=== PATIENT | female | born 1970 | race Caucasian/White ===

== ENCOUNTER 2019-12-01 09:00 | Emergency (ER) | payer OTHER, SELFPAY ==
--- NOTE | ~2019-12-01 | XR_ITS ---
EXAMINATION: XR hip BI 2V w AP pelvis DATE: 12/01/2019 10:32 INDICATION: Bilateral hip pain. TECHNIQUE: An anteroposterior view of the pelvis and 2 views of each hip were obtained. COMPARISON: CT abdomen and pelvis 05/08/2017 FINDINGS: There is lumbar levocurvature and severe spondylosis. No fracture. The hip joint spaces are normal. There is a benign bone island in left ischium. There are surgical clips in the pelvis. IMPRESSION: 1. Normal hips. 2. Severe lumbar spondylosis. Reviewed, dictated and finalized at location A.
--- NOTE | ~2019-12-01 | CT_ITS ---
EXAMINATION: CT lumbar spine wo con DATE: 12/01/2019 10:24 INDICATION: Low back injury. TECHNIQUE: Computed tomography (CT) of the lumbar spine was performed without intravenous contrast. A utomated exposure control and iterative reconstruction technique were employed. The dose-length produ ct was 1241.73 mGy-cm. COMPARISON: CT abdomen and pelvis 05/08/2017 FINDINGS: There is a 1 mm stone in right kidney. There is 6 degrees levocurvature of lumbar spine. Ve rtebral body heights are normal. There is mildly decreased disc height at L2-L3, severely decreased d isc height at L4-L5, and moderately decreased disc height at L5-S1. The following disc levels are spe cifically discussed: L1-L2: The disc does not extend beyond the endplate margin. There is mild bilateral facet joint osteo arthritis. There is no neural foraminal stenosis. There is no central canal stenosis. L2-L3: The disc is bulging. There is mild bilateral facet joint osteoarthritis. There is mild bilater al neural foraminal stenosis. There is mild central canal stenosis. L3-L4: The disc is bulging. There is moderate right and mild left facet joint osteoarthritis. There i s mild bilateral neural foraminal stenosis. There is mild central canal stenosis. L4-L5: The disc is bulging. There is severe bilateral facet joint osteoarthritis. There is mild right and moderate left neural foraminal stenosis. There is mild central canal stenosis. L5-S1: The disc is bulging. There is severe bilateral facet joint osteoarthritis. There is mild bilat eral neural foraminal stenosis. There is mild central canal stenosis. IMPRESSION: 1. Severe lumbar spondylosis. Reviewed, dictated and finalized at location A.
[2019-12-01 09:04] VITALS: BP 149/79; PULSE 83; RESP 18; TEMP 36.8; O2SAT 100
--- NOTE | 2019-12-01 09:14 | ED.GENADULT ---
HPI - General Adult General Chief complaint: Unspecified Stated complaint: flare up Time Seen by Provider: 12/01/19 09:14 Source: patient Mode of arrival: ambulatory Limitations: no limitations History of Present Illness HPI narrative: Patient is a 49-year-old female with a history of mixed connective tissue disease who presents for evaluation of flareup. Patient reports her hips feel as if they are burning, she states she is having a flareup. She denies any fever, chills, nausea or vomiting. She denies any rash, redness over the joint spaces. Patient is currently on Plaquenil for maintenance of her connective tissue disease, she denies any current steroids, but states she typically takes these when she is beginning to have a flareup. She denies any recent falls or injuries. No dysuria or hematuria. She follows with Dr. HOWARD at [facility] rheumatology. Related Data Home Medications Medication Instructions Recorded Confirmed albuterol sulfate 90 mcg/actuation 2 inhalation INHALATION Q6H PRN 11/14/19 breath activated powder inhaler amlodipine 5 mg tablet 5 mg PO DAILY 11/14/19 bupropion HCl 150 mg 24 hr tablet, 150 mg PO QAM 11/14/19 extended release cholecalciferol (vitamin D3) 125 125 mcg PO DAILY 11/14/19 mcg (5,000 unit) capsule clobetasol 0.05 % topical cream 1 applic TOPICAL DAILY 11/14/19 erenumab-aooe 70 mg/mL 70 mg SUB-Q MONTHLY 11/14/19 subcutaneous auto-injector eszopiclone 3 mg tablet 3 mg PO ONCE 11/14/19 gabapentin 600 mg tablet 600 mg PO TID 11/14/19 hydrochlorothiazide 25 mg tablet 25 mg PO DAILY 11/14/19 hydroxychloroquine 200 mg tablet 200 mg PO DAILY 11/14/19 labetalol 100 mg tablet 100 mg PO Q12H 11/14/19 lisdexamfetamine 50 mg capsule 50 mg PO DAILY 11/14/19 lisinopril 40 mg tablet 40 mg PO DAILY 11/14/19 magnesium 30 mg tablet 30 mg PO DAILY 11/14/19 montelukast 10 mg tablet 10 mg PO DAILY 11/14/19 ondansetron HCl 4 mg tablet 4 mg PO Q8H 11/14/19 potassium chloride 10 mEq 10 meq PO DAILY 03/24/20 capsule,extended release promethazine 25 mg tablet 25 mg PO Q6H PRN 11/14/19 sumatriptan succinate 100 mg tablet 100 mg PO ONCE 11/14/19 venlafaxine 75 mg tablet 75 mg PO DAILY 11/14/19 Allergies Allergy/AdvReac Type Severity Reaction Status Date / Time prochlorperazine Allergy Mild loopy Verified 11/21/19 12:21 adhesive Allergy Hives Verified 11/21/19 12:21 metoclopramide [From Reglan] Allergy Other Verified 11/21/19 12:21 Review of Systems Review of Systems: Narrative: CONSTITUTIONAL: Denies fever, chills, or sweats. ENT: Denies rhinorrhea, congestion, sore throat, or otalgia. CARDIOVASCULAR: Denies chest pain, palpitations, or edema. RESPIRATORY: Denies cough or dyspnea. GASTROINTESTINAL: Denies abdominal pain, nausea, vomiting, or diarrhea. GENITOURINARY: Denies dysuria or hematuria. SKIN: Denies rash or itching. MUSCULOSKELETAL: Reports back pain, reports bilateral hip pain, denies myalgias NEUROLOGIC: Denies headache, numbness, or weakness. [facility] Past Medical History Medical History Asthma High blood pressure History of MRSA infection Mild depression Mixed connective tissue disease Surgical History Surgical History H/O: hysterectomy History of arthroplasty of right knee History of tonsillectomy Hx of nasal septoplasty Social History Social History Smoking status: Never smoker Second hand tobacco smoke exposure: No Alcohol intake: never Gender identity (if verbalized by the patient): Female Exam Narrative: Exam Narrative: GENERAL: Awake, alert, conversant HEAD: Normocephalic, atraumatic. EYES: PERRLA and EOMI. ENT: Nares clear, no rhinorrhea or epistaxis. Mucous membranes moist. NECK: Supple. CHEST: No respiratory distress, breathing even and non labored HEART: Regular ra
[2019-12-01 09:41] LABS: Basophils Absolute Auto 0.1 K/mm3 (0.0-0.1); Basophils Percent Auto 0.6 % (0.2-1.2); Eosinophils Percent Auto 0.2 % (0-4.4); Hematocrit 39.7 % (37.0-47.0); Hemoglobin 12.8 g/dL (12.0-15.0); Immature Granulocyte Absolute 0.05 K/mm3 (0.00-0.031); Immature Granulocyte Percent A 0.4 % (0-0.5); Lymphocytes Absolute Auto 1.57 K/mm3 (0.9-3.2); Lymphocytes Percent Auto 12.1 % (18.3-44.2); Mean Corpuscular HGB Conc 32.2 g/dl (32-36); Mean Corpuscular Hemoglobin 28.3 pg (26-34); Mean Corpuscular Volume 87.6 fl (80-100); Mean Platelet Volume 9.8 fl (7.4-10.4); Monocytes Absolute Auto 0.6 K/mm3 (0.1-0.6); Monocytes Percent Auto 4.5 % (2.6-8.5); Neutrophils Absolute Auto 10.7 K/mm3 (1.3-6.7); Neutrophils Percent Auto 82.2 % (45.5-73.1); Platelet Count Result 316 k/mm3 (150-375); Red Blood Count 4.53 M/mm3 (4.2-5.4); Red Cell Distribution Width 13.3 % (11.5-14.5)
[2019-12-01 09:57] LABS: Blood Urea Nitrogen 20 mg/dL (7-17); CRP < 0.5 mg/dL (<1.0); Calcium 9.3 mg/dL (8.4-10.2); Carbon Dioxide 26 mmol/L (22-30); Chloride 103 mmol/L (98-107); Estimated CRCL calculation 98 ml/min; Estimated Glomerular Filt Rate > 60; Glucose 97 mg/dL (65-105); Potassium 3.6 mmol/L (3.4-5.0); Sodium 139 mmol/L (137-145)
[2019-12-01 10:07] LABS: Erythrocyte Sedimentation Rate 14 mm/hr (0-20)
[2019-12-01 10:57] VITALS: BP 137/92; PULSE 98; RESP 20; TEMP 36.7; O2SAT 100
== END 2019-12-01 11:28 | disposition home or self-care (01) ==
PROVIDERS: Emergency Provider Emergency Medicine
DX: M35.1 Other overlap syndromes (principal); M25.552 Pain in left hip; M25.551 Pain in right hip; M54.5 Low back pain; J45.909 Unspecified asthma, uncomplicated; Z86.14 Personal history of Methicillin resistant Staphylococcus aureus infection; F32.9 Major depressive disorder, single episode, unspecified; I10 Essential (primary) hypertension; M47.816 Spondylosis without myelopathy or radiculopathy, lumbar region
CPT/HCPCS: 36415; 72131; 73521; 80048; 85025; 85652; 86140; 96374; 99284; J1100

== ENCOUNTER 2020-02-26 14:11 | Outpatient (CLI) | payer OTHER, SELFPAY ==
[2020-02-26 15:22] LABS: Basophils Absolute Auto 0.1 K/mm3 (0.0-0.1); Basophils Percent Auto 1.4 % (0.2-1.2); Eosinophils Absolute Auto 0.2 K/mm3 (0-0.3); Eosinophils Percent Auto 2.2 % (0-4.4); Hematocrit 40.8 % (37.0-47.0); Hemoglobin 13.4 g/dL (12.0-15.0); Immature Granulocyte Absolute 0.02 K/mm3 (0.00-0.031); Immature Granulocyte Percent A 0.2 % (0-0.5); Lymphocytes Percent Auto 21.7 % (18.3-44.2); Mean Corpuscular HGB Conc 32.8 g/dl (32-36); Mean Corpuscular Hemoglobin 29.1 pg (26-34); Mean Corpuscular Volume 88.5 fl (80-100); Monocytes Absolute Auto 0.6 K/mm3 (0.1-0.6); Monocytes Percent Auto 6.2 % (2.6-8.5); Neutrophils Absolute Auto 6.9 K/mm3 (1.3-6.7); Neutrophils Percent Auto 68.3 % (45.5-73.1); Platelet Count Result 374 k/mm3 (150-375); Red Blood Count 4.61 M/mm3 (4.2-5.4); Red Cell Distribution Width 13.2 % (11.5-14.5); White Blood Count 10.1 K/mm3 (4.5-10.0)
[2020-02-26 15:32] LABS: Hemoglobin A1C 5.3 % (<5.7)
[2020-02-26 15:34] LABS: Blood Urea Nitrogen 20 mg/dL (7-17); Calcium 9.7 mg/dL (8.4-10.2); Carbon Dioxide 27 mmol/L (22-30); Chloride 100 mmol/L (98-107); Estimated Glomerular Filt Rate > 60; Glucose 86 mg/dL (65-105); Potassium 3.8 mmol/L (3.4-5.0); Sodium 138 mmol/L (137-145)
[2020-02-26 15:37] LABS: Urine Cotinine NEGATIVE
== END 2020-02-26 14:12 | disposition home or self-care (01) ==
LOC: ANHSURGERY 14:13
PROVIDERS: Anesthesiology; PCP Internal Medicine; Visit Provider Orthopaedic Surgery
DX: M17.11 Unilateral primary osteoarthritis, right knee (principal); I10 Essential (primary) hypertension
CPT/HCPCS: 36415; 80048; 80307; 82040; 83036; 85025; 86850; 86900; 86901

== ENCOUNTER 2020-03-04 00:46 | Outpatient (CLI) | payer OTHER, SELFPAY ==
[2020-03-04 18:41] LABS: SARS-CoV-2 RNA PCR Negative
== END 2020-03-04 00:47 | disposition home or self-care (01) ==
LOC: ANHCOVIDDT 00:47
PROVIDERS: Visit Provider Orthopaedic Surgery
DX: M17.11 Unilateral primary osteoarthritis, right knee (principal)
CPT/HCPCS: 87635; C9803; U0003

== ENCOUNTER 2020-03-07 15:35 | Observation (INO) | payer OTHER, SELFPAY ==
[2020-02-26 15:02] VITALS: BMI 36.3
[2020-02-26 15:14] VITALS: BP 129/71; PULSE 75; RESP 18; TEMP 36.8; O2SAT 100
--- NOTE | 2020-02-29 10:10 | PM.IMHP ---
H&P: HPI History of Present Illness Chief complaint: OA Right Knee Narrative: Joyce Tompkins is a 49 year old female Who presents with a chronic history of right knee pain. She has pain with ambulation she has started pain wrist pain and night pain. Cannot stand or walk for long periods is aching and pain that limits her daily activities. Pain is worse with activities somewhat relieved by rest. It has been going on for many years and worsening with time. X-rays do show advanced primary osteoarthritis in the right knee joint. At this point patient has failed conservative measures including cortisone therapy and anti-inflammatories and has discussed further treatment options in detail with Dr. Landrum she would now like to proceed with a right total knee arthroplasty. Review of Systems Review of Systems: All systems reviewed & are unremarkable except as noted in HPI and below PMFSH Past Medical History Medical History Asthma High blood pressure History of MRSA infection Mild depression Mixed connective tissue disease Surgical History Surgical History H/O: hysterectomy History of arthroplasty of right knee History of tonsillectomy Hx of nasal septoplasty Social History Social History Smoking status: Never smoker Second hand tobacco smoke exposure: No Additional smoking assessment comments: DENIES ANY FORM OF TOBACCO USE Alcohol intake: never Substance use: never Gender identity (if verbalized by the patient): Female Spiritual care concerns: No Meds Home Medications and Allergies Home Medications Medication Instructions Recorded Confirmed Type albuterol sulfate 90 mcg/actuation 2 inhalation INHALATION Q6H PRN 11/14/19 02/26/20 History breath activated powder inhaler amlodipine 5 mg tablet 5 mg PO DAILY 11/14/19 02/26/20 History bupropion HCl 150 mg 24 hr tablet, 150 mg PO BID 11/14/19 02/26/20 History extended release cholecalciferol (vitamin D3) 125 50,000 mcg PO WEEKLY 11/14/19 02/26/20 History mcg (5,000 unit) capsule clobetasol 0.05 % topical cream 1 applic TOPICAL DAILY PRN 11/14/19 02/26/20 History erenumab-aooe 70 mg/mL 70 mg SUB-Q MONTHLY 11/14/19 02/26/20 History subcutaneous auto-injector eszopiclone 3 mg tablet 3 mg PO HS 11/14/19 02/26/20 History gabapentin 600 mg tablet 600 mg PO TID 11/14/19 02/26/20 History hydrochlorothiazide 25 mg tablet 25 mg PO DAILY 11/14/19 02/26/20 History hydroxychloroquine 200 mg tablet 200 mg PO BID 11/14/19 02/26/20 History labetalol 100 mg tablet 100 mg PO Q12H 11/14/19 02/26/20 History lisdexamfetamine 50 mg capsule 50 mg PO PRN PRN 11/14/19 02/26/20 History lisinopril 40 mg tablet 40 mg PO DAILY 11/14/19 02/26/20 History magnesium 30 mg tablet 250 mg PO DAILY 11/14/19 02/26/20 History montelukast 10 mg tablet 10 mg PO DAILY 11/14/19 02/26/20 History ondansetron HCl 4 mg tablet 4 mg PO PRN PRN 11/14/19 02/26/20 History potassium chloride 10 mEq 10 meq PO DAILY 11/14/19 02/26/20 History capsule,extended release promethazine 25 mg tablet 25 mg PO Q6H PRN 11/14/19 02/26/20 History sumatriptan succinate 100 mg tablet 100 mg PO PRN PRN 11/14/19 02/26/20 History venlafaxine 75 mg tablet 75 mg PO DAILY 11/14/19 02/26/20 History alprazolam 0.5 mg PO PRN PRN 02/26/20 02/26/20 History hydrocodone-acetaminophen [[place]] 1 tablet PO Q8H PRN 02/26/20 02/26/20 History levothyroxine 25 mcg PO DAILY 02/26/20 02/26/20 History Allergies Allergy/AdvReac Type Severity Reaction Status Date / Time prochlorperazine Allergy Mild loopy Verified 02/26/20 15:44 adhesive Allergy Hives/ITCHI Verified 02/26/20 14:21 NG metoclopramide [From Reglan] Allergy LOOPY Verified 02/26/20 14:21 Exam Narrative: Exam Narrative: patient is a well-developed well-nourished female no acute distress she is alert and
[2020-03-06] VITALS (15 sets, daily range): BP systolic 97–119; BP diastolic 54–76; PULSE 55–79; RESP 10–24; TEMP 35.7–36.8; O2SAT 93–99
--- NOTE | 2020-03-06 05:55 | ECG_ITS ---
Measurements Intervals [place] Rate: 65 P: 27 AL: 155 QRS: -3 QRSD: 110 T: 5 QT: 435 QTc: 454 Interpretive Statements SINUS RHYTHM INCOMPLETE RIGHT BUNDLE BRANCH BLOCK VOLTAGE CRITERIA FOR LVH BORDERLINE T WAVE ABNORMALITY- INFERIOR LEADS BASELINE ARTIFACT- I, II, V1 BORDERLINE ECG Electronically Signed On 03-06-2020 8:09:37 CDT by Jonathon Barnhart D.O.
[2020-03-06] MEDS: LACTATED RINGERS 1,000 ML 30 ML IV CONT ×2 (06:40→09:09)
[2020-03-06] MEDS: KETOROLAC 15 MG/ML VIAL (*BKC) IV PUSH (06:55)
[2020-03-06] MEDS: ACETAMINOPHEN 500 MG TABLET 1000 MG PO (06:55)
[2020-03-06] MEDS: TRANEXAMIC ACID 1,000MG/ISO100 1,000 MG/100 ML BAG 200 MG IVPB (06:59)
--- NOTE | 2020-03-06 07:11 | WPDANESEPPF ---
Anes - Initial Pre Proc Eval Procedure: Operation Date: 03/06/20 07:30 Proposed Procedures p Right Total Knee Arthroplasty - Bakari Landrum MD Date/Time: 03/06/20 07:11 Surgeon: Bakari Landrum MD Pre Op Diagnosis: OA Right Knee Patient Data Age: 49 Gender: F Height: 5 ft 6 in Weight: 103.2 kg Last Vital Signs Temp 36.7 C 03/06/20 07:01 Pulse 66 03/06/20 07:01 Resp 18 02/26/20 15:14 BP 97/59 L 03/06/20 07:01 Pulse Ox 98 03/06/20 07:01 Allergies Allergy/AdvReac Type Severity Reaction Status Date / Time prochlorperazine Allergy Mild loopy Verified 02/26/20 15:44 adhesive Allergy Hives/ITCHI Verified 02/26/20 14:21 NG metoclopramide [From Reglan] Allergy LOOPY Verified 02/26/20 14:21 Home Medications Medication Instructions Recorded Confirmed Type albuterol sulfate 90 mcg/actuation 2 inhalation INHALATION Q6H PRN 11/14/19 03/06/20 History breath activated powder inhaler amlodipine 5 mg tablet 5 mg PO DAILY 11/14/19 03/06/20 History bupropion HCl 150 mg 24 hr tablet, 150 mg PO BID 11/14/19 03/06/20 History extended release cholecalciferol (vitamin D3) 125 50,000 mcg PO WEEKLY 11/14/19 03/06/20 History mcg (5,000 unit) capsule clobetasol 0.05 % topical cream 1 applic TOPICAL DAILY PRN 11/14/19 03/06/20 History erenumab-aooe 70 mg/mL 70 mg SUB-Q MONTHLY 11/14/19 03/06/20 History subcutaneous auto-injector eszopiclone 3 mg tablet 3 mg PO HS 11/14/19 03/06/20 History gabapentin 600 mg tablet 600 mg PO TID 11/14/19 03/06/20 History hydrochlorothiazide 25 mg tablet 25 mg PO DAILY 11/14/19 03/06/20 History hydroxychloroquine 200 mg tablet 200 mg PO BID 11/14/19 03/06/20 History labetalol 100 mg tablet 100 mg PO Q12H 11/14/19 03/06/20 History lisdexamfetamine 50 mg capsule 50 mg PO PRN PRN 11/14/19 02/26/20 History lisinopril 40 mg tablet 40 mg PO DAILY 11/14/19 03/06/20 History magnesium 30 mg tablet 250 mg PO DAILY 11/14/19 03/06/20 History montelukast 10 mg tablet 10 mg PO DAILY 11/14/19 03/06/20 History ondansetron HCl 4 mg tablet 4 mg PO PRN PRN 11/14/19 03/06/20 History potassium chloride 10 mEq 10 meq PO DAILY 11/14/19 03/06/20 History capsule,extended release promethazine 25 mg tablet 25 mg PO Q6H PRN 11/14/19 02/26/20 History sumatriptan succinate 100 mg tablet 100 mg PO PRN PRN 11/14/19 03/06/20 History venlafaxine 75 mg tablet 75 mg PO DAILY 11/14/19 03/06/20 History alprazolam 0.5 mg PO PRN PRN 02/26/20 03/06/20 History hydrocodone-acetaminophen [[place]] 1 tablet PO Q8H PRN 02/26/20 03/06/20 History levothyroxine 25 mcg PO DAILY 02/26/20 03/06/20 History baclofen 10 mg PO TID 03/06/20 03/06/20 History diphenoxylate-atropine [Lomotil] 1 tablet PO TID PRN 03/06/20 03/06/20 History Patient hx anesthesia problems: none Family hx anesthesia problems: none PMFSH Past Medical History Medical History Asthma High blood pressure History of MRSA infection Mild depression Mixed connective tissue disease Surgical History Surgical History H/O: hysterectomy History of arthroplasty of right knee History of tonsillectomy Hx of nasal septoplasty Social History Social History Smoking status: Never smoker Second hand tobacco smoke exposure: No Additional smoking assessment comments: DENIES ANY FORM OF TOBACCO USE Alcohol intake: never Substance use: never Living arrangements: other Gender identity (if verbalized by the patient): Female Spiritual care concerns: No Anes - Eval Final PreProcedure Day of Procedure 03/06/20 07:11 Patient weight: obese Heart: regular rate and rhythm Lungs: clear to auscultation Airway: Mallampati scale class II Neurological: alert and oriented Last oral intake: >/= 8 hours ASA classification: III Emergent: no Anesthetic plan: proceed Anesthesia type an
--- NOTE | 2020-03-06 07:14 | WPDHPUPDATE1 ---
History and Physical Update Update Date/Time: 03/06/20 07:14 History and Physical has been reviewed, including an updated exam of the patient. There are NO changes in the patient's condition. Risks, benefits, and alternatives have been discussed and questions answered. Patient agrees to proceed with procedure.
--- NOTE | 2020-03-06 07:19 | WPDANESPNB ---
Anes - Peripheral Nerve Block Date/Time: 03/06/20 07:19 I have discussed with the patient/family/POA the placement of a peripheral nerve block for post-operative pain management, including associated risks, benefits, complications, and side effects. Alternative methods of post-operative analgesia were detailed. Questions were solicited and answers provided to the satisfaction of the patient/family/POA. Time-Out: A pre-procedural Time-Out was completed immediately before starting the procedure and confirmed: Patient Identification, Site, Procedure, Patient Position and the Availability of Requisite Equipment. Clinical Indications: Acute post-operative pain management requested by the operative surgeon. Nerve Block Insertion Note Anes-nerve block: femoral right Needle: 22 gauge, stimulating, insulated echogenic needle. Needle length: 50 mm Technique: nerve stimulation lost at (mA) (0.35) Injectate: bupivacaine 0.5% with epi 5 mcg/ml (30) and dexamethasone (mg) (8) Observations: tolerated well Complications: none Procedure start time:: 709 Procedure end time:: 716
[2020-03-06] MEDS: ceFAZolin 2 GM/D5W 50 ML 2 GM/50 ML BAG IVPB (07:26)
[2020-03-06] MEDS: GENTAMICIN BONE CEMENT REFOBACIN 1 EACH TOPICAL (07:43)
--- NOTE | 2020-03-06 08:37 | P.OP_ITS ---
Procedure Note - Detailed Date of procedure: 03/06/20 Pre-op diagnosis: OA Right Knee Post-op diagnosis: same Procedure performed: [Right] total knee arthroplasty Description of procedure: The patient was brought to the operating room. General anesthetic was administered. Placed on the operating table and sterilely prepped and draped in usual manner. A longitudinal incision was made. Tourniquet inflated to 300 mmHg for a total of [time] minutes. Dissection carried down to the fascia. Medial parapatellar incision was made and the patella subluxated laterally. Patella cut from [23] to [15] mm and sized for a [37] mm button. The tibia cut perpendicular to the long axis and femur cut in 5 degrees of valgus, a [65] femur trialed. [67] tibia was felt to fit the best. The soft tissue balanced, hemostasis obtained. All [address], [67] tibia, [65] femur, [37] mm patella, and [10] mm poly. Motion was 0-125 degrees with good stablility and flexion and extension. The wound was closed with #2 vicryl, 2-0 Vicryl and shreya. Anesthesia: GETA Surgeon: Bakari Landrum MD Costume Design Teacher: Joseph Fontaine Estimated blood loss (mL): 200 Drains: No Packing: No Pathology: none sent Complications: No immediate complications Condition: stable Disposition: PACU Findings: arthritis
--- NOTE | 2020-03-06 08:38 | SUR.OPER ---
EBL: 100ML
--- NOTE | 2020-03-06 09:36 | SUR.PHASEI ---
0935 radiology at bedside for ap/lat of lt knee
--- NOTE | 2020-03-06 10:03 | SUR.PHASEI ---
1002 sbar faxed floor notified
[2020-03-06] MEDS: oxyCODONE/ACETAMINOPHEN 5-325 MG TABLET 1 TABLET PO ×3 (10:56→23:50)
--- NOTE | 2020-03-06 11:02 | ADMGEN ---
This patient, Joyce Tompkins, was admitted to 2 Medical Room 241-01. Patient/family oriented to hospital policies and general routines including ID bracelet, bed and alarms, visiting hours, pain management, procedures, bathroom and other care routines, personal items, smoking policy, room service/diet, and visiting hours. Valuables list has been completed. Information on how to activate the Rapid Response Team has been discussed. Patient/Family are encouraged to report perceived risks to care and to ask questions if they do not understand what they are told or what they should do.
[2020-03-06] MEDS: SODIUM CHLORIDE 0.9% IV 1,000 ML 125 ML IV CONT ×2 (11:15→20:02)
[2020-03-06] MEDS: MORPHINE SULFATE 4 MG/ML INJ IV PUSH ×5 (11:17→23:10)
[2020-03-06] MEDS: hydroCHLOROthiazide 25 MG TABLET PO (12:07)
[2020-03-06] MEDS: lisinopriL 20 MG TABLET 40 MG PO (12:07)
[2020-03-06] MEDS: GABAPENTIN 300 MG CAPSULE 600 MG PO ×2 (13:31→21:53)
[2020-03-06] MEDS: BACLOFEN 10 MG TABLET PO ×2 (13:31→21:52)
[2020-03-06] MEDS: ALPRAZolam 0.5 MG TABLET PO ×2 (13:34→20:09)
[2020-03-06] MEDS: PROMETHAZINE HCL 25 MG TABLET PO ×2 (13:35→23:16)
--- NOTE | 2020-03-06 13:52 | PCPTNOTE ---
Attempted PT evaluation. Pt refusing therapy at this time secondary to pain. Spoke with pts nurse, Aldo, who states she has paged Dr. Landrum and will call me with an update when she hears back.
[2020-03-06] MEDS: CYCLOBENZAPRINE HCL 10 MG TABLET PO ×2 (14:08→21:51)
[2020-03-06] MEDS: CELECOXIB 200 MG CAPSULE 400 MG PO (16:01)
[2020-03-06] MEDS: RIVAROXABAN 10 MG TABLET PO (16:01)
[2020-03-06] MEDS: HYDROXYCHLOROQUINE SULFATE 200 MG TABLET PO (16:01)
[2020-03-06] MEDS: DOCUSATE SODIUM 100 MG CAPSULE PO (20:04)
[2020-03-06] MEDS: LABETALOL HCL 100 MG TABLET PO (20:04)
[2020-03-06] MEDS: traMADol HCL 50 MG TABLET PO (21:52)
[2020-03-07] VITALS (9 sets, daily range): BP systolic 108–134; BP diastolic 52–73; PULSE 72–100; RESP 16–22; TEMP 36.1–36.6; O2SAT 96–100
--- NOTE | ~2020-03-07 | XR_ITS ---
EXAMINATION: XR knee RT 2V DATE: 03/06/2020 09:43 CDT INDICATION: Right total knee arthroplasty TECHNIQUE: 2 views right knee FINDINGS: There is a right total knee arthroplasty in expected position. Subcutaneous gas with fluid and air in the joint and overlying skin shreya are consistent with recent surgery. No evidence of p eriprosthetic fracture. IMPRESSION: 1. Recent right total knee arthroplasty. Reviewed, dictated and finalized at location B.
--- NOTE | ~2020-03-07 | US_ITS ---
EXAMINATION:US venous doppler LE RT INDICATION:Right leg pain after knee replacement. Evaluate for DVT. TECHNIQUE: Multiple grayscale, color flow and Doppler images of the right lower extremity deep venous systems were obtained and reviewed. COMPARISON:04/22/2015 FINDINGS: The common femoral, superficial femoral and popliteal veins demonstrate normal respiratory variation, augmentation and compressibility. Color flow is also seen within the posterior tibial, pe roneal, greater saphenous and profunda veins. IMPRESSION: 1: No lower extremity deep venous thrombosis. Reviewed, dictated and finalized at location B.
[2020-03-07] MEDS: SODIUM CHLORIDE 0.9% IV 1,000 ML 125 ML IV CONT (02:47)
[2020-03-07] MEDS: MORPHINE SULFATE 4 MG/ML INJ IV PUSH ×3 (02:48→09:02)
[2020-03-07] MEDS: oxyCODONE/ACETAMINOPHEN 5-325 MG TABLET 1 TABLET PO ×3 (03:36→18:55)
[2020-03-07] MEDS: PROMETHAZINE HCL 25 MG TABLET PO ×3 (03:43→21:58)
[2020-03-07] MEDS: CYCLOBENZAPRINE HCL 10 MG TABLET PO ×3 (05:11→21:54)
[2020-03-07] MEDS: LEVOTHYROXINE SODIUM 25 MCG TABLET PO (05:11)
[2020-03-07] MEDS: GABAPENTIN 300 MG CAPSULE 600 MG PO ×3 (05:11→21:54)
[2020-03-07] MEDS: BACLOFEN 10 MG TABLET PO ×3 (05:12→21:54)
[2020-03-07] MEDS: ALPRAZolam 0.5 MG TABLET PO ×2 (05:20→18:55)
[2020-03-07 06:23] LABS: Basophils Percent Auto 0.3 % (0.2-1.2); Hematocrit 27.5 % (37.0-47.0); Hemoglobin 9.1 g/dL (12.0-15.0); Immature Granulocyte Absolute 0.05 K/mm3 (0.00-0.031); Immature Granulocyte Percent A 0.4 % (0-0.5); Lymphocytes Absolute Auto 1.21 K/mm3 (0.9-3.2); Lymphocytes Percent Auto 8.8 % (18.3-44.2); Mean Corpuscular HGB Conc 33.1 g/dl (32-36); Mean Corpuscular Hemoglobin 29.3 pg (26-34); Mean Corpuscular Volume 88.4 fl (80-100); Mean Platelet Volume 10.7 fl (7.4-10.4); Monocytes Absolute Auto 1.1 K/mm3 (0.1-0.6); Monocytes Percent Auto 8.2 % (2.6-8.5); Neutrophils Absolute Auto 11.4 K/mm3 (1.3-6.7); Neutrophils Percent Auto 82.3 % (45.5-73.1); Platelet Count Result 277 k/mm3 (150-375); Red Blood Count 3.11 M/mm3 (4.2-5.4); Red Cell Distribution Width 13.1 % (11.5-14.5); White Blood Count 13.8 K/mm3 (4.5-10.0)
[2020-03-07 06:37] LABS: Blood Urea Nitrogen 18 mg/dL (7-17); Calcium 8.7 mg/dL (8.4-10.2); Carbon Dioxide 26 mmol/L (22-30); Chloride 102 mmol/L (98-107); Estimated CRCL calculation 102 ml/min; Estimated Glomerular Filt Rate > 60; Glucose 170 mg/dL (65-105); Potassium 3.8 mmol/L (3.4-5.0); Sodium 135 mmol/L (137-145)
--- NOTE | 2020-03-07 06:40 | PC.NURSE ---
paged and recieved return call from dr pedersen re: patient's poor pain control and the inability to r/o positive yajaira's sign in setting of post operative tka. orders recieved for stat venous doppler study of rle. informed patient of new orders.
[2020-03-07] MEDS: DOCUSATE SODIUM 100 MG CAPSULE PO ×2 (09:02→21:54)
[2020-03-07] MEDS: CELECOXIB 200 MG CAPSULE 400 MG PO (09:07)
[2020-03-07] MEDS: HYDROXYCHLOROQUINE SULFATE 200 MG TABLET PO ×2 (09:09→16:51)
[2020-03-07] MEDS: lisinopriL 20 MG TABLET 40 MG PO (09:09)
[2020-03-07] MEDS: VENLAFAXINE HCL 75 MG TABLET PO (09:10)
[2020-03-07] MEDS: MONTELUKAST SODIUM 10 MG TABLET PO (09:11)
[2020-03-07] MEDS: POTASSIUM CHLORIDE 10 MEQ TABLET.ER PO (09:11)
[2020-03-07] MEDS: LABETALOL HCL 100 MG TABLET PO ×2 (09:12→21:56)
--- NOTE | 2020-03-07 09:30 | PCPTNOTE ---
Attempted to see Pt at 8:30 Pt was with OT. Attempted to see Pt again at 9:25 for therapy, Nursing requested therapy to return due to Pt's increased pain and restlessness. According to Nursing Pt is very upset and needs time for her pain pill to take effect and become calmer before getting up again with therapy. Will attempt again.
--- NOTE | 2020-03-07 10:10 | PM.IMCN ---
Assessment and Plan Assessment and plan (1) History of arthroplasty of right knee: Code(s): Z96.651 - Presence of right artificial knee joint Status: Acute Assessment and Plan: POD [address] Land[address]; Patient in pain this morning. Nurse contacting primary service for adjusting meds. Otherwise no complaints. NV intact. Right LE venous doppler negative for DVT Post op care, pain management, PT/OT, DVT ppx per primary service Monitor (2) Osteoarthritis: Code(s): M19.90 - Unspecified osteoarthritis, unspecified site Status: Acute Assessment and Plan: Please see above a/p (3) Hypertension: Code(s): I10 - Essential (primary) hypertension Status: Acute Assessment and Plan: BP reviewed and running a bit soft post operatively Will hold Amlodipine and HCTZ for now Continue labetalol and lisinopril Monitor closely Resume medications as appropriate (4) Hypothyroidism: Code(s): E03.9 - Hypothyroidism, unspecified Status: Acute Assessment and Plan: Recently diagnosed Will do TSH tomorrow Continue home levothyroxine (5) Insomnia: Code(s): G47.00 - Insomnia, unspecified Status: Acute Assessment and Plan: Cotinue home medications (6) Mixed connective tissue disease: Code(s): M35.1 - Other overlap syndromes Status: Acute Assessment and Plan: Nubia-Danlos/mixed connective tissue disease per patient; takes hydroxychloroquine and [place] at home for pain Continue hydroxychloroquine (7) Asthma: Code(s): J45.909 - Unspecified asthma, uncomplicated Status: Acute Assessment and Plan: Lung exam benign; no acute issues PRN albuterol inhaler ordered Monitor Additional Plan Collaborating Physician for this Consult H&P is Dr. Juan Manuel SOMMER 03/07/20 at roughly 10:00 am Thank you for allowing the Hospitalist team to care for this patient during their stay. We will continue to follow with you. Please call with any questions HPI Data of Consult Consult date: 03/07/20 Requesting Physician: Bakari Landrum MD Primary Care Provider: EMILIO,GENESIS Evans M.D. Consult Narrative Reason for consult: Medical Management of comorbid conditions Narrative: Joyce Tompkins is a 49 year old female with history of Ehers-Danlos/mixed connective tissue disease, HTN, hypothyroidism, and OA who presented to the hospital on 03/06 for elective RTKA per Dr. Landrum - POD1; Hospitalist service has been consulted by primary service for medical management of comorbid conditions. Patient has had right OA for several years and his gone through multiple cortisone injections and anti-inflammatory medications. She states her pain was slowly worsening over the past several weeks to months with limited efficacy with above conservative treatments over time, prompting her to proceed with elective RTKA with Dr. Landrum. She states it was bone on bone . She notes pain was better with rest. She is in severe 10/10 pain today in her right knee and noting her thigh and calf are swollen; she is awaiting pain medication to be adjusted. She notes some nausea associated with her pain without vomiting. She is passing flatus okay. Tolerating PO okay. She otherwise has no other complaints for me at the moment. Denies f/c/s, headaches, dizziness, lightheadedness, cp/palpitations, sob/cough, v/d/c, abd pain, changes in BMs, dysuria, hematuria, cloudy urine, calf pain/swelling in left leg Review of Systems Review of Systems: All systems reviewed & are unremarkable except as noted in HPI and below PMFSH Past Medical History Medical History (Reviewed 03/07/20 @ 10:28 by Danilo Aguayo
--- NOTE | 2020-03-07 10:11 | WPDANESPN ---
Anes - Prog Note Post-Op Date/Time: 03/07/20 10:11 Cardiovascular status: normal Respiratory status: normal Airway patency: baseline Mental status: baseline Post-Op hydration status: normal Vital Signs: Last Vital Signs Temp 36.3 C L 03/07/20 04:00 Pulse 100 03/07/20 09:12 Resp 22 H 03/07/20 04:00 BP 109/63 03/07/20 04:00 Pulse Ox 96 03/07/20 09:18 I/O: Intake & Output 03/06/20 03/07/20 03/07/20 23:59 07:59 15:59 Intake Total 1350 1600 Output Total 350 Balance 1350 1250 Laboratory Tests 03/07/20 05:29 03/07/20 05:29 03/07/20 03/07/20 05:29 05:29 WBC 13.8 H RBC 3.11 L Hgb 9.1 L D Hct 27.5 L MCV 88.4 MCH 29.3 MCHC 33.1 RDW 13.1 Plt Count 277 MPV 10.7 H Immature Gran % (Auto) 0.4 Neut % (Auto) 82.3 H Lymph % (Auto) 8.8 L [place] % (Auto) 8.2 Eos % (Auto) 0.0 Baso % (Auto) 0.3 Lymph # (Auto) 1.21 [place] # (Auto) 1.1 H Eos # (Auto) 0.0 Baso # (Auto) 0.0 Abs Immat Gran (auto) 0.05 H Absolute Neuts (auto) 11.4 H Absolute Nucleated RBC 0.0 Nucleated RBC % 0.0 Sodium 135 L Potassium 3.8 Chloride 102 Carbon Dioxide 26 BUN 18 H Creatinine 0.70 Estim Creat Clear Calc 102 Estimated GFR > 60 Glucose 170 H Calcium 8.7 Post-procedural complaints: none Patient Feedback: Patient satisfied with anesthetic care.
--- NOTE | 2020-03-07 11:30 | PC.NURSE ---
called anesthesiologist to inquire about possible second block, states they do not assist with pain management post op.
--- NOTE | 2020-03-07 13:18 | PCPTNOTE ---
Pt required increased encouragement and reassurance to work with therapy. Pt stated to have 9/10 pain upon therapist entering room however did not exhibit normal pain behaviors. Pt was reassured by therapist and encouraged to work with therapy. Pt was able to come to sitting EOB with SBA, only requiring verbal cues from therapist. Pt demonstrated improved strength and stability with sit to stand transfer and CGA for safety from therapist. Upon ambulation Pt was verbally consolable and able to refocus in order to ambulate 45' with wheeled walker and CGA from therapist for safety. Overall, Pt's functional ability is improving however continues to verbalize increased pain.
--- NOTE | 2020-03-07 14:29 | PM.PNORT ---
Progress Note: A&P Additional Plan Patient is postop day 1 status post right total knee arthroplasty. Pain control issues of slow down a bit will keep her overnight to work on this and also give her 1 more day with therapy so she can be independent with ambulation. Patient voiced understanding as above plan we will have her go home tomorrow as long as everything looks good. We will re-evaluate postop day 2 for potential discharge. Time Spent With Patient Time with patient: less than 15 minutes Subjective Subjective Date/Time Seen: 03/07/20 14:29 Patient is doing well postop day 1 although she is having significant problems with controlling her pain. She did tolerate physical therapy better than expected, she has been switch from morphine to Dilaudid and this seems to be controlling her pain better. She has been advised that she is not going home on this and she will have to rely on oral pain medication such as hydrocodone or Percocet and she agrees with the plan. She does not feel as though she is able to go home quite yet due to her pain. She has been on chronic narcotic pain medication for years so she is aware it is going to be hard to control her pain. She states otherwise she has no significant complaints is eating well without any constitutional symptoms. Review of Systems Review of Systems: All systems reviewed & are unremarkable except as noted in HPI and below Exam Narrative: Exam Narrative: Vital signs stable afebrile neurovascular is patient is intact wound is clean and dry had a little drainage overnight but this afternoon has maintained a dry dressing. Calves are benign. Neurovascularly she is intact able do a straight leg raise easily. Objective Data Vital Signs Vital Signs: Vital Signs - 24 hr 03/06/20 16:59 03/06/20 20:00 03/06/20 23:59 Temperature 36.8 C 36.4 C L 36.4 C L Pulse Rate 67 74 72 Respiratory Rate 19 20 20 Blood Pressure 115/63 109/54 L 102/55 L Pulse Oximetry 98 97 98 03/07/20 00:59 03/07/20 04:00 03/07/20 09:12 Temperature 36.1 C L 36.3 C L Pulse Rate 72 73 100 Respiratory Rate 20 22 H Blood Pressure 108/52 L 109/63 Pulse Oximetry 98 99 03/07/20 09:18 03/07/20 10:00 Temperature 36.1 C L Pulse Rate 80 Respiratory Rate 18 Blood Pressure 109/73 Pulse Oximetry 96 100 Intake/Output Intake/Output: Intake & Output 03/04/20 03/05/20 03/06/20 03/07/20 23:59 23:59 23:59 23:59 Intake Total 2350 2840 Output Total 350 Balance 2350 2490 Meds/Results Medications: Active Medications Generic Name Dose Route Start Last Admin Trade Name Freq PRN Reason Stop Dose Admin Albuterol 2 puff 03/07/20 10:39 Proventil Hfa INHALATION QIDRT PRN Shortness Of Breath Alprazolam 0.5 mg 03/06/20 07:14 03/07/20 05:20 Xanax PO 0.5 mg PRN PRN Administration Anxiety Amlodipine Besylate 5 mg 03/06/20 09:00 03/06/20 11:22 Norvasc PO Not Given DAILY INNA Baclofen 10 mg 03/06/20 14:00 03/07/20 13:33 Lioresal Po PO 10 mg Q8HR INNA Administration Bupropion HCl 150 mg 03/06/20 21:00 03/07/20 09:08 Wellbutrin-Sr (12 Hr) PO 150 mg Q12HR INNA Administration Celecoxib 400 mg 03/06/20 14:00 03/07/20 09:07 Celebrex PO 400 mg DAILY@0800 INNA Administration Clobetasol Propionate 1 applic 03/06/20 07:14 Temovate 0.05% Cream TOPICAL DAILY PRN Itching Cyclobenzaprine HCl 10 mg 03/06/20 14:00 03/07/20 13:33 Flexeril PO 10 mg Q8HR INNA Administration Diphenoxylate HCl/Atropine 1 tablet 03/06/20 07:14 Lomotil Tab 2.5 Mg PO TID PRN Abdominal Discomfort Docusate Sodium 100 mg 03/06/20 21:00 03/07/20 09:02 Colace Capsule PO 100 mg Q12HR INNA Administration Gabapentin 600 mg 03/06/20 14:00 03/07/20 13:33 Neurontin PO 600 mg Q8HR INNA Administration Hydrochlorothiazide 25 mg 03/06/20 09:00 03/06/20 12:07 Hydrochlorothiazide PO 25 mg DAILY [facility]
[2020-03-07] MEDS: RIVAROXABAN 10 MG TABLET PO (16:50)
[2020-03-08 00:54] VITALS: BP 106/41; PULSE 80; RESP 20; TEMP 36.2; O2SAT 98
[2020-03-08] MEDS: oxyCODONE/ACETAMINOPHEN 5-325 MG TABLET 1 TABLET PO ×3 (00:58→13:54)
[2020-03-08 05:43] LABS: Hematocrit 27.9 % (37.0-47.0); Hemoglobin 8.7 g/dL (12.0-15.0); Mean Corpuscular HGB Conc 31.2 g/dl (32-36); Mean Corpuscular Hemoglobin 28.3 pg (26-34); Mean Corpuscular Volume 90.9 fl (80-100); Mean Platelet Volume 10.8 fl (7.4-10.4); Platelet Count Result 226 k/mm3 (150-375); Red Blood Count 3.07 M/mm3 (4.2-5.4); Red Cell Distribution Width 13.6 % (11.5-14.5); White Blood Count 6.8 K/mm3 (4.5-10.0)
[2020-03-08 06:00] VITALS: BP 108/77; PULSE 84; RESP 20; TEMP 36.7; O2SAT 99
[2020-03-08] MEDS: LEVOTHYROXINE SODIUM 25 MCG TABLET PO (06:29)
[2020-03-08] MEDS: BACLOFEN 10 MG TABLET PO ×2 (06:29→13:55)
[2020-03-08] MEDS: CYCLOBENZAPRINE HCL 10 MG TABLET PO ×2 (06:29→13:56)
[2020-03-08] MEDS: GABAPENTIN 300 MG CAPSULE 600 MG PO ×2 (06:29→13:55)
[2020-03-08] MEDS: PROMETHAZINE HCL 25 MG TABLET PO (06:37)
--- NOTE | 2020-03-08 06:50 | PM.PNORT ---
Progress Note: A&P Additional Plan Patient is doing well postop day 2, pain is better controlled. She will try to get up in physical therapy today and if she does okay she will be discharged to home. The patient voiced understanding agrees above plan. Will see her back in 2 weeks for follow-up orders have been written for discharge and she understands the postop protocol for total knee. She will call the office immediately for any problems difficulties or questions. Time Spent With Patient Time with patient: less than 15 minutes Subjective Subjective Date/Time Seen: 03/08/20 06:50 Patient is now postop day 2 doing better with pain control states she has no other significant complaints today. She will try to get up in physical therapy and if she can ambulate and do well we will get her discharged to home. She states that her plan and she voices understanding agrees with the plan. She is eating and slept well last night. Review of Systems Review of Systems: All systems reviewed & are unremarkable except as noted in HPI and below Exam Narrative: Exam Narrative: Vital signs stable afebrile neurovascular the patient is intact wound is clean and dry calves are benign she has no constitutional symptoms states she otherwise feels well today. Objective Data Vital Signs Vital Signs: Vital Signs - 24 hr 03/07/20 09:12 03/07/20 09:18 03/07/20 10:00 Temperature 36.1 C L Pulse Rate 100 80 Respiratory Rate 18 Blood Pressure 109/73 Pulse Oximetry 96 100 03/07/20 14:00 03/07/20 18:00 03/07/20 21:56 Temperature 36.6 C 36.5 C Pulse Rate 79 85 84 Respiratory Rate 16 16 Blood Pressure 111/59 L 117/57 L Pulse Oximetry 98 98 03/07/20 22:00 03/08/20 00:54 Temperature 36.4 C 36.2 C L Pulse Rate 84 80 Respiratory Rate 20 20 Blood Pressure 134/65 106/41 L Pulse Oximetry 98 98 Intake/Output Intake/Output: Intake & Output 03/05/20 03/06/20 03/07/20 03/08/20 23:59 23:59 23:59 23:59 Intake Total 2350 4160 Output Total 750 Balance 2350 3410 Meds/Results Medications: Active Medications Generic Name Dose Route Start Last Admin Trade Name Freq PRN Reason Stop Dose Admin Albuterol 2 puff 03/07/20 10:39 Proventil Hfa INHALATION QIDRT PRN Shortness Of Breath Alprazolam 0.5 mg 03/06/20 07:14 03/07/20 18:55 Xanax PO 0.5 mg PRN PRN Administration Anxiety Amlodipine Besylate 5 mg 03/06/20 09:00 03/06/20 11:22 Norvasc PO Not Given DAILY INNA Baclofen 10 mg 03/06/20 14:00 03/08/20 06:29 Lioresal Po PO 10 mg Q8HR INNA Administration Bupropion HCl 150 mg 03/06/20 21:00 03/07/20 21:54 Wellbutrin-Sr (12 Hr) PO 150 mg Q12HR INNA Administration Calcium Carbonate 200 mg 03/07/20 21:41 Tums PO Q6H PRN Indigestion Celecoxib 400 mg 03/06/20 14:00 03/07/20 09:07 Celebrex PO 400 mg DAILY@0800 [facility] Administration Clobetasol Propionate 1 applic 03/06/20 07:14 Temovate 0.05% Cream TOPICAL DAILY PRN Itching Cyclobenzaprine HCl 10 mg 03/06/20 14:00 03/08/20 06:29 Flexeril PO 10 mg Q8HR [facility] Administration Diphenoxylate HCl/Atropine 1 tablet 03/06/20 07:14 Lomotil Tab 2.5 Mg PO TID PRN Abdominal Discomfort Docusate Sodium 100 mg 03/06/20 21:00 03/07/20 21:54 Colace Capsule PO 100 mg Q12HR INNA Administration Gabapentin 600 mg 03/06/20 14:00 03/08/20 06:29 Neurontin PO 600 mg Q8HR INNA Administration Hydrochlorothiazide 25 mg 03/06/20 09:00 03/06/20 12:07 Hydrochlorothiazide PO 25 mg DAILY INNA Administration Hydromorphone HCl 1 mg 03/07/20 11:18 03/07/20 21:45 Dilaudid Inj IV PUSH 1 mg Q3H PRN Administration Pain Rated 7-10 Hydroxychloroquine Sulfate 200 mg 03/06/20 17:00 03/07/20 16:51 Plaquenil Tab PO 200 mg BIDWM INNA Administration Labetalol HCl 100 mg 03/06/20 21:00 03/07/20 21:56 Trandate PO 100 mg Q12H
--- NOTE | 2020-03-08 06:52 | PM.DS ---
DS: Admitting Diagnosis Admitting Diagnosis Admitting Diagnosis: Unilateral primary osteoarthritis, right knee Discharge diagnosis same, advanced primary osteoarthritis right knee joint. DS: Summary Time Spent with Patient Time attestation: Total time spent providing and/or coordinating discharge services: Exam Narrative: Exam Narrative: Vital signs stable HEENT exam within normal limits heart regular rate and rhythm musculoskeletal abdomen benign bowel sounds positive for quads and extremity shows the patient's right knee wound to be clean and dry calves are benign she has [id number] swelling around the knee on the operative side normal postoperative appearance. She is able to do straight leg raise. Tolerating ambulation better postop day 2. Skin is intact neurovascularly she is intact. DS: Data Data Completed and Pending Labs on day of discharge: Labs from last 24 hours 03/08/20 03/08/20 03/07/20 05:02 05:01 05:29 WBC 6.8 RBC 3.07 L Hgb 8.7 L Hct 27.9 L MCV 90.9 MCH 28.3 MCHC 31.2 L RDW 13.6 Plt Count 226 MPV 10.8 H Immature Gran % (Auto) Neut % (Auto) Lymph % (Auto) [place] % (Auto) Eos % (Auto) Baso % (Auto) Lymph # (Auto) [place] # (Auto) Eos # (Auto) Baso # (Auto) Abs Immat Gran (auto) Absolute Neuts (auto) Absolute Nucleated RBC Nucleated RBC % Sodium 135 L Potassium 3.8 Chloride 102 Carbon Dioxide 26 BUN 18 H Creatinine 0.70 Estim Creat Clear Calc 102 Estimated GFR > 60 Glucose 170 H Calcium 8.7 TSH (Reflex) 1.160 03/07/20 05:29 WBC 13.8 H RBC 3.11 L Hgb 9.1 L D Hct 27.5 L MCV 88.4 MCH 29.3 MCHC 33.1 RDW 13.1 Plt Count 277 MPV 10.7 H Immature Gran % (Auto) 0.4 Neut % (Auto) 82.3 H Lymph % (Auto) 8.8 L [place] % (Auto) 8.2 Eos % (Auto) 0.0 Baso % (Auto) 0.3 Lymph # (Auto) 1.21 [place] # (Auto) 1.1 H Eos # (Auto) 0.0 Baso # (Auto) 0.0 Abs Immat Gran (auto) 0.05 H Absolute Neuts (auto) 11.4 H Absolute Nucleated RBC 0.0 Nucleated RBC % 0.0 Sodium Potassium Chloride Carbon Dioxide BUN Creatinine Estim Creat Clear Calc Estimated GFR Glucose Calcium TSH (Reflex) Discharge Plan Discharge Consulting providers: Danilo Camarena Discharging Clinician: Joseph Fontaine Patient Disposition: Home, Self-Care Activity: no shower, as tolerated and other - see discharge instructions Diet: as tolerated Discharge Instructions: Patient is discharged home on general diet activity as tolerated weightbearing as tolerated right lower extremity with a walker. Physical therapy as pre scheduled at our office beginning early next week per total knee protocol. When Xarelto course is complete patient will proceed with aspirin 325 mg b.i.d. x1 month for DVT prophylaxis. The patient is also discharged with Percocet 5/325 mg 1 tablet every 3 hours p.r.n. severe pain. Patient will change dressing daily watch for evidence of drainage or erythema and call the office immediately for any problems difficulties or questions. Patient is a follow-up at 2 weeks postop for staple removal and wound recheck. Patient will call the office at [phone] for any problems difficulties or questions. Patient Instructions: Rivaroxaban (By mouth) Stand Alone Forms: Avoid NSAIDs, General Discharge Instructions Follow-up/Referrals: Bakari Landrum MD [Physician] - Discharge Medications: New cyclobenzaprine 10 mg Tablet 10 mg PO Q8HR Qty: 40 RF: 0 oxycodone-acetaminophen 5-325 mg Tablet 1 tablet PO Q4H PRN (Reason: Pain Rated 4-6) Qty: 50 RF: 0 Xarelto 10 mg Tablet 10 mg PO DAILY@17 Qty: 12 RF: 0 Continued albuterol sulfate 90 mcg/actuation aerosol powdr breath activated 2 inhalation INHALATION Q6H PRN (Reason: Shortness Of Breath) RF: 0 amlodipine 5 mg tablet 5 mg PO DAILY RF: 0 bupropion HCl 150 mg tablet extended releas
[2020-03-08] MEDS: ALPRAZolam 0.5 MG TABLET PO (07:39)
[2020-03-08] MEDS: POTASSIUM CHLORIDE 10 MEQ TABLET.ER PO (07:40)
[2020-03-08] MEDS: CELECOXIB 200 MG CAPSULE 400 MG PO (07:40)
[2020-03-08] MEDS: VENLAFAXINE HCL 75 MG TABLET PO (07:40)
[2020-03-08] MEDS: HYDROXYCHLOROQUINE SULFATE 200 MG TABLET PO (07:40)
[2020-03-08 07:41] VITALS: PULSE 90
[2020-03-08] MEDS: lisinopriL 20 MG TABLET 40 MG PO (07:41)
[2020-03-08] MEDS: LABETALOL HCL 100 MG TABLET PO (07:41)
[2020-03-08] MEDS: DOCUSATE SODIUM 100 MG CAPSULE PO (07:42)
[2020-03-08] MEDS: MONTELUKAST SODIUM 10 MG TABLET PO (07:42)
--- NOTE | 2020-03-08 08:23 | PCPTNOTE ---
Attempted to therapy Pt at 8:15am. Pt was sleeping when entering room. Upon being awoken Pt was very drowsy and requested therapy to come back later. Will attempt therapy again.
--- NOTE | 2020-03-08 10:08 | PCPTNOTE ---
Attempted to see at 9:15 am and again at 10:10 am. Pt continues to be very drowsy and unable to stay awake. Upon waking Pt is confused and unable to keep her eyes open. Upon raising the head of the bed Pt will stir a little however will fall right back to sleep. Attempted to hand Pt her glasses, Pt would not reach for them nor did she look for them. Pt is unsafe to come to edge of bed or attempt therapy due to increased drowsiness and inability to stay awake and coherent. Will attempt therapy again when Pt is more coherent and aroused.
[2020-03-08 10:23] VITALS: BP 130/71; PULSE 91; RESP 16; TEMP 36.7; O2SAT 97
--- NOTE | 2020-03-08 13:39 | PM.IMPN ---
Progress Note: A&P Assessment and Plan (1) History of arthroplasty of right knee: Code(s): Z96.651 - Presence of right artificial knee joint Status: Acute Assessment and Plan: POD [address] Landrum; Patient improved today. To be discharged home today. NV intact. Right LE venous doppler negative for DVT Post op care, pain management, PT/OT, DVT ppx per primary service Likely discharge today (2) Osteoarthritis: Code(s): M19.90 - Unspecified osteoarthritis, unspecified site Status: Acute Assessment and Plan: Please see above a/p (3) Hypertension: Code(s): I10 - Essential (primary) hypertension Status: Acute Assessment and Plan: BP reviewed and running a bit soft post operatively, some improvement this morning Will hold Amlodipine and HCTZ for 2-3 days; she was instructed to resume in 2-3 days or if BP improves Continue labetalol and lisinopril (4) Hypothyroidism: Code(s): E03.9 - Hypothyroidism, unspecified Status: Acute Assessment and Plan: Recently diagnosed; TSH WNL Continue home levothyroxine (5) Insomnia: Code(s): G47.00 - Insomnia, unspecified Status: Acute Assessment and Plan: Cotinue home medications (6) Mixed connective tissue disease: Code(s): M35.1 - Other overlap syndromes Status: Acute Assessment and Plan: Nubia-Danlos/mixed connective tissue disease per patient; takes hydroxychloroquine and Bryan at home for pain Continue hydroxychloroquine (7) Asthma: Code(s): J45.909 - Unspecified asthma, uncomplicated Status: Acute Assessment and Plan: Lung exam benign; no acute issues PRN albuterol inhaler ordered Additional Plan Thank you for allowing the Hospitalist team to care for this patient during their stay. We will continue to follow with you. Please call with any questions Subjective Date/time seen: 03/08/20 13:39 This is a Hospitalist Consult Progress Note Interval history: Patient is a 49 yo F with history of Ehers-Danlos/mixed connective tissue disease, HTN, hypothyroidism, and OA who is here for elective Right total knee arthroplasty; POD [address] Landrum; Hospitalist service has been consulted for medical management. Patient is doing well today. Pain is still present, but much more controlled. No other complaints at this time. She is about to be discharged back home today; she is comfortable with d/c. Denies f/c/s, headaches, dizziness, lightheadedness, changes in v/h, cp/palpitations, sob/cough, n/v/d/c, abd pain, changes in BMs, dysuria, hematuria, cloudy urine, left calf pain/swelling. Review of Systems Review of Systems: All systems reviewed & are unremarkable except as noted in HPI and below Exam Narrative: Exam Narrative: Patient is lying in semi-reid's position at time of visit; family in room visiting Const: General: cooperative, comfortable, no acute distress, well developed and alert Orientation/consciousness: patient oriented x3 HENMT: Head: normocephalic and atraumatic General nose exam: Normal nares present Face and sinus: face symmetric Mouth: Yes moist mucous membranes Eyes: General: appearance normal, both eyes and all related structures EOM: EOMs intact bilaterally Neck: Neck: trachea midline and supple Resp: Effort & Inspection: normal respiratory effort Auscultation: clear to auscultation bilaterally Cardio: Rate: regular rate Rhythm: regular rhythm Heart sounds: no murmurs GI: Inspection: non-distended and obesity GI Palp: No abdominal tenderness and Yes Soft to palpation Auscultation: normal bowel sounds Skin: General skin exam: normal color and no rashes or lesi
== END 2020-03-08 15:50 | disposition home or self-care (01) ==
LOC: ANHSURGERY 15:48 → ANH2MED 15:48
PROVIDERS: Physician Assistant; Admitting Provider Orthopaedic Surgery; PCP Internal Medicine; Visit Provider Orthopaedic Surgery
PROC: (CPT 27447; principal; 2020-03-06 07:30)
DX: M17.11 Unilateral primary osteoarthritis, right knee (principal); G89.18 Other acute postprocedural pain; I10 Essential (primary) hypertension; E03.9 Hypothyroidism, unspecified; G47.00 Insomnia, unspecified; Q79.60 Ehlers-Danlos syndrome, unspecified; Q79.69 Other Ehlers-Danlos syndromes; J45.909 Unspecified asthma, uncomplicated; F32.9 Major depressive disorder, single episode, unspecified; E66.9 Obesity, unspecified; Z68.36 Body mass index [BMI] 36.0-36.9, adult
CPT/HCPCS: 27447; 64447; 36415; 73560; 80048; 84443; 85025; 85027; 93005; 93971; 97110; 97116; 97161; 97165; 97530; 97535; A9270; C1713; C1776; G0378; J0171; J0690; J1100; J1170; J1885; J2250; J2270; J2405; J2704; J2795; J3010; J3370; J7030; J7120

== ENCOUNTER 2020-03-11 19:41 | Emergency (ER) | payer OTHER, SELFPAY ==
[2020-03-11 19:43] VITALS: BP 134/87; PULSE 105; RESP 18; TEMP 37.1; O2SAT 97
--- NOTE | 2020-03-11 21:13 | ED.RECABL ---
HPI - Recheck/Abnormal Lab/Rx General Chief Complaint: Recheck/Abnormal Lab/Rx Stated Complaint: post op infection Time Seen by Provider: 03/11/20 21:03 History of Present Illness HPI narrative: Patient presents to the ED with her courtney for increased pain and swelling in her right knee. She had a right knee replacement 5 days ago. She has been able to walk on it. She said the swelling is increased and she has trouble now bending the knee. She feels like the pain medicine is no longer working. She complains that the thigh is much more swollen. She has no fever chills or sweats. She has no nausea or vomiting.. She is very worried that it is infected. She tried to call the orthopedics office today and could not get through. She also could not get a return call from the exchange. Dr. Landrum did her surgery. MD complaint: wound re-check Initial visit (ago): day(s) Symptoms since prior visit: worsening pain and worsening swelling Related Data Home Medications Medication Instructions Recorded Confirmed albuterol sulfate 90 mcg/actuation 2 inhalation INHALATION Q6H PRN 11/14/19 03/06/20 breath activated powder inhaler amlodipine 5 mg tablet 5 mg PO DAILY 11/14/19 03/06/20 bupropion HCl 150 mg 24 hr tablet, 150 mg PO BID 11/14/19 03/06/20 extended release cholecalciferol (vitamin D3) 125 50,000 mcg PO WEEKLY 11/14/19 03/06/20 mcg (5,000 unit) capsule clobetasol 0.05 % topical cream 1 applic TOPICAL DAILY PRN 11/14/19 03/06/20 erenumab-aooe 70 mg/mL 70 mg SUB-Q MONTHLY 11/14/19 03/06/20 subcutaneous auto-injector eszopiclone 3 mg tablet 3 mg PO HS 11/14/19 03/06/20 gabapentin 600 mg tablet 600 mg PO TID 11/14/19 03/06/20 hydrochlorothiazide 25 mg tablet 25 mg PO DAILY 11/14/19 03/06/20 hydroxychloroquine 200 mg tablet 200 mg PO BID 11/14/19 03/06/20 labetalol 100 mg tablet 100 mg PO Q12H 11/14/19 03/06/20 lisdexamfetamine 50 mg capsule 50 mg PO PRN PRN 11/14/19 02/26/20 lisinopril 40 mg tablet 40 mg PO DAILY 11/14/19 03/06/20 magnesium 30 mg tablet 250 mg PO DAILY 11/14/19 03/06/20 montelukast 10 mg tablet 10 mg PO DAILY 11/14/19 03/06/20 ondansetron HCl 4 mg tablet 4 mg PO PRN PRN 11/14/19 03/06/20 potassium chloride 10 mEq 10 meq PO DAILY 11/14/19 03/06/20 capsule,extended release promethazine 25 mg tablet 25 mg PO Q6H PRN 11/14/19 02/26/20 sumatriptan succinate 100 mg tablet 100 mg PO PRN PRN 11/14/19 03/06/20 venlafaxine 75 mg tablet 75 mg PO DAILY 11/14/19 03/06/20 alprazolam 0.5 mg PO PRN PRN 02/26/20 03/06/20 levothyroxine 25 mcg PO DAILY 02/26/20 03/06/20 baclofen 10 mg PO TID 03/06/20 03/06/20 diphenoxylate-atropine [Lomotil] 1 tablet PO TID PRN 03/06/20 03/06/20 Allergies Allergy/AdvReac Type Severity Reaction Status Date / Time prochlorperazine Allergy Mild loopy Verified 03/11/20 20:42 adhesive Allergy Hives/ITCHI Verified 03/11/20 20:42 NG metoclopramide [From Reglan] Allergy LOOPY Verified 03/11/20 20:42 Review of Systems Review of Systems: Narrative: CONSTITUTIONAL: Denies fever, chills, or sweats. EYES: Denies visual changes, redness, or discharge. ENT: Denies rhinorrhea, congestion, sore throat, or otalgia. CARDIOVASCULAR: Denies chest pain, palpitations, or edema. RESPIRATORY: Denies cough or dyspnea. GASTROINTESTINAL: Denies abdominal pain, nausea, vomiting, or diarrhea. GENITOURINARY: Denies dysuria or hematuria. SKIN: Denies rash or itching. MUSCULOSKELETAL: Right leg is more swollen more tender more pain. NEUROLOGIC: Denies headache, numbness, or weakness. PSYCHIATRIC: Denies anxiety or depression. [facility] Past Medical History Medical History (Updated 03/11/20 @ 22:38 by Malou Nguyễn MD) Asthma Nubia-Danlos disease History of MRSA infection Hypertension Hypothyroidism Insomnia Mild depression Mixed connective tissue disease Morbid obesity Osteoarthritis Surgical History Surgical History H/O: hysterectomy History of
[2020-03-11 21:49] LABS: Basophils Absolute Auto 0.1 K/mm3 (0.0-0.1); Basophils Percent Auto 1.9 % (0.2-1.2); Eosinophils Absolute Auto 0.5 K/mm3 (0-0.3); Eosinophils Percent Auto 7.7 % (0-4.4); Hematocrit 25.6 % (37.0-47.0); Hemoglobin 8.4 g/dL (12.0-15.0); Immature Granulocyte Absolute 0.02 K/mm3 (0.00-0.031); Immature Granulocyte Percent A 0.3 % (0-0.5); Lymphocytes Absolute Auto 1.39 K/mm3 (0.9-3.2); Lymphocytes Percent Auto 21.5 % (18.3-44.2); Mean Corpuscular HGB Conc 32.8 g/dl (32-36); Mean Corpuscular Volume 88.3 fl (80-100); Monocytes Absolute Auto 0.5 K/mm3 (0.1-0.6); Monocytes Percent Auto 7.7 % (2.6-8.5); Neutrophils Percent Auto 60.9 % (45.5-73.1); Platelet Count Result 278 k/mm3 (150-375); Red Cell Distribution Width 13.2 % (11.5-14.5); White Blood Count 6.5 K/mm3 (4.5-10.0)
[2020-03-11 22:03] LABS: Alanine Aminotransferase 45 U/L (4-35); Albumin Level 3.7 g/dL (3.5-5.1); Alkaline Phosphatase 123 U/L (38-126); Aspartate Amino Transferase 47 U/L (14-36); Bilirubin,Total 0.5 mg/dL (0.2-1.3); Blood Urea Nitrogen 14 mg/dL (7-17); Calcium 8.9 mg/dL (8.4-10.2); Carbon Dioxide 31 mmol/L (22-30); Chloride 96 mmol/L (98-107); Estimated CRCL calculation 100 ml/min; Estimated Glomerular Filt Rate > 60; Glucose 123 mg/dL (65-105); Potassium 4.1 mmol/L (3.4-5.0); Sodium 135 mmol/L (137-145)
[2020-03-11] MEDS: CYCLOBENZAPRINE HCL 10 MG TABLET (22:31)
[2020-03-11 23:07] VITALS: BP 133/88; PULSE 77; RESP 20; TEMP 36.6; O2SAT 99
== END 2020-03-11 23:08 | disposition home or self-care (01) ==
PROVIDERS: Emergency Medicine Emergency Medical Services; Emergency Provider Emergency Medicine
DX: G89.18 Other acute postprocedural pain (principal); M25.561 Pain in right knee; M25.461 Effusion, right knee; Z96.651 Presence of right artificial knee joint; J45.909 Unspecified asthma, uncomplicated; Q79.60 Ehlers-Danlos syndrome, unspecified; Z86.14 Personal history of Methicillin resistant Staphylococcus aureus infection; E03.9 Hypothyroidism, unspecified; F32.9 Major depressive disorder, single episode, unspecified; M19.90 Unspecified osteoarthritis, unspecified site; M35.1 Other overlap syndromes; E66.01 Morbid (severe) obesity due to excess calories; Z68.35 Body mass index [BMI] 35.0-35.9, adult
CPT/HCPCS: 36415; 80053; 85025; 86140; 96372; 99283; A9270; J1170

== ENCOUNTER 2020-03-18 12:37 | Emergency (ER) | payer OTHER, SELFPAY ==
--- NOTE | ~2020-03-18 | XR_ITS ---
EXAMINATION: XR knee RT 2V INDICATION: Right knee pain TECHNIQUE: Two views of the right knee are obtained. COMPARISON: 03/06/2020 FINDINGS: A large knee joint effusion is present. There are changes of right total knee arthroplasty. Skin shreya are seen anteriorly. No fracture is identified. IMPRESSION: 1. Large knee joint effusion. Reviewed, dictated and finalized at location B.
[2020-03-18 12:49] VITALS: BP 134/111; PULSE 126; RESP 18; TEMP 37.3; O2SAT 98
--- NOTE | 2020-03-18 12:56 | ED.LOWEXIN ---
HPI - Extremity Injury (Lower) General Chief Complaint: Extremity Injury, Lower Stated Complaint: post op complications Time Seen by Provider: 03/18/20 12:49 History of Present Illness HPI Narrative: Patient presents with her significant other, for extreme right knee pain. She had knee replacement a week ago with Dr. Landrum here at [facility]. She was seen 4 days ago for increasing pain. Today she was sitting on the toilet an hour ago, and moved her right leg to the side and felt a pop. It hurts so acutely and so extreme, that she defecated. Here in triage she is writhing and screaming in the wheelchair. She said she has been taking her [facility] and it is not helping. I reminded her that I took care of her 4 days ago, and she does not recall having been here 4 days ago. MD complaint: knee injury Onset (ago): hour(s) Injury: Right: knee Type of Injury: eversion Place: home Severity: severe Relieving factors: nothing Exacerbating factors: weight bearing, movement and palpation Context: other (Sitting on toilet) Associated symptoms: snap/pop sensation Other symptoms: none Related Data Home Medications Medication Instructions Recorded Confirmed albuterol sulfate 90 mcg/actuation 2 inhalation INHALATION Q6H PRN 11/14/19 03/06/20 breath activated powder inhaler amlodipine 5 mg tablet 5 mg PO DAILY 11/14/19 03/06/20 bupropion HCl 150 mg 24 hr tablet, 150 mg PO BID 11/14/19 03/06/20 extended release cholecalciferol (vitamin D3) 125 50,000 mcg PO WEEKLY 11/14/19 03/06/20 mcg (5,000 unit) capsule clobetasol 0.05 % topical cream 1 applic TOPICAL DAILY PRN 11/14/19 03/06/20 erenumab-aooe 70 mg/mL 70 mg SUB-Q MONTHLY 11/14/19 03/06/20 subcutaneous auto-injector eszopiclone 3 mg tablet 3 mg PO HS 11/14/19 03/06/20 gabapentin 600 mg tablet 600 mg PO TID 11/14/19 03/06/20 hydrochlorothiazide 25 mg tablet 25 mg PO DAILY 11/14/19 03/06/20 hydroxychloroquine 200 mg tablet 200 mg PO BID 11/14/19 03/06/20 labetalol 100 mg tablet 100 mg PO Q12H 11/14/19 03/06/20 lisdexamfetamine 50 mg capsule 50 mg PO PRN PRN 11/14/19 02/26/20 lisinopril 40 mg tablet 40 mg PO DAILY 11/14/19 03/06/20 magnesium 30 mg tablet 250 mg PO DAILY 11/14/19 03/06/20 montelukast 10 mg tablet 10 mg PO DAILY 11/14/19 03/06/20 ondansetron HCl 4 mg tablet 4 mg PO PRN PRN 11/14/19 03/06/20 potassium chloride 10 mEq 10 meq PO DAILY 11/14/19 03/06/20 capsule,extended release promethazine 25 mg tablet 25 mg PO Q6H PRN 11/14/19 02/26/20 sumatriptan succinate 100 mg tablet 100 mg PO PRN PRN 11/14/19 03/06/20 venlafaxine 75 mg tablet 75 mg PO DAILY 11/14/19 03/06/20 alprazolam 0.5 mg PO PRN PRN 02/26/20 03/06/20 levothyroxine 25 mcg PO DAILY 02/26/20 03/06/20 baclofen 10 mg PO TID 03/06/20 03/06/20 diphenoxylate-atropine [Lomotil] 1 tablet PO TID PRN 03/06/20 03/06/20 Allergies Allergy/AdvReac Type Severity Reaction Status Date / Time prochlorperazine Allergy Mild loopy Verified 03/18/20 12:58 adhesive Allergy Hives/ITCHI Verified 03/18/20 12:58 NG metoclopramide [From Reglan] Allergy LOOPY Verified 03/18/20 12:58 Review of Systems Review of Systems: Narrative: CONSTITUTIONAL: Denies fever, chills, or sweats. ENT: Denies rhinorrhea, congestion, sore throat, or otalgia. CARDIOVASCULAR: Denies chest pain, palpitations, or edema. RESPIRATORY: Denies cough or dyspnea. GASTROINTESTINAL: Denies abdominal pain, nausea, vomiting, or diarrhea. GENITOURINARY: Denies dysuria or hematuria.SKIN: Denies rash or itching. MUSCULOSKELETAL: Denies back pain, but she has joint pain, and myalgia. NEUROLOGIC: Denies headache, but says that she has numbness in her right foot All systems reviewed & are unremarkable except as noted in HPI and below PMFSH Past Medical History Medical History Asthma Nubia-Danlos disease History of MRSA infection Hypertension Hypothyroidism Insomnia Mild depression Mixed connective tissue dis
[2020-03-18 12:59] VITALS: BP 134/111; PULSE 113; RESP 22; O2SAT 98
[2020-03-18] MEDS: MORPHINE SULFATE 4 MG/ML INJ IV PUSH ×2 (13:02→13:51)
[2020-03-18 13:53] VITALS: BP 151/120; PULSE 108; RESP 18; O2SAT 97
[2020-03-18] MEDS: ONDANSETRON INJ 4 MG/2 ML VIAL IV PUSH (14:10)
[2020-03-18 14:19] VITALS: BP 134/74; PULSE 95; RESP 18; O2SAT 97
[2020-03-18 14:59] VITALS: BP 139/86; PULSE 95; RESP 18; O2SAT 96
== END 2020-03-18 15:00 | disposition home or self-care (01) ==
PROVIDERS: Emergency Provider Emergency Medicine
DX: T84.84XA Pain due to internal orthopedic prosthetic devices, implants and grafts, initial encounter (principal); J45.909 Unspecified asthma, uncomplicated; Q79.60 Ehlers-Danlos syndrome, unspecified; I10 Essential (primary) hypertension; E03.9 Hypothyroidism, unspecified; E66.01 Morbid (severe) obesity due to excess calories; Z68.37 Body mass index [BMI] 37.0-37.9, adult; M19.90 Unspecified osteoarthritis, unspecified site; Z86.14 Personal history of Methicillin resistant Staphylococcus aureus infection; M35.1 Other overlap syndromes; Z96.651 Presence of right artificial knee joint
CPT/HCPCS: 73560; 96374; 96375; 96376; 99284; J2270; J2405

== ENCOUNTER → 2022-06-23 12:31 | Outpatient (CLI) | payer OTHER, SELFPAY ==
--- NOTE | ~2022-06-23 | XR_ITS ---
XR lumbar spine min 4V DATE: 06/23/2022 13:13 INDICATION: Severe low back pain TECHNIQUE: AP, lateral, bilateral oblique views, coned lateral lumbosacral view COMPARISON: 12/01/2019 CT lumbar spine 02/26/2014 lumbar spine FINDINGS: There is osteopenia. There is levoscoliosis. Mild degenerative disease at L1-2. Moderate degenerative disease at L2-3, L3-4, L4-5 and L5-S1. No spondylolysis or spondylolisthesis is noted. The lumbar pedicles appear intact. The sacroiliac ehsan nts appear normal. IMPRESSION: Osteopenia Mild levoscoliosis Multilevel mild to moderate degenerative disc disease Reviewed, dictated and finalized at location A.
--- NOTE | ~2022-06-23 | XR_ITS ---
EXAMINATION: XR sacroiliac joints min 3V DATE: 06/23/2022 13:13 INDICATION: Severe low back pain. TECHNIQUE: 3 views of the sacroiliac joints were obtained. COMPARISON: Pelvis and hip radiographs 12/01/2019 FINDINGS: There is lumbar levocurvature and moderate spondylosis. No fracture. There is mild osteoart hritis of the sacroiliac joints. Surgical clips overlie the pelvis. IMPRESSION: 1. Mild osteoarthritis of the sacroiliac joints. Reviewed, dictated and finalized at location A.
== END ==
PROVIDERS: PCP Internal Medicine; Visit Provider Chiropractor
DX: M53.3 Sacrococcygeal disorders, not elsewhere classified (principal); M85.88 Other specified disorders of bone density and structure, other site; M51.36 Other intervertebral disc degeneration, lumbar region
CPT/HCPCS: 72110; 72202

== ENCOUNTER 2022-08-26 18:54 | Emergency (ER) | payer OTHER, SELFPAY ==
--- NOTE | ~2022-08-26 | CT_ITS ---
EXAMINATION: CTA chest PE protocol DATE: 08/26/2022 20:28 INDICATION: chest pain, positive d dimer TECHNIQUE: Computed tomography angiography (CTA) of the chest was performed with 100 mL Omnipaque-350 intravenous contrast timed to evaluate the pulmonary arteries. Coronal maximum intensity projection 3D-reconstructions were created by the technologist. The dose-length product (DLP) was 310.76 mGy-cm. Automated exposure control and iterative reconstruction technique were employed. COMPARISON: 08/26/2022. FINDINGS: Lung parenchyma and airways: Mild dependent atelectasis.. Pleura: Unremarkable. Thoracic inlet, axillae and chest wall: Unremarkable. Thoracic aorta: Normal. Mediastinum: Normal. Heart and pericardium: Normal. Coronary artery calcifications: . Upper abdomen: No significant finding. Bones: No acute osseous finding. Pulmonary arteries: Study quality: Adequate. No pulmonary emboli detected. IMPRESSION: No CT evidence of acute pulmonary embolus. No acute intrathoracic process detected. Reviewed, dictated and finalized at location K. IN HANDLER IMPRESSION: No CT evidence of acute pulmonary embolus. No acute intrathoracic process detec olvin.
--- NOTE | ~2022-08-26 | XR_ITS ---
EXAMINATION: XR chest 1V portable Exam Date/Time: 08/26/2022 19:00 MEDICAL RECORDS AUDITOR HISTORY: CHEST PAIN, SOB Comparison: 12/19/2017. RESULT: Lines, tubes, and devices: None. Lungs and pleura: Clear. Cardiomediastinal silhouette: Stable. Other: No acute osseous or upper abdominal finding. IMPRESSION: No acute cardiopulmonary process. Reviewed, dictated and finalized at location K. CAL RECORDS AUDITOR
[2022-08-26 18:52] VITALS: BP 133/90; PULSE 82; RESP 17; TEMP 36.3; O2SAT 98
--- NOTE | 2022-08-26 18:58 | ECG_ITS ---
Measurements Intervals [place] Rate: 88 P: 64 CA: 163 QRS: 30 QRSD: 89 T: 29 QT: 374 QTc: 454 Interpretive Statements SINUS RHYTHM INCOMPLETE RIGHT BUNDLE BRANCH BLOCK BASELINE ARTIFACT- I, III, AVL, AVF BORDERLINE ECG COMPARED TO ECG 03/06/2020 07:06:58 NO SIGNIFICANT CHANGES Electronically Signed On 08-26-2022 20:44:19 [employer] by Jonathon Barnhart D.O.
--- NOTE | 2022-08-26 19:01 | ED.GENADULT ---
HPI - General Adult General Chief complaint: Chest Pain Stated complaint: chest pain History of Present Illness HPI narrative: 52-year-old female presenting to the emergency department for evaluation of cute onset of substernal chest pain. Patient states she was having an argument with her daughter just prior to arrival when she had onset of symptoms. Patient denies any radiation of the pain. Patient describes it as a muscle tightness in the epigastrium. Patient reports that she does have history of hypertension high cholesterol. Patient had a stress test in 2016. Patient denies any prior history of CT. Patient reports she has had to be intubated for her previous asthma. Patient states she is not a smoker. Patient was treated with aspirin and nitro by EMS with no change in her symptoms. Related Data Home Medications Medication Instructions Recorded Confirmed albuterol sulfate 90 mcg/actuation inhalation 08/26/22 aerosol inhaler alprazolam 0.5 mg tablet mg 08/26/22 amlodipine 5 mg tablet mg 08/26/22 baclofen 10 mg tablet mg 08/26/22 bupropion HCl 300 mg 24 hr tablet, mg PO 08/26/22 extended release erenumab-aooe 140 mg/mL mg subcut 08/26/22 subcutaneous auto-injector (Aimovig Autoinjector) ergocalciferol (vitamin D2) 1,250 08/26/22 mcg (50,000 unit) capsule eszopiclone 3 mg tablet mg 08/26/22 gabapentin 600 mg tablet mg 08/26/22 hydrochlorothiazide 25 mg tablet mg 08/26/22 hydrocodone 5 mg-acetaminophen 325 tablet 08/26/22 mg tablet hydroxychloroquine 200 mg tablet mg PO 08/26/22 levothyroxine 25 mcg tablet mcg 08/26/22 lisdexamfetamine 50 mg capsule mg 08/26/22 (Vyvanse) lisinopril 40 mg tablet mg 08/26/22 montelukast 10 mg tablet mg 08/26/22 ondansetron HCl 4 mg tablet mg 08/26/22 potassium chloride 10 mEq meq PO 08/26/22 tablet,extended release promethazine 25 mg tablet mg 08/26/22 sumatriptan succinate 100 mg tablet mg PO 08/26/22 venlafaxine 75 mg capsule,extended mg PO 08/26/22 release 24 hr Allergies Allergy/AdvReac Type Severity Reaction Status Date / Time prochlorperazine Allergy Mild loopy Verified 08/26/22 19:04 adhesive Allergy Hives/ITCHI Verified 08/26/22 19:04 NG metoclopramide [From Reglan] Allergy LOOPY Verified 08/26/22 19:04 Review of Systems Review of Systems: CONSTITUTIONAL: Denies fever, chills, or sweats. EYES: Denies visual changes, redness, or discharge. ENT: Denies rhinorrhea, congestion, sore throat, or otalgia. CARDIOVASCULAR: See HPI RESPIRATORY: Denies cough or dyspnea. GASTROINTESTINAL: See HPI GENITOURINARY: Denies dysuria or hematuria. SKIN: Denies rash or itching. MUSCULOSKELETAL: Denies back pain, joint pain, or myalgia. NEUROLOGIC: Denies headache, numbness, or weakness. [facility] Past Medical History Medical History (Updated 08/26/22 @ 23:12 by Patrick Singh MD) Asthma Nubia-Danlos disease History of MRSA infection Hypertension Hypothyroidism Insomnia Mild depression Mixed connective tissue disease Morbid obesity Osteoarthritis Surgical History Surgical History H/O: hysterectomy History of arthroplasty of right knee History of tonsillectomy Hx of nasal septoplasty Social History Social History Social History: Patient lives at home with her fiance and 18 yo son. 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 She wishes to be listed as a Full Code. She does not want to designate anyone as a surrogate MDM at this moment. Her PCP is Dr. Avendaño Smoking status: Never smoker Second hand tobacco smoke exposure: No Additional smoking assessment comments: DENIES ANY FORM OF TOBACCO USE Alcohol intake: never Substance use: never Gender identity (if verbalized by the patient): Female Sexual Orientation (if Verbalized by the Patient): Straight or Heterosexual Spiritual care concerns: No
[2022-08-26] MEDS: MORPHINE SULFATE (*CRX) 4 MG/ML INJ IV PUSH (19:16)
[2022-08-26] MEDS: PANTOPRAZOLE SODIUM IV 40 MG VIAL IV PUSH (19:17)
[2022-08-26 19:22] LABS: Basophils Absolute Auto 0.1 K/mm3 (0.0-0.1); Basophils Percent Auto 0.8 % (0.2-1.2); Hematocrit 36.3 % (37.0-47.0); Hemoglobin 11.9 g/dL (12.0-15.0); Immature Granulocyte Absolute 0.02 K/mm3 (0.00-0.031); Immature Granulocyte Percent A 0.3 % (0-0.5); Lymphocytes Absolute Auto 1.09 K/mm3 (0.9-3.2); Lymphocytes Percent Auto 17.6 % (18.3-44.2); Mean Corpuscular HGB Conc 32.8 g/dl (32-36); Mean Corpuscular Hemoglobin 29.1 pg (26-34); Mean Corpuscular Volume 88.8 fl (80-100); Mean Platelet Volume 9.9 fl (7.4-10.4); Monocytes Absolute Auto 0.2 K/mm3 (0.1-0.6); Monocytes Percent Auto 2.9 % (2.6-8.5); Neutrophils Absolute Auto 4.9 K/mm3 (1.3-6.7); Neutrophils Percent Auto 78.4 % (45.5-73.1); Platelet Count Result 295 k/mm3 (150-375); Red Blood Count 4.09 M/mm3 (4.2-5.4); Red Cell Distribution Width 14.1 % (11.5-14.5); White Blood Count 6.2 K/mm3 (4.5-10.0)
[2022-08-26 19:34] LABS: Alanine Aminotransferase 28 U/L (6-35); Albumin Level 4.6 g/dL (3.5-5.1); Alkaline Phosphatase 68 U/L (38-126); Anion Gap 7 mmol/L (8-16); Aspartate Amino Transferase 36 U/L (14-36); Bilirubin,Total 0.2 mg/dL (0.2-1.3); Blood Urea Nitrogen 24 mg/dL (7-17); Calcium 8.9 mg/dL (8.4-10.2); Carbon Dioxide 28 mmol/L (22-30); Chloride 101 mmol/L (98-107); Estimated CRCL calculation 105 ml/min; Estimated Glomerular Filt Rate > 60; Glucose 130 mg/dL (65-110); Lipase 38 U/L (23-300); Sodium 136 mmol/L (137-145)
[2022-08-26 19:42] LABS: D Dimer 0.83 ug/mL (<0.48)
[2022-08-26 19:45] LABS: Troponin I < 0.012 ng/mL (0.000-0.034)
[2022-08-26 23:17] LABS: Troponin I < 0.012 ng/mL (0.000-0.034)
== END 2022-08-26 22:30 | disposition home or self-care (01) ==
PROVIDERS: Emergency Provider Emergency Medicine; PCP Internal Medicine
DX: R07.2 Precordial pain (principal); K22.4 Dyskinesia of esophagus; I10 Essential (primary) hypertension; J45.909 Unspecified asthma, uncomplicated; E78.00 Pure hypercholesterolemia, unspecified; E03.9 Hypothyroidism, unspecified; Q79.60 Ehlers-Danlos syndrome, unspecified; M35.1 Other overlap syndromes; M19.90 Unspecified osteoarthritis, unspecified site; F32.A Depression, unspecified; E66.01 Morbid (severe) obesity due to excess calories; Z68.31 Body mass index [BMI] 31.0-31.9, adult; Z86.14 Personal history of Methicillin resistant Staphylococcus aureus infection; Z90.710 Acquired absence of both cervix and uterus; Z96.651 Presence of right artificial knee joint; I45.10 Unspecified right bundle-branch block
CPT/HCPCS: 36415; 71045; 71275; 80053; 83690; 84484; 85025; 85380; 93005; 96374; 96375; 99284; C9113; J2270; Q9967

== ENCOUNTER 2024-12-13 05:45 | Emergency (ER) | payer MEDICARE, MEDICAID, SELFPAY ==
[2024-12-13] VITALS (9 sets, daily range): BP systolic 106–134; BP diastolic 65–89; PULSE 78–96; RESP 12–20; TEMP 37.2; O2SAT 84–99
--- NOTE | ~2024-12-13 | XR_ITS ---
[id number] 12/13/2024 07:01 Indication: Recent knee surgery. Increasing pain. Procedure: 2 views right knee Comparison: No prior studies for comparison. Findings: There is a right knee arthroplasty. Prosthesis appears well seated. There is an intramedull albert meghan in the distal aspect of the femur. There is an orthopedic pin transfixing the proximal tibia longitudinally. No acute fracture or traumatic malalignment. There is superior subluxation of the pat cherie, possibly chronic. No joint effusion. Impression: 1: No acute fracture. Reviewed, dictated and finalized at location A. Impression: 1: No acute fracture.
[2024-12-13] MEDS: ONDANSETRON INJ 4 MG/2 ML VIAL IV PUSH ×3 (06:33→07:58)
[2024-12-13] MEDS: MORPHINE SULFATE (*CRX) 4 MG/ML INJ IV PUSH (06:33)
[2024-12-13 06:36] LABS: Basophils Absolute Auto 0.2 K/mm3 (0.0-0.1); Basophils Percent Auto 2.7 % (0.2-1.2); Eosinophils Absolute Auto 0.2 K/mm3 (0-0.3); Hematocrit 26.8 % (37.0-47.0); Hemoglobin 8.2 g/dL (12.0-15.0); Immature Granulocyte Absolute 0.01 K/mm3 (0.00-0.031); Immature Granulocyte Percent A 0.2 % (0-0.5); Lymphocytes Absolute Auto 1.55 K/mm3 (0.9-3.2); Lymphocytes Percent Auto 24.3 % (18.3-44.2); Mean Corpuscular HGB Conc 30.6 g/dl (32-36); Mean Corpuscular Hemoglobin 24.7 pg (26-34); Mean Corpuscular Volume 80.7 fl (80-100); Mean Platelet Volume 10.2 fl (7.4-10.4); Monocytes Absolute Auto 0.8 K/mm3 (0.1-0.6); Monocytes Percent Auto 12.9 % (2.6-8.5); Neutrophils Absolute Auto 3.6 K/mm3 (1.3-6.7); Neutrophils Percent Auto 56.9 % (45.5-73.1); Platelet Count Result 337 k/mm3 (150-375); Red Blood Count 3.32 M/mm3 (4.2-5.4); Red Cell Distribution Width 13.9 % (11.5-14.5); White Blood Count 6.4 K/mm3 (4.5-10.0)
[2024-12-13 06:45] LABS: Alanine Aminotransferase 28 U/L (6-35); Albumin Level 4.5 g/dL (3.5-5.1); Alkaline Phosphatase 122 U/L (38-126); Anion Gap 12 mmol/L (4-12); Aspartate Amino Transferase 45 U/L (14-36); Bilirubin,Total 0.6 mg/dL (0.2-1.3); Blood Urea Nitrogen 42 mg/dL (7-17); Calcium 9.4 mg/dL (8.4-10.2); Carbon Dioxide 22 mmol/L (22-30); Chloride 102 mmol/L (98-107); Estimated CRCL calculation 39 ml/min; Estimated Glomerular Filt Rate 33; Glucose 64 mg/dL (65-110); Potassium 4.4 mmol/L (3.4-5.0); Sodium 136 mmol/L (137-145)
--- NOTE | 2024-12-13 06:46 | ED.GENADULT ---
HPI - General Adult General Chief complaint: Extremity Problem,Nontraumatic <Mert Wakefield MD - Last Filed: 12/13/24 06:48> Stated complaint: R KNEE PAIN <Mert Wakefield MD - Last Filed: 12/13/24 06:48> Time Seen by Provider: 12/13/24 06:05 <Mert Wakefield MD - Last Filed: 12/13/24 06:48> History of Present Illness HPI narrative: patient is a 54-year-old female who presents emergency department with chief complaint of right knee pain patient reports that she had knee replacement on her right knee that was subsequently complicated with becoming infected the patient has had removal of the hardware and has antibiotic spacers currently in place the patient is followed at [facility] and reports that she has an appointment tomorrow with her orthopedic surgeon and reports that she has an appointment for surgery in the upcoming days the patient does report that she had a temperature of 90? eye home reports that she has had where her leg has been shaking more and reports that her knee immobilizer has been sliding down. The patient reports no drainage <Mert Wakefield MD - Last Filed: 12/13/24 06:48> Related Data Home medications: Home Medications ?Medication ?Instructions ?Recorded ?Confirmed ?Last Taken ?Type albuterol sulfate 90 mcg/actuation inhalation 08/26/22 Unknown History aerosol inhaler alprazolam 0.5 mg tablet mg 08/26/22 Unknown History amlodipine 5 mg tablet mg 08/26/22 Unknown History baclofen 10 mg tablet mg 08/26/22 Unknown History bupropion HCl 300 mg 24 hr tablet, mg PO 08/26/22 Unknown History extended release erenumab-aooe 140 mg/mL mg subcut 08/26/22 Unknown History subcutaneous auto-injector (Aimovig Autoinjector) ergocalciferol (vitamin D2) 1,250 08/26/22 Unknown History mcg (50,000 unit) capsule eszopiclone 3 mg tablet mg 08/26/22 Unknown History gabapentin 600 mg tablet mg 08/26/22 Unknown History hydrochlorothiazide 25 mg tablet mg 08/26/22 Unknown History hydrocodone 5 mg-acetaminophen 325 tablet 08/26/22 Unknown History mg tablet hydroxychloroquine 200 mg tablet mg PO 08/26/22 Unknown History levothyroxine 25 mcg tablet mcg 08/26/22 Unknown History lisdexamfetamine 50 mg capsule mg 08/26/22 Unknown History (Chandrakant) lisinopril 40 mg tablet mg 08/26/22 Unknown History montelukast 10 mg tablet mg 08/26/22 Unknown History ondansetron HCl 4 mg tablet mg 08/26/22 Unknown History potassium chloride 10 mEq meq PO 08/26/22 Unknown History tablet,extended release promethazine 25 mg tablet mg 08/26/22 Unknown History sumatriptan succinate 100 mg tablet mg PO 08/26/22 Unknown History venlafaxine 75 mg capsule,extended mg PO 08/26/22 Unknown History release 24 hr <Mert Wakefield MD - Last Filed: 12/13/24 06:48> Allergies/adverse reactions: Allergies Allergy/AdvReac Type Severity Reaction Status Date / Time prochlorperazine Allergy Mild loopy Verified 12/13/24 07:38 adhesive Allergy Hives/ITCHI Verified 12/13/24 07:38 NG metoclopramide (From Reglan) Allergy LOOPY Verified 12/13/24 07:38 <Mert Wakefield MD - Last Filed: 12/13/24 06:48> Review of Systems Review of Systems: A 10 system review of systems was completed on the patient and is negative except for what is stated in the HPI. Nursing and ancillary documentation was reviewed. <Mert Wakefield MD - Last Filed: 12/13/24 06:48> [facility] Past Medical History Medical History: Medical History (Updated 12/13/24 @ 08:34 by Zena Harman MD) Morbid obesity Insomnia Osteoarthritis Hypothyroidism Hypertension Nubia-Danlos disease Mixed connective tissue disease History of MRSA infection Mild depression Asthma <Mert Wakefield MD - Last Filed: 12/13/24 06:48> Surgical History Surgical History: Surgical History History of arthroplasty of right knee Hx of nasal septoplasty History of tonsillectomy H/O: hysterectomy <Mert Wakefield MD - Last Filed: 12/13/24 06:48> Social History Social History: Social History Social History: Patient lives at home with her fiance and 18 yo son. 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 She wishes to be listed as a Full Code. She does not want to designate anyone as a surrogate MDM at this moment. Her PCP is Dr. Avendaño Smoking status: Never smoker Second hand tobacco smoke exposure: No Additional smoking assessment comments: DENIES ANY FORM OF TOBACCO USE Alcohol intake: never Substance use: never Living arrangements: other Gender identity (if verbalized by the patient): Female Sexual Orientation (if Verbalized by the Patient): Straight or Heterosexual Spiritual care concerns: No <Mert Wakefield MD - Last Filed: 12/13/24 06:48> Exam Narrative: GENERAL: Well-appearing, well-nourished, and in no acute distress. HEAD: Normocephalic, atraumatic. EYES: PERRLA and EOMI. ENT: Nares clear, no rhinorrhea or epistaxis. Mucous membranes moist. NECK: Supple. CHEST: Clear to auscultation. No respiratory distress. HEART: Regular rate and rhythm. No murmur heard. Normal peripheral pulses. ABDOMEN: Soft, nontender, nondistended, normal active bowel sounds. EXTREMITIES: Normal range of motion Limited on the right lower extremity there is a knee immobilizer is in place. Knee immobilizer was undone and there is an Heath wrap that was Moved to visualize the lower extremity. There is a dressing that is intact on saturated with blood there is no erythema surrounding the area there is no purulence drainage. No edema. SKIN: Warm, dry, no rash. NEURO: No focal deficits. Alert and oriented x3. PSYCH: Normal mood and affect. <Mert Wakefield MD - Last Filed: 12/13/24 06:48> Course Consultations Consultation #1: DR PEACOCK, ORTHOPEDIC AT [facility] RECOMMENDS TO GIVE PATIENT TORADOL IV AND TO CALL HIM BACK IN 45 MINUTES. <Zena Harman MD - Last Filed: 12/13/24 13:03> Date: 12/13/24 <Zena Harman MD - Last Filed: 12/13/24 13:03> Vital Signs Vital signs: Vital Signs Temperature 37.2 C 12/13/24 05:36 Pulse Rate 80 12/13/24 05:36 Respiratory Rate 14 12/13/24 05:36 Blood Pressure 134/89 12/13/24 05:36 Pulse Oximetry 99 12/13/24 05:36 Oxygen Delivery Room Air 12/13/24 05:36 Temperature 37.2 C 12/13/24 05:36 Pulse Rate 78 12/13/24 12:11 Respiratory Rate 18 12/13/24 12:11 Blood Pressure 122/77 12/13/24 12:11 Pulse Oximetry 97 12/13/24 12:11 Oxygen Delivery Room Air 12/13/24 05:36 <Mert Wakefield MD - Last Filed: 12/13/24 06:48> Vital Signs Temperature 37.2 C 12/13/24 05:36 Pulse Rate 80 12/13/24 05:36 Respiratory Rate 14 12/13/24 05:36 Blood Pressure 134/89 12/13/24 05:36 Pulse Oximetry 99 12/13/24 05:36 Oxygen Delivery Room Air 12/13/24 05:36 Temperature 37.2 C 12/13/24 05:36 Pulse Rate 78 12/13/24 12:11 Respiratory Rate 18 12/13/24 12:11 Blood Pressure 122/77 12/13/24 12:11 Pulse Oximetry 97 12/13/24 12:11 Oxygen Delivery Room Air 12/13/24 05:36 <Zena Harman MD - Last Filed: 12/13/24 13:03> Medical Decision Making MDM Narrative Medical decision making narrative: PATIENT CAME WITH RIGHT KNEE PAIN, STATUS POST HARDWARE REMOVAL OF THE RIGHT KNEE, PATIENT IS SCHEDULED FOR SURGERY IN 4 DAYS. PATIENT RECEIVED MORPHINE 4 MG, DILAUDID 0.5 MG X2, TORADOL 30 MG WITHOUT SIGNIFICANT IMPROVEMENT. PATIENT REQUESTING A PAIN PUMP PLACEMENT IN THE ED. PATIENT WAS TOLD THAT MY PLAN TO TRANSFER HER TO PER ORTHOPEDIC AT [facility] SHE DECLINED AND REQUESTED ANOTHER PAIN SHOT AND TO GO HOME. <Zena Harman MD - Last Filed: 12/13/24 13:03> Vital Signs Vital Signs: Vital Signs Temperature 37.2 C 12/13/24 05:36 Pulse Rate 80 12/13/24 05:36 Respiratory Rate 14 12/13/24 05:36 Blood Pressure 134/89 12/13/24 05:36 Pulse Oximetry 99 12/13/24 05:36 Oxygen Delivery Room Air 12/13/24 05:36 Temperature 37.2 C 12/13/24 05:36 Pulse Rate 78 12/13/24 12:11 Respiratory Rate 18 12/13/24 12:11 Blood Pressure 122/77 12/13/24 12:11 Pulse Oximetry 97 12/13/24 12:11 Oxygen Delivery Room Air 12/13/24 05:36 <Mert Wakefield MD - Last Filed: 12/13/24 06:48> Vital Signs Temperature 37.2 C 12/13/24 05:36 Pulse Rate 80 12/13/24 05:36 Respiratory Rate 14 12/13/24 05:36 Blood Pressure 134/89 12/13/24 05:36 Pulse Oximetry 99 12/13/24 05:36 Oxygen Delivery Room Air 12/13/24 05:36 Temperature 37.2 C 12/13/24 05:36 Pulse Rate 78 12/13/24 12:11 Respiratory Rate 18 12/13/24 12:11 Blood Pressure 122/77 12/13/24 12:11 Pulse Oximetry 97 12/13/24 12:11 Oxygen Delivery Room Air 12/13/24 05:36 <Zena Harman MD - Last Filed: 12/13/24 13:03> Lab Data Result diagrams: 12/13/24 06:29 12/13/24 06:29 <Mert Wakefield MD - Last Filed: 12/13/24 06:48> Labs: Lab Results 12/13/24 Range/Units 06:29 WBC 6.4 (4.5-10.0) K/mm3 RBC 3.32 L (4.2-5.4) M/mm3 Hgb 8.2 L D (12.0-15.0) g/dL Hct 26.8 L (37.0-47.0) % MCV 80.7 (80-100) fl MCH 24.7 L (26-34) pg MCHC 30.6 L (32-36) g/dl RDW 13.9 (11.5-14.5) % Plt Count 337 (150-375) k/mm3 MPV 10.2 (7.4-10.4) fl Immature Gran % (Auto) 0.2 (0-0.5) % Neut % (Auto) 56.9 (45.5-73.1) % Lymph % (Auto) 24.3 (18.3-44.2) % [place] % (Auto) 12.9 H (2.6-8.5) % Eos % (Auto) 3.0 (0-4.4) % Baso % (Auto) 2.7 H (0.2-1.2) % Lymph # (Auto) 1.55 (0.9-3.2) K/mm3 [place] # (Auto) 0.8 H (0.1-0.6) K/mm3 Eos # (Auto) 0.2 (0-0.3) K/mm3 Baso # (Auto) 0.2 H (0.0-0.1) K/mm3 Abs Immat Gran (auto) 0.01 (0.00-0.031) K/mm3 Absolute Neuts (auto) 3.6 (1.3-6.7) K/mm3 Absolute Nucleated RBC 0.000 (0.0-0.012) K/mm3 Nucleated RBC % 0.0 (0.0-0.2) % Sodium 136 L (137-145) mmol/L Potassium 4.4 (3.4-5.0) mmol/L Chloride 102 (98-107) mmol/L Carbon Dioxide 22 (22-30) mmol/L Anion Gap 12 (4-12) mmol/L BUN 42 H D (7-17) mg/dL Creatinine 1.64 H (0.7-1.0) mg/dL Estim Creat Clear Calc 39 ml/min Estimated GFR 33 L (59 - ) Glucose 64 L (65-110) mg/dL Lactic Acid < 0.5 L (0.7-2.0) mmol/L Calcium 9.4 (8.4-10.2) mg/dL Total Bilirubin 0.6 (0.2-1.3) mg/dL AST 45 H (14-36) U/L ALT 28 (6-35) U/L Alkaline Phosphatase 122 (38-126) U/L Total Protein 8.0 (6.3-8.2) g/dL Albumin 4.5 (3.5-5.1) g/dL <Mert Wakefield MD - Last Filed: 12/13/24 06:48> Lab Results 12/13/24 Range/Units 06:29 WBC 6.4 (4.5-10.0) K/mm3 RBC 3.32 L (4.2-5.4) M/mm3 Hgb 8.2 L D (12.0-15.0) g/dL Hct 26.8 L (37.0-47.0) % MCV 80.7 (80-100) fl MCH 24.7 L (26-34) pg MCHC 30.6 L (32-36) g/dl RDW 13.9 (11.5-14.5) % Plt Count 337 (150-375) k/mm3 MPV 10.2 (7.4-10.4) fl Immature Gran % (Auto) 0.2 (0-0.5) % Neut % (Auto) 56.9 (45.5-73.1) % Lymph % (Auto) 24.3 (18.3-44.2) % [place] % (Auto) 12.9 H (2.6-8.5) % Eos % (Auto) 3.0 (0-4.4) % Baso % (Auto) 2.7 H (0.2-1.2) % Lymph # (Auto) 1.55 (0.9-3.2) K/mm3 [place] # (Auto) 0.8 H (0.1-0.6) K/mm3 Eos # (Auto) 0.2 (0-0.3) K/mm3 Baso # (Auto) 0.2 H (0.0-0.1) K/mm3 Abs Immat Gran (auto) 0.01 (0.00-0.031) K/mm3 Absolute Neuts (auto) 3.6 (1.3-6.7) K/mm3 Absolute Nucleated RBC 0.000 (0.0-0.012) K/mm3 Nucleated RBC % 0.0 (0.0-0.2) % Sodium 136 L (137-145) mmol/L Potassium 4.4 (3.4-5.0) mmol/L Chloride 102 (98-107) mmol/L Carbon Dioxide 22 (22-30) mmol/L Anion Gap 12 (4-12) mmol/L BUN 42 H D (7-17) mg/dL Creatinine 1.64 H (0.7-1.0) mg/dL Estim Creat Clear Calc 39 ml/min Estimated GFR 33 L (59 - ) Glucose 64 L (65-110) mg/dL Lactic Acid < 0.5 L (0.7-2.0) mmol/L Calcium 9.4 (8.4-10.2) mg/dL Total Bilirubin 0.6 (0.2-1.3) mg/dL AST 45 H (14-36) U/L ALT 28 (6-35) U/L Alkaline Phosphatase 122 (38-126) U/L Total Protein 8.0 (6.3-8.2) g/dL Albumin 4.5 (3.5-5.1) g/dL <Zena Harman MD - Last Filed: 12/13/24 13:03> Imaging Data Radiologist's impression: Impressions Knee X-Ray 12/13/24 07:06 Impression: 1: No acute fracture. <Zena Harman MD - Last Filed: 12/13/24 13:03> Critical Care Time Critical Care Time Critical Care Time: Yes <Zena Harman MD - Last Filed: 12/13/24 13:03> Total Critical Care Time: 35 <Zena Harman MD - Last Filed: 12/13/24 13:03> Discharge Plan Discharge Clinical Impression: BRI (acute kidney injury), Intractable pain <Mert Wakefield MD - Last Filed: 12/13/24 06:48> Patient Disposition: Home <Mert Wakefield MD - Last Filed: 12/13/24 06:48> Condition: Guarded Prognosis <Mert Wakefield MD - Last Filed: 12/13/24 06:48> Instructions: Knee Pain (ED) <Mert Wakefield MD - Last Filed: 12/13/24 06:48> Additional Instructions: RETURN IF SYMPTOMS ARE WORSENING , CALL YOUR ORTHOPEDIC SOON FOR EARLY APPOINTMENT, TAKE TYLENOL NEEDED FOR ACHES AND PAIN, CONTINUE HOME MEDICATIONS. <Mert Wakefield MD - Last Filed: 12/13/24 06:48> Patient Language: Slovenian <Mert Wakefield MD - Last Filed: 12/13/24 06:48> Prescriptions: No Action venlafaxine 75 mg capsule,extended release 24hr PO gabapentin 600 mg tablet sumatriptan succinate 100 mg tablet PO hydrocodone-acetaminophen 5-325 mg tablet ondansetron HCl 4 mg tablet potassium chloride 10 mEq tablet extended release PO amlodipine 5 mg tablet levothyroxine 25 mcg tablet alprazolam 0.5 mg tablet baclofen 10 mg tablet promethazine 25 mg tablet montelukast 10 mg tablet hydrochlorothiazide 25 mg tablet ergocalciferol (vitamin D2) 1,250 mcg (50,000 unit) capsule hydroxychloroquine 200 mg tablet PO albuterol sulfate 90 mcg/actuation HFA aerosol inhaler INHALATION lisinopril 40 mg tablet bupropion HCl 300 mg tablet extended release 24 hr PO eszopiclone 3 mg tablet Vyvanse 50 mg capsule Aimovig Autoinjector 140 mg/mL auto-injector SUBCUT Xarelto 10 mg Tablet 10 mg PO DAILY@17 Qty: 12 0RF <Mert Wakefield MD - Last Filed: 12/13/24 06:48> Follow-up/Referrals: Patagonia,Christina Evans MD [Non-Staff] - <Mert Wakefield MD - Last Filed: 12/13/24 06:48>
[2024-12-13 07:12] LABS: Lactic Acid Reflex < 0.5 mmol/L (0.7-2.0)
[2024-12-13] MEDS: HYDROmorphone HCL INJ (*CRX) 2 MG/ML VIAL 0.5 MG IV PUSH ×3 (07:58→13:09)
[2024-12-13] MEDS: SODIUM CHLORIDE 0.9% IV 1,000 ML 999 ML IV CONT (08:42)
--- OUTSIDE RECORDS SUMMARY | 2024-12-13 09:23 | XMS_ITS | Patient Health Record ---
Author Organization [facility] Address [address] [place] [address] Care Team Providers Care Parker Name Role Phone Caitie Avendaño Primary Care Provider Jamie Ospina Unavailable [phone] Otilio Campbell MD Unavailable [phone] Allergies Allergen (clinical drug ingredient) Drug/Non Drug Allergy documented on EMR Reaction Allergy Type Onset Date Status neomycin Neomycin Sulfate Unknown Drug Allergy Active metoclopramide Reglan Unknown Drug Allergy Ac tive Compazine Unknown Drug Allergy Active Adhesive Unknown Allergy Active Reason For Referral No Information Medications Medication SIG (Take, Route, Frequency, Duration) Notes Start Date End Date Status Eszopiclone 3 MG (Schedule IV Drug) O ral for 30 Active Montelukast Sodium 10 MG Oral for 90 Active Aspirin 81 MG 1 tablet Orally Once a day Active Gabapentin 600 MG Oral for 90 Active HYDROcodone-Acetaminophen 5-325 MG 1 tablet as needed Orally every 6 hrs Active Magnesium 250 MG 1 tablet with a meal Orally Once a day Active Hydroxychloroquine Sulfate 200 MG Oral for 90 Active amLODIPine Besylate 5 MG Oral for 90 Active Aimovig 70 MG/ML Subcutaneous for 90 Active buPROPion HCl ER (XL) 300 MG Oral for 90 Active Labetalol HCl 100 MG Oral for 90 Active Vitamin D (Ergocalciferol) 1.25 MG (67273 UT) Oral for 28 Active Venlafaxine HCl ER 75 MG Oral for 90 Active Vyvanse 50 MG (Schedule II Drug) O ral for 30 Active Potassium Chloride ER 10 MEQ Oral for 90 Active Ondansetron HCl 4 MG Oral for 7 Active Albuterol Sulfate HFA 108 (9 0 Base) MCG/ACT Inhalation for 75 Active Lisinopril 40 MG Oral for 90 A ctive Cephalexin 500 MG 1 capsule Orally chelsea ry 12 hrs for 10 days 03/02/2024 Active SUMAtriptan Succinate 100 MG Oral for 60 Active Social History OPIOID Risk Tool (2018 Edition) Question Answer Notes Family Hx Alcohol? No Family Hx Illegal Drugs? No Family Hx Rx Drugs? No Personal Hx Alcohol? No Personal Hx Illegal Drugs? No Personal Hx Rx Drugs? No Age between 16-45 years? No History of Preadolescent Sexual Abuse? No ADD, OCD, Bipolar, Schizophrenia? No Depression? Yes TOTAL SCORE 1 Risk Level for Opioid Use low Problems Problem Type SNOMED Code ICD Code Onset Dates Problem Status W/U Status Risk Notes Problem Localized, primary osteoarthritis of the shoulder region (084549195) Primary osteoarthritis, right shoulder (M19.011) Active confirmed Problem Solitary sacroiliitis (155137641) Sacroiliitis, not elsewhere classified (M46.1) Active confirmed Problem Lumbosacral spondylosis without myelopathy (53388753) Other spondylosis with radiculopathy, lumbar region (M47.26) Active confirmed Problem Lumbosacral spondylosis without myelopathy (disorder) (17916069) Spondylosis without myelopathy or radiculopathy, lumbosacral region (M47.817) Active confirmed Problem Displacement of lumbar intervertebral disc without myelopathy (84999347) Other intervertebral disc displacement, lumbar region (M51.26) Active confirmed Problem Lumbar radiculopathy (450491021) Radiculopathy, lumbar region (M54.16) Active confirmed Problem Lumbosacral radiculopathy (5841466) Radiculopathy, lumbosacral region (M54.17) Active confirmed Problem Nubia-Danlos syndrome (disorder) (661521221) Nubia-Danlos syndrome, 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) Active confirmed Vital Signs Heart Rate 76 /min 03/07/2024 Temperature 97.5 degrees Fahrenheit 03/07/2024 Oximetry 98 03/07/2024 Blood pressure diastolic 81 mm Hg 03/07/2024 Height 66 in 08/18/2024 Blood pressure systolic 128 mm Hg 03/07/2024 Weight 196 lbs 03/07/2024 BMI 31.63 03/07/2024 Procedures Procedure Date Ordered Date Performed Result Body Sit e Spinal Cord Stimulator Trial 01/07/2024 N/A *ASC SIJ BILATERAL INJ, DIAGNOSTIC 34408 03/07/2024 N/A Lumbar transforaminal epidural 07/14/2024 N/A Encounters Encounter Location Date Provider Diagnosis -[facility] [address] [place] [address] 01/07/2024 Jamie Reyes Radiculopathy, lumbosacral region M54.17 -[facility] [address] [place] [address] 03/03/2024 Jamie Boecaitlin Radiculopathy, lumbosacral region M54.17 -[facility]/ [facility] [address] [place] [address] 03/07/2024 Jamie Reyes Radiculopathy, lumbosacral region M54.17 and Sacroiliitis, not elsewhere classified M46.1 -[facility] [address] [place] [address] 04/14/2024 Jamie Reyes Sacroiliitis, not elsewhere classified M46.1 and Primary osteoarthritis, right shoulder M19.011 -[facility] [address] [place] [address] 08/18/2024 Jamie Reyes Radiculopathy, lumbosacral region M54.17 -[facility]/ [facility] [address] [place] [address] 12/17/2023 Jamie Reyes Pain in right hand M79.641 -48[facility] [address] [place] [address] 12/31/2023 Jamie Reyes -48[facility] [address] [place] [address] 01/07/2024 Jamie Reyes -[facility] [address] [place] [address] 07/11/2024 Jamie Reyes -103 [facility] [address] [place] [address] 07/23/2024 Jamie Reyes Assessments Encounter Date Diagnosis (ICD Code) Assessment Notes Treatment Notes Treatment Clinical Notes Section Notes 12/17/2023 Pain in right hand (ICD-10 - M79.641) 01/07/2024 Radiculopathy, lumbosacral region (ICD-10 - M54.17) The patient continues to have chronic pain in the lumbar spine with radicular pain down the legs. She has failed conservative therapy including physical therapy, medication management and injection therapy. I will schedule the patient for a spinal cord stimulator trial. There are normal findings on her thoracic MRI or laboratory work that would contradict the trial. We discussed the trial in detail today. She has also discussed this with the [employer] representative. The patient will be scheduled pending insurance authorization. 03/03/2024 Radiculopathy, lumbosacral region (ICD-10 - M54.17) I will proceed today with a spinal cord stimulator trial. We have obtained authorization for this and all complications including those of bleeding, infection, neurologic injury, dural puncture, epidural hematoma, epidural abscess, spinal cord injury and the possibility of limited improvement were discussed with the patient. The patient has undergone lab work and all was within normal limits. They have undergone psychological evaluation and is a candidate for spinal cord stimulation and has the cognitive ability to understand directions and follow them. A prescription for antibiotics has been sent to the their pharmacy to be picked up today and taken throughout the trial period. Patient understands and would like to proceed with the procedure. 03/07/2024 Sacroiliitis, not elsewhere classified (ICD-10 - M46.1) 03/07/2024 Radiculopathy, lumbosacral region (ICD-10 - M54.17) I removed the spinal cord stimulator leads today. The patient did not note enough relief to proceed with a spinal cord stimulator lead and generate implant. We discussed repeating the bilateral sacroiliac joint injections. She has noted relief with this with the treatment back in July. She has symptoms consistent with sacroiliitis, at this time. She will be scheduled pending insurance authorization. I discussed the risks including bleeding, infection and neurologic injury. 04/14/2024 Sacroiliitis, not elsewhere classified (ICD-10 - M46.1) Patient returns today to receive bilateral sacroiliac joint injections under fluoroscopic guidance. We have obtained authorization for this and all complications such as bleeding, infection, limited improvement, leg numbness, and neurologic injury were discussed with the patient. Patient understands and would like to proceed with the procedure. 08/18/2024 Radiculopathy, lumbosacral region (ICD-10 - M54.17) I will proceed today with bilateral L5 transforaminal epidural steroid injection under fluoroscopic guidance. We have obtained authorization for this and all complications such as bleeding, infection, nerve damage, and spinal cord injury were discussed with the patient. Patient understands and would like to proceed with the procedure. 04/14/2024 Primary osteoarthritis, right shoulder (ICD-10 - M19.011) 01/07/2024 Other 03/07/2024 Other Plan Of Treatment Pending Test Test Name Order Date Sed Rate 10/26/2023 X ray : Hand, right 12/17/2023 CRP 10/26/2023 CBC with Differential 10/26/2023 PT AND PTT 10/26/2023 MRI : Thoracic Spine w/o Contrast 2023 MRSA Nasal Swab 10/26/2023 INJ Lumbar Transforaminal JOSE 10/27/2023 *ASC SIJ BILATERAL INJ, DIAGNOSTIC 47037 03/07/2024 Lumbar transforaminal epidural 4 Spinal Cord Stimulator Trial 01/07/2024 Insurance Providers Payer Name Payer Address Payer Phone Subscriber Number Group Number Insured Name Patient Relationship to Insured Coverage Start Date Coverage End Date [facility] [employer] [address] [address] [place] [address] [phone] [id number] Joyce Meeks Self - patient is the insured 4 Medical (General) History Medical History History ICD Code High blood pressure Thyroid disease Skin Cancer Fibromyalgia Osteoarthritis Temporomandibular Joint Disfunction Headache Nerve Damage Migraine headache Urinary incontinence Bladder Infections Congestive Heart Failure Anemia Kidney stones Kidney Infections Stroke Irritable bowel syndrome Gastroesophageal reflux disease asthma Pneumonia Mononucleosis Depression Panic attacks Surgical History Surgery Date(Month/Year) Hysterectomy ulnar nerve anterior transpostion 2021 septoplasty right knee 5x tonsillectomy Hospitalization History Reason Date(Month/Year) see above
--- OUTSIDE RECORDS SUMMARY | 2024-12-13 09:23 | XMS_ITS ---
Author Organization [facility] Address [address] [place], [place] [address] Care Team Providers Care Creative Resource Manager Name Role Phone ARTHUR MANOHAR Unavailable [phone] Christina Avendaño Unavailable Unavailable REASON FOR VISIT thinks toes infected Encounters Encounter Location Date Provider Diagnosis [facility] [address] [place], [place] [address] 05/22/2024 MANOHAR SMART Plan Of Treatment No Information Progress Notes * MARGAUX IDRISOB: [birth year] (54 yo F)Acc No.[id number]:05/22/2024 Patient: JOEY DINH Provider: Gilson Smart DPM :1970 A ge:54 Y S ex:Female Date:05/22/2024 Address:[address] [place], [place] [id number] Subjective: * Chief Complaints: * 1 . Thinks toes infected. * Medical History: Objective: * Vitals: Assessment: Plan: * Treatment: * Billing Information: * Visit Code: * Procedure Codes: * Electronic signature of MANOHAR SMART DPM on 12/13/2024 at 09:23 AM CDT Sign off status: Pending * Provider: Gilson Smart DPM Date: 0 05/22/2024 Generated for Masoudi debbie/Kristy/eTransmitting on: 0 12/13/2024 09:23 AM CDT
--- OUTSIDE RECORDS SUMMARY | 2024-12-13 09:24 | XMS_ITS | Encounter Summary ---
Author Organization [facility] Address [address] [place] [address] Care Team Providers Care Territory Sales Manager Medical Name Role Phone Christina Avendaño MD Primary Care Provider [phone] Encounter Details Date Type Department Care Team (Late Contact Info) Description 08/31/2021 Digital Self COVID-1 9 Monitoring [place] ABSTRACTION Provider, Abstract NO ADDRESS ON FILE Social History Tobacco Use Types Packs/Day Years Used Date Smoking Tobacco: Never Smokeless Tobacco: Never Alcohol Use Standard Drinks/Week Comments No 0 (1 standard drink = 0.6 oz pur e alcohol) Comments No Sex and Gender Information Value Date Recorded Sex Assigned at Not on file Legal Sex Female 4:13 AM FLAT FINISHER Gender Identity Not on file Sexual Orientation Not on file COVID-19 Exposure Response Date Recorded In the last month, have you been in contact with someone who was confirmed or suspected to have Coronavirus / COVID-19? Unable to assess 09/02/2021 12:36 PM FLAT FINISHER documented as of this encounter Plan of Treatment Upcoming Encounters Date Type Department Care Team ([facility] Contact Info) Description 12/27/2024 9:30 AM CDT Office [facility] Internal Medicine Medical [place] A [facility] [address] [facility] [address] Christina Avendaño MD [address] [facility] [address] [place] [address] 08/13/2025 1:00 PM FLAT FINISHER Appointment [facility] [address] [place] [address] Ewa Nicholson, HOSE WRAPPER [address] [facility] [address] [place] [address] 08/13/2025 1:45 PM FLAT FINISHER Office Visit [facility] Breast Surgery [place] [address] [place] [address] Ewa Nicholson, HOSE WRAPPER [address] [facility] [address] [place] [address] documented as of this encounter Visit Diagnoses Not on filedocumented in this encounter Additional Health Concerns Infection Onset Date Last Indicated Resolved Time COVID-19 08/25/2021 08/25/2021 09/14/2021 1:18 AM FLAT FINISHER documented as of this encounter Care Teams Territory Sales Manager Medical Relationship Specialty Start Date End Date Christina Avendaño MD [address] [facility] [address] [place] [address] PCP - General Internal Medicine 06/24/18 documented as of this encounter
--- OUTSIDE RECORDS SUMMARY | 2024-12-13 09:24 | XMS_ITS | Patient Health Record ---
Author Organization [facility] Address [address] [address] Care Team Providers Care Debt Collection Specialist Name Role Phone Giorgio Crawford Unavailable [phone] ALLERGIES Allergen (clinical drug ingredient) Drug/Non Drug Allergy documented on EMR Reaction Allergy Type Onset Date Status neomycin neomycin (uncoded) Unknown Allergy A ctive Compazine Unknown Drug Allergy Active REASON FOR REFERRAL No Information MEDICATIONS Medication SIG (Take, Route, Frequency, Duration) Notes Start Date End Date Status Wellbutrin SR 150 MG 1 tablet in the morning Orally Once a day for 30 day(s) 03/31/2019 Active Zofran 4 MG 1 tablet Orally Once a day for 30 day(s) 03/31/2019 Active Plaquenil 200 MG 1 tablet Orally Twic e a day 03/31/2019 Active Gabapentin 600 MG 1 tablet Orally Once a day for 30 day(s) 03/31/2019 Active amLODIPine Besylate 5 MG 1 tablet Orally Once a day for 30 Active Labetalol HCl 100 MG 1 tablet Orally Twi a day Active Venlafaxine HCl ER 75 MG 1 capsule with food Orally Once a day for 90 Active Eszopiclone 3 MG 1 tablet immediately before bedtime Orally Once a day for 30 Active Lisinopril 40 MG 1 tablet Orally Once a day for 30 day(s) 03/31/2019 Active Lidoderm 5 % apply patch to painf ul area low back (may be cut)- 12 hours on and 12 hours off Externally Once a day for 30 days 11/30/2019 Active Hydroxychloroquine Sulfate 2 00 MG as directed Orally for 90 Active Vyvanse 50 MG 1 capsule in the morning Orally Once a day for 30 Active Imitrex 100 MG 1 tablet as needed Orally Twice a day 03/31/2019 Active SOCIAL HISTORY Tobacco Use: Social History Observation Description Date Details (start date - stop date) Never Smoker NA - NA Sex Assigned At : Social History Observation Description Sex Assigned At Unknown Tobacco Use/Smoking Question Answer Notes Are you a nonsmoker Alcohol Screen (Audit-C) Question Answer Notes Did you have a drink containing alcohol in the p ast year? 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) Active confirmed 480312013 PLAN OF TREATMENT No Information MEDICATIONS ADMINISTERED Medication Instructions Date of Administration Dosage Notes Bilateral L4/5 and L5/S1 Fac et Joint Injections with Fluoroscopy 02/20/2020 Bilateral L4/5 and L5/S1 Fac et Joint Injections with Fluoroscopy 05/17/2020 Bilateral Sacroiliac Joint Injection 06/16/2018 Bilateral Sacroiliac Joint Injection 07/27/2019 Bilateral Sacroiliac Joint Injection 11/30/2019 Bilateral Sacroiliac Joint Injection 06/18/2020 RIGHT L5/S1 SESI 07/01/2018 RIGHT L5/S1 SESI 03/31/2019 RIGHT L5/S1 SESI 11/17/2019 MEDICAL (GENERAL) HISTORY Medical History History ICD Code hypertension Skin cancer kidney stones kidney infections anxiety depression TMJ Surgical History Surgery Date(Month/Year) knee surgery
--- OUTSIDE RECORDS SUMMARY | 2024-12-13 09:24 | XMS_ITS | Encounter Summary ---
Author Organization [facility] Address [address] [place] [address] Care Team Providers Care Molder Trimmer Name Role Phone Christina Avendaño MD Primary Care Provider [phone] Encounter Details Date Type Department Care Team (Late Contact Info) Description 08/29/2021 Digital Self COVID-1 9 Monitoring STL ABSTRACTION [...] on file Legal Sex Female 4:13 AM DRY CLEANING COUNTER CLERK Gender Identity Not on file Sexual Orientation Not on file COVID-19 Exposure Response Date Recorded In the last month, have you been in contact with someone who was confirmed or suspected to have Coronavirus / COVID-19? Yes 09/01/2021 3:18 PM DRY CLEANING COUNTER CLERK documented as of this encounter Plan of Treatment Upcoming Encounters Date Type Department Care Team ([facility] Contact Info) Description 12/27/2024 9:30 AM CDT Office Visit [facility] Internal Medicine Medical [place] A [facility] [address] [facility] [address] [address] Christina Avendaño MD [address] [facility] [address] [place] [address] 08/13/2025 1:00 PM DRY CLEANING COUNTER CLERK Appointment [facility] Steven [address] [place] [address] Ewa Nicholson, CLINICAL SYSTEMS ANALYST [address] [facility] [address] [place] [address] 08/13/2025 1:45 PM DRY CLEANING COUNTER CLERK Office Visit [facility] Breast Surgery Steven [place] [address] [facility] [address] [place] [address] Ewa Nicholson, CLINICAL SYSTEMS ANALYST [address] [facility] [address] [place] [address] documented as of this encounter Visit Diagnoses Not on filedocumented in this encounter Additional Health Concerns Infection Onset Date Last Indicated Resolved Time COVID-19 08/25/2021 08/25/2021 09/14/2021 1:18 AM DRY CLEANING COUNTER CLERK documented as of this encounter Care Teams Molder Trimmer Relationship Specialty Start Date End Date Christina Avendaño MD [address] [address] PCP - General Internal Medicine 06/24/18 documented as of this encounter
--- OUTSIDE RECORDS SUMMARY | 2024-12-13 09:24 | XMS_ITS | Encounter Summary ---
Author Organization [facility] Address [address] [place] [address] Care Team Providers Care Sand Caster Name Role Phone Christina Avendaño MD Primary Care Provider [phone] Encounter Details Date Type Department Care Team (Late Contact Info) Description 08/30/2021 Digital Self COVID-1 9 Monitoring STL ABSTRACTION [...] on file Legal Sex Female 4:13 AM ENTERPRISE INFRASTRUCTURE ARCHITECT Gender Identity Not on file Sexual Orientation Not on file COVID-19 Exposure Response Date Recorded In the last month, have you been in contact with someone who was confirmed or suspected to have Coronavirus / COVID-19? Unable to assess 09/02/2021 12:36 PM ENTERPRISE INFRASTRUCTURE ARCHITECT documented as of this encounter Plan of Treatment Upcoming Encounters Date Type Department Care Team ([facility] Contact Info) Description 12/27/2024 9:30 AM CDT Office Visit [facility] Internal Medicine Medical [place] A [facility] [address] [facility] [address] [address] Christina Avendaño MD [address] [facility] [address] [place] [address] 08/13/2025 1:00 PM ENTERPRISE INFRASTRUCTURE ARCHITECT Appointment [facility] [address] [place] [address] Ewa Nicholson, EQUIPMENT TESTER [address] [facility] [address] [place] [address] 08/13/2025 1:45 PM ENTERPRISE INFRASTRUCTURE ARCHITECT Office Visit [facility] Breast Surgery [place] [address] [place] [address] Ewa Nicholson, EQUIPMENT TESTER [address] [facility] [address] [place] [address] documented as of this encounter Visit Diagnoses Not on filedocumented in this encounter Additional Health Concerns Infection Onset Date Last Indicated Resolved Time COVID-19 08/25/2021 08/25/2021 09/14/2021 1:18 AM ENTERPRISE INFRASTRUCTURE ARCHITECT documented as of this encounter Care Teams Sand Caster Relationship Specialty Start Date End Date Christina Avendaño MD [address] [facility] [address] [place] [address] PCP - General Internal Medicine 06/24/18 documented as of this encounter
--- OUTSIDE RECORDS SUMMARY | 2024-12-13 09:24 | XMS_ITS | Encounter Summary ---
Author Organization [facility] Address [address] [place] [address] Care Team Providers Care Snap Attacher Name Role Phone Christina Avendaño MD Primary Care Provider [phone] Encounter Details Date Type Department Care Team (Late st Contact Info) Description 07/03/2002 Outpatient Historical [facility] TAXATION ACCOUNTANT - [facility] [address] [facility] [address] [place] [address] Humza Guzman MD [address] [place], [place] [id number] Social History Tobacco Use Types Packs/Day Years Used Date Smoking Tobacco: Never Assessed Comments Unknown Sex and Gender Information Value Date Recorded Sex Assigned at Not on file Legal Sex Female 4:13 AM SPRAY GUN STRIPER Gender Identity Not on file Sexual Orientation Not on file documented as of this encounter Plan of Treatment Upcoming Encounters Date Type Department Care Team (Late st Contact Info) Description 12/27/2024 9:30 AM CDT Office Visit [facility] Internal Medicine Medical [place] [address] [facility] [address] [address] Christina Avendaño MD [address] [facility] [address] [place] [address] 08/13/2025 1:00 PM SPRAY GUN STRIPER Appointment [facility] [address] [address] [place] [address] Ewa Nicholson, ENTERPRISE SOFTWARE ENGINEER [address] [facility] [address] [place] [address] 08/13/2025 1:45 PM SPRAY GUN STRIPER Office Visit [facility] Breast Surgery Steven [address] [address] [facility] [address] [place] [address] Ewa Nicholson, RAKEL [address] [facility] [address] [place] [address] documented as of this encounter Visit Diagnoses Not on filedocumented in this encounter Additional Health Concerns Infection Onset Date Last Indicated Resolved Time R/O COVID-19 12/08/2019 12/08/2019 12/10/2019 2:21 AM CDT COVID-19 06/05/2020 06/05/2020 06/15/2020 8:47 AM CDT R/O C. diff 06/15/2020 06/16/2020 06/16/2020 6:22 PM CDT R/O COVID-19 08/25/2021 08/25/2021 08/25/2021 9:50 AM SPRAY GUN STRIPER R/O Respiratory 08/25/2021 08/25/2021 08/25/2021 1 1:13 AM SPRAY GUN STRIPER COVID-19 08/25/2021 08/25/2021 09/14/2021 1:18 AM SPRAY GUN STRIPER documented as of this encounter Care Teams Snap Attacher Relationship Specialty Start Date End Date Christina Avendaño MD [address] [place] [phone] PCP - General Internal Medicine 06/24/18 documented as of this encounter
--- OUTSIDE RECORDS SUMMARY | 2024-12-13 09:24 | XMS_ITS | Encounter Summary ---
Author Organization [facility] Address [address] [place] [address] Care Team Providers Care Creative Guru Name Role Phone Christina Avendaño MD Primary Care Provider [phone] Encounter Details Date Type Department Care Team (Late st Contact Info) Description 07/18/2008 Outpatient Historical [facility], Authorized P NO ADDRESS ON FILE Mert Curiel MD NO ADDRESS ON FILE Social History Tobacco Use Types Packs/Day Years Used Date Smoking Tobacco: Never Assessed Comments Unknown Sex and Gender Information Value Date Recorded Sex Assigned at Not on file Legal Sex Female 4:13 AM DOCK OR PIER LABORER Gender Identity Not on file Sexual Orientation Not on file documented as of this encounter Plan of Treatment Upcoming Encounters Date Type Department Care Team (Late Contact Info) Description 12/27/2024 9:30 AM CDT Office Visit [facility] Internal Medicine Medical [place] A [facility] [address] [facility] [address] [address] Christina Avendaño MD [address] [facility] [address] [place] [address] 08/13/2025 1:00 PM DOCK OR PIER LABORER Appointment [facility] [address] [place] [address] Ewa Nicholson, ACCOUNTS RECEIVABLE ASSISTANT [address] [place] [address] 08/13/2025 1:45 PM DOCK OR PIER LABORER Office Visit [facility] Breast Surgery Steven [place] [address] [place] [address] Ewa Nicholson, ACCOUNTS RECEIVABLE ASSISTANT [address] [place] [address] documented as of this encounter Procedures Procedure Name Priority Date/Time Associated Diagnosis Comments XR SHOULDER 2+ VW RIGHT Routine 07/18/2008 8:40 PM DOCK OR PIER LABORER documented in this encounter Results * XR SHOULDER 2+ VW RIGHT (07/18/2008 8:40 PM DOCK OR PIER LABORER) Anatomical Region Laterality Modality Upper Extremity Other 07/18/2008 8:40 PM DOCK OR PIER LABORER Narrative 07/18/2008 9:19 PM DOCK OR PIER LABORER [address] [address] Admit Date: 07/18/2008 JOEY TOMPKINS Sex: F Admit Prov: JESUS ALBERTO CARLOS Telles Date: 1970 Primary Care Prov: CMRN: [id number] Room: [facility] SSN: [id number] IMAGING SERVICES Ordering Prov: N/A Accession Number: [id number] Interpretation Exam: Right shoulder 2 views. History: Right shoulder pain. 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 No fracture, dislocation, or acute bone abnormality the right shoulder is seen. Impression: AC joint DJD changes. No fracture or acute bone abnormality. . Dictated by: JAMIE CARTER 07/18/2008 21:16 Electronically signed by: JAMIE CARTER 07/18/2008 21:17 Procedure Note Jamie Carter - 07/18/2008 [place] [address] [place], [place] [address] Admit Date: 07/18/2008 JOEY TOMPKINS Sex: F Admit Prov: ER, AUTHORIZED P Date: 1970 Primary Care Prov: CMRN: [id number] Room: ER-A SSN: [id number] IMAGING SERVICES Ordering Prov: N/A Interpretation Exam: Right shoulder 2 views. History: Right shoulder pain. 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 No fracture, dislocation, or acutebone abnormality the right shoulder is seen. Impression: AC joint DJD changes. No fracture or acute bone abnormality. . Dictated by: JAMIE CARTER 07/18/2008 21:16 Electronically signed by: JAMIE CARTER 07/18/2008 21:17 us Authorized P Er DIAGNOSTIC IMAGING ORDERABLES Fi nal Result documented in this encounter Visit Diagnoses Not on filedocumented in this encounter Additional Health Concerns Infection Onset Date Last Indicated Resolved Time R/O COVID-19 12/08/2019 12/08/2019 12/10/2019 2:21 AM CDT COVID-19 06/05/2020 06/05/2020 06/15/2020 8:47 AM CDT R/O C. diff 06/15/2020 06/16/2020 06/16/2020 6:22 PM CDT R/O COVID-19 08/25/2021 08/25/2021 08/25/2021 9:50 AM DOCK OR PIER LABORER R/O Respiratory 08/25/2021 08/25/2021 08/25/2021 1 1:13 AM DOCK OR PIER LABORER COVID-19 08/25/2021 08/25/2021 09/14/2021 1:18 AM DOCK OR PIER LABORER documented as of this encounter Care Teams Creative Guru Relationship Specialty Start Date End Date Christina Avendaño MD [address] [place] [address] PCP - General Internal Medicine 06/24/18 documented as of this encounter
--- OUTSIDE RECORDS SUMMARY | 2024-12-13 09:24 | XMS_ITS | Encounter Summary ---
Author Organization [facility] Address [address] [place] [address] Care Team Providers Care Residential Support Worker Name Role Phone Christina Avendaño MD Primary Care Provider [phone] Encounter Details Date Type Department Care Team (Late st Contact Info) Description 09/20/2003 Outpatient Historical [facility] PROGRAM MANAGER TRANSPORTATION - [facility] [address] [facility] [address] [place] [address] Humza Guzman MD [address] [place], [place] [id number] Social History Tobacco Use Types Packs/Day Years Used Date Smoking Tobacco: Never Assessed Comments Unknown Sex and Gender Information Value Date Recorded Sex Assigned at Not on file Legal Sex Female 4:13 AM MERCHANDISE FLOW TEAM MEMBER Gender Identity Not on file Sexual Orientation Not on file documented as of this encounter Plan of Treatment Upcoming Encounters Date Type Department Care Team (Late st Contact Info) Description 12/27/2024 9:30 AM CDT Office Visit [facility] Internal Medicine Medical [place] [address] [facility] [address] [address] Christina Avendaño MD [address] [facility] [address] [place] [address] 08/13/2025 1:00 PM MERCHANDISE FLOW TEAM MEMBER Appointment [facility] [address] [address] [place] [address] Ewa Nicholson, DELIVERY TRUCK DRIVER [address] [facility] [address] [place] [address] 08/13/2025 1:45 PM MERCHANDISE FLOW TEAM MEMBER Office Visit [facility] Breast Surgery Steven [address] [address] [facility] [address] [place] [address] Ewa Nicholson, RAKEL [address] [facility] [address] [place] [address] documented as of this encounter Visit Diagnoses Not on filedocumented in this encounter Additional Health Concerns Infection Onset Date Last Indicated Resolved Time R/O COVID-19 12/08/2019 12/08/2019 12/10/2019 2:21 AM CDT COVID-19 06/05/2020 06/05/2020 06/15/2020 8:47 AM CDT R/O C. diff 06/15/2020 06/16/2020 06/16/2020 6:22 PM CDT R/O COVID-19 08/25/2021 08/25/2021 08/25/2021 9:50 AM MERCHANDISE FLOW TEAM MEMBER R/O Respiratory 08/25/2021 08/25/2021 08/25/2021 1 1:13 AM MERCHANDISE FLOW TEAM MEMBER COVID-19 08/25/2021 08/25/2021 09/14/2021 1:18 AM MERCHANDISE FLOW TEAM MEMBER documented as of this encounter Care Teams Residential Support Worker Relationship Specialty Start Date End Date Christina Avendaño MD [address] [place] [phone] PCP - General Internal Medicine 06/24/18 documented as of this encounter
--- OUTSIDE RECORDS SUMMARY | 2024-12-13 09:24 | XMS_ITS ---
Author Organization [facility] Address [address] [place] [address] Care Team Providers Care Spooler Operator Automatic Name Role Phone JarochoCaitie Primary Care Provider Jamie Ospina Unavailable [phone] Adrian NEW[place], Otilio Unavailable [phone] REASON FOR VISIT Fax Scheduling Form Encounters Encounter Location Date Provider Diagnosis -[facility] [address] [facility] [address] [place] [address] 07/23/2024 Jamie Reyes Plan Of Treatment No Information Progress Notes * Joyce TOMPKINS LDOB: (54 yo F)Acc No.[id number]:07/23/2024 Patient: Scott Joyce MORRISSEY :1970 A ge:54 Y S ex:Female Address:[address] [place] [phone] * true * Date: Generated for Printi ng/Faxing/eTransmitting on: 0 12/13/2024 09:24 AM CDT
--- OUTSIDE RECORDS SUMMARY | 2024-12-13 09:24 | XMS_ITS | Encounter Summary ---
Author Organization [facility] Address [address] [place] [address] Care Team Providers Care Supreme Court Judge Name Role Phone Christina Avendaño MD Primary Care Provider [phone] Encounter Details Date Type Department Care Team (Late st Contact Info) Description 09/10/2003 Outpatient Historical [facility] DISPATCHER SERVICE OR WORK - [facility] [address] [facility] [address] [place] [address] Humza Guzman MD [address] [place], [place] [id number] Social History Tobacco Use Types Packs/Day Years Used Date Smoking Tobacco: Never Assessed Comments Unknown Sex and Gender Information Value Date Recorded Sex Assigned at Not on file Legal Sex Female 4:13 AM METAL BED ASSEMBLER Gender Identity Not on file Sexual Orientation Not on file documented as of this encounter Plan of Treatment Upcoming Encounters Date Type Department Care Team (Late st Contact Info) Description 12/27/2024 9:30 AM CDT Office Visit [facility] Internal Medicine Medical [place] A [address] [facility] [address] [address] Christina Avendaño MD [address] [facility] [address] [place] [address] 08/13/2025 1:00 PM METAL BED ASSEMBLER Appointment [facility] Steven Simon [address] [place] [phone] Ewa Nicholson, REFINING MACHINE OPERATOR [address] [facility] [address] [place] [address] 08/13/2025 1:45 PM METAL BED ASSEMBLER Office Visit [facility] Breast Surgery Steven Simon [address] [facility] [address] [place] [address] Ewa Nicholson, RAKEL [address] [facility] [address] [place] [address] documented as of this encounter Visit Diagnoses Not on filedocumented in this encounter Additional Health Concerns Infection Onset Date Last Indicated Resolved Time R/O COVID-19 12/08/2019 12/08/2019 12/10/2019 2:21 AM CDT COVID-19 06/05/2020 06/05/2020 06/15/2020 8:47 AM CDT R/O C. diff 06/15/2020 06/16/2020 06/16/2020 6:22 PM CDT R/O COVID-19 08/25/2021 08/25/2021 08/25/2021 9:50 AM METAL BED ASSEMBLER R/O Respiratory 08/25/2021 08/25/2021 08/25/2021 1 1:13 AM METAL BED ASSEMBLER COVID-19 08/25/2021 08/25/2021 09/14/2021 1:18 AM METAL BED ASSEMBLER documented as of this encounter Care Teams Supreme Court Judge Relationship Specialty Start Date End Date Christina Avendaño MD [address] [place] [phone] PCP - General Internal Medicine 06/24/18 documented as of this encounter
--- OUTSIDE RECORDS SUMMARY | 2024-12-13 09:24 | XMS_ITS | Encounter Summary ---
Author Organization [facility] Address [address] [place] [address] Care Team Providers Care Director Of Blood Name Role Phone Christina Avendaño MD Primary Care Provider [phone] Encounter Details Date Type Department Care Team (Late Contact Info) Description 12/05/2003 Outpatient Historical [facility] PAPER FEEDER - [facility] [address] [facility] [address] [place] [address] Harpal Coppola MD [address] [facility] [address] [address] Social History Tobacco Use Types Packs/Day Years Used Date Smoking Tobacco: Never Assessed Comments Unknown Sex and Gender Information Value Date Recorded Sex Assigned at Not on file Legal Sex Female 4:13 AM SENIOR GAME DEVELOPER Gender Identity Not on file Sexual Orientation Not on file documented as of this encounter Plan of Treatment Upcoming Encounters Date Type Department Care Team (Late Contact Info) Description 12/27/2024 9:30 AM CDT Office Visit [facility] Internal Medicine Medical [place] A [facility] [address] [facility] [address] [address] Christina Avendaño MD [address] [facility] [address] [place] [address] 08/13/2025 1:00 PM SENIOR GAME DEVELOPER Appointment [facility] Steven [address] [place] [phone] Ewa Nicholson, BIBLE READER [address] [facility] [address] [place] [address] 08/13/2025 1:45 PM SENIOR GAME DEVELOPER Office Visit [facility] Breast Surgery Steven [place] [address] [place] [address] Ewa Nicholson, BIBLE READER [address] [place] [address] documented as of this encounter Visit Diagnoses Not on filedocumented in this encounter Additional Health Concerns Infection Onset Date Last Indicated Resolved Time R/O COVID-19 12/08/2019 12/08/2019 12/10/2019 2:21 AM CDT COVID-19 06/05/2020 06/05/2020 06/15/2020 8:47 AM CDT R/O C. diff 06/15/2020 06/16/2020 06/16/2020 6:22 PM CDT R/O COVID-19 08/25/2021 08/25/2021 08/25/2021 9:50 AM SENIOR GAME DEVELOPER R/O Respiratory 08/25/2021 08/25/2021 08/25/2021 1 1:13 AM SENIOR GAME DEVELOPER COVID-19 08/25/2021 08/25/2021 09/14/2021 1:18 AM SENIOR GAME DEVELOPER documented as of this encounter Care Teams Director Of Blood Relationship Specialty Start Date End Date Christina Avendaño MD [facility] [address] [place] [address] PCP - General Internal Medicine 06/24/18 documented as of this encounter
--- OUTSIDE RECORDS SUMMARY | 2024-12-13 09:24 | XMS_ITS | Encounter Summary ---
Author Organization [facility] Address [address] [place] [address] Care Team Providers Care Server Programmer Name Role Phone Christina Avendaño MD Primary Care Provider [phone] Encounter Details Date Type Department Care Team (Late Contact Info) Description 09/01/2021 Digital Self COVID-1 9 Monitoring [facility] ABSTRACTION [...] on file Legal Sex Female 4:13 AM INSPECTOR BULLET SLUGS Gender Identity Not on file Sexual Orientation Not on file COVID-19 Exposure Response Date Recorded In the last month, have you been in contact with someone who was confirmed or suspected to have Coronavirus / COVID-19? Unable to assess 09/02/2021 12:36 PM INSPECTOR BULLET SLUGS documented as of this encounter Plan of Treatment Upcoming Encounters Date Type Department Care Team ([facility] Contact Info) Description 12/27/2024 9:30 AM CDT Office Visit [facility] Internal Medicine Medical [place] A [facility] [address] [facility] [address] [address] Christina Avendaño MD [address] [facility] [address] [place] [address] 08/13/2025 1:00 PM INSPECTOR BULLET SLUGS Appointment [facility] Steven Simon [address] [place] [address] Ewa Nicholson, LITERACY SPECIALIST [address] [facility] [address] [place] [address] 08/13/2025 1:45 PM INSPECTOR BULLET SLUGS Office Visit [facility] Breast Surgery Steven Aurora [address] [place] [address] Ewa Nicholson, LITERACY SPECIALIST [address] [facility] [address] [place] [address] documented as of this encounter Visit Diagnoses Not on filedocumented in this encounter Additional Health Concerns Infection Onset Date Last Indicated Resolved Time COVID-19 08/25/2021 08/25/2021 09/14/2021 1:18 AM INSPECTOR BULLET SLUGS documented as of this encounter Care Teams Server Programmer Relationship Specialty Start Date End Date Christina Avendaño MD [address] [facility] [address] [place] [address] PCP - General Internal Medicine 06/24/18 documented as of this encounter
--- OUTSIDE RECORDS SUMMARY | 2024-12-13 09:24 | XMS_ITS | Encounter Summary ---
Author Organization [facility] Healthcare Address [address] [place] [address] Care Team Providers Care Road Tester Name Role Phone Christina Avendaño MD Primary Care Provider + Radha Curiel MD Unavailable Xander [place] MD Unavailable [phone] Encounter Details Date Type Department Care Team (Late st Contact Info) Description 09/19/2020 Telephone [facility] [address] [place] [address] Kathryn Hassan, RT Social History Tobacco Use Types Packs/Day Years Used Date Smoking Tobacco: Never Comments Unknown Sex and Gender Information Value Date Recorded Sex Assigned at Not on file Legal Sex Female 7:49 PM LEADERSHIP RECRUITER Gender Identity Not on file Sexual Orientation Not on file documented as of this encounter Plan of Treatment Not on file documented as of this encounter Visit Diagnoses Not on filedocumented in this encounter Additional Health Concerns Infection Onset Date Last Indicated Resolved Time MRSA Comment:03/26/2021 IP Review: No recent infection 07/07/2019 07/05/2019 03/26/2021 12:14 PM CDT COVID19 Comment:MAY 2020 10/19/2020 10/18/2020 03/26/2021 12:05 PM CDT COVID: Recovered Comment:Added based on recent COVID infection. COVID recovery time . 03/26/2021 03/26/2021 03/26/2021 12:13 PM CDT COVID: Suspected 04/18/2021 04/18/2021 04/18/2021 10:03 AM CDT COVID: Suspected 09/26/2024 09/26/2024 09/26/2024 7:54 PM LEADERSHIP RECRUITER COVID: Suspected 09/29/2024 09/29/2024 09/29/2024 4:15 PM LEADERSHIP RECRUITER documented as of this encounter Care Teams Road Tester Relationship Specialty Start Date End Date Christina Avendaño MD [address] [facility] [address] [place] [phone] PCP - General Internal Medicine 05/07/20 Radha Curiel MD [address] [facility] [address] [place] [address] 05/07/20 Xander [place] MD [address] [place] [address] Consulting Physician General Surgery 04/06/21 documented as of this encounter
--- OUTSIDE RECORDS SUMMARY | 2024-12-13 09:24 | XMS_ITS | Encounter Summary ---
Author Organization [facility] Address [address] [place] [address] Care Team Providers Care Sales Promotion Officer Name Role Phone Christina Avendaño MD Primary Care Provider [phone] Encounter Details Date Type Department Care Team [...] on file Legal Sex Female 4:13 AM DRILL SHARPENER OPERATOR Gender Identity Not on file Sexual Orientation Not on file COVID-19 Exposure Response Date Recorded In the last month, have you been in contact with someone who was confirmed or suspected to have Coronavirus / COVID-19? Unable to assess 09/02/2021 12:36 PM DRILL SHARPENER OPERATOR documented as of this encounter Plan of Treatment Upcoming Encounters Date Type Department Care Team ([facility] Contact Info) Description 12/27/2024 9:30 AM CDT [facility] Internal Medicine Medical [place] A [facility] [address] [facility] [address] [address] Christina Avendaño MD [address] [facility] [address] [place] [address] 08/13/2025 1:00 PM DRILL SHARPENER OPERATOR Appointment [facility] Steven Simon [address] [place] [address] Ewa Nicholson, TAXI DRIVER [address] [facility] [address] [place] [address] 08/13/2025 1:45 PM DRILL SHARPENER OPERATOR Office Visit [facility] Breast Surgery Steven Aurora [address] [place] [address] Ewa Nicholson, TAXI DRIVER [address] [facility] [address] [place] [address] documented as of this encounter Visit Diagnoses Not on filedocumented in this encounter Additional Health Concerns Infection Onset Date Last Indicated Resolved Time COVID-19 08/25/2021 08/25/2021 09/14/2021 1:18 AM DRILL SHARPENER OPERATOR documented as of this encounter Care Teams Sales Promotion Officer Relationship Specialty Start Date End Date Christina Avendaño MD [address] [facility] [address] [place] [address] PCP - General Internal Medicine 06/24/18 documented as of this encounter
--- OUTSIDE RECORDS SUMMARY | 2024-12-13 09:24 | XMS_ITS | Encounter Summary ---
Author Organization [facility] Address [address] [place] [address] Care Team Providers Care Service Promoter Salesperson Name Role Phone Christina Avendaño MD Primary Care Provider [phone] Encounter Details Date Type Department Care Team (Late Contact Info) Description 08/26/2021 Digital Self COVID-1 9 Monitoring STL ABSTRACTION [...] on file Legal Sex Female 4:13 AM GUEST ADVISOR Gender Identity Not on file Sexual Orientation Not on file COVID-19 Exposure Response Date Recorded In the last month, have you been in contact with someone who was confirmed or suspected to have Coronavirus / COVID-19? No / Unsure 08/13/2021 1:25 PM GUEST ADVISOR documented as of this encounter Plan of Treatment Upcoming Encounters Date Type Department Care Team ([facility] Contact Info) Description 12/27/2024 9:30 AM CDT Office Visit [facility] Internal Medicine Medical [place] A [facility] [address] [facility] [address] [address] Christina Avendaño MD [address] [facility] [address] [place] [address] 08/13/2025 1:00 PM GUEST ADVISOR Appointment [facility] Steven Simon [address] [place] [address] Ewa Nicholson, CHIEF OPERATOR HYDROFORMER [address] [facility] [address] [place] [address] 08/13/2025 1:45 PM GUEST ADVISOR Office Visit [facility] Breast Surgery Steven [place] [address] [place] [address] Ewa Nicholson, CHIEF OPERATOR HYDROFORMER [address] [facility] [address] [place] [address] documented as of this encounter Visit Diagnoses Not on filedocumented in this encounter Additional Health Concerns Infection Onset Date Last Indicated Resolved Time COVID-19 08/25/2021 08/25/2021 09/14/2021 1:18 AM GUEST ADVISOR documented as of this encounter Care Teams Service Promoter Salesperson Relationship Specialty Start Date End Date Christina Avendaño MD [address] [facility] [address] [place] [address] PCP - General Internal Medicine 06/24/18 documented as of this encounter
--- OUTSIDE RECORDS SUMMARY | 2024-12-13 09:24 | XMS_ITS | Encounter Summary ---
Author Organization [facility] Address [address] [place] [address] Care Team Providers Care Monitor Tech Name Role Phone Christina Avendaño MD Primary Care Provider [phone] Encounter Details Date Type Department Care Team (Late st Contact Info) Description 12/17/2003 Outpatient Historical [facility] ACOUSTIC ENGINEER - [facility] [address] [facility] [address] [place] [address] Humza Guzman MD [address] [place], [place] [id number] Social History Tobacco Use Types Packs/Day Years Used Date Smoking Tobacco: Never Assessed Comments Unknown Sex and Gender Information Value Date Recorded Sex Assigned at Not on file Legal Sex Female 4:13 AM MILLWRIGHT HELPER Gender Identity Not on file Sexual Orientation Not on file documented as of this encounter Plan of Treatment Upcoming Encounters Date Type Department Care Team (Late st Contact Info) Description 12/27/2024 9:30 AM CDT Office Visit [facility] Internal Medicine Medical [place] A [address] [facility] [address] [address] Christina Avendaño MD [address] [facility] [address] [place] [address] 08/13/2025 1:00 PM MILLWRIGHT HELPER Appointment [facility] Steven Simon [address] [place] [address] Ewa Nicholson, PETROLOGY TEACHER [address] [facility] [address] [place] [address] 08/13/2025 1:45 PM MILLWRIGHT HELPER Office Visit [facility] Breast Surgery Steven Simon [address] [facility] [address] [place] [address] Ewa Nicholson, RAKEL [address] [facility] [address] [place] [address] documented as of this encounter Visit Diagnoses Not on filedocumented in this encounter Additional Health Concerns Infection Onset Date Last Indicated Resolved Time R/O COVID-19 12/08/2019 12/08/2019 12/10/2019 2:21 AM CDT COVID-19 06/05/2020 06/05/2020 06/15/2020 8:47 AM CDT R/O C. diff 06/15/2020 06/16/2020 06/16/2020 6:22 PM CDT R/O COVID-19 08/25/2021 08/25/2021 08/25/2021 9:50 AM MILLWRIGHT HELPER R/O Respiratory 08/25/2021 08/25/2021 08/25/2021 1 1:13 AM MILLWRIGHT HELPER COVID-19 08/25/2021 08/25/2021 09/14/2021 1:18 AM MILLWRIGHT HELPER documented as of this encounter Care Teams Monitor Tech Relationship Specialty Start Date End Date Christina Avendaño MD [address] [place] [phone] PCP - General Internal Medicine 06/24/18 documented as of this encounter
--- OUTSIDE RECORDS SUMMARY | 2024-12-13 09:24 | XMS_ITS | Encounter Summary ---
Author Organization [facility] Address [address] [place] [address] Care Team Providers Care Roaster Supervisor Name Role Phone Christina Avendaño MD Primary Care Provider [phone] Encounter Details Date Type Department Care Team (Late st Contact Info) Description 08/06/2003 Outpatient Historical [facility] ENVIRONMENTAL MONITORING SPECIALIST - [facility] [address] [facility] [address] [place] [address] Humza Guzman MD [address] [place], [place] [id number] Social History Tobacco Use Types Packs/Day Years Used Date Smoking Tobacco: Never Assessed Comments Unknown Sex and Gender Information Value Date Recorded Sex Assigned at Not on file Legal Sex Female 4:13 AM RUBBER WASHER Gender Identity Not on file Sexual Orientation Not on file documented as of this encounter Plan of Treatment Upcoming Encounters Date Type Department Care Team (Late st Contact Info) Description 12/27/2024 9:30 AM CDT Office Visit [facility] Internal Medicine Medical [place] A [address] [facility] [address] [address] Christina Avendaño MD [address] [facility] [address] [place] [address] 08/13/2025 1:00 PM RUBBER WASHER Appointment [facility] Steven Simon [address] [place] [address] Ewa Nicholson, CONVENTION PLANNER [address] [facility] [address] [place] [address] 08/13/2025 1:45 PM RUBBER WASHER Office Visit [facility] Breast Surgery Steven Simon [address] [facility] [address] [place] [address] Ewa Nicholson, RAKEL [address] [facility] [address] [place] [address] documented as of this encounter Visit Diagnoses Not on filedocumented in this encounter Additional Health Concerns Infection Onset Date Last Indicated Resolved Time R/O COVID-19 12/08/2019 12/08/2019 12/10/2019 2:21 AM CDT COVID-19 06/05/2020 06/05/2020 06/15/2020 8:47 AM CDT R/O C. diff 06/15/2020 06/16/2020 06/16/2020 6:22 PM CDT R/O COVID-19 08/25/2021 08/25/2021 08/25/2021 9:50 AM RUBBER WASHER R/O Respiratory 08/25/2021 08/25/2021 08/25/2021 1 1:13 AM RUBBER WASHER COVID-19 08/25/2021 08/25/2021 09/14/2021 1:18 AM RUBBER WASHER documented as of this encounter Care Teams Roaster Supervisor Relationship Specialty Start Date End Date Christina Avendaño MD [address] [place] [phone] PCP - General Internal Medicine 06/24/18 documented as of this encounter
--- OUTSIDE RECORDS SUMMARY | 2024-12-13 09:24 | XMS_ITS | Encounter Summary ---
Author Organization [facility] Address [address] [place] [address] Care Team Providers Care Dressing Machine Operator Name Role Phone Christina Avendaño MD Primary Care Provider [phone] Encounter Details Date Type Department Care Team [...] on file Legal Sex Female 4:13 AM SUPERVISOR DITCHING Gender Identity Not on file Sexual Orientation Not on file COVID-19 Exposure Response Date Recorded In the last month, have you been in contact with someone who was confirmed or suspected to have Coronavirus / COVID-19? Yes 09/01/2021 3:18 PM SUPERVISOR DITCHING documented as of this encounter Plan of Treatment Upcoming Encounters Date Type Department Care Team ([facility] Contact Info) Description 12/27/2024 9:30 AM CDT Office Visit [facility] Internal Medicine Medical [place] A [facility] [address] [facility] [address] [address] Christina Avendaño MD [address] [facility] [address] [place] [address] 08/13/2025 1:00 PM SUPERVISOR DITCHING Appointment [facility] Steven Aurora [address] [place] [address] Ewa Nicholson, CAVING GUIDE [address] [facility] [address] [place] [address] 08/13/2025 1:45 PM SUPERVISOR DITCHING Office Visit [facility] Breast Surgery Steven Aurora [address] [facility] [address] [place] [address] Ewa Nicholson, CAVING GUIDE [address] [facility] [address] [place] [address] documented as of this encounter Visit Diagnoses Not on filedocumented in this encounter Additional Health Concerns Infection Onset Date Last Indicated Resolved Time COVID-19 08/25/2021 08/25/2021 09/14/2021 1:18 AM SUPERVISOR DITCHING documented as of this encounter Care Teams Dressing Machine Operator Relationship Specialty Start Date End Date Christina Avendaño MD [address] [address] PCP - General Internal Medicine 06/24/18 documented as of this encounter
--- OUTSIDE RECORDS SUMMARY | 2024-12-13 09:24 | XMS_ITS | Encounter Summary ---
Author Organization [facility] Address [address] [place] [address] Care Team Providers Care Supply Chain Business Analyst Name Role Phone Christina Avendaño MD Primary Care Provider [phone] Encounter Details Date Type Department Care Team (Late st Contact Info) Description 12/11/1998 Outpatient Historical [facility] ST[facility] Conversion, History Er, Authorized P NO ADDRESS ON FILE Surgical or other procedure not carried out because of patient's decision (Primary Dx) Social History Tobacco Use Types Packs/Day Years Used Date Smoking Tobacco: Never Assessed Comments Unknown Sex and Gender Information Value Date Recorded Sex Assigned at Not on file Legal Sex Female 4:13 AM KILN REMOVER Gender Identity Not on file Sexual Orientation Not on file documented as of this encounter Plan of Treatment Upcoming Encounters Date Type Department Care Team (Late st Contact Info) Description 12/27/2024 9:30 AM CDT Office Visit [facility] Internal Medicine Medical [place] A [facility] [address] [facility] [address] [address] Christina Avendaño MD [address] [facility] [address] [place] [address] 08/13/2025 1:00 PM KILN REMOVER Appointment [facility] Steven Simon [address] [place] [address] Ewa Nicholson, MULTIMEDIA AUTHORING SPECIALIST [address] [address] [place] [address] 08/13/2025 1:45 PM KILN REMOVER Office Visit [facility] Breast Surgery Steven Simon [address] [facility] [address] [place] [address] García Nicholsonradha Soriano, [facility] [address] [facility] [address] [place] [address] documented as of this encounter Visit Diagnoses Diagnosis Surgical or other procedure not carried out because of patient's decision- Primary documented in this encounter Additional Health Concerns Infection Onset Date Last Indicated Resolved Time R/O COVID-19 12/08/2019 12/08/2019 12/10/2019 2:21 AM CDT COVID-19 06/05/2020 06/05/2020 06/15/2020 8:47 AM CDT R/O C. diff 06/15/2020 06/16/2020 06/16/2020 6:22 PM CDT R/O COVID-19 08/25/2021 08/25/2021 08/25/2021 9:50 AM KILN REMOVER R/O Respiratory 08/25/2021 08/25/2021 08/25/2021 1 1:13 AM KILN REMOVER COVID-19 08/25/2021 08/25/2021 09/14/2021 1:18 AM KILN REMOVER documented as of this encounter Care Teams Supply Chain Business Analyst Relationship Specialty Start Date End Date Christina Avendaño MD [address] [place] [phone] PCP - General Internal Medicine 06/24/18 documented as of this encounter
--- OUTSIDE RECORDS SUMMARY | 2024-12-13 09:24 | XMS_ITS | Encounter Summary ---
Author Organization [facility] Address [address] [place] [address] Care Team Providers Care Tank Driver Name Role Phone Christina Avendaño MD Primary Care Provider [phone] Encounter Details Date Type Department Care Team [...] on file Legal Sex Female 4:13 AM DIRECTOR OF DESIGN Gender Identity Not on file Sexual Orientation Not on file COVID-19 Exposure Response Date Recorded In the last month, have you been in contact with someone who was confirmed or suspected to have Coronavirus / COVID-19? No / Unsure 08/13/2021 1:25 PM DIRECTOR OF DESIGN documented as of this encounter Plan of Treatment Upcoming Encounters Date Type Department Care Team ([facility] Contact Info) Description 12/27/2024 9:30 AM CDT Office Visit [facility] Internal Medicine Medical [place] [facility] [address] [facility] [address] [address] Christina Avendaño MD [address] [facility] [address] [place] [address] 08/13/2025 1:00 PM DIRECTOR OF DESIGN Appointment [facility] Steven Simon [address] [place] [address] Ewa Nicholson, HAT CUTTER [address] [facility] [address] [place] [address] 08/13/2025 1:45 PM DIRECTOR OF DESIGN Office Visit [facility] Breast Surgery [place] [address] [place] [address] Ewa Nicholson, HAT CUTTER [address] [facility] [address] [place] [address] documented as of this encounter Visit Diagnoses Not on filedocumented in this encounter Additional Health Concerns Infection Onset Date Last Indicated Resolved Time COVID-19 08/25/2021 08/25/2021 09/14/2021 1:18 AM DIRECTOR OF DESIGN documented as of this encounter Care Teams Tank Driver Relationship Specialty Start Date End Date Christina Avendaño MD [address] [facility] [address] [place] [address] PCP - General Internal Medicine 06/24/18 documented as of this encounter
--- OUTSIDE RECORDS SUMMARY | 2024-12-13 09:24 | XMS_ITS | Encounter Summary ---
Author Organization [facility] Address [address] [place] [address] Care Team Providers Care Otr Refrigerated Cdl Truck Driver Name Role Phone Christina Avendaño MD Primary Care Provider [phone] Encounter Details Date Type Department Care Team (Late Contact Info) Description 08/27/2021 Digital Self COVID-1 9 Monitoring STL ABSTRACTION [...] on file Legal Sex Female 4:13 AM INSTRUCTIONAL MATERIAL DIRECTOR Gender Identity Not on file Sexual Orientation Not on file COVID-19 Exposure Response Date Recorded In the last month, have you been in contact with someone who was confirmed or suspected to have Coronavirus / COVID-19? No / Unsure 08/13/2021 1:25 PM INSTRUCTIONAL MATERIAL DIRECTOR documented as of this encounter Plan of Treatment Upcoming Encounters Date Type Department Care Team ([facility] Contact Info) Description 12/27/2024 9:30 AM CDT Office Visit [facility] Internal Medicine Medical [place] [facility] [address] [facility] [address] [address] Christina Avendaño MD [address] [facility] [address] [place] [address] 08/13/2025 1:00 PM INSTRUCTIONAL MATERIAL DIRECTOR Appointment [facility] Steven Simon [address] [place] [address] Ewa Nicholson, CAM SPECIALIST [address] [facility] [address] [place] [address] 08/13/2025 1:45 PM INSTRUCTIONAL MATERIAL DIRECTOR Office Visit [facility] Breast Surgery Steven [place] [address] [place] [address] Ewa Nicholson, CAM SPECIALIST [address] [facility] [address] [place] [address] documented as of this encounter Visit Diagnoses Not on filedocumented in this encounter Additional Health Concerns Infection Onset Date Last Indicated Resolved Time COVID-19 08/25/2021 08/25/2021 09/14/2021 1:18 AM INSTRUCTIONAL MATERIAL DIRECTOR documented as of this encounter Care Teams Otr Refrigerated Cdl Truck Driver Relationship Specialty Start Date End Date Christina Avendaño MD [address] [facility] [address] [place] [address] PCP - General Internal Medicine 06/24/18 documented as of this encounter
--- OUTSIDE RECORDS SUMMARY | 2024-12-13 09:24 | XMS_ITS | Encounter Summary ---
Author Organization [facility] Address [address] [place] [address] Care Team Providers Care Performance Improvement Analyst Name Role Phone Christina Avendaño MD Primary Care Provider [phone] Encounter Details Date Type Department Care Team (Late st Contact Info) Description 06/11/2003 Outpatient Historical [facility] Sheldon TIN ROOFER - [facility] [address] [facility] [address] [place] [address] Humza Guzman MD [address] [place], [place] [id number] Social History Tobacco Use Types Packs/Day Years Used Date Smoking Tobacco: Never Assessed Comments Unknown Sex and Gender Information Value Date Recorded Sex Assigned at Not on file Legal Sex Female 4:13 AM SUBMARINE ELEMENT COORDINATOR Gender Identity Not on file Sexual Orientation Not on file documented as of this encounter Plan of Treatment Upcoming Encounters Date Type Department Care Team (Late Contact Info) Description 12/27/2024 9:30 AM CDT Office Visit [facility] Internal Medicine Medical [place] A [address] [facility] [address] [address] Christina Avendaño MD [address] [facility] [address] [place] [address] 08/13/2025 1:00 PM SUBMARINE ELEMENT COORDINATOR Appointment [facility] Steven Simon [address] [place] [phone] Ewa Nicholson, DEPOSITION OPERATOR [address] [facility] [address] [place] [address] 08/13/2025 1:45 PM SUBMARINE ELEMENT COORDINATOR Office Visit [facility] Breast Surgery Steven Simon [address] [facility] [address] [place] [address] Ewa Nicholson, RAKEL [address] [facility] [address] [place] [address] documented as of this encounter Visit Diagnoses Not on filedocumented in this encounter Additional Health Concerns Infection Onset Date Last Indicated Resolved Time R/O COVID-19 12/08/2019 12/08/2019 12/10/2019 2:21 AM CDT COVID-19 06/05/2020 06/05/2020 06/15/2020 8:47 AM CDT R/O C. diff 06/15/2020 06/16/2020 06/16/2020 6:22 PM CDT R/O COVID-19 08/25/2021 08/25/2021 08/25/2021 9:50 AM SUBMARINE ELEMENT COORDINATOR R/O Respiratory 08/25/2021 08/25/2021 08/25/2021 1 1:13 AM SUBMARINE ELEMENT COORDINATOR COVID-19 08/25/2021 08/25/2021 09/14/2021 1:18 AM SUBMARINE ELEMENT COORDINATOR documented as of this encounter Care Teams Performance Improvement Analyst Relationship Specialty Start Date End Date Christina Avendaño MD [address] [place] [phone] PCP - General Internal Medicine 06/24/18 documented as of this encounter
--- OUTSIDE RECORDS SUMMARY | 2024-12-13 09:24 | XMS_ITS ---
Author Organization [facility] Address [address] [place], [place] [id number] Care Team Providers Care Frozen Food Selector Name Role Phone MANOHAR SMART Unavailable [phone] Christina Avendaño Unavailable Unavailable REASON FOR VISIT injection Medications Medication SIG (Take, Route, Frequency, Duration) Notes Start Date End Date Status methylPREDNISolone 4 MG as directed Orally one pack 023 Active Medrol 4 MG as directed Orally 10/07/2023 Active Vital Signs Height 66.00 in 06/15/2024 Weight 212 lbs 06/15/2024 BMI 34.21 kg/m2 06/15/2024 Height-cm 167.64 cm 06/15/2024 Weight-kg 96.16 kg 06/15/2024 Encounters Encounter Location Date Provider Diagnosis [facility] [place] [address] [address] [place], [place] [id number] 06/15/2024 MANOHAR SMART Hallux rigidus of left foot M20.22 ; Plantar fasciitis M72.2 ; Primary osteoarthritis, left ankle and foot M19.072 and Left foot pain M79.672 Assessments Encounter Date Diagnosis (ICD Code) Assessment Notes Treatment Notes Treatment Clinical Notes Section Notes 06/15/2024 Hallux rigidus of left foot (ICD-10 - M20.22) Following skin prep, a total of 3 ccs of a 1-1-1 mix of 0.5% marcaine plain, Kenalog, and dexamethasone sodium phosphate was injected into the patients right first MPJ. 06/15/2024 Plantar fasciitis (ICD-10 - M72.2) 06/15/2024 Primary osteoarthritis , left ankle and foot (ICD-10 - M19.072) 06/15/2024 Left foot pain (ICD-10 - M79.672) 06/15/2024 Other Plan Of Treatment Treatment Notes Assessment Notes Hallux rigidus of left foot Following sk in prep, a total of 3 ccs of a 1-1-1 mix of 0.5% marcaine plain, Kenalog, and dexamethasone sodium phosphate was injected into the patients right first MPJ. Progress Notes * IDRIS DAMICOOB: 970 (54 yo F)Acc No.[id number]:06/15/2024 Patient: JOEY DINH Provider: Gilson Smart DPM :1970 A ge:54 Y S ex:Female Date:06/15/2024 Address:[address] [place] [address] Subjective: * Chief Complaints: * I njection * HPI: H PI: Follow Up Visit P atient presents for follow up visit for Pain in big toe. Pt states it huets but injecyion help. , MA: HG. * ROS: G eneral / Constitutional: Patient denies c hills, fever. E ndocrine: Patient denies e xcessive thirst, frequent urination. ? C ardiovascular: Patient denies s hortness of breath, chest pain. S kin: Patient denies m ole changes. * Medical History: * Surgical History: * Hospitalization/Major Diagno stic Procedure: * Medications: T akingmethylPREDNISolone 4 MG Tablet Therapy Pack as directed Orally , Notes to Pharmacist: one packMedrol 4 MG Tablet Therapy Pack as directed Orally Medication List reviewed and reconciled with the patientTaking methylPREDNISolone 4 MG Tablet Therapy Pack as directed Orally , Notes to Pharmacist: one packTaking Medrol 4 MG Tablet Therapy Pack as directed Orally Medication List reviewed and reconciled with the patient Objective: * Vitals: W t:212lbs, Wt-k.16 kg, Ht: 66.00 in, Ht-cm: 167.64 cm, BMI:34.21Index, Body Surface Area: 2.11. * Examination: P hysical Examination: Gen: T he patient is awake, alert, well developed, well groomed and well nourished. They are in no apparent distress. . Musc: F oot structure is normal. No abnormalities noted. Muscle strength is 5/5 to all joints bilaterally. Pain on palpation of left 1st metatarsal phalangeal joint. Limited range of motion noted at the first metatarsal phalangeal joint . Derm: S kin is warm and dry, with no rashes, good skin turgor and normal hair distribution. . Neuro: G rossly intact to light touch bilateral.. Vasc: D orsalis pedis and posterior tibial pulses 2+ bilaterally. No edema noted. Capillary fill time < 3 seconds to all digits. . Assessment: * Assessment: 1. H allux rigidus of left foot - M20.22 (Primary) 2 . P lantar fasciitis - M72.2 3 . P rimary osteoarthritis, left ankle and foot - M19.072 ?4. L eft foot pain - M79.672 Plan: * Treatment: * Procedure Codes: 2 0600 DRAIN/INJECT, JOINT/BURSA, Modifiers: LT * Billing Information: * Visit Code: 12352 Office Visit, Est Pt., Level 3. Modifiers: 25 * Procedure Codes: 16724 DRAIN/INJECT, JOINT/BURSA. Modifiers: LT * Sign off status: Completed true * Provider: Gilson Smart DPM Date: Generated for Annette lewis/Kristy/Immanuel on: 0 12/13/2024 09:23 AM CDT History and Physical Notes * HPI (History of Present Illness) Category Sub-Category Detail Notes Category Not es HPI Follow Up Visit Patient presents for follow up visit for Pain in big toe. Pt states it huets but injecyion help. , MA: HG Examination Category Sub-Category Detail Notes Category Not es Physical Examination Gen: The patient is awake, alert, well developed, well groomed and well nourished. They are in no apparent distress. Vasc: Dorsalis pedis and p osterior tibial pulses 2+ bilaterally. No edema noted. Capillary fill time < 3 seconds to all digits. Neuro: Grossly intact to li ght touch bilateral. Musc: Foot structure is no rmal. No abnormalities noted. Muscle strength is 5/5 to all joints bilaterally. Pain on palpation of left 1st metatarsal phalangeal joint. Limited range of motion noted at the first metatarsal phalangeal joint Derm: Skin is warm and dry , with no rashes, good skin turgor and normal hair distribution.
--- OUTSIDE RECORDS SUMMARY | 2024-12-13 09:24 | XMS_ITS | Encounter Summary ---
Author Organization [facility] Address [address] [place] [address] Care Team Providers Care News Internship Name Role Phone Christina Avendaño MD Primary Care Provider [phone] Encounter Details Date Type Department Care Team (Late st Contact Info) Description 01/07/2004 Outpatient Historical [facility] BRICKLAYER SEWER - [facility] [address] [facility] [address] [place] [address] Humza Guzman MD [address] [place], [place] [id number] Social History Tobacco Use Types Packs/Day Years Used Date Smoking Tobacco: Never Assessed Comments Unknown Sex and Gender Information Value Date Recorded Sex Assigned at Not on file Legal Sex Female 4:13 AM DIRECT CASTING OPERATOR Gender Identity Not on file Sexual Orientation Not on file documented as of this encounter Plan of Treatment Upcoming Encounters Date Type Department Care Team (Late Contact Info) Description 12/27/2024 9:30 AM CDT Office Visit [facility] Internal Medicine Medical [place] A [address] [facility] [address] [address] Christina Avendaño MD [address] [facility] [address] [place] [address] 08/13/2025 1:00 PM DIRECT CASTING OPERATOR Appointment [facility] Steven Simon [address] [place] [phone] Ewa Nicholson, DIAMOND WHEEL EDGER [address] [facility] [address] [place] [address] 08/13/2025 1:45 PM DIRECT CASTING OPERATOR Office Visit [facility] Breast Surgery Steven Simon [address] [facility] [address] [place] [address] Ewa Nicholson, RAKEL [address] [facility] [address] [place] [address] documented as of this encounter Visit Diagnoses Not on filedocumented in this encounter Additional Health Concerns Infection Onset Date Last Indicated Resolved Time R/O COVID-19 12/08/2019 12/08/2019 12/10/2019 2:21 AM CDT COVID-19 06/05/2020 06/05/2020 06/15/2020 8:47 AM CDT R/O C. diff 06/15/2020 06/16/2020 06/16/2020 6:22 PM CDT R/O COVID-19 08/25/2021 08/25/2021 08/25/2021 9:50 AM DIRECT CASTING OPERATOR R/O Respiratory 08/25/2021 08/25/2021 08/25/2021 1 1:13 AM DIRECT CASTING OPERATOR COVID-19 08/25/2021 08/25/2021 09/14/2021 1:18 AM DIRECT CASTING OPERATOR documented as of this encounter Care Teams News Internship Relationship Specialty Start Date End Date Christina Avendaño MD [address] [place] [phone] PCP - General Internal Medicine 06/24/18 documented as of this encounter
--- OUTSIDE RECORDS SUMMARY | 2024-12-13 09:24 | XMS_ITS | Encounter Summary ---
Author Organization [facility] Address [address] [place] [address] Care Team Providers Care Cross Tie Cutter Name Role Phone Christina Avendaño MD Primary Care Provider [phone] Encounter Details Date Type Department Care Team [...] on file Legal Sex Female 4:13 AM POND SCALER Gender Identity Not on file Sexual Orientation Not on file COVID-19 Exposure Response Date Recorded In the last month, have you been in contact with someone who was confirmed or suspected to have Coronavirus / COVID-19? No / Unsure 08/13/2021 1:25 PM POND SCALER documented as of this encounter Plan of Treatment Upcoming Encounters Date Type Department Care Team ([facility] Contact Info) Description 12/27/2024 9:30 AM CDT Office Visit [facility] Internal Medicine Medical [place] A [facility] [address] [facility] [address] [address] Christina Avendaño MD [address] [facility] [address] [place] [address] 08/13/2025 1:00 PM POND SCALER Appointment [facility] Steven Simon [address] [place] [address] Ewa Nicholson, LABORATORY ANIMAL CARE VETERINARIAN [address] [facility] [address] [place] [address] 08/13/2025 1:45 PM POND SCALER Office Visit [facility] Breast Surgery Steven [place] [address] [place] [address] Ewa Nicholson, LABORATORY ANIMAL CARE VETERINARIAN [address] [facility] [address] [place] [address] documented as of this encounter Visit Diagnoses Not on filedocumented in this encounter Additional Health Concerns Infection Onset Date Last Indicated Resolved Time COVID-19 08/25/2021 08/25/2021 09/14/2021 1:18 AM POND SCALER documented as of this encounter Care Teams Cross Tie Cutter Relationship Specialty Start Date End Date Christina Avendaño MD [address] [facility] [address] [place] [address] PCP - General Internal Medicine 06/24/18 documented as of this encounter
--- OUTSIDE RECORDS SUMMARY | 2024-12-13 09:24 | XMS_ITS | Encounter Summary ---
Author Organization [facility] Address [address] [place] [address] Care Team Providers Care Bilingual Office Assistant Name Role Phone Christina Avendaño MD Primary Care Provider [phone] Encounter Details Date Type Department Care Team (Late st Contact Info) Description 06/19/2002 Outpatient Historical [facility] DRYING MACHINE OPERATOR PACKAGE YARNS - [facility] [address] [facility] [address] [place] [address] Humza Guzman MD [address] [place], [place] [id number] Social History Tobacco Use Types Packs/Day Years Used Date Smoking Tobacco: Never Assessed Comments Unknown Sex and Gender Information Value Date Recorded Sex Assigned at Not on file Legal Sex Female 4:13 AM WINDOW TREATMENT INSTALLER Gender Identity Not on file Sexual Orientation Not on file documented as of this encounter Plan of Treatment Upcoming Encounters Date Type Department Care Team (Late Contact Info) Description 12/27/2024 9:30 AM CDT Office Visit [facility] Internal Medicine Medical [place] A [address] [facility] [address] [address] Christina Avendaño MD [address] [facility] [address] [place] [address] 08/13/2025 1:00 PM WINDOW TREATMENT INSTALLER Appointment [facility] Steven Simon [address] [place] [phone] Ewa Nicholson, ELECTRICAL CONTROLS TECHNICIAN [address] [facility] [address] [place] [address] 08/13/2025 1:45 PM WINDOW TREATMENT INSTALLER Office Visit [facility] Breast Surgery Steven Simon [address] [facility] [address] [place] [address] Ewa Nicholson, RAKEL [address] [facility] [address] [place] [address] documented as of this encounter Visit Diagnoses Not on filedocumented in this encounter Additional Health Concerns Infection Onset Date Last Indicated Resolved Time R/O COVID-19 12/08/2019 12/08/2019 12/10/2019 2:21 AM CDT COVID-19 06/05/2020 06/05/2020 06/15/2020 8:47 AM CDT R/O C. diff 06/15/2020 06/16/2020 06/16/2020 6:22 PM CDT R/O COVID-19 08/25/2021 08/25/2021 08/25/2021 9:50 AM WINDOW TREATMENT INSTALLER R/O Respiratory 08/25/2021 08/25/2021 08/25/2021 1 1:13 AM WINDOW TREATMENT INSTALLER COVID-19 08/25/2021 08/25/2021 09/14/2021 1:18 AM WINDOW TREATMENT INSTALLER documented as of this encounter Care Teams Bilingual Office Assistant Relationship Specialty Start Date End Date Christina Avendaño MD [address] [place] [phone] PCP - General Internal Medicine 06/24/18 documented as of this encounter
--- OUTSIDE RECORDS SUMMARY | 2024-12-13 09:24 | XMS_ITS | Encounter Summary ---
Author Organization [facility] Address [address] [place] [address] Care Team Providers Care Paper Finisher Name Role Phone Christina Avendaño MD Primary Care Provider [phone] Encounter Details Date Type Department Care Team (Late Contact Info) Description 09/02/2021 Digital Self COVID-1 9 Monitoring ST[facility] ABSTRACTION [...] on file Legal Sex Female 4:13 AM AERONAUTICAL ENGINEERING TEACHER Gender Identity Not on file Sexual Orientation Not on file COVID-19 Exposure Response Date Recorded In the last month, have you been in contact with someone who was confirmed or suspected to have Coronavirus / COVID-19? Unable to assess 09/02/2021 12:36 PM AERONAUTICAL ENGINEERING TEACHER documented as of this encounter Plan of Treatment Upcoming Encounters Date Type Department Care Team ([facility] Contact Info) Description 12/27/2024 9:30 AM CDT Office Visit [facility] Internal Medicine Medical [place] [facility] [address] [facility] [address] [address] Christina Avendaño MD [address] [facility] [address] [place] [address] 08/13/2025 1:00 PM AERONAUTICAL ENGINEERING TEACHER Appointment [facility] [address] [place] [address] Ewa Nicholson, ORACLE DISTRIBUTION CONSULTANT [address] [facility] [address] [place] [address] 08/13/2025 1:45 PM AERONAUTICAL ENGINEERING TEACHER Office Visit [facility] Breast Surgery [place] [address] [place] [address] Ewa Nicholson, ORACLE DISTRIBUTION CONSULTANT [address] [facility] [address] [place] [address] documented as of this encounter Visit Diagnoses Not on filedocumented in this encounter Additional Health Concerns Infection Onset Date Last Indicated Resolved Time COVID-19 08/25/2021 08/25/2021 09/14/2021 1:18 AM AERONAUTICAL ENGINEERING TEACHER documented as of this encounter Care Teams Paper Finisher Relationship Specialty Start Date End Date Christina Avendaño MD [address] [facility] [address] [place] [address] PCP - General Internal Medicine 06/24/18 documented as of this encounter
--- OUTSIDE RECORDS SUMMARY | 2024-12-13 09:24 | XMS_ITS | Clinical Summary ---
Author Organization [facility] Address [address] [facility] [place] [address] Care Team Providers Care Wrap Yarn Sorter Name Role Phone Cynthia Shea RN Unavailable Christina Avendaño MD Primary Care Provider Elsie Merchant CORRECTIONAL FACILITY PSYCHIATRIST-SERVICE CORRESPONDENT Unavailable Source Comments [facility],non-owned Affiliates and Associated Physician Practices is amultiple site organization consisting of ambulatory clinics and hospital sitesin [place], [place], [place] and [place]. This disclosure is being madepursuant to the Care Everywhere program and may not contain all information available regarding this patient. Last updated 18.[facility] Allergies Active Allergy Reactions Criticality Noted Date Comments Adhesive Sensitivity Other 05/31/2023 Codeine Rash Low 01/10/2011 Prochlorperazine 08/31/2015 crazy and depressed Neomycin Urticaria Medium 06/30/2018 Metoclopramide Psychiatric Medium 02/25/2021 Makes her feel loopy Medications * Be aware that medications may not be up to date on this document. Alwaysverify current medications with the patient. albuterol HFA (PROVENTIL;VE NTOLIN;PROAIR ) 108 (90 BASE) MCG/ACT inhaler Inhale 2 (two) puffs by mouth every 6 hours as needed Active lisinopril (PRINIVIL; ZESTRIL) 40 MG tablet Take 1 (one) tablet by mouth once daily Active montelukast (SINGULAIR) 10 MG tablet Take 1 (one) tablet by mouth once daily Active lisdexamfetam ine (VYVANSE) 50 MG capsule Take 1 (one) capsule by mouth every morning Active vitamin D, ergocalcifero l, (DRISDOL) 92784 UNITS capsule Take 1 (one) capsule by mouth every 7 days Active clobetasol (TEMOVATE) 0.05 % cream Apply to affected area 2 times daily To hands Active diphenhydrAMI NE (BENADRYL) 25 MG tablet Take 1 Tab by mouth every 8 hours as needed (Headache) 20 Tab 016 Active omeprazole (PRILOSEC) 40 MG capsule Take 1 (one) capsule by mouth 2 times daily, before breakfast and supper 3 017 Active hydroCHLOROth iazide (HYDRODIURIL) 25 MG tablet Take 1 (one) tablet by mouth once daily 017 Active hydroxychloro quine (PLAQUENIL) 200 MG tablet Take 1 (one) tablet by mouth 2 times daily 017 Active labetalol (NORMODYNE; TRANDATE) 100 MG tablet Take 1 (one) tablet by mouth 2 times daily 019 Active amLODIPine (NORVASC) 5 MG tablet Take 1 (one) tablet by mouth once daily Active ALPRAZolam (XANAX) 0.5 MG tablet Take 1 (one) tablet by mouth once daily as needed 020 Active magnesium 250 MG tablet Take 2 (two) tablets by mouth once daily 180 tablet 3 021 Active HYDROcodone-a cetaminophen (NORCO) 5-325 MG tablet Take 1 (one) tablet by mouth every 8 hours as needed for Pain 10 tablet 021 Active levothyroxine (SYNTHROID) 25 MCG tablet Take 1 (one) tablet by mouth daily before breakfast Active baclofen (Lioresal) 10 MG tablet Take 1 (one) tablet by mouth every 8 hours as needed 022 Active buPROPion XL 24hr (Wellbutrin-X L) 300 MG tablet TAKE ONE TABLET BY MOUTH DAILY AT 9AM (IN THE MORNING) Active atorvastatin (Lipitor) 10 MG tablet Take 4 (four) tablets by mouth once daily Active aspirin (Aspirin) 81 MG chew tablet Take 1 (one) tablet by mouth once daily Active mupirocin (Bactroban) 2 % ointment Apply 22 g to affected area as needed Active tretinoin (Retin-A) 0.025 % cream Active potassium chloride ER 10 MEQ tablet TAKE 1 TABLET BY MOUTH ONCE DAILY 90 tablet 3 023 Active dicyclomine (Bentyl) 20 MG tablet Take 1 (one) tablet by mouth once daily as needed Active olopatadine (Patanase) 0.6 % nasal solution [place] 1 (one) spray into each nostril once daily Active venlafaxine XR 24hr (Effexor XR) 75 MG capsule Take 1 (one) capsule by mouth daily with breakfast 90 capsule 3 023 Active Additional Information Patient taking differently: 150 mgOral DAILY WITH BREAKFAST, Reported on 07/10/2024 hyoscyamine SL (Levsin SL) 0.125 MG tablet Dissolve 1 (one) tablet under the tongue every 8 hours as needed Active Botox 200 units injection INJECT 155 UNITS INTRAMUSCULARLY INTO HEAD AND NECK EVERY 12 WEEKS (DISCARD UNUSED AFTER FIRST USE) 1 Each 3 024 Active erenumab-aooe (Aimovig) 140 MG/ML auto injector pen INJECT SUBCUTANEOUSLY 1 ML (THE CONTENTS OF 1 AUTOINJECTOR) EVERY 30 DAYS 3 mL 3 024 Active famotidine (Pepcid) 40 MG tablet Take 1 (one) tablet by mouth once daily Active oxyCODONE, immediate release, (Roxicodone) 5 MG tablet Take 1 (one) tablet by mouth every 4 hours as needed 025 Active zolpidem (Ambien) 10 MG tablet Take 1 (one) tablet by mouth once daily as needed Active ondansetron (Zofran) 4 MG tablet TAKE 1 TABLET BY MOUTH ONCE DAILY NEEDED FOR NAUSEA AND VOMITING 30 tablet 025 Active promethazine (Phenergan) 25 MG tablet TAKE 1 TABLET BY MOUTH EVERY 6 HOURS NEEDED FOR HEADACHE 20 tablet 025 Active gabapentin (Neurontin) 600 MG tablet TAKE 1 TABLET BY MOUTH 4 TIMES DAILY 360 tablet 3 025 Active SUMAtriptan (Imitrex) 100 MG tablet TAKE 1 TABLET BY MOUTH 1 TIME NEEDED FOR MIGRAINE, MAY REPEAT 1 TIME AFTER 2 HOURS. MAX 2 TABLETS BY MOUTH IN 24 HOURS 9 tablet 025 2024 Active gabapentin (Neurontin) 600 MG tablet TAKE 1 TABLET BY MOUTH 4 TIMES DAILY 360 tablet 3 024 2024 Discontinued SUMAtriptan (Imitrex) 100 MG tablet TAKE 1 TABLET BY MOUTH 1 TIME NEEDED FOR MIGRAINE, MAY REPEAT 1 TIME AFTER 2 HOURS. 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 Sciatica 05/02/2016 Depression 05/02/2016 Elevated CK 05/02/2016 Dorsalgia 02/13/2016 Resolved Problems Problem Noted Date Diagnosed Date Resolved Date Fasciculations of muscle 05/02/201606/2017 Encounters Date Type Department Care Team Description 11/25/2024 Refill [facility] [address] [place] [address] Otilio Campbell MD Refill Request 11/16/2024 Refill [facility] [address] [place] [address] Otilio Campbell MD Refill Request 10/29/2024 Refill [facility] [address] [place] [address] Otilio Campbell MD Refill Request 10/17/2024 9:45 AM CLINIC OFFICE COORDINATOR Procedure visit [facility] [address] [place] [address] Elsie Merchant, CORRECTIONAL FACILITY PSYCHIATRIST-SERVICE CORRESPONDENT Chronic migraine without aura without status migrainosus, not intractable ; Oromandibular dystonia from Last 3 Months Immunizations Immunization Administration Dates Next Due INFLUENZA VACCINE 05/20/2018, 7,06/23/2016,2015 INFLUENZA VACCINE, CELL CULT URE, TRIV. (FLUCELVAX TRIVALENT; 6MO+), 0.5 ML (CCIIV3) 06/16/2016 INFLUENZA VACCINE, QUADR. (F LUZONE; FLULAVAL; FLUARIX; AFLURIA QUADRIVALENT; 6MO+), 0.5 ML (IIV4) 05/03/2016 PNEUMOCOCCAL PPSV23 06/15/2018 TDAP (7yrs+) 03/23/2016 Family History Medical History Relation Name Comments Anxiety Disorder Brother Asthma Brother CAD (Coronary Artery Disease) Brother Depression Brother Eczema Brother Hypertension Brother Lung Disease Brother Anxiety Disorder Father CAD (Coronary Artery Disease) Father Cancer - Other Father Depression Father Eczema Father Cancer Maternal Grandfather Thyroid Disease Maternal Grandmother Anxiety Disorder Mother Arthritis - Osteo Mother Arthritis - Rheumatoid Mother Asthma Mother Cancer - Other Mother Depression Mother Eczema Mother Hearing Loss - Unspecified Mother Hyperlipidemia Mother Hypertension Mother Osteoporosis Mother Thyroid Disease Mother Arthritis - Osteo Other sister Asthma Other sister Depression Other sister Hypertension Other sister Cancer Paternal Uncle Anxiety Disorder Sister Arthritis - Rheumatoid Sister CAD (Coronary Artery Disease) Sister Cancer Sister Cancer - Other Sister Depression Sister Eczema Sister Relation Name Status Comments Brother Father Maternal Grandfather Maternal Grandmother Mother Alive Other sister Alive Paternal Uncle Sister Social History Tobacco Use Types Packs/Day Years Used Date Smoking Tobacco: Never Smokeless Tobacco: Never Tobacco Cessation:Counseling Given: No Alcohol Use Standard Drinks/Week Comments No 0 (1 standard drink = 0.6 oz pur e alcohol) Comments No Sex and Gender Information Value Date Recorded Sex Assigned at Not on file Legal Sex Female 6:27 AM CLINIC OFFICE COORDINATOR Gender Identity Not on file Sexual Orientation Not on file 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 Not on file Not on f ile Last Filed Vital Signs Vital Sign Reading Time Taken Comments Blood Pressure 110/74 10/06/2023 9:33 AM CLINIC OFFICE COORDINATOR Pulse 69 10/06/2023 9:33 AM CLINIC OFFICE COORDINATOR Temperature 36.7 C (98 F) 11/01/2020 8:35 PM CLINIC OFFICE COORDINATOR Respiratory Rate 20 11/01/2020 4:57 PM CLINIC OFFICE COORDINATOR Oxygen Saturation 97% 11/01/2020 8:00 PM CLINIC OFFICE COORDINATOR Inhaled Oxygen Concentration - - Weight 83.5 kg (184 lb) 07/10/2024 9:03 AM CLINIC OFFICE COORDINATOR Height 167.6 cm (5' 6 ) 07/10/2024 9:03 AM CLINIC OFFICE COORDINATOR Body Mass Index 29.7 07/10/2024 9:03 AM CLINIC OFFICE COORDINATOR Plan of Treatment Upcoming Encounters Date Type Department Care Team (Late st Contact Info) Description 04/26/2025 1:40 PM CDT Office Visit [facility] Neurosciences [address] [place] [address] Otilio Campbell MD [address] [place] [id number] Health Maintenance Due Date Last Done Comments COLOGUARD (AGES 45-75) - COLON CA SCREENING [address] COLONOGRAPHY - COLON CA SCREENING 1970 FIT - COLON CA SCREENING 1970 FLEX SIG - COLON CA SCREENING 1970 HIV SCREENING 1985 HEPATITIS B VACCINE (1 of 3 - 19+ 3-dose series) 1989 PNEUMOCOCCAL VACCINE 50+ (2 of 2 - PCV) 2020 06/15/2018 ZOSTER VACCINE (1 of 2) 2020 SCREENING FOR DIABETES 11/02/2023 , 05/15/2019, 07/17/2017, Additional history exists DEPRESSION SCREENING 08/23/2024 MEDICARE AWV CALENDAR YEAR 2024 COVID-19 VACCINE ( season) 2024 08/28/2024, 05/15/2021, 12/08/2020, Additional history exists DTAP/TDAP/TD VACCINES (2 - Td or Tdap) 03/23/2026 03/23/2016 MAMMOGRAM 08/10/2026 08/10/2024, 07/23, 08/07/2023, Additional history exists COLONOSCOPY - COLON CA SCREENING 12/31/2032 12/31/2022 Colorectal Cancer Screening 12/31/2032 HEPATITIS C SCREENING Completed 10/21/2023, 016 INFLUENZA VACCINE Completed 08/28/2024, , 07/06/2022, Additional history exists HIB VACCINE Aged Out No longer eligi ble based on patient's age to complete this topic HPV VACCINE Aged Out No longer eligi ble based on patient's age to complete this topic MENINGOCOCCAL (Group B) VACCINE SHARED DECISION-MAKING Aged Out No longer eligible based on patient's age to complete this topic MENINGOCOCCAL GROUPS A/C/Y/W VACCINE Aged Out No longer eligible based on patient's age to complete this topic Procedures Procedure Name Priority Date/Time Associated Diagnosis Comments BASIC METABOLIC PANEL (CALCIUM TOTAL) STAT 11/01/2020 6:12 PM CLINIC OFFICE COORDINATOR HEPATITIS C AB W/RFLX TO HCV RNA QN PCR Routine 02/13/2016 10:45 AM CDT from Last 3 Months or Most Recently Relevant to Health Maintenance Results * (ABNORMAL) BASIC METABOLIC PANEL (CALCIUM TOTAL) (11/01/2020 6:12 PM CLINIC OFFICE COORDINATOR) Glucose 106(H) 70 - 105 mg/dL 11/01/2020 6:33 PM CLINIC OFFICE COORDINATOR [facility] Sodium 138 136 - 145 mmol/L 11/01/2020 6:33 PM CLINIC OFFICE COORDINATOR [facility] Potassium 3.8 3.5 - 5.1 mmol/L 11/01/2020 6:33 PM CLINIC OFFICE COORDINATOR [facility] Chloride 102 98 - 107 mmol/L 11/01/2020 6:33 PM CLINIC OFFICE COORDINATOR [facility] CO2 27 23 - 31 mmol/L 11/01/2020 6:33 PM CLINIC OFFICE COORDINATOR [facility] Calcium 9.6 8.4 - 10.4 mg/dL 11/01/2020 6:33 PM CLINIC OFFICE COORDINATOR [facility] Anion Gap 9 8 - 18 mmol/L 11/01/2020 6:33 PM CLINIC OFFICE COORDINATOR [facility] Comment:Attention clinician: Reference Range change. BUN 13 9.8 - 20.1 mg/dL 11/01/2020 6:33 PM CLINIC OFFICE COORDINATOR [facility] Creatinine 0.85 0.57 - 1.11 mg/dL 11/01/2020 6:33 PM CLINIC OFFICE COORDINATOR [facility] eGFR by MDRD >60 >60 mL/min/1.7 3m2 11/01/2020 6:33 PM CLINIC OFFICE COORDINATOR [facility] eGFR by MDRD >60 >60 mL/min/1.7 3m2 11/01/2020 6:33 PM CLINIC OFFICE COORDINATOR [facility] Blood BLOOD SPECIMEN / Unknown Venipuncture / Unknown 11/01/2020 6:12 PM CLINIC OFFICE COORDINATOR 11/01/2020 6:18 PM CLINIC OFFICE COORDINATOR Jessica Orozco CORRECTIONAL FACILITY PSYCHIATRIST-SERVICE CORRESPONDENT LAB - CHEMISTRY ORDERABL ES Final Result [facility] [address] [place], [place] [id number] * HEPATITIS C AB W/RFLX TO HCV RNA QN PCR (02/13/2016 10:45 AM CDT) Hepatitis C Antibody NON-REACTI VE NON-REACT [facility]) Signal/Cutoff 0.03 <1.00 [facility] Comment: Test Performed at: [facility] [address] [place] [address] MANI BEDOYA DO,MPH 02/13/2016 10:4 5 AM CDT 02/13/2016 11:06 AM CDT Rashid Sterling MD LAB - CHEMISTRY ORDERABLES Edite d Result - Final [facility] [id number] from Last 3 Months or Most Recently Relevant to Health Maintenance Insurance [facility] MANAGED MEDICARE ADV [facility] Advance Directives * Full Code (Latest Code Status on File) Date Activated Date Inactivated Comments 05/02/2016 1:29 AM 05/05/2016 3:04 PM * Full Code Date Activated Date Inactivated Comments 05/02/2016 1:15 AM 05/02/2016 1:29 AM Care Teams Wrap Yarn Sorter Relationship Specialty Start Date End Date Christina Avendaño MD PCP - General Internal Medicine 06/07/19 Cynthia Shea RN Cafeteria Server 05/05/16 Elsie Merchant, CORRECTIONAL FACILITY PSYCHIATRIST-SERVICE CORRESPONDENT [facility] [facility] [address] [place] [address] Nurse Practitioner Nurse Practitioner 04/06/24
--- OUTSIDE RECORDS SUMMARY | 2024-12-13 09:24 | XMS_ITS | Encounter Summary ---
Author Organization [facility] Address [address] [place] [address] Care Team Providers Care Hepatology Physician Name Role Phone Christina Avendaño MD Primary Care Provider [phone] Encounter Details Date Type Department Care Team (Late Contact Info) Description 03/29/2007 Outpatient Historical [facility] Ricardo Shirley MD [address] [place] [address] Er, Authorized P NO ADDRESS ON FILE Pain in Joint, Shoulder Region (Primary Dx) Social History Tobacco Use Types Packs/Day Years Used Date Smoking Tobacco: Never Assessed Comments Unknown Sex and Gender Information Value Date Recorded Sex Assigned at Not on file Legal Sex Female 4:13 AM MINING HELPER Gender Identity Not on file Sexual Orientation Not on file documented as of this encounter Plan of Treatment Upcoming Encounters Date Type Department Care Team (Late Contact Info) Description 12/27/2024 9:30 AM CDT Office Visit [facility] Internal Medicine Medical [place] [address] [facility] [address] [address] Christina Avendaño MD [address] [facility] [address] [place] [address] 08/13/2025 1:00 PM MINING HELPER Appointment [facility] [address] [place] [address] Ewa Nicholson, HADOOP ADMIN [address] [facility] [address] [place] [address] 08/13/2025 1:45 PM MINING HELPER Office Visit [facility] Breast Surgery [place] [address] [place] [address] Ewa Nicholson, HADOOP ADMIN [address] [facility] [address] [place] [address] documented as of this encounter Visit Diagnoses Diagnosis Pain in joint, shoulder region- Primary documented in this encounter Additional Health Concerns Infection Onset Date Last Indicated Resolved Time R/O COVID-19 12/08/2019 12/08/2019 12/10/2019 2:21 AM CDT COVID-19 06/05/2020 06/05/2020 06/15/2020 8:47 AM CDT R/O C. diff 06/15/2020 06/16/2020 06/16/2020 6:22 PM CDT R/O COVID-19 08/25/2021 08/25/2021 08/25/2021 9:50 AM MINING HELPER R/O Respiratory 08/25/2021 08/25/2021 08/25/2021 1 1:13 AM MINING HELPER COVID-19 08/25/2021 08/25/2021 09/14/2021 1:18 AM MINING HELPER documented as of this encounter Care Teams Hepatology Physician Relationship Specialty Start Date End Date Christina Avendaño MD [address] [place] [address] [address] [place] [address] PCP - General Internal Medicine 06/24/18 documented as of this encounter
--- OUTSIDE RECORDS SUMMARY | 2024-12-13 09:24 | XMS_ITS | Encounter Summary ---
Author Organization [facility] Address [address] [place] [address] Care Team Providers Care Business Performance Advisor Name Role Phone Christina Avendaño MD Primary Care Provider [phone] Encounter Details Date Type Department Care Team (Late st Contact Info) Description 12/24/1999 Outpatient Historical [facility] Conversion, History Er, Authorized P NO ADDRESS ON FILE Urticaria, unspecified (Primary Dx) Social History Tobacco Use Types Packs/Day Years Used Date Smoking Tobacco: Never Assessed Comments Unknown Sex and Gender Information Value Date Recorded Sex Assigned at Not on file Legal Sex Female 4:13 AM CARBON BRUSHER ASSEMBLER Gender Identity Not on file Sexual Orientation Not on file documented as of this encounter Plan of Treatment Upcoming Encounters Date Type Department Care Team (Late Contact Info) Description 12/27/2024 9:30 AM CDT Office Visit [facility] Internal Medicine [place] [facility] [address] [facility] [address] [address] Christina Avendaño MD [address] [facility] [address] [place] [address] 08/13/2025 1:00 PM CARBON BRUSHER ASSEMBLER Appointment [facility] [address] [place] [address] Ewa Nicholson, COMMERCIAL LOAN ADMINISTRATOR [address] [place] [address] 08/13/2025 1:45 PM CARBON BRUSHER ASSEMBLER Office Visit [facility] Breast Surgery [place] [address] [facility] [place] [address] Ewa Nicholson, COMMERCIAL LOAN ADMINISTRATOR [address] [place] [address] documented as of this encounter Visit Diagnoses Diagnosis Urticaria, unspecified- Primary documented in this encounter Additional Health Concerns Infection Onset Date Last Indicated Resolved Time R/O COVID-19 12/08/2019 12/08/2019 12/10/2019 2:21 AM CDT COVID-19 06/05/2020 06/05/2020 06/15/2020 8:47 AM CDT R/O C. diff 06/15/2020 06/16/2020 06/16/2020 6:22 PM CDT R/O COVID-19 08/25/2021 08/25/2021 08/25/2021 9:50 AM CARBON BRUSHER ASSEMBLER R/O Respiratory 08/25/2021 08/25/2021 08/25/2021 1 1:13 AM CARBON BRUSHER ASSEMBLER COVID-19 08/25/2021 08/25/2021 09/14/2021 1:18 AM CARBON BRUSHER ASSEMBLER documented as of this encounter Care Teams Business Performance Advisor Relationship Specialty Start Date End Date Christina Avendaño MD [facility] [address] [place] [address] PCP - General Internal Medicine 06/24/18 documented as of this encounter
--- OUTSIDE RECORDS SUMMARY | 2024-12-13 09:24 | XMS_ITS | Encounter Summary ---
Author Organization [facility] Address [address] [place] [address] Care Team Providers Care Electrical Automation Engineer Name Role Phone Christina Avendaño MD Primary Care Provider [phone] Encounter Details Date Type Department Care Team (Late st Contact Info) Description 10/08/2003 Outpatient Historical [facility] AIR CONDITIONING UNIT ASSEMBLER - [facility] [address] [address] [place] [address] Humza Guzman MD [address] [place], [place] [id number] Social History Tobacco Use Types Packs/Day Years Used Date Smoking Tobacco: Never Assessed Comments Unknown Sex and Gender Information Value Date Recorded Sex Assigned at Not on file Legal Sex Female 4:13 AM AGENCY DEVELOPMENT MANAGER Gender Identity Not on file Sexual Orientation Not on file documented as of this encounter Plan of Treatment Upcoming Encounters Date Type Department Care Team (Late st Contact Info) Description 12/27/2024 9:30 AM CDT Office Visit [facility] Internal Medicine Medical Amoret A [address] [facility] [address] Christina Avendaño MD [address] [facility] [address] [place] [address] 08/13/2025 1:00 PM AGENCY DEVELOPMENT MANAGER Appointment [facility] [address] [address] [place] [phone] Ewa Nicholson, RN CHILD [address] [facility] [address] [place] [address] 08/13/2025 1:45 PM AGENCY DEVELOPMENT MANAGER Office Visit [facility] Breast Surgery [address] [address] [facility] [address] [place] [address] Ewa Nicholson, RAKEL [address] [facility] [address] [place] [address] documented as of this encounter Visit Diagnoses Not on filedocumented in this encounter Additional Health Concerns Infection Onset Date Last Indicated Resolved Time R/O COVID-19 12/08/2019 12/08/2019 12/10/2019 2:21 AM CDT COVID-19 06/05/2020 06/05/2020 06/15/2020 8:47 AM CDT R/O C. diff 06/15/2020 06/16/2020 06/16/2020 6:22 PM CDT R/O COVID-19 08/25/2021 08/25/2021 08/25/2021 9:50 AM AGENCY DEVELOPMENT MANAGER R/O Respiratory 08/25/2021 08/25/2021 08/25/2021 1 1:13 AM AGENCY DEVELOPMENT MANAGER COVID-19 08/25/2021 08/25/2021 09/14/2021 1:18 AM AGENCY DEVELOPMENT MANAGER documented as of this encounter Care Teams Electrical Automation Engineer Relationship Specialty Start Date End Date Christina Avendaño MD [address] [place] [phone] PCP - General Internal Medicine 06/24/18 documented as of this encounter
--- OUTSIDE RECORDS SUMMARY | 2024-12-13 09:24 | XMS_ITS | Encounter Summary ---
Author Organization [facility] Address [address] [place] [address] Care Team Providers Care Day Care Director Name Role Phone Christina Avendaño MD Primary Care Provider [phone] Encounter Details Date Type Department Care Team [...] on file Legal Sex Female 4:13 AM INSURANCE COMPLIANCE ANALYST Gender Identity Not on file Sexual Orientation Not on file COVID-19 Exposure Response Date Recorded In the last month, have you been in contact with someone who was confirmed or suspected to have Coronavirus / COVID-19? Unable to assess 09/02/2021 12:36 PM INSURANCE COMPLIANCE ANALYST documented as of this encounter Plan of Treatment Upcoming Encounters Date Type Department Care Team ([facility] Contact Info) Description 12/27/2024 9:30 AM CDT Office Visit [facility] Internal Medicine Medical Benson A [facility] [address] [facility] [address] [address] Christina Avendaño MD [address] [facility] [address] [place] [address] 08/13/2025 1:00 PM INSURANCE COMPLIANCE ANALYST Appointment [facility] [address] [address] [place] [address] Ewa Nicholson, MANUFACTURING TEAM MEMBER [address] [facility] [address] [place] [address] 08/13/2025 1:45 PM INSURANCE COMPLIANCE ANALYST Office Visit [facility] Breast Surgery [place] [address] [place] [address] Ewa Nicholson, MANUFACTURING TEAM MEMBER [address] [facility] [address] [place] [address] documented as of this encounter Visit Diagnoses Not on filedocumented in this encounter Additional Health Concerns Infection Onset Date Last Indicated Resolved Time COVID-19 08/25/2021 08/25/2021 09/14/2021 1:18 AM INSURANCE COMPLIANCE ANALYST documented as of this encounter Care Teams Day Care Director Relationship Specialty Start Date End Date Christina Avendaño MD [address] [facility] [address] [place] [address] PCP - General Internal Medicine 06/24/18 documented as of this encounter
--- OUTSIDE RECORDS SUMMARY | 2024-12-13 09:24 | XMS_ITS | Encounter Summary ---
Author Organization [facility] Address 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 [facility] [address] [place] [address] 08/13/2025 1:00 PM AUTO BODY REPAIR TEACHER Appointment [facility] [address] [address] [place] [address] Ewa Nicholson, ARCHITECT INTERNSHIP [address] [facility] [address] [place] [address] 08/13/2025 1:45 PM AUTO BODY REPAIR TEACHER Office Visit [facility] Breast Surgery [place] [address] [place] [address] Ewa Nicholson, ARCHITECT INTERNSHIP [address] [facility] [address] [place] [address] documented as of this encounter Visit Diagnoses Not on filedocumented in this encounter Additional Health Concerns Infection Onset Date Last Indicated Resolved Time COVID-19 08/25/2021 08/25/2021 09/14/2021 1:18 AM 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
--- OUTSIDE RECORDS SUMMARY | 2024-12-13 09:25 | XMS_ITS ---
Author Organization [facility] Address [address] [place] [address] Care Team Providers Care Upholstery Cleaner Name Role Phone Caitie Avendaño Primary Care Provider Jamie Ospina Unavailable [phone] Adrian NEWMAN, Otilio Unavailable [phone] REASON FOR VISIT Inj Encounters Encounter Location Date Provider Diagnosis -[facility]/ [facility] [address] [place] [address] [address] [place] [address] 07/11/2024 Jamie Reyes Plan Of Treatment No Information Progress Notes * Joyce TOMPKINS LDOB: (54 yo F)Acc No.[id number]:07/11/2024 Patient: cSott Joyce MORRISSEY :1970 A ge:54 Y S ex:Female Address:[address] [place] [address] * true * Date: Generated for Printi ng/Faxing/eTransmitting on: 0 12/13/2024 09:25 AM CDT
--- OUTSIDE RECORDS SUMMARY | 2024-12-13 09:25 | XMS_ITS ---
Author Organization [facility] Address [address] [place], [place] [id number] Care Team Providers Care Frame Wirer Name Role Phone MANOHAR SMART Unavailable [phone] Christina Avendaño Unavailable Unavailable Allergies Allergen (clinical drug ingredient) Drug/Non Drug Allergy documented on EMR Reaction Allergy Type Onset Date Status Adhesive Unknown Allergy Active REASON FOR VISIT toe nail follow up Medications Medication SIG (Take, Route, Frequency, Duration) Notes Start Date End Date Status Medrol 4 MG as directed Orally 10/07/2023 Active methylPREDNISolone 4 MG as directed Orally one pack 023 Active Encounters Encounter Location Date Provider Diagnosis [facility] [address] [place], [place] [id number] 04/27/2024 MANOHAR SMART Hallux rigidus of left foot M20.22 ; Plantar fasciitis M72.2 ; Ingrowing nail L60.0 ; Cellulitis of left toe L03.032 ; Hammertoe of left foot M20.42 ; Primary osteoarthritis, left ankle and foot M19.072 ; Left foot pain M79.672 and Encounter for other specified surgical aftercare Z48.89 Assessments Encounter Date Diagnosis (ICD Code) Assessment Notes Treatment Notes Treatment Clinical Notes Section Notes 04/27/2024 Hallux rigidus of left foot (ICD-10 - M20.22) Surgical correction was discussed. The patient opted not to proceed at this time. 04/27/2024 Plantar fasciitis (ICD-10 - M72.2) 04/27/2024 Ingrowing nail (ICD-10 - L60.0) I advised the patient that no further treatment is necessary at this time. If the condition should worsen they should call the office. 04/27/2024 Cellulitis of left toe (ICD-10 - L03.032) 04/27/2024 Hammertoe of left foot (ICD-10 - M20.42) 04/27/2024 Primary osteoarthritis, left ankle and foot (ICD-10 - M19.072) 04/27/2024 Left foot pain (ICD-10 - M79.672) 04/27/2024 Encounter for other specified surgical aftercare (ICD-10 - Z48.89) 04/27/2024 Other Plan Of Treatment Treatment Notes Assessment Notes Hallux rigidus of left foot Surgical cor rection was discussed. The patient opted not to proceed at this time. Ingrowing nail I advised the patien t that no further treatment is necessary at this time. If the condition should worsen they should call the office. Progress Notes * RODOLFOGEOVANIIDRIS GRANDAOB: [birth year] (54 yo F)Acc No.[id number]:04/27/2024 Patient: JOEY DINH Provider: Gilson Smart DPM :1970 A ge:53 Y S ex:Female Date:04/27/2024 Address:[address] [place], [place] [id number] Subjective: * Chief Complaints: * T oe nail follow up * HPI: H PI: Follow Up Visit P atient presents for follow-up visit for left great toe pain and nail surgery on her left great toenail. Patient states she got an injection last visit for the pain and hasn't had any pain since. She is not having any pain or problems. Patient states their problem is resolved. MA: sea. * ROS: G eneral / Constitutional: Patient denies c hills, fever. E ndocrine: Patient denies e xcessive thirst, frequent urination. ? C ardiovascular: Patient denies s hortness of breath, chest pain. S kin: Patient denies m ole changes. * Medical History: * Surgical History: * Hospitalization/Major Diagno stic Procedure: * Family History: F ather: PRN - Father: :: GERD,,known absent . M other: PRN - Mother: :: GERD,,known absent , :: Hypertension,,known absent , :: Arthritis,,known absent , :: Thyroid Dz,,known absent . B williser: SIB - Brother: . S ister: SIB - Sister: . * Social History: M igrated Social History: M igrated Social History: History of tobacco use : , Smoking Status : Never used tobacco. * Medications: T akingmethylPREDNISolone 4 MG Tablet [...] List reviewed and reconciled with the patient * Allergies: A dhesive Objective: * Vitals: * Examination: P hysical Examination: Gen: T he patient is awake, alert, well developed, well groomed and well nourished. They are in no apparent distress. . Musc: F oot structure is normal. No abnormalities noted. Muscle strength is 5/5 to all joints bilaterally. Pain on palpation of left 1st metatarsal phalangeal joint. Limited range of motion noted at the first metatarsal phalangeal joint Dorsally contracted digits noted: 2-5 left. Derm: S kin is warm and dry, with no rashes, good skin turgor and normal hair distribution. The site of the nail surgery is healing well. There are no signs of infection. . Neuro: G rossly intact to light touch bilateral.. Vasc: D orsalis pedis and posterior tibial pulses 2+ bilaterally. No edema noted. Capillary fill time < 3 seconds to all digits. . Assessment: * Assessment: 1. P lantar fasciitis - M72.2 (Primary) 2 . H allux rigidus of left foot - M20.22 3 . I ngrowing nail - L60.0 4 . C ellulitis of left toe - L03.032 5 . H ammertoe of left foot - M20.42 6 . P rimary osteoarthritis, left ankle and foot - M19.072 7 . L eft foot pain - M79.672? 8. E ncounter for other specified surgical aftercare - Z48.89 Plan: * Treatment: 2. I ngrowing nail Notes: I advised the patient that no further treatment is necessary at this time. If the condition should worsen they should call the office. * Procedure Codes: 9 9024 POSTOP FOLLOW-UP VISIT * Billing Information: * Visit Code: * Procedure Codes: 65233 POSTOP FOLLOW-UP VISIT. * Sign off status: Completed true * Provider: Gilson Smart DPM Date: 0 04/27/2024 Generated for Annette lewis/Kristy/Immanuel on: 0 12/13/2024 09:25 AM CDT History and Physical Notes * HPI (History of Present Illness) Category Sub-Category Detail Notes Category Not es HPI Follow Up Visit Patient presents for follow-up visit for left great toe pain and nail surgery on her left great toenail. Patient states she got an injection last visit for the pain and hasn't had any pain since. She is not having any pain or problems. Patient states their problem is resolved. MA: sea Examination Category Sub-Category Detail Notes Category Not [...] noted at the first metatarsal phalangeal joint Dorsally contracted digits noted: 2-5 left Derm: Skin is warm and dry , with no rashes, good skin turgor and normal hair distribution. The site of the nail surgery is healing well. There are no signs of infection.
--- OUTSIDE RECORDS SUMMARY | 2024-12-13 09:25 | XMS_ITS ---
Author Organization [facility] Address [address] [place] [address] [address] [place] [address] Care Team Providers Care Senior Data Warehouse Architect Name Role Phone Caitie Avendaño Primary Care Provider Jamie Ospina Unavailable [phone] Otilio Campbell MD Unavailable [phone] Allergies Allergen (clinical drug ingredient) Drug/Non Drug Allergy documented on EMR Reaction Allergy Type Onset Date Status neomycin Neomycin Sulfate Unknown Drug Allergy Active metoclopramide Reglan Unknown Drug Allergy Ac tive Compazine Unknown Drug Allergy Active Adhesive Unknown Allergy Active REASON FOR VISIT low backpain Medications Medication SIG (Take, Route, Frequency, Duration) Notes Start Date End Date Status Gabapentin 600 MG Oral for 90 Active Eszopiclone 3 MG (Schedule IV Drug) O ral for 30 Active Hydroxychloroquine Sulfate 200 MG Oral for 90 Active Aimovig 70 MG/ML Subcutaneous for 90 Active Labetalol HCl 100 MG Oral for 90 Active Montelukast Sodium 10 MG Oral for 90 Active Vyvanse 50 MG (Schedule II Drug) O ral for 30 Active Ondansetron HCl 4 MG Oral for 7 Active Lisinopril 40 MG Oral for 90 A ctive SUMAtriptan Succinate 100 MG Oral for 60 Active HYDROcodone-Acetaminophen 5-325 MG 1 tablet as needed Orally every 6 hrs Active Magnesium 250 MG 1 tablet with a meal Orally Once a day Active amLODIPine Besylate 5 MG Oral for 90 Active buPROPion HCl ER (XL) 300 MG Oral for 90 Active Vitamin D (Ergocalciferol) 1.25 MG (60434 UT) Oral for 28 Active Aspirin 81 MG 1 tablet Orally Once a day Active Venlafaxine HCl ER 75 MG Oral for 90 Active Potassium Chloride ER 10 MEQ Oral for 90 Active Albuterol Sulfate HFA 108 (9 0 Base) MCG/ACT Inhalation for 75 Active Cephalexin 500 MG 1 capsule Orally chelsea ry 12 hrs for 10 days 03/02/2024 Active Social History OPIOID Risk Tool (2018 [...] Problem Status W/U Status Risk Notes Problem Lumbosacral radiculopathy (1727322) Radiculopathy, lumbosacral region (M54.17) Active confirmed Vital Signs Height 66 in 08/18/2024 Encounters Encounter Location Date Provider Diagnosis -[address] [id number] 08/18/2024 Jamie Reyes Radiculopathy, lumbosacral region M54.17 Assessments Encounter Date Diagnosis (ICD Code) Assessment Notes Treatment Notes Treatment Clinical Notes Section Notes 08/18/2024 Radiculopathy, lumbosacral region (ICD-10 - M54.17) I will proceed today with bilateral L5 transforaminal epidural steroid injection under fluoroscopic guidance. We have obtained authorization for this and all complications such as bleeding, infection, nerve damage, and spinal cord injury were discussed with the patient. Patient understands and would like to proceed with the procedure. Plan Of Treatment Treatment Notes Assessment Notes Radiculopathy, lumbosacral region I will proceed today with bilateral L5 transforaminal epidural steroid injection under fluoroscopic guidance. We have obtained authorization for this and all complications such as bleeding, infection, nerve damage, and spinal cord injury were discussed with the patient. Patient understands and would like to proceed with the procedure. Next Appt Details Follow Up: 2 Weeks, Reason: Procedure Notes * Category Sub-Category Detail Notes Lumbar Transforaminal Epidur al Steroid Injection Bilateral L5 *Bilateral L5 transforaminal JOSE. The patient was identified in the holding area and the operative permit was explained and signed. I have discussed with the patient the risks, benefits, side effects and complications of a fluoroscopically guided transforaminal lumbar nerve root steroid injection. I have answered the patient's questions regarding the procedure and have given the patient the opportunity to refuse the procedure. I also have discussed alternative methods of treatment. The patient stated understanding of the procedure and wished to proceed with a fluoroscopically guided transforaminal lumbar nerve root steroid injection. The patient was taken to the fluoroscopic suite and placed on a C-arm table in the prone position with the appropriate monitors applied. A nurse was in attendance for the duration of the procedure to carefully monitor the patient. Please refer to the nursing record for vital sign documentation and for any doses of sedatives and medications. I was present and gave the order for any medications given to the patient. The procedure was performed on the Bilateral L5 nerve roots. The lumbosacral region of the back was prepped and draped in the usual sterile fashion. The fluoroscopic unit was manipulated in a caudad/cephalad position until the disc spaces of the joints were in clear focus. The unit was then positioned in the oblique view until the pedicle and articulating processes were clearly visible. The skin and subcutaneous tissues were anesthetized with 1 cc preservative free 1% Lidocaine. Using fluoroscopic guidance, a 22 gauge Quincke needle was placed on the six o'clock position of the pedicle. The needle was then slowly walked off the lamina into the nerve root foramen. A lateral fluoroscopic projection showed the needle tip entering the superior posterior aspect of the L5 intervertebral foramen. This procedure was repeated in an identical fashion on the contralateral side. Using AP fluoroscopic projection, 0.5 cc of Omnipaque (240 mg/cc) was injected through each needle and a neurogram was produced. There was clear dye spread through each nerve root sheath and into the epidural space. No vascular uptake was noted. There was no cerebrospinal fluid or blood aspirated from the needle. A preservative free solution of 5 mg of Dexamethasone and 1.5cc of 0.25% Bupivacaine were injected at each level approached. There were no signs or symptoms of intrathecal or intravascular injection. The needle was removed intact and hemostasis was appreciated. The patient tolerated the procedure well and there were no complications. The patient was taken to the recovery area. The patient remained in stable condition with no apparent complications. Postprocedure instructions were given to the patient and a follow up appointment was confirmed. The patient was also discharged with information on how to reach the clinic or nursing education consultant physician at anytime for questions or complaints. Progress Notes * Joyce TOMPKINS LDOB: (54 yo F)Acc No.[id number]:08/18/2024 Progress Note Patient: Joyce DINH Provider: Bo Reyes MD :1970 A ge:54 Y S ex:Female Date:08/18/2024 Address:[address] [place], [place] [id number] Pcp:Caitie Avendaño Subjective: * Chief Complaints: * L ow backpain * HPI: * *Pain: The patient returns with a history of low back pain. She reports radiation into the bilateral lower extremities. She staes her pain has been present for over 10 years. She describes her pain as moderate to severe and she has modified her daily activities due to the pain. Her pain is worsened with physical activity, walking and sitting. She has tried and failed conservative care in the past including activity modifications, nerve membrane stabalizers, anti-inflammatory medications, muscle relaxants, physical therapy, home exercise and rest. MRI of her lumbar spine demonstrated an annular fissure of the disc a t L5-S1. There is some mild canal stenosis. She underwent bilateral L5 transforaminal epidural steroid injections on 11/19/23 which resulted in 95% relief for 7 months. She states the pain has returned and is identical to what she experienced prior to her previous injection. She is requesting a repeat treatment. * ROS: C ancer: Breast N o. P rostate N o. S kin N o. O thers N o. A utoimmune: Fibromylagia N o. L upus N o. T MJ N o.?Osteoarthritis N o. R heumatoid arthritis N o. O thers N o. R enal: Kidney stones N o. K idney infections N o. O thers N o. G enitourinary: Prostrate problems N o. U rinary Incontinence N o.?Bladder infections N o. O thers N o. C entral nervous system: Stroke N o. H eadaches N o. M igraines N o.?Nerve Damage N o. O thers N o. S eizures N o. I nfectious disease: Hepatitis N o. M ononucleosis N o. O thers N o. P sychiatric: Depression N o. E CT Treatments N o. A nxiety?No. A lcoholism N o. P anic Attacks N o. D rug Addiction N o. O ther?No. C ardiology: High blood Pressure N o. H eart Attack N o. A ngina(Chest Pain) N o. C ongestive heart failure N o. O thers N o. ? E ndocrinology: Diabetes N o. T hyroid disease N o. O thers?No. G astroenterology: Peptic ulcer disease N o. I rritable bowel syndrome?No. G ERD N o. D iverticulosis N o. O thers N o. H ematology/Lymph: Anemia N o. S ickle Cell N o. O thers N o.? R espiratory: Asthma N o. C hronic Bronchitis N o. P neumonia?No. C OPD N o. O thers N o. * Medical History: * Surgical History: H ysterectomy ulnar nerve anterior transpostion 2septoplasty right knee 5x tonsillectomy * Hospitalization/Major Diagno stic Procedure: s ee above * Family History: F ather: unknown, family history unknown . M other: unknown, family history unknown . N on-Contributory. * Social History: M arried: no. O PIOID Risk Tool (2018 Edition) Family Hx Alcohol? N o Family Hx Illegal Drugs? N o Family Hx Rx Drugs? N o Personal Hx Alcohol? N o Personal Hx Illegal Drugs? N o Personal Hx Rx Drugs? N o Age between 16-45 years? N o History of Preadolescent Sexual Abuse? N o ADD, OCD, Bipolar, Schizophrenia? N o Depression? Y es TOTAL SCORE 1 Risk Level for Opioid Use l ow C hildren: yes, 3. E ducation: Bachelors. O ccupation: disabled. S moking: no . A lcohol: no. E xercise: yes. R ecreational drug use: no. * Medications: T akingAspirin 81 MG Tablet Chewable 1 tablet Orally Once a day HYDROcodone-Acetaminophen 5-325 MG Tablet 1 tablet as needed Orally every 6 hrs Magnesium 250 MG Tablet 1 tablet with a meal Orally Once a day amLODIPine Besylate 5 MG Tablet Oral buPROPion HCl ER (XL) 300 MG Tablet Extended Release 24 Hour Oral Vitamin D (Ergocalciferol) 1.25 MG (45685 UT) Capsule Oral Vyvanse 50 MG Capsule (Schedule II Drug) Oral Ondansetron HCl 4 MG Tablet Oral Lisinopril 40 MG Tablet Oral SUMAtriptan Succinate 100 MG Tablet Oral Montelukast Sodium 10 MG Tablet Oral Gabapentin 600 MG Tablet Oral Eszopiclone 3 MG Tablet (Schedule IV Drug) Oral Hydroxychloroquine Sulfate 200 MG Tablet Oral Aimovig 70 MG/ML Solution Auto- injector Subcutaneous Labetalol HCl 100 MG Tablet Oral Venlafaxine HCl ER 75 MG Capsule Extended Release 24 Hour Oral Potassium Chloride ER 10 MEQ Tablet Extended Release Oral Albuterol Sulfate HFA 108 (90 Base) MCG/ACT Aerosol Solution Inhalation Cephalexin 500 MG Capsule 1 capsule Orally every 12 hrs Medication List reviewed and reconciled with the patientTaking Aspirin 81 MG Tablet Chewable 1 tablet Orally Once a day Taking HYDROcodone-Acetaminophen 5-325 MG Tablet 1 tablet as needed Orally every 6 hrs Taking Magnesium 250 MG Tablet 1 tablet with a meal Orally Once a day Taking amLODIPine Besylate 5 MG Tablet Oral Taking buPROPion HCl ER (XL) 300 MG Tablet Extended Release 24 Hour Oral Taking Vitamin D (Ergocalciferol) 1.25 MG (67191 UT) Capsule Oral Taking Vyvanse 50 MG Capsule (Schedule II Drug) Oral Taking Ondansetron HCl 4 MG Tablet Oral Taking Lisinopril 40 MG Tablet Oral Taking SUMAtriptan Succinate 100 MG Tablet Oral Taking Montelukast Sodium 10 MG Tablet Oral Taking Gabapentin 600 MG Tablet Oral Taking Eszopiclone 3 MG Tablet (Schedule IV Drug) Oral Taking Hydroxychloroquine Sulfate 200 MG Tablet Oral Taking Aimovig 70 MG/ML Solution Auto-injector Subcutaneous Taking Labetalol HCl 100 MG Tablet Oral Taking Venlafaxine HCl ER 75 MG Capsule Extended Release 24 Hour Oral Taking Potassium Chloride ER 10 MEQ Tablet Extended Release Oral Taking Albuterol Sulfate HFA 108 (90 Base) MCG/ACT Aerosol Solution Inhalation Taking Cephalexin 500 MG Capsule 1 capsule Orally every 12 hrs Medication List reviewed and reconciled with the patient * Allergies: A dhesiveNeomycin SulfateCompazineReglanno[Allergies Verified] Objective: * Vitals: H t: 66. * Examination: G eneral examination: General appearance: a lert and oriented to person, place and time, in no acute distress. HEENT: Normocephalic/atraumatic . Heart: R egular rate. Lungs: non labored breathing. Back there is tenderness to palpation in the lumbar paraspinous muscles, increased pain with extension and flexion of the lumbar spine. ? Assessment: * Assessment: 1. R adiculopathy, lumbosacral region - M54.17 (Primary) Plan: * Treatment: * Procedures: L umbar Transforaminal Epidural Steroid Injection: Bilateral L5 * Bilateral L5 transforaminal JOSE. The patient was identified in the holding area and the operative permit was explained and signed. I have discussed with the patient the risks, benefits, side effects and complications of a fluoroscopically guided transforaminal lumbar nerve root steroid injection. I have answered the patient's questions regarding the procedure and have given the patient the opportunity to refuse the procedure. I also have discussed alternative methods of treatment. The patient stated understanding of the procedure and wished to proceed with a fluoroscopically guided transforaminal lumbar nerve root steroid injection. The patient was taken to the fluoroscopic suite and placed on a C-arm table in the prone position with the appropriate monitors applied. A nurse was in attendance for the duration of the procedure to carefully monitor the patient. Please refer to the nursing record for vital sign documentation and for any doses of sedatives and medications. I was present and gave the order for any medications given to the patient. The procedure was performed on the Bilateral L5 nerve roots. The lumbosacral region of the back was prepped and draped in the usual sterile fashion. The fluoroscopic unit was manipulated in a caudad/cephalad position until the disc spaces of the joints were in clear focus. The unit was then positioned in the oblique view until the pedicle and articulating processes were clearly visible. The skin and subcutaneous tissues were anesthetized with 1 cc preservative free 1% Lidocaine. Using fluoroscopic guidance, a 22 gauge Quincke needle was placed on the six o'clock position of the pedicle. The needle was then slowly walked off the lamina into the nerve root foramen. A lateral fluoroscopic projection showed the needle tip entering the superior posterior aspect of the L5 intervertebral foramen. This procedure was repeated in an identical fashion on the contralateral side. Using AP fluoroscopic projection, 0.5 cc of Omnipaque (240 mg/cc) was injected through each needle and a neurogram was produced. There was clear dye spread through each nerve root sheath and into the epidural space. No vascular uptake was noted. There was no cerebrospinal fluid or blood aspirated from the needle. A preservative free solution of 5 mg of Dexamethasone and 1.5cc of 0.25% Bupivacaine were injected at each level approached. There were no signs or symptoms of intrathecal or intravascular injection. The needle was removed intact and hemostasis was appreciated. The patient tolerated the procedure well and there were no complications. The patient was taken to the recovery area. The patient remained in stable condition with no apparent complications. Postprocedure instructions were given to the patient and a follow up appointment was confirmed. The patient was also discharged with information on how to reach the clinic or nursing education consultant physician at anytime for questions or complaints..? * Procedure Codes: 6 4483 INJ FORAMEN EPIDURAL L/S/BILATERAL, Modifiers: 50 * Follow Up: 2 Weeks * Images: Billing Information: * Visit Code: * Procedure Codes: 77117 INJ FORAMEN EPIDURAL L/S/BILATERAL. Modifiers: 50 * W CUTTER Sign off status: Completed true * Provider: Bo Reyes MD Date: 10/19/2023 Generated for Annette lewis/Kristy/eTransmitting on: 0 12/13/2024 09:24 AM CDT History and Physical Notes * Examination Category Sub-Category Detail Notes Category Not es General examination HEENT: Normocephalic/atrauma tic Heart: Regular rate Lungs: non labored breathin g General appearance: alert and oriented t o person, place and time, in no acute distress Back there is tenderness to palpation in the lumbar paraspinous muscles, increased pain with extension and flexion of the lumbar spine
--- OUTSIDE RECORDS SUMMARY | 2024-12-13 09:25 | XMS_ITS | Clinical Summary ---
Author Organization [facility] Address [address] [place] [address] Phone Care Team Providers Care Top Lift And Automatic Window Repairer Name Role Phone Delmar Liriano MD Primary Care Provider [phone] Mejia Liriano MD Unavailable Unavailable Allergies Active Allergy Reactions Criticality Noted Date Comments Prochlorperazine Maleate Other (see Comments) 0 11/11/2015 Feels loopy Medications polyethylene glycol (MIRALAX) Powder Mix the entire bottle with 64 oz of a clear liquid. Use as directed by the office for colonoscopy prep. 255 g 0 6 Active hydrochlorothia zide 25 MG Tablet Take 25 mg by mouth daily. Active lisinopril (PRINIVIL, ZESTRIL) 40 MG Tablet Take 40 mg by mouth daily. Active citalopram (CELEXA) 40 MG Tablet Take 40 mg by mouth daily. Active buPROPion SR (WELLBUTRIN SR) 150 MG TABLET SR 12 HR Take 150 mg by mouth 2 times daily. Active SUMAtriptan (IMITREX) 25 MG Tablet Take 25 mg by mouth once as needed for Migraine. Use as directed. May repeat dose in 2 hours if headache recurs. Active LORazepam (ATIVAN) 0.5 MG Tablet Take 0.5 mg by mouth every 6 hours as needed for Anxiety (one to two tabs). Active Zolpidem Tartrate (AMBIEN PO) Take 1 Tab by mouth nightly. Active Lisdexamfetamin e Dimesylate (VYVANSE PO) Take 30 mg by mouth daily. Active HYDROcodone-yanci taminophen (NORCO) 5-325 MG Tablet Take 1 Tab by mouth every 4 hours as needed for Pain. Active dicyclomine (BENTYL) 20 MG Tablet Take 0.5 Tabs by mouth every 6 hours as needed. 120 Tab 0 6 Active Family History Medical History Relation Name Comments Asthma Brother Other-comment Father pancreatitis Kidney Cancer Maternal Grandfather Hypertension Maternal Grandmother Rheumatoid Arthritis Maternal Grandmother Thyroid Disease Maternal Grandmother Grav es disease Colon Cancer Maternal Uncle x 2 Hypertension Mother Thyroid Disease Mother hypothyroidi sm Heart Attack Paternal Grandfather Melanoma Sister Relation Name Status Comments Brother Father Maternal Grandfather Maternal Grandmother Maternal Uncle Mother Alive Paternal Grandfather Sister Social History Tobacco Use Types Packs/Day Years Used Date Smoking Tobacco: Never Smokeless Tobacco: Never Alcohol Use Standard Drinks/Week Comments No 0 (1 standard drink = 0.6 oz pur e alcohol) Comments Unknown Sex and Gender Information Value Date Recorded Sex Assigned at Not on file 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[employer] Gender Identity Not on file Sexual Orientation Not on file Last Filed Vital Signs Vital Sign Reading Time Taken Comments Blood Pressure 99/64 11/15/2015 10:08 AM CDT Pulse - - Temperature 36 C (96.8 F) 11/15/2015 10:08 AM CDT Respiratory Rate 12 11/15/2015 10:08 AM CDT Oxygen Saturation 99% 11/15/2015 10:08 AM CDT Inhaled Oxygen Concentration - - Weight 89.4 kg (197 lb) 11/11/2015 12:14 PM CDT Height 167.6 cm (5' 6 ) 11/11/2015 12:14 PM CDT Body Mass Index 31.8 11/11/2015 12:14 PM CDT Plan of Treatment Health Maintenance Due Date Last Done Comments Hepatitis C Virus (HCV) Screening 1970 TdaP Immunization 1970 Hepatitis B Immunization (1 of 3 - 19+ 3-dose series) 1989 Cologuard 2020 Immunochemical Fecal Occult Blood 2020 Mammogram 2020 Pneumococcal Immunization (5 0+ years) (1 of 1 - PCV) 2020 Zoster Immunization (1 of 2) 2020 Influenza Immunization (#1) 2024 SARS-COV-2 Immunization ( season) 2024 Colonoscopy 11/14/2025 11/15/2015 Colorectal Cancer Screening 11/14/2025 Respiratory Syncytial Virus (RSV) Immunization (Adult) (1 - 1-dose 75+ series) 2045 11/15/2015 Meningococcal Immunization (ACWY) Aged Out No longer eligible based on patient's age to complete this topic Pneumococcal Immunization Combined Aged Out No longer eligible based on patient's age to complete this topic Rotavirus Immunization Aged Out No lo nger eligible based on patient's age to complete this topic Care Teams Top Lift And Automatic Window Repairer Relationship Specialty Start Date End Date Delmar Liriano MD [address] [place] [address] PCP - General Psychiatry 11/15/15 Mejia Liriano MD [address] [place] [address] Internal Medicine 11/15/15
--- OUTSIDE RECORDS SUMMARY | 2024-12-13 09:25 | XMS_ITS ---
Author Organization [facility] Address [address] [place], [place] [id number] Care Team Providers Care Insulation Worker Apprentice Name Role Phone GENESIS JHAVERI MD Primary Care Provider Unavail able Ludwig Miramontes Unavailable [phone] Law Ward MD Unavailable REASON FOR VISIT norco MEDICATIONS Medication SIG (Take, Route, Frequency, Duration) Notes Start Date End Date Status Acetaminophen-Hydrocodone Bitartrate 325 mg-5 mg 1 tab(s) orally DO NOT FILL UNTIL 08-04-2024 3 times a day as needed for 30 days 12/04/2024 Active Encounters Encounter Location Date Provider [facility] [address], [facility] [address] [place], [place] [id number] 12/01/2024 Ludwig Miramontes Primary generalized (osteo)arthritis M15.0 ASSESSMENTS Encounter Date Diagnosis Assessment Notes Treatment Notes Treatment Clinical Notes 12/01/2024 Primary generalized (osteo)arthritis (ICD-10 - M15.0) PLAN OF TREATMENT Medication Medication Name Sig Start Date Stop Date Notes Acetaminophen-Hydrocodone Bitartrate 325 mg-5 mg 1 tab(s) orally DO NOT FILL UNTIL 08-04-2024 3 times a day as needed for 30 days 12/04/2024 Next Appt Details Provider Name:Cristina monacda, 03/02/2025 11:00:00 AM, [address] [facility], [address], [place], [place], [id number],
--- OUTSIDE RECORDS SUMMARY | 2024-12-13 09:25 | XMS_ITS | Encounter Summary ---
Author Organization [facility] Healthcare Address [address] [place] [address] Care Team Providers Care Transport Medic Name Role Phone Christina Avendaño MD Primary Care Provider + Radha Curiel MD Unavailable [phone] Xander Richmond MD Unavailable [phone] Reason for Visit * Auth/Cert (Routine) Specialty Diagnoses / Procedures Referred By Contraymond t Referred To Contact Referral ID Status Reason Start Date Expiration Date Visits Re quested Visits Authorized [id number] 1 1 Encounter Details Date Type Department Care Team (Late st Contact Info) Description 12/12/2024 3:00 PM CDT Home Care Visit [facility] [place] [address] [address] [place] [id number] Jes Langley RN SN HOME VISIT Social History Tobacco Use Types Packs/Day Years Used Date Smoking Tobacco: Never Smokeless Tobacco: Never Alcohol Use Standard Drinks/Week Comments Not Currently 0 (1 standard drink = 0.6 oz pur e alcohol) OASIS D0700: Social Isolation Answer Da te Recorded Frequency of experiencing loneliness or isolatio n Never 11/23/2024 OASIS A1250: Transportation Answer Date Recorded Lack of Transportation (Medical) No 11/23/2024 Lack of Transportation (Non-Medical) No 11/23/2024 Patient Unable or Declines to Respond No 11/23/2024 OASIS B1300: Health Literacy Answer Fredy e Recorded Frequency of needing help to read materials from doctor or pharmacy Sometimes 11/23/2024 [facility] Utilities Answer Date Recorded In the past 12 months has th e electric, gas, oil, or water company threatened to shut off services in your home? No 11/20/2024 Social Connection and Isolat ion Panel [NHANES] Answer Date Recorded In a typical week, how many times do you talk on the phone with family, friends, or neighbors? More than three times a week 11/20/2024 How often do you get togethe r with friends or relatives? Never 11/20/2024 How often do you attend chur ch or sikh services? Never 11/20/2024 Do you belong to any clubs o r organizations such as congregational groups, unions, fraternal or athletic groups, or school groups? No 11/20/2024 How often do you attend meet ings of the clubs or organizations you belong to? Never 11/20/2024 Are you , , di vorced, , never , or living with a partner? Never 11/20/2024 AUDIT-C Answer Date Recorded Q1: How often do you have a drink containing alcohol? Never 11/17/2024 Q2: How many drinks containi ng alcohol do you have on a typical day when you are drinking? Patient does not drink Q3: How often do you have si x or more drinks on one occasion? Never 11/17/2024 Overall Financial Resource Strain (CARDIA) Answe r Date Recorded How hard is it for you to pa y for the very basics like food, housing, medical care, and heating? Somewhat hard 11/20/2024 Hunger Vital Sign Answer Date Recorded Within the past 12 months, y ou worried that your food would run out before you got the money to buy more. Never true 11/21/19 25 Within the past 12 months, t he food you bought just didn't last and you didn't have money to get more. Never true 11/20/2024 PRAPARE - Transportation Answer Date Re corded In the past 12 months, has l ack of transportation kept you from medical appointments or from getting medications? No 10/23 In the past 12 months, has l ack of transportation kept you from meetings, work, or from getting things needed for daily living? No 11/20/2024 Housing Stability Vital Sign Answer Fredy e Recorded In the last 12 months, was t here a time when you were not able to pay the mortgage or rent on time? No 11/20/2024 Number of Times Moved in the Last Year Not on fi le 11/20/2024 At any time in the past 12 m [facility], were you homeless or living in a usp (including now)? No 11/20/2024 Personal Safety Answer Date Recorded Have you ever been in or are you currently in a harmful physical or emotional relationship or is someone making you feel afraid or unsafe? 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 The only reminants of the original dressing placed by the last SN visit was the stat lock. She had the entire bottom half of the dressing secured with surgical tape in every direction. The top with the insertion site was almost completely exposed. I had to ask the patient manytimes to please sit still so I could remove the tape and get the site cleaned to get the new dressing on. She cried, she moaned, she whined. She continuously stated I'm sorry I told her everythingis going to be ok, I will get everything fixed up for her. I recommened that she go lay down and take a pain pill when I finish to allow her leg to start feeling better. I also told her she needs to cover the PICC dressing with her arm covering, not just the extensions because she told me the dressing came off in her sleep. I was able to take care of cleaning the site and documented in this encounter Plan of Treatment Not on file documented as of this encounter Visit Diagnoses Not on filedocumented in this encounter Home Health Visit - Care Plan Visit Details Visit Type -SN Home Visit Discipline -Mcc Problems Problem Description Start Date Status Goals Interventions Fall Precautions/Safe ty Concerns Disciplines: Mcc Safety needs related to infusion administration 11/23/2024 Active - 1 problem intervention scheduled/documen olvin in this visit IV Therapy-Manageme nt, Education, and Maintenance Disciplines: Mcc IV Management, education, and maintenance for home IV therapy. 11/23/2024 Active - 2 problem interventions scheduled/documen olvin in this visit Medications Disciplines: Mcc Management of home medications 11/23/2024 Active 1 goal linked to scheduled/docume nted intervention 2 goal interventions scheduled/documen olvin in this visit Monitor patient's vital signs every home health visit Disciplines: Skilled Disciplines, SN, PT, OT, CLOTHING EXAMINER, FERMENTOLOGIST Monitor patient's vital signs every home health visit. 11/23/2024 Active 1 goal linked to scheduled/docume nted intervention 1 goal intervention scheduled/documen olvin in this visit Infection Prevention Disciplines: Skilled Disciplines Infection Prevention 11/23/2024 Active 1 goal linked to scheduled/docume nted intervention 1 goal intervention scheduled/documen olvin in this visit Goals Goal Associated Problem Outcome Goal Met? Visit Notes Understand and follow medication therapy Description: Patient/Caregiver will verbalize understanding of purpose, side effects, and medication regimen in 4 weeks as evidenced by taking all medications as prescribed and no medication errors. Medications No Measure vital signs during every home health visit during episode of care Description: Home admissions clinician to measure vital signs during every home health visit during episode of care. Monitor patient's vital signs every home health visit No Verbalize signs of infection Description: Patient/caregiver will demonstrate knowledge of infection prevention strategies by verbalizing signs and symptoms of infection. Infection Prevention No Interventions Intervention Associated Problem/Goal Status Variance Visit Notes Instruct on IV complications Description: Instruct patient/caregiver on how to manage breaks in line, signs/symptoms of complications, who to contact for complications and how to contact the nurse, MD and infusion service Problem:Fall Precautions/Safety Concerns Completed PICC Line Description: PICC Line with 3 Lumens. Change PICC line dressing within 48 hours if there is gauze under the occlusive dressing. Change dressing weekly and PRN if lifted/detached on any border edge or within transparent portion of dressing; visibly soiled; presence of moisture, drainage, or blood. Clean insertion site with chlorhexidine secure with stat-lock apply transparent dressing. Instruct patient/caregiver on flushing line with 10 ml normal saline and then Heparin 10 U per 1ml daily and PRN for problems. Patient/caregiver may do in SN absence Skilled Nurse to place needleless access device, 3 extension tubing, and disinfecting caps to the end of each line. Skilled Nurse to measure line migration and arm circumference at start of care and weekly with dressing change. If patient has PICC line Instruct patient/caregiver to assess insertion site 2 x day for signs of complications and to report signs/symptoms or altered dressing integrity immediately, and on no t allowing blood pressures or needle sticks to be done in PICC line arm. Problem:IV Therapy-Management, Education, and Maintenance Completed PICC Line with triple Lumens . Old dressing removed. Site scrubbed with CHG swab. allowed to air dry. Skin prep and stat lock applied. Tegaderm applied. Patient tolerated well IV Management and Education Description: Instruct patient/caregiver on Reason for Therapy: R Knee Infection, to assess the insertion site once a day if not in use for continuous infusion, how to gather supplies, how to restock IV supplies in the home, prepare supplies, inspecting solution and supplies before infusing. SN to instruct patient/caregiver on how to properly administer medication, normal saline, and heparin, disconnecting IV medication and waste disposal. SN to instruct patient and caregiver to monitor for signs and symptoms of adverse medication reaction such as: Redness, warmth, drainage, temp above 100.5, rash, shortness of breath, tingling, numbness, restlessness, nausea and vomiting and to report to SN or physician. SN to instruct patient to contact home health agency if line is not functioning properly. Instruct on operation and management of infusion device- Patient has no pump Instruct patient/caregiver on infection prevention and signs of complications such as; Proper hand hygiene and use of gloves, safe use and cleaning of equipment, cleaning IV connections with alcohol prep, allowing to dry before attaching any syringe/tubing, using alcohol caps on all lumens of each line and on extension tubing when attached to a lumen, if infusion tubing is to be used for additional administration in a 24 hour period apply an end cap to infusion tubing, if transp arent dressing is occlusive patient may shower, instruct patient to cover dressing. Signs of complications: Evidence of dislodgement, redness, tenderness, swelling, infiltration, induration, drainage, pain, temperate greater than 100.5, paresthesia, Numbness or tingling in extremity on side of access device, and to notify home health nurse or physician for any signs and symptoms of infection. Problem:IV Therapy-Management, Education, and Maintenance Completed na Instruct on Medication Management Description: Assess patient/caregiver ability to demonstrate management of medications, steps to obtain new/refills of medications and identification of new or changed medications. Assess patient/caregiver ability to verbalize accurate do se/route/frequency/reason for medication, how to evaluate effectiveness of medication, ongoing lab work needed to ensure therapeutic dosing, drug/food interactions, side effects/adverse reactions, contraindications for medica tions and known drug allergies. Evaluate the effectiveness of current treatment regimen and notify the appropriate healthcare provider for the need for changes in the plan of care. Problem:Medications Goal:Understand and follow medication therapy Completed na Instruct on High Risk Medications Description: Instruct patient/caregiver on oral or injectable high-risk medications, including: anticonvulsant, antiretroviral, anticoagulant, antibiotics, chemotherapeutic, hypoglycemic including insulin, immunosuppressant, antipsychotic , and opioids. Problem:Medications Goal:Understand and follow medication therapy Completed na Monitor Vital Signs Description: Monitor blood pressure, pulse, oxygen saturation, respirations Problem:Monitor patient's vital signs every home health visit Goal:Measure vital signs during every home health visit during episode of care Completed Educate Patient on Infection Prevention Description: Instruct patient on signs and symptoms of infection IE: fever, odor, change in color, increased amount of drainage, purulent drainage, warmth. Problem:Infection Prevention Goal:Verbalize signs of infection Completed documented in this encounter Care Teams Transport Medic Relationship Specialty Start Date End Date Christina Avendaño MD [address] [address] PCP - General Internal Medicine 05/07/20 Radha Curiel MD [address] [address] 05/07/20 Xander Richmond MD [address] [place] [address] Consulting Physician General Surgery 04/06/21 documented as of this encounter
--- OUTSIDE RECORDS SUMMARY | 2024-12-13 09:26 | XMS_ITS ---
Author Organization [facility] Address [address] [place], [place] [id number] Care Team Providers Care Hogshead Stock Clerk Name Role Phone GENESIS JHAVERI MD Primary Care Provider Unavail able Ludwig Miramontes Unavailable [phone] Law Ward MD Unavailable Unavailable Cristina Church Unavailable [phone] ALLERGIES Allergen (clinical drug ingredient) Drug/Non Drug Allergy documented on EMR Reaction Allergy Type Onset Date Status Compazine Unknown Drug Allergy Active MEDICATIONS Medication SIG (Take, Route, Frequency, Duration) Notes Start Date End Date Status Plaquenil 200 mg 1 tab(s) orally 2 times a day Active montelukast 10 mg 1 tab(s) orally once a day Active buPROPion 150 mg/12 hours 1 tab(s) orall y 2 times a day Active Magnesium orally once a day Ac tive gabapentin 600 mg 1 cap(s) orally qid Active Vitamin D2 50,000 intl units TAKE 1 CAPS ULE BY MOUTH WEEKLY Active potassium chloride 10 mEq 1 cap(s) orally daily Active Synthroid Active zolpidem 6.25 mg 1 tab(s) orally once a day (at bedtime) Active predniSONE 5 mg 6 tablets for 1 day, decrease by 1 tablet every day orally once a day for 6 days 07/03/2024 Active Vyvanse 50 mg 1 cap(s) orally once a day (in the morning) Active clobetasol topical 0.05% 1 miguel angel applied topically 2 times a day Active lisinopril 40 mg 1 tab(s) orally once a day Active Acetaminophen-Hydrocodone Bitartrate 325 mg-5 mg 1 tab(s) orally DO NOT FILL UNTIL 08-04-2024 3 times a day as needed 10/06/2024 Active hydroCHLOROthiazide 25 mg 1 tab(s) orall y once a day Active Effexor XR 75 mg 1 cap(s) orally once a day Active SOCIAL HISTORY Tobacco Use: Social History Observation Description Date Details (start date - stop date) Never Smoker NA - NA Sex Assigned At : Social History Observation Description Sex Assigned At Unknown Tobacco Use: Question Answer Notes Smoking Status nonsmoker VITAL SIGNS BMI 29.53 kg/m2 11/03/2024 Blood pressure systolic 124 mm Hg 11/04/19 25 Blood pressure diastolic 69 mm Hg 025 Heart Rate 86 /min 11/03/2024 Height 66 in 11/03/2024 Weight 183 lbs 11/03/2024 Encounters Encounter Location Date Provider Diagnosis [facility] [address] [place] [address], [address] [place], [place] [id number] 11/03/2024 Cristina Church Primary generalized (osteo)arthritis M15.0 ; MCTD (mixed connective tissue disease) M35.1 and Other rodent exterminator (current) drug therapy Z79.899 ASSESSMENTS Encounter Date Diagnosis Assessment Notes Treatment Notes Treatment Clinical Notes 11/03/2024 Primary generalized (osteo)arthritis (ICD-10 - M15.0) 11/03/2024 MCTD (mixed connective tissue disease) (ICD-10 - M35.1) 11/03/2024 Other usp (current) drug therapy (ICD-10 - Z79.899) PLAN OF TREATMENT Medication Medication Name Sig Start Date Stop Date Notes Plaquenil 200 mg 1 tab(s) orally 2 ti mes a day montelukast 10 mg 1 tab(s) orally once a day buPROPion 150 mg/12 hours 1 tab(s) orall y 2 times a day Magnesium orally once a day Vitamin D2 50,000 intl units TAKE 1 CAPS ULE BY MOUTH WEEKLY potassium chloride 10 mEq 1 cap(s) orally daily Acetaminophen-Hydrocodone Bitartrate 325 mg-5 mg 1 tab(s) orally DO NOT FILL UNTIL 08-04-2024 3 times a day as needed 10/06/2024 Next Appt Details Follow Up: 3 Months, Reason: Provider Name:Cristina moncada, 03/02/2025 11:00:00 AM, [address] [facility], [address], [place], [place], [id number], Progress Notes * Examination Category Sub-Category Detail Notes Rheumatology Sacroiliac: General Constitutional: No acute distres s HEENT: PERRLA, Neck supple, Normal sclerae and conjunctivae Abdomen: soft, no organomegal y or masses /Rectal: not done Skin: No cutaneous lesions . No subcutaneous nodules noted in the 4 extremities. Neurological: No focal neurologica l findings Heme/Lymphatic: No cervical, axillar y, or inguinal adenopathy Psych: Alert, oriented x 3, Normal affect Musculoskeletal: Normal strength. No muscle atrophy Joint Exam Shoulders No swelling. No tenderness. NROM. Elbows No swelling. No tend erness. NROM., No instability or deformity. Scar to right elbow s/p ulnar transposition surgery Wrists No swelling. No tend erness. NROM., No instability or deformity. Hips No tenderness, NROM. , No instability or deformity. Knees right, , total knee replacement, , 1+ swelling, warm to touch. No erythema Ankles No swelling, no tend erness, NROM., No instability or deformity. All IPs No swelling, no tend erness, NROM, no deformity unless noted below. All MCPs No swelling, no tend erness, no deformity unless noted below. All PIPs No swelling, no tend erness, no deformity unless noted below. All DIPs No swelling, no tend erness, no deformity unless noted below. All MTPs No swelling, no tend erness, NROM, no deformity unless noted below. History and Physical Notes * HPI (History of Present Illness) Category Sub-Category Detail Notes Rheumatology Fatigue Joint pain left shoulder pain Joint stiffness Back pain Physical Examination Category Sub-Category Detail Notes MDHAQ Summary Function (0-10):: 3.3 Pain (0-10):: 8 Patient Global Assessment of Disease Activity (0 -10):: 7 RAPID3 Score (0-30):: 18.3 Physician Global Assessment of Disease Activity (0-10):: 3 Prognosis Good w/tx Erosive Damage No
--- OUTSIDE RECORDS SUMMARY | 2024-12-13 09:26 | XMS_ITS | Encounter Summary ---
Author Organization [facility] Address [address] [place] [address] Phone Care Team Providers Care Instrumentation Supervisor Name Role Phone Christina Avendaño MD Primary Care Provider + Radha Curiel MD Unavailable [phone] Xander Richmond MD Unavailable [phone] Encounter Details Date Type Department Care Team (Late st Contact Info) Description 11/27/2024 Telephone [facility] Infectious Diseases [address] [place] [address] [address] [place] [address] Rossy Crawford RMA Social History Tobacco Use Types Packs/Day Years [...] materials from doctor or pharmacy Sometimes 11/23/2024 [facility] Utilities Answer Date Recorded In the past 12 months has e electric, gas, oil, or water company [...] often do you attend chur ch or cheondoism services? Never 11/20/2024 Do you belong to any clubs o r organizations such as mosque groups, unions, fraternal or athletic groups, or [...] any time in the past 12 m [facility], were you homeless or living in a half-way (including now)? No 11/20/2024 Personal Safety Answer Date Recorded Have you ever been in or are you currently in a harmful physical or emotional relationship or is someone making you feel afraid or unsafe? 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 Pt reported tenderness noted at picc insertion site and itching under dressing. Pt reported has a triple lumen picc with two lumens- coleman and white sluggish when flushed. Pt reported red lumen is flushing and infusing well. Discussed will contact I and have stronger strength heparin sent to determine if can resolve sluggish lines. Pt reported verbal agreement. * Telephone Encounter - Rossy Crawford RMA - 11/27/2024 3:44 PM CDT Joyce called re lft arm dressing change. She will have it changed on Wednesday due to home nurse. Please call [phone] documented in this encounter Plan of Treatment Not on file documented as of this encounter Visit Diagnoses Not on filedocumented in this encounter Care Teams Instrumentation Supervisor Relationship Specialty Start Date End Date Christina Avendaño MD [address] [place] [id number] PCP - General Internal Medicine 05/07/20 Radha Curiel MD [address] [facility] [address] [place] [address] 05/07/20 [place] [address] [place] [id number] Consulting Physician General Surgery 04/06/21 documented as of this encounter
--- OUTSIDE RECORDS SUMMARY | 2024-12-13 09:26 | XMS_ITS | Clinical Summary ---
Author Organization [facility] Address [address] [place]: Epic Prelude ADT CREIRIS GUNDERSON [address] Care Team Providers Care Banana Ripening Room Supervisor Name Role Phone Christina Avendaño MD Primary Care Provider [phone] Allergies Active Allergy Reactions Criticality Noted Date Comments Adhesive Rash Medium 05/11/2019 Amoxicillin-Pot Clavulanate Diarrhea Low 09/19/2024 Metoclopramide Anxiety Medium 05/07/2017 Other reaction(s): Psychiatric Makes her feel loopy Metoclopramide Hcl Unknown 09/19/2024 Neomycin Hives High 06/30/2018 Neomycin Sulfate Unknown 09/19/2024 Prochlorperazine Unknown 03/23/2016 Feels loopy Other reaction(s): Unknown Prochlorperazine Edisylate Other (See Comments) 06/08/2016 it makes me crazy Medications gabapentin (NEURONTIN) 600 mg tablet Take 600 mg by mouth 3 times daily . Active SUMAtriptan (IMITREX) 100 mg tablet Take 1 Tablet by mouth once as needed for migraine. 12 Tablet 11 12/09/19 20 10:19 AM CDT 019 Active ondansetron (ZOFRAN) 4 mg Tablet Take 1 tablet by mouth every 6 hours as needed nausea/vomiting 30 Tablet 3 08/09/20 20 9:15 AM STEAM FINISHER 020 Active sodium fluoride, dental gel, (PreviDent 5000 Dry Mouth) 1.1 % Gel apply small amount to brush and brush twice daily as directed 100 mL 2 08/19/20 20 5:36 PM STEAM FINISHER Active tretinoin (RETIN-A) 0.025 % Cream by See Admin Instructions route daily. Active erenumab-aooe (AIMOVIG) 140 mg/mL Auto-Injector Inject 140 mg by subcutaneous injection every 30 days. For migraines Active hydrOXYchloroQU INE (PLAQUENIL) 200 mg tabletIndicatio ns:Other overlap syndromes Take 1 Tablet (200 mg) by mouth 2 times daily. 180 Tablet Active clobetasoL (TEMOVATE) 0.05 % Ointment Active ergocalciferol (Vitamin D2) 50,000 unit capsule TAKE 1 CAPSULE BY MOUTH WEEKLY 12 Capsule 03/16/20 23 9:30 AM CDT Active aspirin 81 mg chewable tablet Take 81 mg by mouth daily. Active cetirizine (ZyrTEC) 10 mg tablet Take by mouth every 24 hours. Active Olopatadine 0.6 % Independence, Non-Aerosol Administer 1 Independence in each nostril daily. Active potassium chloride (KLOR-CON) 10 mEq Extended Release tablet Take 10 mEq by mouth daily. Active famotidine (PEPCID) 20 mg tablet Take 20 mg by mouth 2 times daily. Active lisinopriL (PRINIVIL) 40 mg tabletIndicatio ns:Essential hypertension take 1 tablet by mouth daily 100 Tablet 3 024 Active amLODIPine (NORVASC) 5 mg tabletIndicatio ns:Essential hypertension TAKE 1 TABLET BY MOUTH DAILY AT 9 AM 100 Tablet 3 024 Active venlafaxine (EFFEXOR XR) 75 mg Extended Release 24 hour capsule Active HYDROcodone-yanci taminophen (NORCO) 5-325 mg tablet Take 1 Tablet by mouth 3 times daily as needed. 90 Tablet 03/08/20 24 8:26 PM CDT Active labetaloL (NORMODYNE) 100 mg tabletIndicatio ns:Essential hypertension Take 1 Tablet (100 mg) by mouth 2 times daily. 200 Tablet 3 Active omeprazole (PriLOSEC) 40 mg Capsule, Delayed Release(E.C.)In dications:Gastr oesophageal reflux disease without esophagitis TAKE 1 CAPSULE BY MOUTH TWICE DAILY 200 Capsule 1 Active hyoscyamine 0.[address] 1 Tablet (0.125 mg) under tongue every 8 hours as needed for esophageal spasms/pain. 30 Tablet 1 10/07/19 25 12:29 PM STEAM FINISHER 024 Active hydroCHLOROthia zide 25 mg tablet TAKE 1 TABLET BY MOUTH DAILY AT 9 AM 100 Tablet 3 Active atorvastatin (LIPITOR) 40 mg tablet Take 1 Tablet (40 mg) by mouth daily with supper. NEEDS APPOINTMENT WITH DR. SALCEDO FOR FURTHER REFILLS [phone] 90 Tablet Active buPROPion HCL (WELLBUTRIN XL) 300 mg Extended Release 24 hour tabletIndicatio ns:Panic disorder,Depres frankie, unspecified depression type TAKE 1 TABLET BY MOUTH DAILY IN THE MORNING 100 Tablet 3 Active HYDROcodone-yanci taminophen (NORCO) 5-325 mg tablet Take 1 Tablet by mouth 3 times daily as needed. Max Daily Amount: 3 Tablets 90 Tablet 09/05/19 11:31 AM STEAM FINISHER 025 Active onabotulinumtox Michele (Botox) 200 unit Recon Soln INJECT 155 UNITS INTRAMUSCULARLY INTO HEAD AND NECK EVERY 12 WEEKS (DISCARD UNUSED AFTER FIRST USE) Active mupirocin (BACTROBAN) 2 % Ointment Apply thin layer to affected area three times a day for flares Active fexofenadine (LUIS ANGEL) 180 mg tablet take 2 tablet (180MG) by ORAL route every morning Active predniSONE (DELTASONE) 5 mg tablet Take 6 tablets by mouth for 1 day, then decrease by 1 tablet every day until all taken 21 Tablet 09/19/19 25 2:25 PM STEAM FINISHER 025 Active traMADoL (ULTRAM) 50 mg tablet Take 50 mg by mouth. 025 Active ondansetron HCl (ZOFRAN ORAL) Active Magnesium 250 mg Tablet 1 tablet with a meal Orally Once a day Active acetaminophen (TYLENOL) 500 mg tablet Take 1,000 mg by mouth. Active ceFAZolin in sterile water (ANCEF) Inject 2 Grams by intravenous injection. Active oxyCODONE (ROXICODONE) 5 mg tablet Take 5 mg by mouth. Active rifabutin (MYCOBUTIN) 150 mg capsule Take 300 mg by mouth daily. Active sennosides-docu sate sodium (SENNA-S) 8.6-50 mg tablet Take 2 Tablets by mouth 2 times daily. Active naloxone (Narcan) 4 mg/spray Independence, Non-Aerosol EMERGENCY USE ONLY: Administer 1 spray (4 mg) in one nostril one time. May repeat in alternating nostrils every 2-3 min until responsive or EMS arrives. 2 Each 3 Active albuterol sulfate HFA 90 mcg/actuation aerosol inhalerIndicati ons:Mild intermittent asthma without complication Take 2 Puffs by inhalation every 6 hours as needed for Shortness of Breath. 25.5 Gram 2 10/07/19 25 12:31 PM STEAM FINISHER 025 Active dicyclomine (BENTYL) 20 mg tabletIndicatio ns:Left upper quadrant abdominal pain Take 1 Tablet (20 mg) by mouth 4 times daily. 30 Tablet 10/07/19 25 12:31 PM STEAM FINISHER 025 Active HYDROcodone-yanci taminophen (NORCO) 5-325 mg tablet Take 1 tablet by mouth 3 times a day as needed 30 days 90 Tablet 10/07/19 25 12:29 PM STEAM FINISHER 025 Active zolpidem (Ambien) 10 mg tabletIndicatio ns:Primary insomnia Take 1 Tablet (10 mg) by mouth nightly as needed for Insomnia. 90 Tablet 10/17/19 25 11:29 AM STEAM FINISHER 025 Active montelukast (SINGULAIR) 10 mg tablet TAKE 1 TABLET BY MOUTH DAILY LATE IN THE DAY AT 9 PM 100 Tablet 1 025 Active levothyroxine 25 mcg tablet TAKE 1 TABLET BY MOUTH DAILY AT 9 AM 100 Tablet 025 Active baclofen (LIORESAL) 10 mg tabletIndicatio ns:Muscle spasms of both lower extremities,Sci atica of left side Take 1 Tablet (10 mg) by mouth 3 times daily as needed for Pain. 270 Tablet 12/03/19 25 8:12 PM CDT 025 Active ALPRAZolam (XANAX) 0.5 mg tabletIndicatio ns:Attention-de ficit hyperactivity disorder, predominantly inattentive type Take 1 Tablet (0.5 mg) by mouth 3 times daily as needed for Anxiety. 90 Tablet 12/03/19 25 8:12 PM CDT 025 Active lisdexamfetamin e (Vyvanse) 50 mg capsuleIndicati ons:Attention-d eficit hyperactivity disorder, predominantly inattentive type Take 1 Capsule (50 mg) by mouth daily in the morning. 30 Capsule 12/03/19 25 8:12 PM CDT 025 Active HYDROcodone-yanci taminophen (NORCO) 5-325 mg tablet Take 1 Tablet by mouth 3 times daily as needed. 90 Tablet 12/06/19 25 4:38 PM CDT 025 Active montelukast (SINGULAIR) 10 mg tablet TAKE 1 TABLET BY MOUTH DAILY LATE IN THE DAY AT 9 PM 90 Tablet 3 024 2024 Discontinued baclofen (LIORESAL) 10 mg tabletIndicatio ns:Muscle spasms of both lower extremities,Sci atica of left side Take 1 Tablet (10 mg) by mouth 3 times daily as needed for Pain. 270 Tablet 09/05/19 25 11:31 AM STEAM FINISHER 025 2024 Discontinued(R eorder) levothyroxine 25 mcg tablet TAKE 1 TABLET BY MOUTH DAILY AT 9 AM 100 Tablet 025 2024 Discontinued ALPRAZolam (XANAX) 0.5 mg tabletIndicatio ns:Attention-de ficit hyperactivity disorder, predominantly inattentive type Take 1 Tablet (0.5 mg) by mouth 3 times daily as needed for Anxiety. 90 Tablet 11/04/19 25 10:55 AM CDT 025 2024 Discontinued(R eorder) lisdexamfetamin e (Vyvanse) 50 mg capsuleIndicati ons:Attention-d eficit hyperactivity disorder, predominantly inattentive type Take 1 Capsule (50 mg) by mouth daily in the morning. 30 Capsule 11/04/19 25 10:55 AM CDT 025 2024 Discontinued(R eorder) HYDROcodone-yanci taminophen (NORCO) 5-325 mg tablet Take 1 Tablet by mouth 3 times daily as needed. 90 Tablet 11/05/19 25 7:03 PM CDT 025 2024 Discontinued(R eorder) Active Problems Patient Care Coordination No te Formatting of this note migh t be different from the original. Primary Care: Christina Avendaño MD Referring Provider: No referring provider defined for this encounter. Other: Ewa Nicholson TECHNOLOGY ANALYST- Bill Salcedo MD--Systems Consultant ([facility] @ ) Problem Noted Date Diagnosed Date Coronary artery calcification seen on CT scan Asthma 03/17/2022 Hematuria 03/17/2022 Sacroiliac pain 03/17/2022 Urolithiasis 03/17/2022 Vitamin D deficiency 03/17/2022 Chronic migraine without aur a without status migrainosus, not intractable 11/05/2021 Nerve entrapment 11/05/2021 Mixed collagen vascular disease 03/26/2021 Class 2 obesity due to excess calories in adult 03/26/2021 Immunosuppressed status 03/26/2021 History of small bowel obstruction 03/26/2021 History of total knee arthroplasty 05/07/2020 Acquired hypothyroidism 01/26/2020 Syncope 06/14/2019 Prolonged Q-T interval on ECG 06/14/2019 Hypercholesterolemia 06/24/2018 Chronic pain syndrome 05/08/2017 Small fiber neuropathy 05/08/2017 Anti-DIRECTOR CONSUMER antibodies present 03/01/2017 Panic disorder 05/04/2016 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 Primary hypertension 05/02/2016 Sciatica 05/02/2016 History of melanoma 03/23/2016 Family history of melanoma 03/23/2016 Family history of breast cancer 03/23/2016 Arthralgia of both knees 02/13/2016 Myalgia 02/13/2016 Recurrent major depressive disorder, in partial remission 04/23/1993 ADD (attention deficit disorder) Anxiety state Frequent UTI Resolved Problems Problem Noted Date Diagnosed Date Resolved Date Effusion of right knee joint 09/22/2024 10/01/2024 Dry eyes 03/17/2022 06/22/2022 Dry mouth 03/17/2022 06/22/2022 Malignant neoplasm of skin 03/17/2022 1 Never smoked cigarettes 03/17/202205/25 Other care home (current) drug therapy 03/17/2022 06/22/2022 Arthrofibrosis of knee joint, right 10/07/2020 06/22/2022 Overview (03/17/2022): Added automatically from request for surgery [id number] Osteoarthritis of knee 10/19/201906/22 Overview (03/17/2022): Added automatically from request for surgery [id number] Pain in right knee 10/19/2019 2 Arthritis of right knee 09/21/201905/25 Mild intermittent asthma 06/24/2018 Diffuse Muscle Spasms 05/08/20172017 Acute bilateral low back raymond n without sciatica 05/07/2017 06/21/2018 Non-intractable vomiting with nausea 05/07/2017 06/21/2018 Chronic migraine 05/03/2017 12/14/2023 Depression 05/02/2016 06/22/2022 Elevated creatine kinase level 05/02/2016 06/21/2018 Muscle fasciculation 05/02/2016 022 Nubia-Danlos syndrome, mehdi gn hypermobile form 03/23/2016 06/21/2018 Thoracic back pain 02/13/2016 2 Nubia-Danlos disease 2017 Open leg wound 06/21/2018 Other chest pain 12/14/2023 Abdominal pain 03/17/2019 Right leg swelling 2 2019 novel coronavirus disease (COVID-19) 01/02/2022 Encounters Date Type Department Care Team Description 11/30/2024 [facility] Internal Medicine Medical [place] [address] [phone] Christina Avendaño MD Muscle spasms of both lower extremities; Sciatica of left side; Primary insomnia; Attention-deficit hyperactivity disorder, predominantly inattentive type 11/29/2024 Refill [facility] [address] [place] [phone] Brittany Boo PA Gastroesophageal reflux disease without esophagitis 11/29/2024 Patient Outreach [facility] Internal Medicine Medical [place] [address] [address] [facility] 11/25/2024 Refill [facility] [place] [address] [place] [address] Brittany Boo PA Gastroesophageal reflux disease without esophagitis 11/25/2024 Refill [facility] Endocrinology [address] [place] [address] Larissa Hensley MD 11/24/2024 Abstract [facility] Internal Medicine [facility] A [address] [phone] Christina Avendaño MD 11/21/2024 Refill [facility] Heart and Vascular At [facility] [address] [place] [phone] Bill Salcedo MD 11/14/2024 Refill [facility] Pulmonology [facility] [address] [place] [address] Tung Carlisle MD 11/14/2024 Orders Only [facility] Internal Medicine Medical [place] [address] [phone] Christina Avendaño MD Normocytic anemia (Primary Dx); Vitamin D deficiency; Low vitamin B12 level 11/09/2024 8:00 AM CDT - 11/09/2024 11:59 PM CDT Hospital Encounter [facility] [address] [place] [address] Yamila Encarnacion MD Discharge Disposition: Home or Self Care 11/04/2024 Refill [facility] [address] [place] [address] Bill Salcedo MD 11/02/2024 Orders Only [facility] Internal Medicine Medical [place] [address] [address] Provider, Abstract 11/01/2024 Refill [facility] Internal Medicine Medical [place] [address] [address] Christina Avendaño MD Attention-deficit hyperactivity disorder, predominantly inattentive type 10/27/2024 Abstract [facility] Internal Medicine Medical [place] [address] [address] Christina Avendaño MD 10/25/2024 Patient Outreach [facility] Internal Medicine Medical [place] [address] [address] [facility] Care 10/24/2024 External Device Data STL ABSTRACTION Provider, Abstract 10/16/2024 Refill [facility] Internal Medicine Medical [place] [address] [address] Christina Avendaño MD Primary insomnia 10/11/2024 External Device Data STL ABSTRACTION Provider, Abstract 10/06/2024 Refill [facility] Internal Medicine - [facility] [address] [address] [address] [facility] [address] [facility] [address] [place] [phone] Dilia Aguilera MD 10/06/2024 Refill [facility] Internal Medicine Medical [place] [address] [address] Christina Avendaño MD Attention-deficit hyperactivity disorder, predominantly inattentive type; Mild intermittent asthma without complication; Left upper quadrant abdominal pain 10/02/2024 11:30 AM STEAM FINISHER Video Visit [facility] Internal Medicine Medical [place] [address] [address] Christina Avendaño MD Hospital discharge follow-up (Primary Dx); Effusion of right knee joint; Infection of right knee ([facility]/HCC) 09/28/2024 Telephone [facility] [address] [address] Christina Avendaño MD Patient Communication 09/25/2024 Patient Outreach [facility] [place] [address] [facility] 09/19/2024 1:30 PM STEAM FINISHER Ancillary Procedure [facility] Medicine [address] [place] [address] Ruth Ann Peña PA-C Bilateral hand pain; Great toe pain, left 09/19/2024 1:25 PM STEAM FINISHER Ancillary Procedure [facility] Medicine [address] [place] [address] Ruth Ann Peña PA-C Bilateral hand pain; Great toe pain, left 09/19/2024 1:20 PM STEAM FINISHER Ancillary Procedure [facility] Medicine [address] [place] [address] Ruth Ann Peña PA-C Bilateral hand pain; Great toe pain, left 09/19/2024 1:15 PM STEAM FINISHER Office Visit [facility] Medicine [address] [place] [address] Ruth Ann Peña PA-C Sprain of left great toe, initial encounter (Primary Dx); Primary osteoarthritis of both hands; Bilateral hand pain; Great toe pain, left; Left carpal tunnel syndrome 09/19/2024 11:00 AM STEAM FINISHER Office Visit [facility] Internal Medicine Medical [place] A [facility] [address] [place] [address] Christina Avendaño MD Bilateral hand pain (Primary Dx); Pain of left great toe; MCTD (mixed connective tissue disease); Family history of osteoporosis; Bone fracture; Blistering of skin 09/15/2024 Telephone [facility] Internal Medicine [facility] A [facility] [address] [address] Christina Avendaño MD Clinical Consult Before Scheduling; Upper Respiratory Symptoms from Last 3 Months Immunizations Immunization Administration Dates Next Due (ADACEL/BOOSTRIX)(10 YR UP) TDAP VACCINE, 0.5ML, IM 03/23/2016,08/25/2012 (PFIZER)(12 YR UP) COVID-19 VACCINE - EMERGENCY USE AUTHORIZATION, MRNA, [id number](PF) 30 MCG/0.3 ML IM SUSP 05/15/2021,12/08/2020,11/17/2020 (PNEUMOVAX 23)(50 YRS UP) PN EUMOCOCCAL POLYSACCHARIDE (PPV23) 0.5 ML, IM 04/15/2009 (PREVNAR 20)(6 WKS UP) PNEUM OCOCCAL CONJUGATE VACCINE 20-VALENT (PCV20), POLYSACCHARIDE [id number] CONJUGATE, ADJUVANT 0.5 ML (PF) IM 07/06/2022 (SPIKEVAX) (12 YRS UP PRIMAR Y SERIES) COVID-19 VACCINE - [id number](PF) 100 MCG/0.5 ML IM SUSP 08/28/2024 (TENIVAC)(7 YRS UP) TETANUS AND DIPHTHERIA TOXOIDS, ADSORBED (5 LF OF TETANUS TOXOID AND 2 LF OF DIPHTHERIA TOXOID), 0.5ML (PF), IM 08/25/2012 Hepatitis A Vaccine 07/03/2008,12/02/2007 Hepatitis A Vaccine, Unspeci fied Formulation 07/03/2008,12/02/2007 Hepatitis B Vaccine 07/03/2008,02/23/2008,2007 INFLUENZA VACCINE QUADRIVALE NT 3 YR UP PF IM 06/16/2016 INFLUENZA VACCINE QUADRIVALE NT 6 MOS UP PF IM 07/06/2022,07/04/2021,06/15/2020,05/30,05/03/2016 Influenza Seasonal Unspecifi ed Formulation IM 08/28/2024,06/04/2023,05/20/2018,05/20,05/10/2017,06/23/2016,05/03/2016 Influenza Seasonal Unspecifi ed Formulation PF IM 05/12/2012,06/18/2008 Influenza Vaccine 18+ C.derived Pf Im 06/16/2016 Influenza, Unspecified Formulation 05/20,05/10/2017,06/23/2016,05/03,05/16/2013 PNEUMOVAX (PPSV23) pneumococ valentin polysaccharide 23-valent Vaccine 06/15/2018 Pneumococcal Polysaccharide Vacc 23-sudhir IM SCHIP 06/15/2018 Family History Medical History Relation Name Comments Asthma Brother 1 Big bro Colon Cancer Brother 1 Big bro Depression Brother 1 Big bro Other Brother 1 Big bro Colon Cancer Brother 2 Uncle had colon cancer twice not brother...couldn' No Known Problems Daughter No Known Problems Maternal Aunt 1 No Known Problems Maternal Aunt 2 Asthma Maternal Grandfather Beverly Peg Cataract Maternal Grandfather Beverly Peg Kidney Cancer Maternal Grandfather Beverly Peg COPD Maternal Grandmother Beverly High Cholesterol Maternal Grandmother Beverly Hypertension Maternal Grandmother Beverly Osteoporosis Maternal Grandmother Beverly Thyroid Disease Maternal Grandmother Beverly Colon Cancer Maternal Uncle 1 40s No Known Problems Maternal Uncle 2 No Known Problems Maternal Uncle 3 Colon Cancer Maternal Uncle 4 Kash Cancer Mother Elaine Turner basal cell carcinoma Depression Mother Elaine Murillojohan Brother, a nd both sisters also High Cholesterol Mother Elaine Kandlbinder Hypertension Mother Elaine Kandlbinder Macular Degen Mother Elaine Kandlbinder Osteoporosis Mother Elaine Kandlbinder Thyroid Disease Mother Elaine Murilloestellabinder No Known Problems Other Asthma Paternal Grandfather Pako Arianaer COPD Paternal Grandfather Pako Turner Heart Attack Paternal Grandfather Pako Murillojohan All of my ncles either have had heart attacks or have from it Heart Disease Paternal Grandfather Pako Murillojohan All 6 of my uncles have had multiple heartattacks Heart Surgery Paternal Grandfather Pako Murilloandrewsaurelio All my uncles have had stents and some have had bypasses Stroke Paternal Grandmother Pako Melanoma Paternal Uncle 1 5x's by the age of 50 Prostate Cancer Paternal Uncle 2 Uncle Sahil Heart Disease Paternal Uncle 3 Sahil Heart Disease Paternal Uncle 4 Gabriel Heart Disease Paternal Uncle 5 Gregorio Heart Disease Paternal Uncle 6 Heart Disease Paternal Uncle 7 Xander Anemia Sister 1 britt, myself, a nd 2 other sisters Fainting Sister 1 britt, myself, a nd 2 other sisters Melanoma Sister 1 britt, myself, a nd 2 other sisters 2nd at 30 Other Sister 1 britt, myself, a nd 2 other sisters We have Nubia-Danlos hypermobile type Arrhythmia Sister 2 vipul She has Afib Depression Sister 2 vipul Melanoma Sister 2 vipul 2nd and 3rd in 40s Pacemaker Sister 2 vipul Cancer Sister 3 venice basal cell carc inoma Depression Sister 3 venice Melanoma Sister 3 venice 2nd and 3rd in 30s and 40s No Known Problems Son Breast Cancer Neg Hx Bronchitis Neg Hx Diabetes Neg Hx Emphysema Neg Hx Glaucoma Neg Hx Heart Failure Neg Hx Lung Cancer Neg Hx Mesothelioma Neg Hx Relation Name Status Comments Brother 1 Big bro (Age 37) MVA Brother 2 Uncle had colon canc er twice not brother...couldn' Alive Daughter Father (Age 37) acute panc reatitis Maternal Aunt 1 Alive Maternal Aunt 2 Alive Maternal Grandfather Beverly Ruvalcaba (Age 86 ) Maternal Grandmother Beverly complic ations of Graves disease Maternal Uncle 1 Alive Maternal Uncle 2 Alive Maternal Uncle 3 Alive Maternal Uncle 4 Kash Alive Mother Elaine Tompkins Alive Other Paternal Aunt Alive Paternal Grandfather Pako Murilloandrewsaurelio Paternal Grandmother Pako Paternal Uncle 1 Alive Paternal Uncle 2 Uncle Sahil Alive Paternal Uncle 3 Sahil <50 years Paternal Uncle 4 Gabriel Alive Paternal Uncle 5 Gregorio Alive Paternal Uncle 6 Alive Paternal Uncle 7 Xander Alive Sister 1 britt, myself, and 2 other sisters (Age 32) melanoma Sister 2 vipul Alive Sister 3 venice Alive Son Social History Tobacco Use Types Packs/Day Years Used Date Smoking Tobacco: Never Passive Smoke Exposure: Past Smokeless Tobacco: Never Tobacco Cessation:Counseling Given: Not Answered Passive Exposure Comments:Passive exposure as a child Alcohol Use Standard Drinks/Week Comments No 0 (1 standard drink = 0.6 oz pur e alcohol) Feeling Safe Answer Date Recorded Are you in a relationship wi th someone who hurts you emotionally and/or physically? No 05/19/2023 Comments No Sex and Gender Information Value Date Recorded Sex Assigned at Not on file Legal Sex Female 4:13 AM STEAM FINISHER Gender Identity Not on file Sexual Orientation Not on file Last Filed Vital Signs Vital Sign Reading Time Taken Comments Blood Pressure 118/76 09/19/2024 11:01 AM STEAM FINISHER Pulse 67 09/19/2024 11:01 AM STEAM FINISHER Temperature 36.4 C (97.5 F) 09/19/2024 11:01 AM STEAM FINISHER Respiratory Rate 18 09/21/2023 12:52 PM STEAM FINISHER Oxygen Saturation 98% 09/19/2024 11:01 AM STEAM FINISHER Inhaled Oxygen Concentration - - Weight 83 kg (183 lb) 10/02/2024 11:13 AM STEAM FINISHER Height 167.6 cm (5' 6 ) 10/02/2024 11:13 AM STEAM FINISHER Body Mass Index 29.54 10/02/2024 11:13 AM STEAM FINISHER Plan of Treatment Upcoming Encounters Date Type Department Care Team (Late st Contact Info) Description 12/27/2024 9:30 AM CDT Office Visit [facility] Internal Medicine Medical [place] [facility] [address] [facility] [address] [address] Christina Avendaño MD [address] [facility] [address] [place] [address] 08/13/2025 1:00 PM STEAM FINISHER Appointment [facility] [address] [address] [place] [address] Ewa Nicholson, TECHNOLOGY ANALYST [address] [facility] [address] [place] [address] 08/13/2025 1:45 PM STEAM FINISHER Office Visit [facility] [address] [place] [address] Ewa Nicholson, RAKEL [address] [place] [address] Health Maintenance Due Date Last Done Comments HEPATITIS B VACCINES (1 of 3 - 19+ 3-dose series) 1989 07/03/2008, 02/23/2008, 01/12/2008 ZOSTER VACCINE (1 of 2) 1989 FIT-DNA Q 3 years 2015 FIT/FOBT Q 1 year 2015 Flex Sig/CT Colonography Q 5 years 2015 Preventative Visit- Commercial 08/23/2024 0 12/22/2023, 10/21/2023, 11/26/2022, Additional history exists COVID-19 Vaccine (5 - 2023-2 5 season) 2024 08/28/2024, 05/15/2021, 12/08/2020, Additional history exists BREAST CANCER SCREENING 08/10/2025 08/10/20 24, 08/07/2023, 08/07/2023, Additional history exists DTAP/TDAP/TD VACCINES (3 - T d or Tdap) 03/23/2026 03/23/2016, 08/25/2012, 08/25/2012 Pre-Diabetes and Diabetes Screening 12/21/2026 12/22/2023, 09/04/2022, 12/31/2020, Additional history exists COLORECTAL SCREENING 01/01/2028 12/31/2022, 01/01/20 23 Colorectal Cancer Screening 01/01/2028 INFLUENZA VACCINE Completed 08/28/2024, , 07/06/2022, Additional history exists Medical Devices Implanted Type Area Picking Crew Supervisor Device Identifier Shelf Expiration Date Model / Serial / Lot Axoguard Nerve Wrap 7x40mm [id number] - [id number] Implanted:Qty: 1 on 11/07/2021 by Chuck Bloom, DO at [facility] Right: Arm [employer] 03/22/2023 [id number] / / [id number] Description: BR Requisition [id number] Procedures Procedure Name Priority Date/Time Associated Diagnosis Comments CT UROGRAPHY Routine 11/09/2024 8:50 AM CDT Gross hematuria POC CREATININE Routine 11/09/2024 8:27 AM CDT HISTORICAL LAB RESULTS Routine 10/10/2024 2:17 PM STEAM FINISHER XR HAND 3+ VW LEFT Routine 09/19/2024 1: 25 PM STEAM FINISHER Bilateral hand pain Great toe pain, left XR HAND 3+ VW RIGHT Routine 09/19/2024 1 :25 PM STEAM FINISHER Bilateral hand pain Great toe pain, left XR FOOT 3+ VW LEFT Routine 09/19/2024 1: 25 PM STEAM FINISHER Bilateral hand pain Great toe pain, left MAMMO 3D MARIBEL SCREEN BILAT W OR WO CAD Routine 08/10/2024 11:46 AM STEAM FINISHER Visit for screening mammogram HEMOGLOBIN A1C Routine 12/22/2023 12:45 PM CDT Routine general medical examination at a health care facility Screening for diabetes mellitus COLONOSCOPY REPORT 12/31/2022 1: 43 PM CDT from Last 3 Months or Most Recently Relevant to Health Maintenance Results * CT UROGRAPHY (11/09/2024 8:50 AM CDT) Anatomical Region Laterality Modality Abdomen, Pelvis Computed Tomogra phy 11/09/2024 8:31 AM CDT Impressions 11/09/2024 10:54 AM CDT IMPRESSION: 1. Left nephrolithiasis. 2. Fecal retention. DICTATION LOCATION: Location [address] [place] [address] 11/09/2024 10:54 AM CDT EXAMINATION: CT UROGRAPHY DATE: 11/09/2024 8:50 AM HISTORY: See Diagnosis; Gross hematuria TECHNIQUE: CT urography of the abdomen and pelvis was performed prior to and following the uneventful administration of contrast (IOPAMIDOL 76 % INTRAVENOUS SOLUTION (MULTI-DOSE BULK PACK) Given:110 mL) according to a urography protocol. The examination was performed with the adjustment of mA according to the patient size and/or the use of Iterative Reconstruction Technique. Maximum intensity projection postprocessing was performed by the technologist and sent to the workstation for review. COMPARISON: 10/22/2020 FINDINGS: The aorta is normal in caliber. The visible lung bases are clear. The heart size is normal. The liver enhances homogeneously. The gallbladder appears normal. The bile ducts are nondilated. The spleen enhances homogeneously. The pancreas and adrenal glands are normal. The kidneys enhance symmetrically. No renal mass is identified. There is a punctate left renal calculus. There is no evidence of hydroureteronephrosis. No filling defect is seen in the ureters. The urinary bladder appears normal. The uterus is absent. No free fluid is seen in the pelvis. The distal esophagus and stomach appear normal. There is retained stool throughout the colon. There is no evidence of bowel wall thickening or obstruction. The appendix appears normal. No free air or free fluid is identified within the abdomen. There is no abdominopelvic lymphadenopathy. No suspicious bone lesion is seen. No acute fracture is identified. Degenerative changes are noted in the spine. There is pectus excavatum. Procedure Note Vivek Vargas MD - 11/09/2024 EXAMINATION: CT UROGRAPHY DATE: 11/09/2024 8:50 AM HISTORY: See Diagnosis; Gross hematuria TECHNIQUE: CT urography of the abdomen and pelvis was performed prior to and following the uneventful administration of contrast (IOPAMIDOL 76 % INTRAVENOUS SOLUTION (MULTI-DOSE BULK PACK) Given:110 mL) according to a urography protocol. The examination was performed with the adjustment of mA according to the patient size and/or the use of Iterative Reconstruction Technique. Maximum intensity projection postprocessing was performed by the technologist and sent to the workstation for review. COMPARISON: 10/22/2020 FINDINGS: The aorta is normal in caliber. The visible lung bases are clear. The heart size is normal. The liver enhances homogeneously. The gallbladder appears normal. The bile ducts are nondilated. The spleen enhances homogeneously. The pancreas and adrenal glands are normal. The kidneys enhance symmetrically. No renal mass is identified. There is a punctate left renal calculus. There is no evidence of hydroureteronephrosis. No filling defect is seen in the ureters. The urinary bladder appears normal. The uterus is absent. No free fluid is seen in the pelvis. The distal esophagus and stomach appear normal. There is retained stool throughout the colon. There is no evidence of bowel wall thickening or obstruction. The appendix appears normal. No free air or free fluid is identified within the abdomen. There is no abdominopelvic lymphadenopathy. No suspicious bone lesion is seen. No acute fracture is identified. Degenerative changes are noted in the spine. There is pectus excavatum. IMPRESSION: 1. Left nephrolithiasis. 2. Fecal retention. DICTATION LOCATION: Location [address] [place] [address] ORDERABLES F inal Result * POC CREATININE (11/09/2024 8:27 AM CDT) CREATININE POC 1.00 0.60 - 1.30 mg/dL 11/09/2024 8:27 AM CDT [facility] ONCOL[facility] GFR POC >60 >=60 mL/min/1.7 3 sq meter 11/09/2024 8:27 AM CDT [facility] Comment:eGFR calculated with 2020 CKD-EPI equation. Vegetarian diet, extremely high or low muscle mass, and may affect results. Cystatin C with Glomerular Filtration Rate is a suitable alternative for these patients. Blood, whole 11/09/2024 8:27 AM CDT 11/09/2024 8:31 AM CDT Yamila Encarnacion MD POINT OF CARE UMM TING Final Result [facility] LABORATORY ONCOLOGY SERVICES - [facility] CLIA#[id number] [place] [address] * HISTORICAL LAB RESULTS (10/10/2024 2:17 PM STEAM FINISHER) Other, specify Abstract Provider CHEMISTRY ORDERABLES Final Res ult [facility], CARINA HUERTAS MD [facility]# [id number] [address] [facility] [address] [address] * XR HAND 3+ VW LEFT (09/19/2024 1:25 PM STEAM FINISHER) Anatomical Region Laterality Modality Wrist / Hand Computed Radiogr aphy 09/19/2024 1:25 PM STEAM FINISHER Impressions 09/21/2024 8:56 AM STEAM FINISHER IMPRESSION: 1. Negative study. DICTATION LOCATION: [address] Narrative 09/21/2024 8:56 AM STEAM FINISHER THREE VIEWS OF THE LEFT HAND 09/19/2024 1:25 PM CLINICAL HISTORY: Left hand pain. FINDINGS: Examination of the left hand in palmar, lateral and oblique views fails to demonstrate evidence of fracture, dislocation or other bone or joint pathology. INCIDENTAL FINDINGS: None. Procedure Note Sanya Guerra MD - 09/21/2024 THREE VIEWS OF THE LEFT HAND 09/19/2024 1:25 PM CLINICAL HISTORY: Left hand pain. FINDINGS: Examination of the left hand in palmar, lateral and oblique views fails to demonstrate evidence of fracture, dislocation or other bone or joint pathology. INCIDENTAL FINDINGS: None. IMPRESSION: 1. Negative study. DICTATION LOCATION: [address] Ruth Ann Peña PA-C DIAGNOSTIC IMAGING RAINER OREILLY Final Result * XR HAND 3+ VW RIGHT (09/19/2024 1:25 PM STEAM FINISHER) Anatomical Region Laterality Modality Wrist / Hand Computed Radiogr aphy 09/19/2024 1:25 PM STEAM FINISHER Impressions 09/21/2024 8:57 AM STEAM FINISHER IMPRESSION: No fracture. 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 DICTATION LOCATION: Location 4 Narrative 09/21/2024 8:57 AM STEAM FINISHER RIGHT HAND DATE: 09/19/2024 1:25 PM HISTORY: See Diagnosis. Bilateral hand pain; Bilateral hand pain; Great toe pain, left COMPARISON: 08/10/2004 FINDINGS: AP, oblique, and lateral views of the right hand demonstrate no evidence of fracture. Alignment is intact. No radiopaque foreign bodies are seen. Joint space narrowing with mild to moderate marginal osteophyte formation is noted involving the first carpal metacarpal joint. A well-corticated osseous density is noted adjacent to the distal ulna likely related to remote trauma. INCIDENTAL FINDINGS: None. Procedure Note Sakina Mcdonald MD - 09/21/2024 RIGHT HAND DATE: 09/19/2024 1:25 PM HISTORY: See Diagnosis. Bilateral hand pain; Bilateral hand pain; Great toe pain, left COMPARISON: 08/10/2004 FINDINGS: AP, oblique, and lateral views of the right hand demonstrate no evidence of fracture. Alignment is intact. No radiopaque foreign bodies are seen. Joint space narrowing with mild to moderate marginal osteophyte formation is noted involving the first carpal metacarpal joint. A well-corticated osseous density is noted adjacent to the distal ulna likely related to remote trauma. INCIDENTAL FINDINGS: None. IMPRESSION: No fracture. 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 DICTATION LOCATION: Location 4 Ruth Ann Peña PA-C DIAGNOSTIC IMAGING RAINER OREILLY Final Result * XR FOOT 3+ VW LEFT (09/19/2024 1:25 PM STEAM FINISHER) Anatomical Region Laterality Modality Ankle / Foot Computed Radiogr aphy 09/19/2024 1:25 PM STEAM FINISHER Impressions 09/20/2024 3:32 PM STEAM FINISHER IMPRESSION: Degenerative changes of the left foot first MTP joint. DICTATION LOCATION: [facility] 2 [facility] 09/20/2024 3:32 PM STEAM FINISHER EXAM: XR FOOT 3+ VW LEFT DATE: 09/19/2024 1:25 PM HISTORY: Bilateral hand pain; Bilateral hand pain; Great toe pain, left COMPARISON: 08/30/2023 FINDINGS: Three views of the left foot were performed. The joint space narrowing and bony spurring is noted at the first metatarsal-phalangeal joint. No acute fracture or dislocation is identified. The soft tissues appear within normal limits. Procedure Note Obinna Sterling MD - 01/29/2025 EXAM: XR FOOT 3+ VW LEFT DATE: 09/19/2024 1:25 PM HISTORY: Bilateral hand pain; Bilateral hand pain; Great toe pain, left COMPARISON: 08/30/2023 FINDINGS: Three views of the left foot were performed. The joint space narrowing and bony spurring is noted at the first metatarsal-phalangeal joint. No acute fracture or dislocation is identified. The soft tissues appear within normal limits. IMPRESSION: Degenerative changes of the left foot first MTP joint. DICTATION LOCATION: [address] [place] Ruth Ann Peña PA-C DIAGNOSTIC IMAGING RAINER OREILLY Final Result * MAMMO SCRN BILAT 3D MARIBEL W OR WO CAD (08/10/2024 11:46 AM STEAM FINISHER) Anatomical Region Laterality Modality Breast Bilateral Mammography 08/10/2024 11:4 6 AM STEAM FINISHER Impressions 08/10/2024 12:20 PM STEAM FINISHER IMPRESSION: No mammographic evidence of malignancy. RECOMMENDATIONS: Routine screening mammogram in one year. DICTATION LOCATION: [facility] Narrative 08/10/2024 12:20 PM STEAM FINISHER BILATERAL FULL-FIELD DIGITAL SCREENING MAMMOGRAM WITH CAD WITH 3D TOMOSYNTHESIS DATE: 08/10/2024 11:46 AM HISTORY: Routine screening. TECHNIQUE: Full-field digital craniocaudal and mediolateral oblique projections of both breasts were obtained. Low-dose full-field digital breast tomosynthesis examination was performed with 2D and 3D acquisitions. Examination is read in conjunction with computer aided detection. COMPARISON: 2022, 2021, 2020. BREAST COMPOSITION: There are scattered areas of fibroglandular density. FINDINGS: No suspicious mass, suspicious microcalcifications, or architectural distortion in either breast is identified. Since the prior study, there has been no significant interval change. The computer aided diagnosis detects no significant abnormality. OVERALL FINAL ASSESSMENT: BI-RADS CATEGORY 1 : Negative Procedure Note Yo Perales MD - 08/10/2024 BILATERAL FULL-FIELD DIGITAL SCREENING MAMMOGRAM WITH CAD WITH 3D TOMOSYNTHESIS DATE: 08/10/2024 11:46 AM HISTORY: Routine screening. TECHNIQUE: Full-field digital craniocaudal and mediolateral oblique projections of both breasts were obtained. Low-dose full-field digital breast tomosynthesis examination was performed with 2D and 3D acquisitions. Examination is read in conjunction with computer aided detection. COMPARISON: 2022, 2021, 2020. BREAST COMPOSITION: There are scattered areas of fibroglandular density. FINDINGS: No suspicious mass, suspicious microcalcifications, or architectural distortion in either breast is identified. Since the prior study, there has been no significant interval change. The computer aided diagnosis detects no significant abnormality. OVERALL FINAL ASSESSMENT: BI-RADS CATEGORY 1 : Negative IMPRESSION: No mammographic evidence of malignancy. RECOMMENDATIONS: Routine screening mammogram in one year. DICTATION LOCATION: [facility] Ewa Nicholson [facility] MAMMO ORDERABLES Final Re sult * HEMOGLOBIN A1C (12/22/2023 12:45 PM CDT) HEMOGLOBIN A1C 5.6 <5.7 % of total Hgb RPOSandra Alexander Comment: For the purpose of screening for the presence of diabetes: <5.7% Consistent with the absence of diabetes 5.7-6.4% Consistent with increased risk for diabetes (prediabetes) > or =6.5% Consistent with diabetes This assay result is consistent with a decreased risk of diabetes. Currently, no consensus exists regarding use of hemoglobin A1c for diagnosis of diabetes in children. According to [place] Diabetes Association (ADA) guidelines, hemoglobin A1c <7.0% represents optimal control in non- diabetic patients. Different metrics may apply to specific patient populations. Standards of Medical Care in Diabetes(ADA). ESTIMATED AVERAGE GLUCOSE (MG/DL) 114 mg/dL RPOSandra Alexander ESTIMATED AVERAGE GLUCOSE (MMOL/L) 6.3 mmol/L RPOSandra Alexander Comment: This test was performed on the Aisha leni c503 platform. Effective 11/08/23, a change in test platforms from the Nash Panel Saw Operator to the Aisha leni c503 may have shifted HbA1c results compared to historical results. Based on laboratory validation testing conducted at [facility], the Aisha platform relative to the Nash platform had an average increase in HbA1c value of < or = 0.3%. This difference is within accepted variability established by the National Glycohemoglobin Standardization Program. Note that not all individuals will have had a shift in their results and direct comparisons between historical and current results for testing conducted on different platforms is not recommended. FASTING:YES FASTING: YES Test Performed at: [facility] [address] [place] [address] Talha Romero Blood 12/22/2023 12:4 5 PM CDT 12/22/2023 12:46 PM CDT us Christina Avendaño MD CHEMISTRY ORDERABLES Final R esult [facility] [phone] [facility] [address] [place] [address] * COLONOSCOPY REPORT (12/31/2022 1:43 PM CDT) Narrative Procedure Note Cassandra Gage MD - 12/31/2022 1:42 PM CDT [facility] Endoscopy Patient Name: Joey Tompkins Procedure Date: 12/31/2022 Date of : 1970 Attending MD: Cassandra Gage MD, Procedure: Colonoscopy Indications: Chronic diarrhea Providers: Cassandra Gage MD Referring MD: Christina Avendaño Medicines: Monitored Anesthesia Care Complications: No immediate complications. Procedure: Informed consent was obtained for the procedure, including moderate sedation after risks were discussed. Based on the pre-procedure assessment, including review of the patient's medical history, medications, allergies, and review of systems, the patient was deemed to be an appropriate candidate for sedation. A timeout was performed. Continuous ECG monitoring, pulse oximetry, blood pressure monitoring, and direct observation were performed. The scope was introduced through the anus and advanced to the cecum, identified by appendiceal orifice and ileocecal valve. The colonoscopy was performed without difficulty. The patient tolerated the procedure well. The quality of the bowel preparation was fair. Estimated Blood Loss: Estimated blood loss: none. Findings: A moderate amount of semi-solid debris/stool was found in the recto-sigmoid colon, in the descending colon, in the transverse colon and in the ascending colon, interfering with visualization. Lavage of the area was performed using copious amounts, resulting in clearance with fair visualization. Biopsies for histology were taken with a cold forceps for evaluation of microscopic colitis. A 3 mm polyp was found in the rectum. The polyp was sessile. The polyp was removed with a cold snare. Resection and retrieval were complete. Non-bleeding external and internal hemorrhoids were found during retroflexion and during digital exam. The hemorrhoids were mild. The exam was otherwise normal throughout the examined colon. Impression: - Preparation of the colon was fair. - Stool in the recto-sigmoid colon, in the descending colon, in the transverse colon and in the ascending colon. - One 3 mm polyp in the rectum, removed with a cold snare. Resected and retrieved. - Non-bleeding external and internal hemorrhoids. Recommendation: - Await pathology results. - Repeat colonoscopy in 5 years for surveillance due to less than perfect prep. If you are still on narcotic pain medications at that time, you will need to complete a prolonged prep. Cassandra Gage MD 12/31/2022 1:42:25 PM This report has been signed electronically. Number of Addenda: [address]; [place] [address] Cassandra Gage MD GI PROCEDURE ORDERABLES Final Result from Last 3 Months or Most Recently Relevant to Health Maintenance Insurance RX [employer] PL[employer] (INTERNAL) [facility] RX [employer] Commercial RX [employer] PL[employer] (INTERNAL) [facility] [employer] RX [employer] RX Member Subscriber Plan / Payer (Ef fective 2024-Present) Name:Joey Tompkins Relation to Subscriber:Self Name:Joey Tompkins Subscriber ID:Not on file Payer ID:Not on file Group ID:[id number] Type:RX Medicare Part D Address: [place] [facility] Advance Directives For more information, please contact: [phone] Documents on File Type Date Recorded Patient Magazine Grinder Loader Expl anation Authorization to Represent 11/22/2019 10:37 AM * Full Code (Latest Code Status on File) Date Activated Date Inactivated Comments 05/19/2023 6:43 AM 05/19/2023 9:55 AM * Full Code Date Activated Date Inactivated Comments 04/13/2023 9:19 AM 04/13/2023 12:22 PM * Full Code Date Activated Date Inactivated Comments 12/31/2022 11:48 AM 12/31/2022 4:19 PM * Full Code Date Activated Date Inactivated Comments 11/07/2021 1:29 PM 11/07/2021 9:56 PM * Full Code Date Activated Date Inactivated Comments 06/15/2020 9:43 AM 06/17/2020 8:52 PM Care Teams Banana Ripening Room Supervisor Relationship Specialty Start Date End Date Christina Avendaño MD [address] [place] [address] PCP - General Internal Medicine 06/24/18
--- OUTSIDE RECORDS SUMMARY | 2024-12-13 09:26 | XMS_ITS | Patient Health Record ---
Author Organization [facility] Address [address] [facility] [address] [place], [place] [id number] Care Team Providers Care Sports Commentator Name Role Phone MANOHAR GIBSON Unavailable [phone] Christina Avendaño Unavailable Unavailable Allergies Allergen (clinical drug ingredient) Drug/Non Drug Allergy documented on EMR Reaction Allergy Type Onset Date Status Adhesive Unknown Allergy Active Reason For Referral No Information Medications Medication SIG (Take, Route, Frequency, Duration) Notes Start Date End Date Status methylPREDNISolone 4 MG as directed Orally one pack 023 Active Medrol 4 MG as directed Orally 10/07/2023 Active Vital Signs Height-cm 167.64 cm 06/15/2024 Weight-kg 96.16 kg 06/15/2024 Height 66.00 in 06/15/2024 Weight 212 lbs 06/15/2024 BMI 34.21 kg/m2 06/15/2024 Encounters Encounter Location Date Provider Diagnosis [facility] [place] Chaim LOERA [address] [place] [address] [id number] 01/14/2024 MANOHAR ARTHUR Hallux rigidus of left foot M20.22 ; Primary osteoarthritis, left ankle and foot M19.072 and Left foot pain M79.672 [facility] [place] [facility] [address] [place] [address] [id number] 02/10/2024 MANOHAR GIBSON Hallux rigidus of left foot M20.22 ; Plantar fasciitis M72.2 ; Primary osteoarthritis, left ankle and foot M19.072 and Left foot pain M79.672 [facility] [place] LOERA [address] [place] [address] [id number] 04/13/2024 MANOHAR ARTHUR Hallux rigidus of left foot M20.22 ; Plantar fasciitis M72.2 ; Ingrowing nail L60.0 ; Cellulitis of left toe L03.032 ; Hammertoe of left foot M20.42 ; Primary osteoarthritis, left ankle and foot M19.072 and Left foot pain M79.672 [facility] [place] [address] JOHANNA LOERA [address] [place] [address] [id number] 04/27/2024 MANOHAR ARTHUR Hallux rigidus of left foot M20.22 ; Plantar fasciitis M72.2 ; Ingrowing nail L60.0 ; Cellulitis of left toe L03.032 ; Hammertoe of left foot M20.42 ; Primary osteoarthritis, left ankle and foot M19.072 ; Left foot pain M79.672 and Encounter for other specified surgical aftercare Z48.89 [facility] [place] [address] [address] [id number] 06/15/2024 MANOHAR GIBSON Hallux rigidus of left foot M20.22 ; Plantar fasciitis M72.2 ; Primary osteoarthritis, left ankle and foot M19.072 and Left foot pain M79.672 [facility] [place] [address] [address] [id number] 04/14/2024 MANOHAR GIBSON [facility] [place] [address] [address] [id number] 04/14/2024 MANOHAR GIBSON [facility] [place] [address] [address] [id number] 01/14/2024 MANOHAR GIBSON Assessments Encounter Date Diagnosis (ICD Code) Assessment Notes Treatment Notes Treatment Clinical Notes Section Notes 01/14/2024 Hallux rigidus of left foot (ICD-10 - M20.22) 02/10/2024 Plantar fasciitis (ICD-10 - M72.2) 02/10/2024 Hallux rigidus of left foot (ICD-10 - M20.22) 04/13/2024 Plantar fasciitis (ICD-10 - M72.2) 04/13/2024 Hallux rigidus of left foot (ICD-10 - M20.22) We discussed both conservative and surgical treatment options. We discussed the intra-operative and post-operative treatment course. We discussed the risks and complications including, but not limited to: pain, infection, swelling, numbness, under-correction, over-correction, stiffness, no improvement, and need for further surgery. No guarantees were given, nor implied. Questions encouraged and answered. Consent reviewed and placed in chart. The following procedures are proposed - Hammertoe correction and [place] with implant 04/27/2024 Hallux rigidus of left foot (ICD-10 - M20.22) Surgical correction was discussed. The patient opted not to proceed at this time. 06/15/2024 Hallux rigidus of left foot (ICD-10 - M20.22) Following skin prep, a total of 3 ccs of a 1-1-1 mix of 0.5% marcaine plain, Kenalog, and dexamethasone sodium phosphate was injected into the patients right first MPJ. 06/15/2024 Plantar fasciitis (ICD-10 - M72.2) 04/27/2024 Ingrowing nail (ICD-10 - L60.0) I advised the patient that no further treatment is necessary at this time. If the condition should worsen they should call the office. 04/27/2024 Plantar fasciitis (ICD-10 - M72.2) 04/13/2024 Ingrowing nail (ICD-10 - L60.0) 02/10/2024 Primary osteoarthritis, left ankle and foot (ICD-10 - M19.072) 01/14/2024 Primary osteoarthritis, left ankle and foot (ICD-10 - M19.072) 01/14/2024 Left foot pain (ICD-10 - M79.672) 02/10/2024 Left foot pain (ICD-10 - M79.672) 04/13/2024 Cellulitis of left toe (ICD-10 - L03.032) 04/27/2024 Cellulitis of left toe (ICD-10 - L03.032) 06/15/2024 Primary osteoarthritis, left ankle and foot (ICD-10 - M19.072) 04/13/2024 Hammertoe of left foot (ICD-10 - M20.42) 04/27/2024 Hammertoe of left foot (ICD-10 - M20.42) 06/15/2024 Left foot pain (ICD-10 - M79.672) 04/27/2024 Primary osteoarthritis, left ankle and foot (ICD-10 - M19.072) 04/13/2024 Primary osteoarthritis, left ankle and foot (ICD-10 - M19.072) 04/13/2024 Left foot pain (ICD-10 - M79.672) 04/27/2024 Left foot pain (ICD-10 - M79.672) 04/27/2024 Encounter for other specified surgical aftercare (ICD-10 - Z48.89) 01/14/2024 Other Orthotic casting: The patient was casted for functional orthotic devices. This was done in the subtalar joint neutral position in a non-weightbearing fashion. The patient will follow-up in 3 weeks time to be dispensed and fitted with the devices. Following skin prep, a total of 3 ccs of a 1-1-1 mix of 0.5% marcaine plain, Kenalog, and dexamethasone sodium phosphate was injected into the patients left first MPJ. 02/10/2024 Other Orthotic dispense: The orthotic devices were dispensed and fitted. It was noted that the orthotic conformed well to the patients foot in the subtalar joint neutral position. 04/13/2024 Other I discussed various treatment options to the patient for onychocryptosis. I discussed removal of the offending nail border and chemical matrixectomy to prevent regrowth. The patient decided on permanent removal of the nail border. The consent was signed and placed in the patients chart and all questions were answered. Following skin prep, the toe was injected with 3ccs of a 1:1 mixture of 0.5% marcaine plain and 1% lidocaine plain. A digital tournequet was applied. Three applications of 89% phenol for 30 seconds each, were applied to the nail matrix to prevent regrowth. The digital tourniquet was released and the toe was cleansed with isopropyl alcohol. A dry sterile compressive dressing was applied and the patient was given soaking instructions. 04/27/2024 Other 06/15/2024 Other Plan Of Treatment No Information Insurance Providers Payer Name Payer Address Payer Phone Subscriber Number Group Number Insured Name Patient Relationship to Insured Coverage Start Date Coverage End Date [facility] [address] [address] [place], [place] [phone] [id number] JOEY CHANEY Self - patient is the insured
--- OUTSIDE RECORDS SUMMARY | 2024-12-13 09:26 | XMS_ITS ---
Author Organization [facility] Address [address] [place], [place] [id number] Care Team Providers Care Computer Aided Design Designer Name Role Phone GENESIS JHAVERI MD Primary Care Provider Unavail able Ludwig Miramontes Unavailable [phone] Law Ward MD Unavailable REASON FOR VISIT norco MEDICATIONS Medication SIG (Take, Route, Frequency, Duration) Notes Start Date End Date Status Acetaminophen-Hydrocodone Bitartrate 325 mg-5 mg 1 tab(s) orally DO NOT FILL UNTIL 11-04-2024 3 times a day as needed for 30 days 11/02/2024 Active Encounters Encounter Location Date Provider [facility] [address], [address] [place], [place] [phone] 11/02/2024 Ludwig Miramontes MCTD (mixed connective tissue disease) M35.1 ASSESSMENTS Encounter Date Diagnosis Assessment Notes Treatment Notes Treatment Clinical Notes 11/02/2024 MCTD (mixed connective tissue disease) (ICD-10 - M35.1) PLAN OF TREATMENT Medication Medication Name Sig Start Date Stop Date Notes Acetaminophen-Hydrocodone Bitartrate 325 mg-5 mg 1 tab(s) orally DO NOT FILL UNTIL 11-04-2024 3 times a day as needed for 30 days 11/02/2024 Next Appt Details Provider Name:Cristina moncada, 03/02/2025 11:00:00 AM, [address] [facility], [address], [place], [place], [phone],
--- OUTSIDE RECORDS SUMMARY | 2024-12-13 09:26 | XMS_ITS ---
Author Organization [facility] Address [address] [place]: Epic Prelude ADT [place] [id number] Care Team Providers Care Phosphatic Fertilizer Supervisor Name Role Phone Christina Avendaño MD Primary Care Provider [phone] Active Problems Patient Care Coordination No te Formatting of this note migh t be different from the original. Primary Care: Christina Avendaño MD Referring Provider: No referring provider defined for this encounter. Other: Ewa Nicholson 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 Past Treatment and Therapy Plans No past plan information found. Lifetime Dose Tracking * Chemical Lifetime Dose Automatic Entry Manual Entr y Effective Dose 121.4 mSv 121.4 mSv 0 mSv Total DLP 8,959.81 DLP 8,959.81 DLP 0 DLP CTDIvol Max 148 mGy 148 mGy 0 mGy CTDIvol Min 103.09 mGy 103.09 mGy 0 mGy Resolved Problems Problem Noted Date Diagnosed Date Resolved Date Effusion of right knee joint 09/22/2024 10/01/2024 Dry eyes 03/17/2022 06/22/2022 Dry mouth 03/17/2022 06/22/2022 Malignant neoplasm of skin 03/17/2022 1 Never smoked cigarettes 03/17/202205/25 Other fdc (current) drug therapy 03/17/2022 06/22/2022 Arthrofibrosis of knee joint, right 10/07/2020 06/22/2022 Overview (03/17/2022): Added automatically from request for surgery [id number] Osteoarthritis of knee 10/19/201906/22 Overview (03/17/2022): Added automatically from request for surgery [id number] Pain in right knee 10/19/2019 Arthritis of right knee 09/21/201905/25 Mild intermittent [...]
--- OUTSIDE RECORDS SUMMARY | 2024-12-13 09:26 | XMS_ITS | Referral Summary ---
Author Organization [facility] Address [address] [place] [address] Care Team Providers Care Second Time Worker Name Role Phone Christina Avendaño MD Primary Care Provider + Radha Curiel MD Unavailable [phone] Xander Richmond MD Unavailable [phone] Encounters Date Type Department Care Team Description 12/12/2024 3:00 PM CDT Home Care Visit [address] [place] [address] Jes Langley RN SN HOME VISIT 12/08/2024 Documentation [facility] [address] [place] [phone] Chanda Vazquez RN 12/06/2024 11:40 AM CDT - 12/06/2024 11:59 PM CDT Hospital Encounter [facility] [address] [place], [place] [id number] Discharge Disposition: Discharge to home or self care 12/06/2024 8:15 AM CDT Home Care Visit [address] [place] [address] Jeaneth Villalta do, RN SN HOME VISIT 12/01/2024 Documentation [facility] [address] [place] [phone] Chanda Vazquez RN 11/28/2024 2:45 PM CDT - 11/28/2024 11:59 PM CDT Hospital Encounter [facility] [address] [place] [address] Discharge Disposition: Discharge to home or self care 11/28/2024 Orders Only [facility] [address] [facility] [address] [place] [address] Mert Ferris, [facility] 11/28/2024 Orders Only [facility] [address] [facility] [address] [place] [address] Mert Ferris [facility] 11/28/2024 12:30 PM CDT Home Care Visit [address] [address] [address] [place] [address] Kit Gonzalez RN SN HOME VISIT 11/27/2024 Telephone [facility] [address] [place] [address] [address] [place] [phone] Rossy Crawford RMA 11/23/2024 Plan of Care Documentation [address] [place] [address] 11/23/2024 1:00 PM CDT Home Care Visit [address] [place] [address] Kamar Dias RN SN O[facility] START OF CARE 11/21/2024 Orders Only [facility] [address] [facility] [address] [place] [address] Shiloh Mendez, [facility] 11/21/2024 Orders Only [facility] [address] [place] [address] [address] [place] [address] Shiloh Mendez, [facility] 11/21/2024 Documentation [facility] [address] [facility] Medical Office Building [address] [place] [phone] Tatiana Fang MD 11/17/2024 8:45 AM CDT - 11/21/2024 5:36 PM CDT Hospital Encounter [facility] [address] [address] [address] [place], [place] [address] Arya Gomez MD Reddy, Gireesh Bandi, MD Infection (Primary Dx) Discharge Disposition: Discharge to home, home health skilled care 11/17/2024 10:57 AM CDT - 11/17/2024 1:12 PM CDT Surgery [facility] Operating Room [address] [address] [place], [place] [address] Arya Gomez MD REMOVAL HARDWARE - KNEE 11/17/2024 11:18 AM CDT Anesthesia Event [facility] Operating Room [address] [address], [place] [address] Jessica Blunt MD Khodamoradi, Shahrdad, MD 11/16/2024 7:30 AM CDT Pre-Admission Testing [facility] for Preoperative Assessment and Planning [facility] ([facility]) [address] [place] [address] Infection; Vitamin D deficiency, unspecified 11/15/2024 Telephone [facility] [address] [place] [address] Office [facility] [address] [place] [phone] Arya Gomez MD 11/15/2024 Orders Only [facility] [address] [place] [address] [address] [place] [phone] Ewa Zepeda PA Left foot pain (Primary Dx) 11/14/2024 1:18 PM CDT - 11/14/2024 11:59 PM CDT Hospital Encounter [address] [address] Aftercare following right knee joint replacement surgery; Acute pain of right knee Discharge Disposition: Discharge to home or self care 11/14/2024 12:10 PM CDT Lab [facility] [address] [place] [address] Infection of prosthetic joint, subsequent encounter 11/14/2024 11:15 AM CDT Office Visit [facility] [address] [facility] 2nd Floor [address] [place] [address] Ewa Zepeda PA Aftercare following right knee joint replacement surgery (Primary Dx); Acute pain of right knee 11/13/2024 9:40 AM CDT Office Visit [facility] [address] [facility] Medical Office Building 2 [address] [place] [address] Tatiana Fang MD Infection of prosthetic joint, subsequent encounter (Primary Dx); Hardware complicating wound infection, subsequent encounter 11/10/2024 Documentation [facility] [address] [facility] Office Building [address] [place] [address] Ricarda Vale CMA 11/03/2024 11:20 AM CDT - 11/03/2024 11:59 PM CDT Hospital Encounter [facility] [address] [facility] [address] [place] [address] Discharge Disposition: Discharge to home or self care 11/02/2024 Orders Only [facility] [address] [facility] Office Building [address] [place] [address] Arya Gomez MD Chronic pain of right knee (Primary Dx) 10/31/2024 Documentation [facility] [address] [facility] [address] [place] [address] Chanda Vazquez RN 10/30/2024 Orders Only [facility] [address] [facility] Office Building [address] [place] [address] Tatiana Fang MD 10/26/2024 Orders Only [facility] [address] [facility] [address] [place] [address] Norma Weathers [facility] 10/20/2024 Documentation [facility] [address] [facility] [address] [place] [address] Chanda Vazquez RN 10/16/2024 11:35 AM PIPE LINE MAINTENANCE SUPERVISOR Lab [facility] [address] [place] [address] Infection of prosthetic joint, subsequent encounter 10/16/2024 10:40 AM PIPE LINE MAINTENANCE SUPERVISOR Office Visit [facility] [address] [facility] Medical Office Building [address] [place] [address] Tatiana Fang MD Staphylococcus aureus bacteremia (Primary Dx); Infection of prosthetic joint, subsequent encounter; Hardware complicating wound infection, subsequent encounter 10/16/2024 12:40 PM PIPE LINE MAINTENANCE SUPERVISOR Office Visit [facility] [address] [facility] Medical Office Building [address] [place] [address] Arya Gomez MD Aftercare following right knee joint replacement surgery (Primary Dx); History of revision of total replacement of right knee joint; Surgical follow-up care 10/13/2024 Telephone [facility] [address] [place] [address] [place] [phone] Elsie Hwang, [facility] 10/12/2024 Documentation [facility] [address] [place] [address] [address] [place] [address] Chanda Vazquez RN 10/12/2024 Telephone [facility] [address] [place] [address] [address] [place] [address] Sayra Bloom, [facility] 10/10/2024 11:00 AM PIPE LINE MAINTENANCE SUPERVISOR Ancillary Procedure [facility] [address] [place] [address] for Advanced Medicine 8th [place] [address] [place] [address] Pain and swelling of right lower leg 10/09/2024 Orders Only [facility] Medical Office Building [address] [place] [address] Arya Gomez MD Pain and swelling of right lower leg (Primary Dx) 10/06/2024 Documentation [facility] [address] [place] [address] [address] [place] [address] Chanda Vazquez RN 09/29/2024 2:54 PM PIPE LINE MAINTENANCE SUPERVISOR - 09/29/2024 5:38 PM PIPE LINE MAINTENANCE SUPERVISOR Emergency [facility] Emergency Department [address] [place] [address] Jeana Bryan MD Fever and chills (Primary Dx) Discharge Disposition: Discharge to home or self care 09/29/2024 Orders Only [facility] Care [facility] [address] [facility] [address] [place] [address] Mert Ferris, [facility] 09/29/2024 Telephone [facility] [address] [place] [address] Office Building [address] [place] [address] Tatiana Fang MD 09/28/2024 Orders Only [facility] [address] [facility] [address] [place] [address] Chiqui Saravia, [facility] 09/28/2024 Telephone [facility] [address] [place] [address] [address] [place] [address] Sayra Bloom, [facility] 09/22/2024 2:01 PM PIPE LINE MAINTENANCE SUPERVISOR - 09/28/2024 2:55 PM PIPE LINE MAINTENANCE SUPERVISOR Hospital Encounter [facility] [address] [address] [place] [address] Arya Gomez MD Effusion of right knee joint (Primary Dx); Knee effusion, right Discharge Disposition: Discharge to home, home health skilled care 09/26/2024 Documentation [facility] [address] [place] [address] Building [address] [place] [address] Tatiana Fang MD 09/23/2024 8:30 AM PIPE LINE MAINTENANCE SUPERVISOR - 09/23/2024 11:15 AM PIPE LINE MAINTENANCE SUPERVISOR Surgery [facility] Operating Room [address] [place] [address] Isabella Guzman MD INCISION AND DEBRIDEMENT - KNEE 09/23/2024 8:30 AM PIPE LINE MAINTENANCE SUPERVISOR Anesthesia Event [facility] Operating Room [address] [place] [address] Leatha Rodrigues MD 09/22/2024 Telephone [facility] [address] Medical Office Building [address] [place] [address] Arya Gomez MD from Last 3 Months Allergies Active Allergy Reactions Criticality Noted Date Comments Adhesive Rash Medium 05/11/2019 Adhesive Tape-Silicones Rash Medium 06/21/2023 Metoclopramide Anxiety,Mental status changes Medium 05/07/2017 Makes her feel loopy Neomycin Hives,Urticaria Medium 06/30/2018 Prochlorperazine Anxiety,Mental status changes Low 03/23/2016 Feels loopy Medications amLODIPine (NORVASC) 5 mg tabletIndication s:hypertension Take 1 tablet (5 mg total) by mouth every morning 2019 Active buPROPion XL (WELLBUTRIN XL) 300 mg 24 hr tabletIndication s:Anxiety with Depression Take 1 tablet (300 mg total) by mouth every morning 2016 Active tretinoin (RETIN-A) 0.025 % creamIndications :Acne Vulgaris Apply a pea-sized amount to entire face once nightly 45 g 6 2019 Active Additional Information Patient taking differently: 1 Application topical Nightly, Apply a pea-sized amount to entire face once nightly, Informant: Self, Reported on 11/17/2024 clobetasoL (TEMOVATE) 0.05 % ointmentIndicati ons:Skin Inflammation Apply topically 2 (two) times a day as needed (Itchy dry skin on hands only) 30 g 3 2019 Active Additional Information Patient taking differently: 1 Applicationtopical 2 times daily PRN, Itchy dry skin on hands only, Informant: Self, Reported on 11/17/2024 gabapentin (NEURONTIN) 600 mg tabletIndication s:Neuropathic Pain Take 1 tablet (600 mg total) by mouth 4 (four) times a day Active erenumab-aooe (Aimovig Autoinjector, 2 Pack,) 70 mg/mL auto-injector subcutaneous injectionIndicat ions:Migraine Prevention Inject 1 mL (70 mg total) under the skin every 30 (thirty) days Active labetaloL (NORMODYNE,TRAND ATE) 100 mg tabletIndication s:hypertension Take 1 tablet (100 mg total) by mouth 2 (two) times a day Active ALPRAZolam (XANAX) 0.5 mg tabletIndication s:Generalized Anxiety Disorder Take 1 tablet by mouth every 8 (eight) hours as needed for anxiety or sleep Active albuterol HFA (PROVENTIL HFA,VENTOLIN HFA,PROAIR HFA) 90 mcg/actuation inhalerIndicatio ns:Acute Asthma Attack Inhale 2 puffs every 6 (six) hours as needed for wheezing or shortness of breath Active montelukast (SINGULAIR) 10 mg tabletIndication s:Seasonal Allergic Rhinitis Take 1 tablet (10 mg total) by mouth every morning Active potassium chloride ER (KLOR-CON) 10 mEq CR tabletIndication s:hypokalemia prevention Take 1 tablet/capsule (10 mEq total) by mouth every morning Active magnesium gluconate 200 mg tabletIndication s:hypomagnesemia Take 2 tablets (400 mg total) by mouth every morning Active hydrOXYchloroQUI NE (PLAQUENIL) 200 mg tabletIndication s:Connective Tissue Disease Take 1 tablet (200 mg total) by mouth 2 (two) times a day Active Vitamin D2 1,250 mcg (50,000 unit) capsuleIndicatio ns:Vitamin D Deficiency Take 1 capsule (50,000 Units total) by mouth once a week Mondays Active hydroCHLOROthiaz raven (HYDRODIURIL) 25 mg tabletIndication s:hypertension Take 1 tablet (25 mg total) by mouth every morning 2020 Active lisinopriL (PRINIVIL,ZESTRI L) 40 mg tabletIndication s:hypertension Take 1 tablet (40 mg total) by mouth every morning 2020 Active hyoscyamine (LEVSIN) 0.125 mg SL tabletIndication s:Spasms Place 1 tablet under the tongue every 8 (eight) hours as needed (spasms) 2022 Active Vyvanse 50 mg capsuleIndicatio ns:Attention-Def icit Hyperactivity Disorder Take 1 capsule by mouth as needed (ADHD) 2022 Active dicyclomine (BENTYL) 20 mg tabletIndication s:Abdominal Pain with Cramps Take 1 tablet by mouth as needed (abd cramps) 2022 Active atorvastatin (LIPITOR) 40 mg tabletIndication s:hyperlipidemia Take 1 tablet (40 mg total) by mouth nightly 2022 Active omeprazole (PriLOSEC) 40 mg capsuleIndicatio ns:GERD Take 1 capsule (40 mg total) by mouth 2 (two) times a day Active famotidine (PEPCID) 40 mg tabletIndication s:GERD Take 1 tablet (40 mg total) by mouth nightly Active cetirizine HCl (ZYRTEC ORAL)Indications :allergies Take 1 tablet by mouth nightly Active levothyroxine (SYNTHROID) 25 mcg tabletIndication s:hypothyroidism Take 1 tablet (25 mcg total) 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 before 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 2023 Active ondansetron (ZOFRAN) 4 mg tabletIndication s:Nausea Take 1 tablet by mouth as needed for nausea or vomiting 2023 Active zolpidem (AMBIEN) 10 mg tabletIndication s:Sleep-Onset Insomnia Take 1 tablet by mouth nightly as needed for sleep 2023 Active apixaban (ELIQUIS) 2.5 mg tabletIndication s:VTE Prophylaxis Following Ortho Surgery Take 1 tablet (2.5 mg total) by mouth 2 (two) times a day 60 tablet 2024 Active promethazine (PHENERGAN) 25 mg tabletIndication s:Nausea and Vomiting Take 1 tablet by mouth as needed for nausea or vomiting 2024 Active SUMAtriptan (IMITREX) 100 mg tabletIndication s:Migraine Take 1 tablet (100 mg total) by mouth once as needed for migraine Active olopatadine 0.6 % spray,non-aeroso lIndications:Sea elsy Allergic Rhinitis Administer 1 tablet into affected nostril(s) 2 (two) times a day Active diphenhydrAMINE 25 mg capsuleIndicatio ns:Sleep or itching Take 2 tablet/capsule by mouth every 6 (six) hours as needed for sleep or itching Active sodium chloride 0.9% injectionIndicat ions:Flush Administer 0.5-20 mL into catheter as needed for line care 2024 Active sodium chloride 0.9% injectionIndicat ions:Flush Administer 10-20 mL into catheter as needed for line care 2024 Active acetaminophen (TYLENOL) 500 mg tabletIndication s:Fever,Pain Take 2 tablets (1,000 mg total) by mouth every 8 (eight) hours 90 tablet 1 04/01/ 2025 Active senna-docusate (Senna-S) 8.6-50 mg [The details of the medication are not available because there are pending changes by a home health clinician.] 80 tablet 1 2024 Active Additional Information Patient taking differently: 1 tabletoralDaily, Indications: constipation, Reported on 11/23/2024 sodium chloride 0.9% 0.9% parenteral solution 50 mL with DAPTOmycin 500 mg recon soln 550 mgIndications:Victor M ne/Joint Infection Infuse 550 mg into a venous catheter daily for 30 minutes at 122 mL/hr 2024 Active venlafaxine XR (EFFEXOR-XR) 150 mg 24 hr capsule TAKE 1 CAPSULE BY MOUTH DAILY 90 capsule 3 2024 Active heparin 100 unit/mL solutionIndicati ons:Maintain Patency of Indwelling Vascular Catheter Administer 5 mL (500 Units total) into IV catheter as needed (Maintain Patency of Indwelling Catheter) 2024 Active oxyCODONE (ROXICODONE) 5 mg immediate release tabletIndication s:Pain Take 1 tablet (5 mg total) by mouth every 4 (four) hours as needed for pain (Breakthrough Pain) 30 tablet 2024 Active traMADoL (ULTRAM) 50 mg tabletIndication s:Pain Take 1-2 tablets (50-100 mg total) by mouth every 6 (six) hours as needed for pain 42 tablet 2024 Active SUMAtriptan (IMITREX) 100 mg tabletIndication s:Migraine Take 0.5 tablets (50 mg total) by mouth once as needed for migraine 11/16 Discontinued( Therapy completed) eszopiclone (LUNESTA) 3 mg tabletIndication s:Insomnia Take 1 tablet (3 mg total) by mouth nightly Take immediately before bedtime 11/16 Discontinued( Therapy completed) levothyroxine sodium (TIROSINT) 25 mcg capsule Take 1 capsule (25 mcg total) 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 before breakfast 11/16 Discontinued( Therapy completed) baclofen (LIORESAL) 10 mg tablet Take 1 tablet (10 mg total) by mouth 3 (three) times a day as needed for muscle spasms 42 tablet 11/21 Discontinued( Stop Taking at Discharge) ondansetron ODT (ZOFRAN-ODT) 4 mg disintegrating tablet Take 1 tablet (4 mg total) by mouth every 6 (six) hours as needed for nausea or vomiting for up to 20 doses 20 tablet 11/16 Discontinued( Therapy completed) azelastine 205.5 mcg (0.15 %) spray,non-aeroso l 205.5 mcg 2 (two) times a day 11/16 Discontinued( Therapy completed) venlafaxine XR (EFFEXOR-XR) 150 mg 24 hr capsule Take 1 capsule (150 mg total) by mouth daily 90 capsule 2 11/28 Discontinued magnesium J-fuyvtq-rgqgpqj mide 42 mg (500 mg)- 250 mg tablet extended release 11/16 Discontinued( Therapy completed) potassium-calciu l-vfglpe-nmpou 404-791-570-2 mg powder in packet 11/16 Discontinued( Therapy completed) buPROPion SR (Wellbutrin SR) 100 mg 12 hr tablet 11/16 Discontinued( Therapy completed) ceFAZolin (ANCEF) 2,000 mg/20 mL syringeIndicatio ns:Bone/Joint Infection Infuse 20 mL (2 g total) into a venous catheter every 8 (eight) hours 11/16 Discontinued( Therapy completed) sodium chloride 0.9% injection Administer 10-20 mL into catheter as needed for line care 11/16 Discontinued( Therapy completed) sodium chloride 0.9% injection Administer 0.5-20 mL into catheter every 8 (eight) hours 11/16 Discontinued( Therapy completed) rifabutin (MYCOBUTIN) 150 mg capsuleIndicatio ns:Bone/Joint Infection Take 2 capsules (300 mg total) by mouth daily 60 capsule 1 11/21 Discontinued( Stop Taking at Discharge) acetaminophen (TYLENOL) 500 mg tablet Take 2 tablets (1,000 mg total) by mouth every 8 (eight) hours 90 tablet 1 11/21 Discontinued( Stop Taking at Discharge) aspirin 81 mg enteric coated tabletIndication s:prevention of thrombosis Take 1 tablet (81 mg total) by mouth 2 (two) times a day 60 tablet 11/21 Discontinued( Stop Taking at Discharge) senna-docusate (Senna-S) 8.6-50 mg Take 2 tablets by mouth 2 (two) times a day 80 tablet 1 11/21 Discontinued( Stop Taking at Discharge) ketorolac (TORADOL) 10 mg tablet Take 1 tablet (10 mg total) by mouth every 6 (six) hours as needed for pain 10 tablet 11/21 Discontinued( Stop Taking at Discharge) ceFAZolin (ANCEF) 10 gram injection 11/16 Discontinued( Therapy completed) doxycycline (VIBRAMYCIN) 100 mg capsule Take 1 tablet/capsule (100 mg total) by mouth every 12 (twelve) hours 60 tablet/cap elizabeth 5 11/21 Discontinued( Stop Taking at Discharge) oxyCODONE (ROXICODONE) 5 mg immediate release tabletIndication s:Pain Take 1 tablet (5 mg total) by mouth every 4 (four) hours as needed for pain (breakthrough pain; 5-10mg) 20 tablet 11/21 Discontinued( Stop Taking at Discharge) traMADoL (ULTRAM) 50 mg tabletIndication s:Postoperative pain Take 1 tablet (50 mg total) by mouth every 8 (eight) hours as needed for pain 40 tablet 11/21 Discontinued( Stop Taking at Discharge) mupirocin (BACTROBAN) 2 % ointment Apply topically 2 (two) times a day for 5 days APPLY TO NOSTRILS TWICE A DAY FOR 5 DAYS PRIOR TO SURGERY. 22 g 11/21 Discontinued( Stop Taking at Discharge) predniSONE (DELTASONE) 5 mg tablet 11/16 Discontinued( Therapy completed) HYDROcodone-acet aminophen (NORCO) 5-325 mg per tablet Take 1 tablet by mouth every 6 (six) hours as needed for pain 11/21 Discontinued( Stop Taking at Discharge) oxyCODONE (ROXICODONE) 5 mg immediate release tabletIndication s:Pain Take 1 tablet (5 mg total) by mouth every 4 (four) hours as needed for pain (Breakthrough Pain) 30 tablet 11/28 Discontinued( Reorder) traMADoL (ULTRAM) 50 mg tabletIndication s:Pain Take 1 tablet (50 mg total) by mouth every 8 (eight) hours as needed for pain 42 tablet 11/27 Discontinued( Reorder) heparin 10 unit/mL syringeIndicatio ns:Maintain Patency of Indwelling Vascular Catheter Administer 2-5 mL (20-50 Units total) into catheter as needed (with each use) 11/28 Discontinued( Alternate therapy) heparin 10 unit/mL syringeIndicatio ns:Maintain Patency of Indwelling Vascular Catheter Administer 5 mL (50 Units total) into catheter every 12 (twelve) hours 11/28 Discontinued( Alternate therapy) traMADoL (ULTRAM) 50 mg tabletIndication s:Pain Take 1-2 tablets (50-100 mg total) by mouth every 6 (six) hours as needed for pain 42 tablet 12/08 Discontinued( Reorder) oxyCODONE (ROXICODONE) 5 mg immediate release tabletIndication s:Pain Take 1 tablet (5 mg total) by mouth every 4 (four) hours as needed for pain (Breakthrough Pain) 30 tablet 12/08 Discontinued( Reorder) Active Problems Problem Noted Date Diagnosed Date Right knee pain 11/17/2024 Infection 11/15/2024 Effusion of right knee joint 09/22/2024 Esophageal dysphagia 04/28/2024 H/O gastroesophageal reflux (GERD) 04/28/2024 Biceps tendinitis 07/08/2023 Entrapment of right ulnar nerve 07/08/2023 Numbness of hand 07/08/2023 Olecranon bursitis of left elbow 07/08/2023 SBO (small bowel obstruction) 03/26/2021 Mixed connective tissue disease 03/26/2021 Immunosuppressed status 03/26/2021 Anxiety and depression 03/26/2021 Primary hypertension 03/26/2021 Other hyperlipidemia 03/26/2021 Acquired hypothyroidism 03/26/2021 Class 2 obesity due to excess calories in adult 03/26/2021 Mild intermittent asthma 03/26/2021 Failed total right knee replacement 10/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 Overview (10/17/2020): Added automatically from request for surgery [id number] Arthrofibrosis of knee joint, right 10/07/2020 Overview (10/07/2020): Added automatically from request for surgery [id number] Resolved Problems Problem Noted Date Diagnosed Date Resolved Date Abdominal pain 04/18/2021 04/21/2021 Immunizations Immunization Administration Dates Next Due Hep A, Adult 07/03/2008,12/02/2007 Hep A, Unspecified 07/03/2008,12/02/2007 Hep B Vaccine 07/03/2008,02/23/2008,01/12/2008 Influenza, Quadrivalent, Spl it, Preservative Free, Intramuscular 07/06/2022,07/04/2021,06/15/2020,05/30,06/16/2016,05/03/2016 Influenza, Trivalent, IM (MDV) 05/20/2018,2016,06/23/2016 Influenza, Trivalent, Preser vative Free, Intramuscular 05/12/2012,06/18/2008 Influenza, Unspecified 05/16/2013 Pneumococcal Polysaccharide PPV23 06/15/2018, TD Preservative Free 08/25/2012 Tdap 03/23/2016,08/25/2012 ZOSTER Recombinant 03/04/2021,10/20/2020 Social History Tobacco Use Types Packs/Day Years Used Date Smoking Tobacco: Never Smokeless Tobacco: Never Tobacco Cessation:Counseling Given: Not Answered Alcohol Use Standard Drinks/Week Comments Not Currently [...] materials from doctor or pharmacy Sometimes 11/23/2024 [facility] Utilities Answer Date Recorded In the [...] often do you attend chur ch or orthodox services? Never 11/20/2024 Do you belong to any clubs o r organizations such as mandaeism groups, unions, fraternal or athletic groups, or [...] any time in the past 12 m [facility] center, were you homeless or living in a custodial (including now)? No 11/20/2024 Personal Safety Answer Date Recorded Have you ever been in or are you currently in a harmful physical or emotional relationship or is someone making you feel afraid or unsafe? 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 Gender Identity Not on file Sexual Orientation Not on file Last Filed Vital Signs Vital Sign Reading Time Taken Comments Blood Pressure 120/72 11/28/2024 1:30 PM CDT Pulse 90 11/28/2024 1:30 PM CDT Temperature 36.6 C (97.8 F) 11/28/2024 1:30 PM CDT Respiratory Rate 18 11/28/2024 1:30 PM CDT Oxygen Saturation 98% 11/28/2024 1:30 PM CDT Inhaled Oxygen Concentration - - Weight 84.8 kg (187 lb) 11/23/2024 1:10 PM CDT Height 167.6 cm (5' 6 ) 11/23/2024 1:10 PM CDT Body Mass Index 30.18 11/23/2024 1:10 PM CDT Plan of Treatment Not on file Medical Devices Implanted Type Area Svp Digital Sales Device Identifier Shelf Expiration Date Model / Serial / Lot [employer] [id number] Biomet Ascent Maxim Primary Lock Bar Knee Component Tibial Tray - Sna - [id number] Implanted:Qty: 1 on 01/16/2021 by Arya Gomez MD at [facility] Other - see comments Right: Knee [employer] [id number] 02/25/2030 [id number] / NA / [id number] [employer] [id number] Vanguard 63/22nxy92py Posterior Stabilize Knee Bearing Tibial E1 - Sna - [id number] Implanted:Qty: 1 on 01/16/2021 by Arya Gomez MD at [facility] Other - see comments Right: Knee [employer] [id number] 07/13/2022 [id number] / NA / [id number] 0?91Q Right Knee Replacement Knee Clips From Hysterectomy Pelvis [employer] Vanguard 63/93eie89nx Posterior Stabilize Inlay Knee 0d Bearing 103744 - [id number] Implanted:Qty: 1 on 09/23/2024 at [facility] Right: Knee [employer] 01/01/2026 [id number] / / [id number] [employer] Biomet Ascent Maxim Primary Lock Bar Knee Component Tibial Tray [id number] - [id number] Implanted:Qty: 1 on 09/23/2024 at [facility] Right: Knee [employer] 04/07/2034 [id number] / / [id number] [employer] Cement Bone High Viscosity Gentamicin Radiopaque Single Dose Palacos 40gm Pmma [id number] - [id number] Implanted:Qty: 1 on 11/17/2024 at [facility] Right: Knee [employer] 07/22/2028 [id number] / / [id number] [employer] Remedy 175mm Stem Extension Knee Component Femoral [id number] - [id number] Implanted:Qty: 1 on 11/17/2024 at [facility] Right: Knee [employer] 02/19/2029 [id number] / / [id number] [employer] Cement Bone High Viscosity Gentamicin Radiopaque Single Dose Palacos 40gm Pmma [id number] - [id number] Implanted:Qty: 1 on 11/17/2024 at [facility] Right: Knee [employer] 08/22/2028 [id number] / / [id number] [employer] Remedy Stem Knee Medium Component Tibial Rsktmd - [id number] Implanted:Qty: 1 on 11/17/2024 at [facility] Right: Knee [employer] 05/22/2028 [id number] / / [id number] Biocom[employer]iMatthew Kenney Cuisine Stimulan Rapid Cure Kit Paste Muffler Installer 20cc 50cc Bone Void 620-020 - [id number] Implanted:Qty: 1 on 11/17/2024 at [facility] Right: Knee [employer] 05/22/2027 620-020 / / [id number] [employer] Remedy Stem Knee Medium Component Femoral Rskfmd - [id number] Implanted:Qty: 1 on 11/17/2024 at [facility] Right: Knee [employer] 01/20/2029 [id number] / / [id number] [employer] Remedy 100mm Stem Extension Knee Component Femoral [id number] - [id number] Implanted:Qty: 1 on 11/17/2024 at [facility] Right: Knee [employer] 12/20/2028 [id number] / / [id number] Explanted Type Area Svp Digital Sales Device Identifier Shelf Expiration Date Model / Serial / Lot [employer] [id number] Seprafilm 6x5in Barrier Adhesion Sterile Disposable Latex Free - [id number] Explanted:Qty: 1 on 03/28/2021 at [facility] [employer] Krish [id number] / / Femoral Component Explanted:Qty: 1 on 11/17/2024 by Arya Gomez MD at [facility] Right: Knee Other UNABLE TO VISUALIZE / / Tibial Insert Explanted:Qty: 1 on 11/17/2024 at [facility] Right: Knee Other UNKNOWN / / Tibial Component Explanted:Qty: 1 on 11/17/2024 by Arya Gomez MD at [facility] Right: Knee Other UNKNOWN / / Procedures Procedure Name Priority Date/Time Associated Diagnosis Comments EGFR Routine 12/06/2024 11:40 AM CDT DIFFERENTIAL AUTO Routine 12/06/2024 11:40 AM CDT CREATINE KINASE (CK), TOTAL Routine 12/06/2024 11:40 AM CDT CBC WITH AUTO DIFFERENTIAL Routine 12/06/2024 11:40 AM CDT GLUCOSE, RANDOM (OUTREACH) Routine 12/06/2024 11:40 AM CDT COMPREHENSIVE METABOLIC PANEL WITHOUT GLUCOSE (OUTREACH) Routine 12/06/2024 11:40 AM CDT EGFR STAT 11/28/2024 2:00 PM CDT DIFFERENTIAL AUTO STAT 11/28/2024 2:0 0 PM CDT CREATINE KINASE (CK), TOTAL STAT 11/28/2024 2:00 PM CDT CBC WITH AUTO DIFFERENTIAL STAT 11/28/2024 2:00 PM CDT COMPREHENSIVE METABOLIC PANEL STAT 11/28/2024 2:00 PM CDT CBC WITHOUT DIFFERENTIAL STAT 11/20/2024 9:37 AM CDT VANCOMYCIN LEVEL TROUGH Timed 11/21/19 3:23 AM CDT CBC WITHOUT DIFFERENTIAL Timed 11/19/2024 9:59 PM CDT TRANSFUSE RED BLOOD CELLS Timed 11/19/2024 6:03 PM CDT PREPARE RBC Timed 11/19/2024 5:18 PM CDT CROSSMATCH Timed 11/19/2024 3:59 PM CDT ANTIBODY SCREEN Timed 11/19/2024 3:59 PM CDT ABO/RH Timed 11/19/2024 3:59 PM CDT TYPE AND SCREEN Timed 11/19/2024 3:59 PM CDT CBC WITHOUT DIFFERENTIAL Timed 11/19/2024 3:09 PM CDT CBC WITHOUT DIFFERENTIAL STAT 11/18/2024 3:49 PM CDT EGFR Routine 11/18/2024 4:29 AM CDT HEPATIC FUNCTION PANEL Routine 4:29 AM CDT CBC WITHOUT DIFFERENTIAL Routine 11/18/2024 4:29 AM CDT PROTIME-INR Routine 11/18/2024 4:29 AM CDT BASIC METABOLIC PANEL Routine 11/18/2024 4:29 AM CDT XR KNEE RIGHT 1 OR 2 VIEWS ED Urgent/IP Urgent 11/17/2024 1:49 PM CDT TISSUE AEROBIC AND ANAEROBIC CULTURE AND GRAM STAIN Routine 11/17/2024 12:15 PM CDT TISSUE AEROBIC AND ANAEROBIC CULTURE AND GRAM STAIN Routine 11/17/2024 12:15 PM CDT MYCOBACTERIOLOGY AFB CULTURE AND ACID-FAST STAIN Routine 11/17/2024 12:15 PM CDT MYCOLOGY (FUNGAL) CULTURE Routine 11/17/2024 12:15 PM CDT TISSUE AEROBIC AND ANAEROBIC CULTURE AND GRAM STAIN Routine 11/17/2024 12:15 PM CDT PLACEMENT SPACER/ANTIBIOTIC BEAD - KNEE 11/17/2024 11:23 AM CDT Infection REMOVAL HARDWARE - KNEE 11/18/19 11:23 AM CDT Infection FL AN PROCEDURE PLACEHOLDER Routine 11/17/2024 10:53 AM CDT FL AN PROCEDURE PLACEHOLDER Routine 11/17/2024 10:53 AM CDT VITAMIN D 25 HYDROXY Routine 11/16/2024 8:58 AM CDT Infection Vitamin D deficiency, unspecified AEROBIC AND ANAEROBIC CULTURE AND GRAM STAIN Routine 11/14/2024 2:02 PM CDT Aftercare following right knee joint replacement surgery Acute pain of right knee EGFR Routine 11/14/2024 12:17 PM CDT Infection of prosthetic joint, subsequent encounter DIFFERENTIAL AUTO Routine 11/14/2024 12:17 PM CDT Infection of prosthetic joint, subsequent encounter CBC WITH AUTO DIFFERENTIAL Routine 11/14/2024 12:17 PM CDT Infection of prosthetic joint, subsequent encounter COMPREHENSIVE METABOLIC PANEL Routine 11/14/2024 12:17 PM CDT Infection of prosthetic joint, subsequent encounter CRP (ACUTE PHASE) Routine 11/14/2024 12:17 PM CDT Infection of prosthetic joint, subsequent encounter ERYTHROCYTE SEDIMENTATION RATE Routine 11/14/2024 12:17 PM CDT Infection of prosthetic joint, subsequent encounter CELL DIFFERENTIAL, BODY FLUID Routine 11/14/2024 12:00 PM CDT Aftercare following right knee joint replacement surgery Acute pain of right knee CRYSTAL ANALYSIS, BODY FLUID Routine 11/14/2024 12:00 PM CDT Aftercare following right knee joint replacement surgery Acute pain of right knee CELL COUNT W/REFLEX DIFFERENTIAL, BODY FLUID Routine 11/14/2024 12:00 PM CDT Aftercare following right knee joint replacement surgery Acute pain of right knee FL ARTHROCENTESIS ASPIR&/INJ MAJOR JT/BURSA W/O US Routine 11/14/2024 11:15 AM CDT Aftercare following right knee joint replacement surgery SYNOVASURE Routine 11/14/2024 Aftercare following right knee joint replacement surgery Acute pain of right knee XR KNEE RIGHT 3 VIEWS Schedule Routine, Read Routine (OP Routine) 11/03/2024 11:35 AM CDT Chronic pain of right knee BLOOD CULTURE Routine 10/16/2024 11:52 AM PIPE LINE MAINTENANCE SUPERVISOR Infection of prosthetic joint, subsequent encounter EGFR Routine 10/16/2024 11:46 AM PIPE LINE MAINTENANCE SUPERVISOR Infection of prosthetic joint, subsequent encounter DIFFERENTIAL AUTO Routine 10/16/2024 11:46 AM PIPE LINE MAINTENANCE SUPERVISOR Infection of prosthetic joint, subsequent encounter CBC WITH AUTO DIFFERENTIAL Routine 10/16/2024 11:46 AM PIPE LINE MAINTENANCE SUPERVISOR Infection of prosthetic joint, subsequent encounter CRP (ACUTE PHASE) Routine 10/16/2024 11:46 AM PIPE LINE MAINTENANCE SUPERVISOR Infection of prosthetic joint, subsequent encounter COMPREHENSIVE METABOLIC PANEL Routine 10/16/2024 11:46 AM PIPE LINE MAINTENANCE SUPERVISOR Infection of prosthetic joint, subsequent encounter ERYTHROCYTE SEDIMENTATION RATE Routine 10/16/2024 11:46 AM PIPE LINE MAINTENANCE SUPERVISOR Infection of prosthetic joint, subsequent encounter BLOOD CULTURE Routine 10/16/2024 11:46 AM PIPE LINE MAINTENANCE SUPERVISOR Infection of prosthetic joint, subsequent encounter US VEIN DUPLEX LOWER EXTREMITY RIGHT LIMITED Schedule Routine, Read Routine (OP Routine) 10/10/2024 10:53 AM PIPE LINE MAINTENANCE SUPERVISOR Pain and swelling of right lower leg URINALYSIS AND REFLEX TO MICROSCOPIC AND CULTURE STAT 09/29/2024 4:26 PM PIPE LINE MAINTENANCE SUPERVISOR CT CHEST PE W CONTRAST ED 4:02 PM PIPE LINE MAINTENANCE SUPERVISOR BLOOD CULTURE STAT 09/29/2024 4:01 PM PIPE LINE MAINTENANCE SUPERVISOR BLOOD CULTURE STAT 09/29/2024 4:01 PM PIPE LINE MAINTENANCE SUPERVISOR XR CHEST 1 VIEW ED 09/29/2024 3:43 PM PIPE LINE MAINTENANCE SUPERVISOR INFLUENZA A/B, RSV, AND COVID-19 PCR STAT 09/29/2024 3:27 PM PIPE LINE MAINTENANCE SUPERVISOR EGFR STAT 09/29/2024 2:05 PM PIPE LINE MAINTENANCE SUPERVISOR DIFFERENTIAL AUTO STAT 09/29/2024 2:0 5 PM PIPE LINE MAINTENANCE SUPERVISOR SEPSIS LACTATE WITH REFLEX Routine 09/29/2024 2:05 PM PIPE LINE MAINTENANCE SUPERVISOR COMPREHENSIVE METABOLIC PANEL STAT 09/29/2024 2:05 PM PIPE LINE MAINTENANCE SUPERVISOR CBC WITH AUTO DIFFERENTIAL STAT 09/29/2024 2:05 PM PIPE LINE MAINTENANCE SUPERVISOR EGFR Routine 09/28/2024 4:12 AM PIPE LINE MAINTENANCE SUPERVISOR CBC WITHOUT DIFFERENTIAL Routine 09/28/2024 4:12 AM PIPE LINE MAINTENANCE SUPERVISOR BASIC METABOLIC PANEL Routine 09/28/2024 4:12 AM PIPE LINE MAINTENANCE SUPERVISOR IR PICC LINE PLACEMENT > 5 YEARS IP Routine 09/27/2024 3:53 PM PIPE LINE MAINTENANCE SUPERVISOR EGFR Routine 09/27/2024 4:08 AM PIPE LINE MAINTENANCE SUPERVISOR CBC WITHOUT DIFFERENTIAL Routine 09/27/2024 4:08 AM PIPE LINE MAINTENANCE SUPERVISOR BASIC METABOLIC PANEL Routine 09/27/2024 4:08 AM PIPE LINE MAINTENANCE SUPERVISOR RESPIRATORY PATHOGEN PANEL Routine 09/26/2024 3:45 PM PIPE LINE MAINTENANCE SUPERVISOR XR CHEST 1 VIEW IP Routine 09/26/2024 3:41 PM PIPE LINE MAINTENANCE SUPERVISOR EGFR Routine 09/26/2024 5:07 AM PIPE LINE MAINTENANCE SUPERVISOR CBC WITHOUT DIFFERENTIAL Routine 09/26/2024 5:07 AM PIPE LINE MAINTENANCE SUPERVISOR BASIC METABOLIC PANEL Routine 09/26/2024 5:07 AM PIPE LINE MAINTENANCE SUPERVISOR BLOOD CULTURE Timed 09/25/2024 1:04 PM PIPE LINE MAINTENANCE SUPERVISOR BLOOD CULTURE Timed 09/25/2024 1:04 PM PIPE LINE MAINTENANCE SUPERVISOR TRANSTHORACIC ECHO (TTE) COMPLETE W DOPPLER/CF WO CONTRAST Routine 09/25/2024 12:15 PM PIPE LINE MAINTENANCE SUPERVISOR EGFR Routine 09/25/2024 4:26 AM PIPE LINE MAINTENANCE SUPERVISOR VANCOMYCIN LEVEL TROUGH Timed 09/25/19 4:26 AM PIPE LINE MAINTENANCE SUPERVISOR CBC WITHOUT DIFFERENTIAL Routine 09/25/2024 4:26 AM PIPE LINE MAINTENANCE SUPERVISOR BASIC METABOLIC PANEL Routine 09/25/2024 4:26 AM PIPE LINE MAINTENANCE SUPERVISOR HIV 1/2 ANTIBODY PLUS P24 ANTIGEN STAT 09/24/2024 3:39 PM PIPE LINE MAINTENANCE SUPERVISOR EGFR Routine 09/24/2024 5:10 AM PIPE LINE MAINTENANCE SUPERVISOR VANCOMYCIN LEVEL TROUGH Timed 09/24/19 5:10 AM PIPE LINE MAINTENANCE SUPERVISOR CBC WITHOUT DIFFERENTIAL Routine 09/24/2024 5:10 AM PIPE LINE MAINTENANCE SUPERVISOR BASIC METABOLIC PANEL Routine 09/24/2024 5:10 AM PIPE LINE MAINTENANCE SUPERVISOR XR KNEE RIGHT 1 OR 2 VIEWS ED Urgent/IP Urgent 09/23/2024 11:56 AM PIPE LINE MAINTENANCE SUPERVISOR FL AN PROCEDURE PLACEHOLDER Routine 09/23/2024 10:24 AM PIPE LINE MAINTENANCE SUPERVISOR TISSUE AEROBIC AND ANAEROBIC CULTURE AND GRAM STAIN Routine 09/23/2024 9:36 AM PIPE LINE MAINTENANCE SUPERVISOR TISSUE AEROBIC AND ANAEROBIC CULTURE AND GRAM STAIN Routine 09/23/2024 9:36 AM PIPE LINE MAINTENANCE SUPERVISOR TISSUE AEROBIC AND ANAEROBIC CULTURE AND GRAM STAIN Routine 09/23/2024 9:36 AM PIPE LINE MAINTENANCE SUPERVISOR TISSUE AEROBIC AND ANAEROBIC CULTURE AND GRAM STAIN Routine 09/23/2024 9:36 AM PIPE LINE MAINTENANCE SUPERVISOR MYCOBACTERIOLOGY AFB CULTURE AND ACID-FAST STAIN Routine 09/23/2024 9:36 AM PIPE LINE MAINTENANCE SUPERVISOR MYCOLOGY (FUNGAL) CULTURE Routine 09/23/2024 9:36 AM PIPE LINE MAINTENANCE SUPERVISOR TISSUE AEROBIC AND ANAEROBIC CULTURE AND GRAM STAIN Routine 09/23/2024 9:36 AM PIPE LINE MAINTENANCE SUPERVISOR FL AN PROCEDURE PLACEHOLDER Routine 09/23/2024 8:48 AM PIPE LINE MAINTENANCE SUPERVISOR FL AN PROCEDURE PLACEHOLDER Routine 09/23/2024 8:46 AM PIPE LINE MAINTENANCE SUPERVISOR FL AN ELECTIVE SUPRAGLOTTIC AIRWAY Routine 09/23/2024 8:46 AM PIPE LINE MAINTENANCE SUPERVISOR INCISION AND DEBRIDEMENT - KNEE 09/23/2024 8:33 AM PIPE LINE MAINTENANCE SUPERVISOR Knee effusion, right US VEIN DUPLEX LOWER EXTREMITY BILATERAL COMPLETE ED Urgent/IP Urgent 09/23/2024 7:07 AM PIPE LINE MAINTENANCE SUPERVISOR URINALYSIS, MICROSCOPIC ONLY Routine 09/23/2024 6:37 AM PIPE LINE MAINTENANCE SUPERVISOR URINALYSIS AND REFLEX TO MICROSCOPIC AND CULTURE Routine 09/23/2024 6:37 AM PIPE LINE MAINTENANCE SUPERVISOR BLOOD CULTURE Routine 09/23/2024 6:10 AM PIPE LINE MAINTENANCE SUPERVISOR BLOOD CULTURE STAT 09/23/2024 6:10 AM PIPE LINE MAINTENANCE SUPERVISOR XR CHEST PA LATERAL 2 VIEWS IP Routine 09/22/2024 6:00 PM PIPE LINE MAINTENANCE SUPERVISOR ANTIBODY SCREEN Timed 09/22/2024 5:48 PM PIPE LINE MAINTENANCE SUPERVISOR ABO/RH Timed 09/22/2024 5:48 PM PIPE LINE MAINTENANCE SUPERVISOR APTT Routine 09/22/2024 5:48 PM PIPE LINE MAINTENANCE SUPERVISOR PROTIME-INR Routine 09/22/2024 5:48 PM PIPE LINE MAINTENANCE SUPERVISOR TYPE AND SCREEN Timed 09/22/2024 5:48 PM PIPE LINE MAINTENANCE SUPERVISOR HISTORIC ANTIBODY IDENTIFICATION Routine 09/22/2024 5:35 PM PIPE LINE MAINTENANCE SUPERVISOR FL ARTHROCENTESIS ASPIR&/INJ MAJOR JT/BURSA W/O US Routine 09/22/2024 3:48 PM PIPE LINE MAINTENANCE SUPERVISOR Effusion of right knee joint CELL DIFFERENTIAL, BODY FLUID Routine 09/22/2024 3:38 PM PIPE LINE MAINTENANCE SUPERVISOR CRYSTAL ANALYSIS, BODY FLUID Routine 09/22/2024 3:38 PM PIPE LINE MAINTENANCE SUPERVISOR CELL COUNT W/REFLEX DIFFERENTIAL, BODY FLUID Routine 09/22/2024 3:38 PM PIPE LINE MAINTENANCE SUPERVISOR BLOOD CULTURE STAT 09/22/2024 3:38 PM PIPE LINE MAINTENANCE SUPERVISOR AEROBIC AND ANAEROBIC CULTURE AND GRAM STAIN STAT 09/22/2024 3:38 PM PIPE LINE MAINTENANCE SUPERVISOR SEPSIS LACTATE WITH REFLEX STAT 09/22/2024 3:17 PM PIPE LINE MAINTENANCE SUPERVISOR BLOOD CULTURE STAT 09/22/2024 3:17 PM PIPE LINE MAINTENANCE SUPERVISOR B ABO / RH CONFIRMATION TESTING STAT 09/22/2024 2:59 PM PIPE LINE MAINTENANCE SUPERVISOR EGFR Routine 09/22/2024 2:59 PM PIPE LINE MAINTENANCE SUPERVISOR BASIC METABOLIC PANEL, SERUM Routine 09/22/2024 2:59 PM PIPE LINE MAINTENANCE SUPERVISOR CBC WITH AUTO DIFFERENTIAL Routine 09/22/2024 2:59 PM PIPE LINE MAINTENANCE SUPERVISOR DIFFERENTIAL AUTO Routine 09/22/2024 2:5 9 PM PIPE LINE MAINTENANCE SUPERVISOR ERYTHROCYTE SEDIMENTATION RATE Routine 09/22/2024 2:59 PM PIPE LINE MAINTENANCE SUPERVISOR CRP (ACUTE PHASE) Routine 09/22/2024 2:5 9 PM PIPE LINE MAINTENANCE SUPERVISOR XR KNEE RIGHT 3 VIEWS ED Urgent/IP Urgent 09/22/2024 2:55 PM PIPE LINE MAINTENANCE SUPERVISOR HEPATITIS PANEL, ACUTE Routine 9 5:29 AM CDT from Last 3 Months or Most Recently Relevant to Health Maintenance Results * Glucose, random (Outreach) (12/06/2024 11:40 AM CDT) Glucose 99 70 - 199 mg/dL Comment: Interpretive Data Fasting glucose >/= 126 mg/dl is diagnostic for diabetes. Fasting is defined as no caloric intake for at least 8 hours. Fasting glucose between 100 mg/dl to 125 mg/dl is diagnostic of prediabetes. In a patient with classic symptoms of hyperglycemia or hyperglycemic crisis, a random glucose >/= 200 mg/dl is diagnostic for diabetes. In the absence of unequivocal hyperglycemia, results should be confirmed by repeat testing. The classification and Diagnosis of Diabetes Diabetes Care 2021; 46: S19-S40. Current interpretive data was last revised 2022. Blood 12/06/2024 11:4 0 AM CDT 12/06/2024 3:26 PM CDT Arya Gomez MD LAB BLOOD ORDERABLES Jasmin hickman Result Performing Organization Address City/State/[facility] Co de Phone Number [facility] Department [place] [address] * eGFR (12/06/2024 11:40 AM CDT) eGFR 90 >=60 mL/min/1. 73 m2 Comment: Interpretive Data Reference Interval Normal >/= 90 mL/min/1.73m2 Mildly decreased* 60 - 89 mL/min/1.73m2 Mildly to moderately decreased 45 - 59 mL/min/1.73m2 Moderately to severely decreased 30 - 44 mL/min/1.73m2 Severely decreased 15 - 29 mL/min/1.73m2 Kidney Failure < 15 mL/min/1.73m2 *Relative to young adult level Estimated glomerular filtration rate is determined by the 2020 CKD-EPI equation recommended by the National Kidney Foundation (A Unifying Approach to GFR Estimation: Recommendations of the NKF-ASK Task Force on Reassessing the Inclusion of Race in Diagnosing Kidney Disease, JASN 2020). The CKD-EPI equation should not be used for patients with unstable renal function and has not been validated in children and those over 70. Current interpretive data was last reviewed 2021. Blood 12/06/2024 11:4 0 AM CDT 12/06/2024 3:33 PM CDT us Arya Gomez MD LAB BLOOD ORDERABLES Jasmin hickman Result [facility] Department [place] [address] * (ABNORMAL) Differential, auto (12/06/2024 11:40 AM CDT) Pathologist [facility] Neutrophil abs 3.54 1.50 - 6.50 K/cumm Imm gran abs 0.01 0.00 - 0.10 K/cumm [facility] Lymphocyte abs 1.77 0.80 - 3.30 K/cumm [facility] Monocyte abs 0.44 0.20 - 0.80 K/cumm [facility] Eosinophil abs 0.38 0.00 - 0.50 K/cumm [facility] Basophil abs 0.18(H) 0.00 - 0.10 K/cumm [facility] Neutrophil pct 56.0 % [facility] Comment: Interpretive Data Percent cell count reference ranges are not reported, since discordance with absolute values may lead to misinterpretation of CBC data. Current Interpretive Data was last revised on 2017. Imm gran pct 0.2 % [facility] Comment: Interpretive Data Percent cell count reference ranges are not reported, since discordance with absolute values may lead to misinterpretation of CBC data. Current Interpretive Data was last revised on 2017. Lymphocyte pct 28.0 % [facility] Comment: Interpretive Data Percent cell count reference ranges are not reported, since discordance with absolute values may lead to misinterpretation of CBC data. Current Interpretive Data was last revised on 2017. Monocyte pct 7.0 % [facility] Comment: Interpretive Data Percent cell count reference ranges are not reported, since discordance with absolute values may lead to misinterpretation of CBC data. Current Interpretive Data was last revised on 2017. Eosinophil pct 6.0 % [facility] Comment: Interpretive Data Percent cell count reference ranges are not reported, since discordance with absolute values may lead to misinterpretation of CBC data. Current Interpretive Data was last revised on 2017. Basophil pct 2.8 % [facility] Comment: Interpretive Data Percent cell count reference ranges are not reported, since discordance with absolute values may lead to misinterpretation of CBC data. Current Interpretive Data was last revised on 2017. Blood 12/06/2024 11:4 0 AM CDT 12/06/2024 3:26 PM CDT us Arya Gomez MD LAB BLOOD ORDERABLES Jasmin l Result [facility] [place] [address] * Comprehensive metabolic panel, without glucose (Outreach) (12/06/2024 11:40 AM CDT) Sodium 139 135 - 145 mmol/L Potassium, pl 3.9 3.3 - 4.9 mmol/L [facility] Chloride 100 97 - 110 mmol/L [facility] CO2 28 22 - 32 mmol/L [facility] Anion gap 11 2 - 15 mmol/L [facility] BUN 16 6 - 25 mg/dL [facility] Creatinine 0.78 0.60 - 1.10 mg/dL [facility] Calcium 9.6 8.5 - 10.3 mg/dL [facility] Protein, pl 7.6 6.5 - 8.5 g/dL [facility] Albumin 4.0 3.5 - 5.0 g/dL [facility] Bilirubin, total 0.3 0.1 - 1.2 mg/dL [facility] Alk phos 127 40 - 130 Units/L [facility] AST 36 10 - 45 Units/L [facility] ALT 20 7 - 45 Units/L [facility] Blood 12/06/2024 11:4 0 AM CDT 12/06/2024 3:26 PM CDT us Arya Gomez MD LAB BLOOD ORDERABLES Jasmin l Result [facility] [place] [address] * (ABNORMAL) CBC with auto differential (12/06/2024 11:40 AM CDT) [facility] WBC 6.32 3.80 - 9.90 K/cumm Hgb 10.0(L) 11.9 - 15.5 g/dL [facility] Hct 31.8(L) 35.6 - 45.5 % [facility] Plt 562(H) 150 - 400 K/cumm [facility] MPV 9.9 9.1 - 12.3 fL [facility] RBC 4.02 3.90 - 5.20 M/cumm [facility] MCV 79.1(L) 81.3 - 96.4 fL [facility] MCH 24.9(L) 27.1 - 33.3 pg [facility] MCHC 31.4(L) 32.3 - 35.7 g/dL [facility] RDW CV 13.8 11.1 - 14.9 % [facility] RDW SD 39.8 35.7 - 48.1 fL [facility] NRBC abs 0.00 0.00 - 0.01 K/cumm [facility] Blood 12/06/2024 11:4 0 AM CDT 12/06/2024 3:26 PM CDT us Arya Gomez MD LAB BLOOD ORDERABLES Jasmin l Result [facility] [place] [address] * (ABNORMAL) Creatine kinase (CK), total (12/06/2024 11:40 AM CDT) [facility] CK 208(H) 30 - 200 Units/L Blood 12/06/2024 11:4 0 AM CDT 12/06/2024 3:26 PM CDT us Arya Gomez MD LAB BLOOD ORDERABLES Jasmin l Result [facility] [place] [address] * eGFR (11/28/2024 2:00 PM CDT) eGFR 69 >=60 mL/min/1. 73 m2 Comment: Interpretive Data Reference Interval Normal >/= 90 mL/min/1.73m2 Mildly decreased* 60 - 89 mL/min/1.73m2 Mildly to moderately decreased 45 - 59 mL/min/1.73m2 Moderately to severely decreased 30 - 44 mL/min/1.73m2 Severely decreased 15 - 29 mL/min/1.73m2 Kidney Failure < 15 mL/min/1.73m2 *Relative to young adult level Estimated glomerular filtration rate is determined by the 2020 CKD-EPI equation recommended by the National Kidney Foundation (A Unifying Approach to GFR Estimation: Recommendations of the NKF-ASK Task Force on Reassessing the Inclusion of Race in Diagnosing Kidney Disease, JASN 2020). The CKD-EPI equation should not be used for patients with unstable renal function and has not been validated in children and those over 70. Current interpretive data was last reviewed 2021. Blood 11/28/2024 2:00 PM CDT 11/28/2024 2:55 PM CDT us Notinfile Unknown LAB BLOOD ORDERABLES Final Res ult [facility] [address] [facility] Department [place] [address] * (ABNORMAL) Differential, auto (11/28/2024 2:00 PM CDT) Pathologist [facility] Neutrophil abs 3.75 1.50 - 6.50 K/cumm Imm gran abs 0.02 0.00 - 0.10 K/cumm [facility] Lymphocyte abs 1.69 0.80 - 3.30 K/cumm [facility] Monocyte abs 0.61 0.20 - 0.80 K/cumm [facility] Eosinophil abs 0.54(H) 0.00 - 0.50 K/cumm [facility] Basophil abs 0.15(H) 0.00 - 0.10 K/cumm [facility] Neutrophil pct 55.5 % [facility] Comment: Interpretive Data Percent cell count reference ranges are not reported, since discordance with absolute values may lead to misinterpretation of CBC data. Current Interpretive Data was last revised on 2017. Imm gran pct 0.3 % [facility] Comment: Interpretive Data Percent cell count reference ranges are not reported, since discordance with absolute values may lead to misinterpretation of CBC data. Current Interpretive Data was last revised on 2017. Lymphocyte pct 25.0 % [facility] Comment: Interpretive Data Percent cell count reference ranges are not reported, since discordance with absolute values may lead to misinterpretation of CBC data. Current Interpretive Data was last revised on 2017. Monocyte pct 9.0 % [facility] Comment: Interpretive Data Percent cell count reference ranges are not reported, since discordance with absolute values may lead to misinterpretation of CBC data. Current Interpretive Data was last revised on 2017. Eosinophil pct 8.0 % [facility] Comment: Interpretive Data Percent cell count reference ranges are not reported, since discordance with absolute values may lead to misinterpretation of CBC data. Current Interpretive Data was last revised on 2017. Basophil pct 2.2 % [facility] Comment: Interpretive Data Percent cell count reference ranges are not reported, since discordance with absolute values may lead to misinterpretation of CBC data. Current Interpretive Data was last revised on 2017. Blood 11/28/2024 2:00 PM CDT 11/28/2024 2:55 PM CDT us Notinfile Unknown LAB BLOOD ORDERABLES Final Res ult DOUGLAS NICHOLAS [address] [facility] Department [place] [address] * (ABNORMAL) CBC with auto differential (11/28/2024 2:00 PM CDT) WBC 6.76 3.80 - 9.90 K/cumm Hgb 9.1(L) 11.9 - 15.5 g/dL [facility] Hct 29.5(L) 35.6 - 45.5 % [facility] Plt 438(H) 150 - 400 K/cumm [facility] MPV 9.8 9.1 - 12.3 fL [facility] RBC 3.59(L) 3.90 - 5.20 M/cumm [facility] MCV 82.2 81.3 - 96.4 fL [facility] MCH 25.3(L) 27.1 - 33.3 pg [facility] MCHC 30.8(L) 32.3 - 35.7 g/dL [facility] RDW CV 14.0 11.1 - 14.9 % [facility] RDW SD 41.3 35.7 - 48.1 fL [facility] NRBC abs 0.00 0.00 - 0.01 K/cumm [facility] Blood 11/28/2024 2:00 PM CDT 11/28/2024 2:55 PM CDT us Notinfile Unknown LAB BLOOD ORDERABLES Final Res ult Performing Organization Address [facility] Co de Phone Number [address] [employer] [place], [place] [id number] * Creatine kinase (CK), total (11/28/2024 2:00 PM CDT) CK 97 30 - 200 Units/L Blood 11/28/2024 2:00 PM CDT 11/28/2024 2:55 PM CDT us Notinfile Unknown LAB BLOOD ORDERABLES Final Res ult Performing Organization Address City/[facility]/ZIP Co de Phone Number [address] [place] [address] * Comprehensive metabolic panel (11/28/2024 2:00 PM CDT) Sodium 138 135 - 145 mmol/L Potassium, pl 3.9 3.3 - 4.9 mmol/L [facility] Chloride 102 97 - 110 mmol/L [facility] CO2 24 22 - 32 mmol/L [facility] Anion gap 12 2 - 15 mmol/L [facility] BUN 16 6 - 25 mg/dL [facility] Creatinine 0.98 0.60 - 1.10 mg/dL [facility] Glucose 103 70 - 199 mg/dL [facility] Comment: Interpretive Data Fasting glucose >/= 126 mg/dl is diagnostic for diabetes. Fasting is defined as no caloric intake for at least 8 hours. Fasting glucose between 100 mg/dl to 125 mg/dl is diagnostic of prediabetes. In a patient with classic symptoms of hyperglycemia or hyperglycemic crisis, a random glucose >/= 200 mg/dl is diagnostic for diabetes. In the absence of unequivocal hyperglycemia, results should be confirmed by repeat testing. The classification and Diagnosis of Diabetes Diabetes Care 202; 46: S19-S40. Current interpretive data was last revised 2022. Calcium 9.2 8.5 - 10.3 mg/dL [facility] Bilirubin, total 0.2 0.1 - 1.2 mg/dL [facility] Protein, pl 7.2 6.5 - 8.5 g/dL [facility] Albumin 4.0 3.5 - 5.0 g/dL [facility] Alk phos 118 40 - 130 Units/L [facility] ALT 18 7 - 45 Units/L [facility] AST 30 10 - 45 Units/L [facility] Blood 11/28/2024 2:00 PM CDT 11/28/2024 2:55 PM CDT us Notinfile Unknown LAB BLOOD ORDERABLES Final Res ult [facility] [address] [facility] Department [place] [address] * (ABNORMAL) CBC without differential (11/20/2024 9:37 AM CDT) WBC 7.9 3.8 - 9.9 K/cumm Hgb 7.8(L) 11.9 - 15.5 g/dL [facility] Hct 24.5(L) 35.6 - 45.5 % CERNER W Plt 250 150 - 400 K/cumm [facility] MPV 10.0 9.1 - 12.3 fL [facility] RBC 2.99(L) 3.90 - 5.20 M/cumm [facility] MCV 81.9 81.3 - 96.4 fL [facility] MCH 26.1(L) 27.1 - 33.3 pg [facility] MCHC 31.8(L) 32.3 - 35.7 g/dL [facility] RDW CV 14.7 11.1 - 14.9 % [facility] RDW SD 43.6 35.7 - 48.1 fL [facility] NRBC abs 0.00 0.00 - 0.01 K/cumm [facility] Blood 11/20/2024 9:37 AM CDT 11/20/2024 9:42 AM CDT Archana Sharp MRI TECHNOLOGIST LAB BLOOD ORDERABLES Jasmin l Result Performing Organization Address [facility] Co de Phone Number [facility] [address] [employer] [place], [place] [id number] * (ABNORMAL) Vancomycin level trough (11/20/2024 3:23 AM CDT) [facility] Vancomycin trough 20.2(H) 10.0 - 20.0 mcg/mL Blood 11/20/2024 3:23 AM CDT 11/20/2024 3:33 AM CDT Jeffy Fleming MD LAB BLOOD ORDERABLES Jasmin l Result Performing Organization Address City/[facility]/ZIP Co de Phone Number [facility] [address] [facility] [place] [address] * (ABNORMAL) CBC without differential (11/19/2024 9:59 PM CDT) Pathologist [facility] WBC 7.7 3.8 - 9.9 K/cumm Hgb 7.6(L) 11.9 - 15.5 g/dL [facility] Hct 23.6(L) 35.6 - 45.5 % [facility] RICEW Plt 231 150 - 400 K/cumm DOUGLAS RICEW MPV 9.8 9.1 - 12.3 fL [facility] W RBC 2.86(L) 3.90 - 5.20 M/cumm DOUGLAS RICEW MCV 82.5 81.3 - 96.4 fL DOUGLSA BJW MCH 26.6(L) 27.1 - 33.3 pg DOUGLAS W MCHC 32.2(L) 32.3 - 35.7 g/dL [facility] BJW RDW CV 14.4 11.1 - 14.9 % DOUGLAS W RDW SD 42.8 35.7 - 48.1 fL [facility] NRBC abs 0.00 0.00 - 0.01 K/cumm DOUGLAS RICEW Blood 11/19/2024 9:59 PM CDT 11/19/2024 10:08 PM CDT Jeffy Fleming MD LAB BLOOD ORDERABLES Jasmin l Result Performing Organization Address City/[facility] Co de Phone Number [facility] [address] [place] [address] * Transfuse RBC (11/19/2024 8:15 PM CDT) Blood Jeffy Fleming MD BLOOD TRANSFUSION ORDERAB LES Final Result Performing Organization Address [facility] Co de Phone Number [facility] [address] [place] [address] * Prepare RBC: 1 Units (11/19/2024 5:18 PM CDT) Units requested 1 Units requested Ready CORINEROSAS PETER Unit Number [id number] Product code [id number] [facility]. [facility] Blood Expiration Date [id number] [facility] BJST. [facility] Product Blood Type (for scanning) [address] [facility] [employer] Product Blood Type ONEG [facility] Dispense Status DISPENSED [facility]AS [facility]ICEST. [facility] Blood 11/19/2024 5:18 PM CDT 11/19/2024 5:18 PM CDT Jeffy Fleming MD BLOOD BANK PRODUCT ORDERA BLES Final Result Performing Organization Address City/[facility]/ZIP Co de Phone Number [facility]. [facility] [address] [facility] [place] [address] * ABO/Rh (11/19/2024 3:59 PM CDT) ABO/Rh O Negative Blood 11/19/2024 3:59 PM CDT 11/19/2024 4:02 PM CDT Narrative CORINER[facility]ICEST. [facility] - 11/19/2024 5:15 PM CDT Has the patient had Daratumumab or Isatuximab in the past 6 months?->Unknown Jeffy Fleming MD LAB BLOOD BANK TEST ORDER GUANAKO Final Result Performing Organization Address [facility]/ZIP Co de Phone Number [facility]ICEST. [facility] [address] [facility] [place] [address] * Crossmatch (11/19/2024 3:59 PM CDT) Crossmatch Compatible [facility]ST. [facility] Unit number for crossmatch [id number] [facility] Blood 11/19/2024 3:59 PM CDT 11/19/2024 4:02 PM CDT Arya Gomez MD LAB BLOOD BANK TEST ORDER GUANAKO Final Result Performing Organization Address City/[facility]/ZIP Co de Phone Number DOUGLAS RICECH [address] [facility]. [facility] [place] [address] * Antibody screen (11/19/2024 3:59 PM CDT) Silvio, indirect, Gel Interpretation Negative ABSC Blood 11/19/2024 3:59 PM CDT 11/19/2024 4:02 PM CDT Narrative DOUGLAS PETERCH - 11/19/2024 5:15 PM CDT Has the patient had Daratumumab or Isatuximab in the past 6 months?->Unknown Jeffy Fleming MD LAB BLOOD BANK TEST ORDER GUANAKO Final Result DOUGLAS SANDERS [address] [facility]. [place] [address] * (ABNORMAL) CBC without differential (11/19/2024 3:09 PM CDT) WBC 7.1 3.8 - 9.9 K/cumm Hgb 6.3(C) 11.9 - 15.5 g/dL [facility] Comment:Critical result call ed to and read back by MAHENDRA SHI RN on 11 19 2024 at 1520 to NILAM NELSON. Hct 20.3(L) 35.6 - 45.5 % [facility] Plt 226 150 - 400 K/cumm [facility] MPV 9.9 9.1 - 12.3 fL [facility] RBC 2.41(L) 3.90 - 5.20 M/cumm [facility] MCV 84.2 81.3 - 96.4 fL [facility] MCH 26.1(L) 27.1 - 33.3 pg DOUGLAS W MCHC 31.0(L) 32.3 - 35.7 g/dL [facility] RDW CV 13.4 11.1 - 14.9 % [facility] RDW SD 41.1 35.7 - 48.1 fL DOUGLAS [facility] NRBC abs 0.00 0.00 - 0.01 K/cumm D[facility]AS [facility] Blood 11/19/2024 3:09 PM CDT 11/19/2024 3:13 PM CDT Jeffy Fleming MD LAB BLOOD ORDERABLES Jasmin l Result DOUGLAS PETER [address] [address] [employer] Department [employer] [place], [place] [id number] * (ABNORMAL) CBC without differential (11/18/2024 3:49 PM CDT) Pathologist [facility] WBC 7.1 3.8 - 9.9 K/cumm Hgb 6.6(L) 11.9 - 15.5 g/dL [facility] Hct 21.2(L) 35.6 - 45.5 % [facility] Plt 248 150 - 400 K/cumm [facility] MPV 9.6 9.1 - 12.3 fL [facility] RBC 2.53(L) 3.90 - 5.20 M/cumm [facility] MCV 83.8 81.3 - 96.4 fL [facility] MCH 26.1(L) 27.1 - 33.3 pg [facility] MCHC 31.1(L) 32.3 - 35.7 g/dL [facility] RDW CV 13.2 11.1 - 14.9 % [facility] RDW SD 40.3 35.7 - 48.[address] [facility] NRBC abs 0.00 0.00 - 0.01 K/cumm [facility] Blood 11/18/2024 3:49 PM CDT 11/18/2024 3:51 PM CDT us Arya Gomez MD LAB BLOOD ORDERABLES Jasmin l Result DOUGLAS RICEWCH [address] [facility] Center[facility] [address] * eGFR (11/18/2024 4:29 AM CDT) Pathologist [facility] eGFR 67 >=60 mL/min/1. 73 m2 Comment: Interpretive Data Reference Interval Normal >/= 90 mL/min/1.73m2 Mildly decreased* 60 - 89 mL/min/1.73m2 Mildly to moderately decreased 45 - 59 mL/min/1.73m2 Moderately to severely decreased 30 - 44 mL/min/1.73m2 Severely decreased 15 - 29 mL/min/1.73m2 Kidney Failure < 15 mL/min/1.73m2 *Relative to young adult level Estimated glomerular filtration rate is determined by the 2020 CKD-EPI equation recommended by the National Kidney Foundation (A Unifying Approach to GFR Estimation: Recommendations of the NKF-ASK Task Force on Reassessing the Inclusion of Race in Diagnosing Kidney Disease, JASN 2020). The CKD-EPI equation should not be used for patients with unstable renal function and has not been validated in children and those over 70. Current interpretive data was last reviewed 2021. Blood 11/18/2024 4:29 AM CDT 11/18/2024 4:33 AM CDT Macario Cai MD LAB BLOOD ORDERABLES Jasmin l Result Performing Organization Address [facility] de Phone Number [facility] [address] [employer]. [place] [address] * Protime-INR (11/18/2024 4:29 AM CDT) PT 10.7 9.7 - 13.0 sec INR 0.99 0.90 - 1.20 DOUGLAS SANDERS Comment: Interpretive data Oral anticoagulant therapeutic ranges: Venous thromboembolism prophylaxis or treatment: 2.0-3.0 CARDIOLOGY Standard range: 2.0-3.0 High-intensity range: 2.5-3.5 Refer to indication-specific guidelines for appropriate target ranges for prosthetic heart valve replacement. Current interpretive data was last revised on 2019. Blood 11/18/2024 4:29 AM CDT 11/18/2024 4:33 AM CDT Narrative DOUGLAS SANDERS - 11/18/2024 4:46 AM CDT Baseline prior to apixaban initiation. Macario Cai MD LAB BLOOD ORDERABLES Jasmin l Result Performing Organization Address [facility] de Phone Number DOUGLAS RICEWCH [address] [employer]. [place] [address] * (ABNORMAL) CBC without differential (11/18/2024 4:29 AM CDT) [facility] WBC 6.4 3.8 - 9.9 K/cumm Hgb 6.4(C) 11.9 - 15.5 g/dL [facility] Comment:Critical result call ed to and read back by HARVEY LOPEZ RN on 11 18 2024 at 0532 to Quin Salomon. Hct 20.8(L) 35.6 - 45.5 % [facility] Plt 228 150 - 400 K/cumm [facility] MPV 9.9 9.1 - 12.3 fL [facility] RBC 2.46(L) 3.90 - 5.20 M/cumm [facility] MCV 84.6 81.3 - 96.4 fL [facility] MCH 26.0(L) 27.1 - 33.3 pg [facility] MCHC 30.8(L) 32.3 - 35.7 g/dL [facility] RDW CV 13.1 11.1 - 14.9 % [facility] RDW SD 39.8 35.7 - 48.1 fL [facility] NRBC abs 0.00 0.00 - 0.01 K/cumm [facility] BJW Blood 11/18/2024 4:29 AM CDT 11/18/2024 4:33 AM CDT Narrative [facility] - 11/18/2024 5:32 AM CDT Baseline prior to apixaban initiation. us Macario Cai MD LAB BLOOD ORDERABLES Jasmin l Result DOUGLAS RICEWCH [address] [facility]. [facility] [place] [address] * (ABNORMAL) Hepatic function panel (11/18/2024 4:29 AM CDT) [facility] Bilirubin, total <0.1 0.1 - 1.2 mg/dL Bilirubin, direct <0.2 0.1 - 0.3 mg/dL [facility] Protein, pl 5.2(L) 6.5 - 8.5 g/dL [facility] Albumin 3.3(L) 3.5 - 5.0 g/dL [facility] Alk phos 67 40 - 130 Units/L [facility] ALT 12 7 - 45 Units/L [facility]ER BJ[facility] AST 21 10 - 45 Units/L [facility] Blood 11/18/2024 4:29 AM CDT 11/18/2024 4:33 AM CDT Narrative [facility] - 11/18/2024 4:54 AM CDT Baseline prior to apixaban initiation. Macario Cai MD LAB BLOOD ORDERABLES Jasmin l Result [facility] [address] [facility]. [place] [address] * (ABNORMAL) Basic metabolic panel (11/18/2024 4:29 AM CDT) Sodium 134(L) 135 - 145 mmol/L Potassium, pl 4.6 3.3 - 4.9 mmol/L [facility] Chloride 102 97 - 110 mmol/L [facility] CO2 25 22 - 32 mmol/L [facility] Anion gap 7 2 - 15 mmol/L [facility] BUN 24 6 - 25 mg/dL [facility] Creatinine 1.00 0.60 - 1.10 mg/dL [facility] Glucose 120 70 - 199 mg/dL [facility] Comment: Interpretive Data Fasting glucose >/= 126 mg/dl is diagnostic for diabetes. Fasting is defined as no caloric intake for at least 8 hours. Fasting glucose between 100 mg/dl to 125 mg/dl is diagnostic of prediabetes. In a patient with classic symptoms of hyperglycemia or hyperglycemic crisis, a random glucose >/= 200 mg/dl is diagnostic for diabetes. In the absence of unequivocal hyperglycemia, results should be confirmed by repeat testing. The classification and Diagnosis of Diabetes Diabetes Care 202; 46: S19-S40. Current interpretive data was last revised 2022. Calcium 9.2 8.5 - 10.3 mg/dL DOUGLAS DWAYNEWCH Blood 11/18/2024 4:29 AM CDT 11/18/2024 4:33 AM CDT Macario Cai MD LAB BLOOD ORDERABLES Jasmin l Result DOUGLAS PETERCH [address] [facility]. [place] [address] * XR Knee Right 1 or 2 View (11/17/2024 1:49 PM CDT) Anatomical Region Laterality Modality Lower Extremities, Knee Right Computed Radiography 11/17/2024 2:00 PM CDT Impressions 11/17/2024 2:00 PM CDT Interval explantation of the previous total right knee arthroplasty with placement of antibiotic spacer and antibiotic beads Electronically signed by: Bill Larios MD Narrative 11/17/2024 2:00 PM CDT EXAMINATION: XR KNEE RIGHT 1 OR 2 VIEWS HISTORY: Infected right knee arthroplasty FINDINGS: Comparison dated 11/03/2024. There has been interval explantation of the previous total right knee arthroplasty with placement of antibiotic spacer and antibiotic beads. Soft tissue gas is present. No periprosthetic fracture. Moderate soft tissue swelling. Procedure Note Bill Larios MD - 11/17/2024 EXAMINATION: XR KNEE RIGHT 1 OR 2 VIEWS HISTORY: Infected right knee arthroplasty FINDINGS: Comparison dated 11/03/2024. There has been interval explantation of the previous total right knee arthroplasty with placement of antibiotic spacer and antibiotic beads. Soft tissue gas is present. No periprosthetic fracture. Moderate soft tissue swelling. IMPRESSION: Interval explantation of the previous total right knee arthroplasty with placement of antibiotic spacer and antibiotic beads Electronically signed by: Bill Larios MD Macario Cai MD IMG XR PROCEDURES Final R esult * Tissue aerobic and anaerobic culture and gram stain Tissue Knee, right (11/17/2024 12:15 PM CDT) Direct Specimen Exam Stain: Moderate polymorphonuclear leukocytes seen. No organisms seen. Comment:Testing performed by : [facility], [address] [place] [address]., [id number] Report Final Report: No growth DOUGLAS SANDERS Comment:Testing performed by : [facility], [address] [place] [address]., [id number] Tissue (Knee, right) 11/17/2024 12:15 PM CDT 11/17/2024 2:28 PM CDT Narrative DOUGLAS SANDERS - 11/22/2024 2:00 PM CDT 3.) right knee femoral canal us Arya Gomez MD LAB MICROBIOLOGY - GENERA L ORDERABLES Final Result Performing Organization Address [facility] Co de Phone Number DOUGLAS RICEWCH [address] [place] [address] * Tissue aerobic and anaerobic culture and gram stain Tissue Knee, right (11/17/2024 12:15 PM CDT) Direct Specimen Exam Stain: Few polymorphonuclear leukocytes seen. No organisms seen. Comment:Testing performed by : [facility], [address] [place] [address]., [id number] Report Final Report: No growth DOUGLAS SANDERS Comment:Testing performed by : [facility], [address] [place] [address]., [id number] Tissue (Knee, right) 11/17/2024 12:15 PM CDT 11/17/2024 2:28 PM CDT Narrative DOUGLAS SANDERS - 11/22/2024 2:00 PM CDT 2.) right knee femoral membrane us Arya Gomez MD LAB MICROBIOLOGY - GENERA L ORDERABLES Final Result Performing Organization Address [facility]/ZIP Co de Phone Number DOUGLAS RICEWCH [address] [place] [address] * Tissue aerobic and anaerobic culture and gram stain Biopsy Knee, right (11/17/2024 12:15 PM CDT) Direct Specimen Exam Stain: Few polymorphonuclear leukocytes seen. No organisms seen. Comment:Testing performed by : [facility], [address] [place] [address]., [id number] Report Final Report: No growth DOUGLAS SANDERS Comment:Testing performed by : [facility], [address] [place] [address]., [id number] Biopsy (Knee, right) 11/17/2024 12:15 PM CDT 11/17/2024 2:40 PM CDT Andrés SANDERS - 11/22/2024 2:00 PM CDT Right knee synovium us Arya Gomez MD LAB MICROBIOLOGY - GENERA L ORDERABLES Final Result [facility] [address] [facility] Department [place] [address] * [place] AN PROCEDURE PLACEHOLDER (11/17/2024 10:53 AM CDT) Narrative Jessica Blunt MD - 11/17/2024 10:53 AM CDT Jessica Blunt MD 11/17/2024 10:53 AM Peripheral Block Patient location during procedure: pre-op holding Reason for block: post-op pain management per surgeon request Ultrasound image in chart or stored: yes Block type: single shot Laterality: right Block type: saphenous nerve block - subsartorial approach Procedure prep: Preprocedure checklist: patient identified, procedure contraindications assessed, site marked, procedure consent, surgical consent, IV checked, risks, benefits and alternatives discussed, monitors and equipment checked and timeout performed Patient position: supine Procedure performed while patient: sedate with meaningful contact Monitoring: oximetry Supplemental O2: nasal cannula Prep solution: chlorhexidine/alcohol Peripheral nerve block: Technique: ultrasound guided Needle type: short-bevel and echogenic Needle gauge: 21 G Needle length: 80 mm Injection assessment: injection made incrementally with constant monitoring, local visualized surrounding nerve on ultrasound, negative aspiration for heme, no paresthesias noted, normal resistance to injection and see flowsheet for medication details Assessment: Block success: full evaluation pending Events: patient tolerated procedure well with no complications Jessica Blunt MD ANESTHESIA ORDERABLES Fi nal Result * FL AN PROCEDURE PLACEHOLDER (11/17/2024 10:53 AM CDT) Narrative Jessica Blunt MD - 11/17/2024 10:53 AM CDT Jessica Blunt MD 11/17/2024 10:53 AM Spinal Block Patient location: pre-op holding Reason for block: primary anesthetic Procedure prep: Preprocedure checklist: patient identified, procedure contraindications assessed, site marked, procedure consent, surgical consent, IV checked, risks, benefits and alternatives discussed, monitors and equipment checked and timeout performed Patient position: sitting Procedure performed while patient: sedate with meaningful contact Monitoring: oximetry and blood pressure Supplemental O2: nasal cannula Prep solution: chlorhexadine/alcohol PPE: sterile gloves, provider hat/mask and sterile drape Skin infiltrated with lidocaine 1%: yes Spinal: Approach: midline Introducer used: yes Location: L2-3 Spinal injection: CSF demonstrated, no aspiration of heme and no paresthesias noted Number of attempts: 1 Spinal Needle: Needle type: Ashley Jasvir (Ashley Jasvir) Needle gauge: 24 G Needle length: 9 cm Assessment: Events: patient tolerated procedure well with no complications Result [facility] Jessica Blunt MD ANESTHESIA ORDERABLES Fi nal Result * Vitamin D 25 hydroxy (11/16/2024 8:58 AM CDT) Vitamin D 25-OH 56 30 - 80 ng/mL Blood 11/16/2024 8:58 AM CDT 11/16/2024 9:23 AM CDT Arya Gomez MD LAB BLOOD ORDERABLES Jasmin hickman Result [facility] Department [place] [address] * (ABNORMAL) Aerobic and anaerobic culture and gram stain Synovial fluid Knee, right (11/14/2024 2:02PM CDT) Direct Specimen Exam Stain: Cytospin Gram stain shows: Abundant polymorphonuclear leukocytes seen. Other cellular material present. No organisms seen. Report Final Report: Rare Staphylococcus aureus[1] Methicillin susceptible (MSSA) by penicillin binding protein 2a (PBP2a) testing. (1) Staphylococcus aureus was initially reported as Gram Positive Cocci. (.) [facility] Organism STAPHYLOCOCCUS AUREUS [facility] Synovial fluid (Knee, right) 11/14/2024 2:02 PM CDT 11/14/2024 2:03 PM CDT Narrative [facility] - 11/21/2024 12:52 PM CDT Fluid specimen received in anaerobic transport media. x2 Tubes Testing performed by [facility] Microbiology Laboratory ([phone]) Specimens submitted from normally sterile body sites will have all bacterial morphotypes identified. Specimens that contain grossly mixed judith and/or are from body sites that are not normally sterile will be examined for Staphylococcus aureus, Pseudomonas aeruginosa, beta-hemolytic strep, vancomycin-resistant Enterococcus, Bacteroides, Parabacteroides, Clostridium perfringens and fungus. If any of these are isolated, the organism will be reported. Current interpretive data was last revised on 2019. Organism Antibiotic Method Susceptibility Staphylococcus aureus Daptomycin (CHELSIE) (CHELSIE) INTERPRET ATION Susceptible Staphylococcus aureus Doxycycline (CHELSIE) INTERPRETATIO N Susceptible Staphylococcus aureus Linezolid (CHELSIE) INTERPRETATIO N Susceptible Staphylococcus aureus Trimethoprim with Sulfamethoxazole (CHELSIE) INTERPRETATION Susceptible Staphylococcus aureus Clindamycin (CHELSIE) INTERPRETATIO N Susceptible Staphylococcus aureus Erythromycin (CHELSIE) INTERPRETATIO N Susceptible Staphylococcus aureus Vancomycin (CHELSIE) INTERPRETATIO N Susceptible Staphylococcus aureus Oxacillin (CHELSIE) INTERPRETATIO N Susceptible Staphylococcus aureus Cefazolin (CHELSIE) INTERPRETATIO N Susceptible Staphylococcus aureus Ceftriaxone (CHELSIE) INTERPRETATIO N Susceptible Ewa RAI LAB MICROBIOLOGY - G ENERAL ORDERABLES Final Result [facility] Department [place] [address] * eGFR (11/14/2024 12:17 PM CDT) Pathologist [facility] eGFR 70 >=60 mL/min/1. 73 m2 Comment: Interpretive Data Reference Interval Normal >/= 90 mL/min/1.73m2 Mildly decreased* 60 - 89 mL/min/1.73m2 Mildly to moderately decreased 45 - 59 mL/min/1.73m2 Moderately to severely decreased 30 - 44 mL/min/1.73m2 Severely decreased 15 - 29 mL/min/1.73m2 Kidney Failure < 15 mL/min/1.73m2 *Relative to young adult level Estimated glomerular filtration rate is determined by the 2020 CKD-EPI equation recommended by the National Kidney Foundation (A Unifying Approach to GFR Estimation: Recommendations of the NKF-ASK Task Force on Reassessing the Inclusion of Race in Diagnosing Kidney Disease, JASN 2020). The CKD-EPI equation should not be used for patients with unstable renal function and has not been validated in children and those over 70. Current interpretive data was last reviewed 2021. Blood 11/14/2024 12:1 7 PM CDT 11/14/2024 12:31 PM CDT us Tatiana Fang MD LAB BLOOD ORDERABLES Final Result [facility] SANDERS [address] [facility]. [place] [address] * (ABNORMAL) Differential, auto (11/14/2024 12:17 PM CDT) Pathologist [facility] Neutrophil abs 3.0 1.5 - 6.5 K/cumm Imm gran abs 0.0 0.0 - 0.1 K/cumm [facility] Lymphocyte abs 1.6 0.8 - 3.3 K/cumm [facility] Monocyte abs 0.5 0.2 - 0.8 K/cumm [facility] Eosinophil abs 0.4 0.0 - 0.5 K/cumm [facility] Basophil abs 0.2(H) 0.0 - 0.1 K/cumm [facility] Neutrophil pct 52.4 % [facility] Comment: Interpretive Data Percent cell count reference ranges are not reported, since discordance with absolute values may lead to misinterpretation of CBC data. Current Interpretive Data was last revised on 2017. Imm gran pct 0.0 % [facility] Comment: Interpretive Data Percent cell count reference ranges are not reported, since discordance with absolute values may lead to misinterpretation of CBC data. Current Interpretive Data was last revised on 2017. Lymphocyte pct 28.6 % [facility] Comment: Interpretive Data Percent cell count reference ranges are not reported, since discordance with absolute values may lead to misinterpretation of CBC data. Current Interpretive Data was last revised on 2017. Monocyte pct 9.1 % [facility] Comment: Interpretive Data Percent cell count reference ranges are not reported, since discordance with absolute values may lead to misinterpretation of CBC data. Current Interpretive Data was last revised on 2017. Eosinophil pct 6.4 % [facility] Comment: Interpretive Data Percent cell count reference ranges are not reported, since discordance with absolute values may lead to misinterpretation of CBC data. Current Interpretive Data was last revised on 2017. Basophil pct 3.5 % [facility] S[facility] Comment: Interpretive Data Percent cell count reference ranges are not reported, since discordance with absolute values may lead to misinterpretation of CBC data. Current Interpretive Data was last revised on 2017. Blood 11/14/2024 12:1 7 PM CDT 11/14/2024 12:31 PM CDT us Tatiana Fang MD LAB BLOOD ORDERABLES Final Result [facility] ROME [address] [facility]. [place] [address] * (ABNORMAL) CBC with auto differential (11/14/2024 12:17 PM CDT) WBC 5.7 3.8 - 9.9 K/cumm Hgb 9.1(L) 11.9 - 15.5 g/dL [facility] Hct 29.0(L) 35.6 - 45.5 % [facility] S[facility] Plt 366 150 - 400 K/cumm [facility] MPV 10.1 9.1 - 12.3 fL [facility] RBC 3.51(L) 3.90 - 5.20 M/cumm [facility] MCV 82.6 81.3 - 96.4 fL [facility] MCH 25.9(L) 27.1 - 33.3 pg [facility] MCHC 31.4(L) 32.3 - 35.7 g/dL [facility]ICEW RDW CV 12.8 11.1 - 14.9 % [facility] RICEW RDW SD 38.5 35.7 - 48.1 fL [facility]ICE[facility] NRBC abs 0.00 0.00 - 0.01 K/cumm [facility] Blood 11/14/2024 12:1 7 PM CDT 11/14/2024 12:31 PM CDT Tatiana Fang MD LAB BLOOD ORDERABLES Final Result Performing Organization Address [facility] de Phone Number [facility] PETERCH [address] [address] [facility] [employer] [place], [place] [id number] * Erythrocyte sedimentation rate (11/14/2024 12:17 PM CDT) Pathologist [facility] Erythrocyte sedimentation rate 17 1 - 30 mm/hr Blood 11/14/2024 12:1 7 PM CDT 11/14/2024 12:31 PM CDT Tatiana Fang MD LAB BLOOD ORDERABLES Final Result Performing Organization Address [facility] de Phone Number [facility]AS RICECH [address] [address] [facility] [place] [address] * CRP (acute phase) (11/14/2024 12:17 PM CDT) Pathologist [facility] CRP 3.9 <=10.0 mg/L Blood 11/14/2024 12:1 7 PM CDT 11/14/2024 12:31 PM CDT us Tatiana Fang MD LAB BLOOD ORDERABLES Final Result [facility] SANDERS [address] [address] [place] [address] * Comprehensive metabolic panel (11/14/2024 12:17 PM CDT) Sodium 137 135 - 145 mmol/L Potassium, pl 4.6 3.3 - 4.9 mmol/L [facility] Chloride 100 97 - 110 mmol/L [facility] CO2 27 22 - 32 mmol/L [facility] Anion gap 10 2 - 15 mmol/L [facility] BUN 21 6 - 25 mg/dL [facility] Creatinine 0.96 0.60 - 1.10 mg/dL [facility] Glucose 100 70 - 199 mg/dL [facility] Comment: Interpretive Data Fasting glucose >/= 126 mg/dl is diagnostic for diabetes. Fasting is defined as no caloric intake for at least 8 hours. Fasting glucose between 100 mg/dl to 125 mg/dl is diagnostic of prediabetes. In a patient with classic symptoms of hyperglycemia or hyperglycemic crisis, a random glucose >/= 200 mg/dl is diagnostic for diabetes. In the absence of unequivocal hyperglycemia, results should be confirmed by repeat testing. The classification and Diagnosis of Diabetes Diabetes Care 202; 46: S19-S40. Current interpretive data was last revised 2022. Calcium 9.3 8.5 - 10.3 mg/dL [facility] Bilirubin, total 0.2 0.1 - 1.2 mg/dL [facility] Protein, pl 7.2 6.5 - 8.5 g/dL [facility] Albumin 4.2 3.5 - 5.0 g/dL [facility] Alk phos 89 40 - 130 Units/L [facility] ALT 16 7 - 45 Units/L [facility] AST 26 10 - 45 Units/L [facility] Blood 11/14/2024 12:1 7 PM CDT 11/14/2024 12:31 PM CDT Tatiana Fang MD LAB BLOOD ORDERABLES Final Result [facility] R[facility]CH [address] [address] [facility]. [facility] [place] [address] * Crystal Analysis, Body Fluid (11/14/2024 12:00 PM CDT) Pathologist [facility] Specimen type, fld Synovial Crystals None Seen None Seen [facility] Fluid 11/14/2024 12:0 0 PM CDT 11/14/2024 1:48 PM CDT Ewa RAI LAB BODY FLUIDS AND STOOLS ORDERABLES Final Result Performing Organization Address [facility] [place] [address] * Cell Differential, Body Fluid (11/14/2024 12:00 PM CDT) [facility] Total cells diffed 100 cells Comment: Interpretive Data Unless otherwise specified, the reference range and other method performance specifications have not been established for CSF/Body Fluid tests. The test results should be integrated into the clinical context for interpretation. Current interpretive data was last revised on 2019. Neutrophils, fld 96 % [facility] Lymphs, fld 2 % [facility] Monocyte, fld 2 % [facility] Specimen type, fld Synovial [facility] Fluid 11/14/2024 12:0 0 PM CDT 11/14/2024 1:48 PM CDT us Notinfile Unknown LAB BODY FLUIDS AND STOOLS ORD ERABLES Final Result Performing Organization Address [facility] Co [place] [address] * (ABNORMAL) Cell count w/rflx diff, body fluid (11/14/2024 12:00 PM CDT) Specimen type, fld Synovial Color, fld Red [facility] Clarity, fld Cloudy(A) Clear [facility] Nucleated cells, fld 923 /cumm [facility] Comment: Interpretive Data Unless otherwise specified, the reference range and other method performance specifications have not been established for CSF/Body Fluid tests. The test results should be integrated into the clinical context for interpretation. Current interpretive data was last revised on 2019. RBC, fld 0 /cumm [facility] Fluid 11/14/2024 12:0 0 PM CDT 11/14/2024 1:48 PM CDT Narrative [facility] - 11/14/2024 2:53 PM CDT Manual count Ewa RAI LAB BODY FLUIDS AND STOOLS ORDERABLES Final Result [facility] [place] [address] * [place] ARTHROCENTESIS ASPIR&/INJ MAJOR JT/BURSA W/O US (11/14/2024 11:15 AM CDT) Narrative Ewa Zepeda PA - 11/14/2024 11:15 AM CDT Ewa Zepeda PA 11/15/2024 2:09 PM JOINT ASPIRATION Performed by: Ewa Zepeda PA Authorized by: Ewa Zepeda PA Indications: Pain Body area: Knee Joint: Right knee Local anesthesia used?: No Preparation: Patient was prepped and draped in usual sterile fashion Prep: patient was prepped using a clean technique Needle size: 18 G Approach: Superior lateral. Aspirate amount (ml): 20 Aspirate: Bloody patient tolerated the procedure well with no immediate complications us Ewa RAI IN CLINIC/BEDSIDE OR DERABLES Edited Result - Final * Synovasure (11/14/2024) Synovial fluid 11/14/2024 Ewa RAI LAB BODY FLUIDS AND STOOLS ORDERABLES Final Result EXTERNAL LAB * XR Knee Right 3 Views (11/03/2024 11:35 AM CDT) Anatomical Region Laterality Modality Lower Extremities, Knee Right Computed Radiography 11/03/2024 11:4 5 AM CDT Impressions 11/03/2024 11:45 AM CDT 1. Right total knee arthroplasty in unchanged, near anatomic position. Electronically signed by: Blayne Cook M.D. Narrative 11/03/2024 11:45 AM CDT EXAMINATION: XR KNEE RIGHT 3 VIEWS HISTORY: Right knee pain FINDINGS: 3 view examination the right knee on 4 images is compared with a study from 09/23/2024. Soft tissue gas has resolved right total knee arthroplasty remains in near-anatomic position. There is no fracture or component migration. Procedure Note Blayne Cook MD - 11/03/2024 EXAMINATION: XR KNEE RIGHT 3 VIEWS HISTORY: Right knee pain FINDINGS: 3 view examination the right knee on 4 images is compared with a study from 09/23/2024. Soft tissue gas has resolved right total knee arthroplasty remains in near-anatomic position. There is no fracture or component migration. IMPRESSION: 1. Right total knee arthroplasty in unchanged, near anatomic position. Electronically signed by: Blayne Cook M.D. Arya Gomez MD IMG XR PROCEDURES Final R esult * Blood culture Blood (10/16/2024 11:52 AM PIPE LINE MAINTENANCE SUPERVISOR) Report Final Report: No growth Comment:Testing performed by : [facility], [address], [place]., [address] Blood 10/16/2024 11:5 2 AM PIPE LINE MAINTENANCE SUPERVISOR 10/16/2024 3:54 PM PIPE LINE MAINTENANCE SUPERVISOR Narrative [facility] - 10/22/2024 7:01 AM PIPE LINE MAINTENANCE SUPERVISOR Interpretive Data 1. Blood cultures are incubated and monitored continuously for 5 days (120 hours). The first negative report is issued within 24 hours of receipt in the laboratory. 2. All positive cultures are resulted and called to physicians/care providers as soon as they are detected. 3. A rapid molecular test for organism identification may be performed using the [employer] Blood Culture Identification panel. This assay detects microbial DNA in a blood culture broth. This assay has been cleared by the [place] Food and Drug Administration and its performance characteristics have been verified by the [facility] Microbiology Laboratory. Interpretive data was last revised on September 24, 2022. Tatiana Fang MD LAB MICROBIOLOGY - GENERAL ORDERABLES Final Result [facility] [address] [address] [address] * eGFR (10/16/2024 11:46 AM PIPE LINE MAINTENANCE SUPERVISOR) eGFR >90 >=60 mL/min/1. 73 m2 Comment: Interpretive Data Reference Interval Normal >/= 90 mL/min/1.73m2 Mildly decreased* 60 - 89 mL/min/1.73m2 Mildly to moderately decreased 45 - 59 mL/min/1.73m2 Moderately to severely decreased 30 - 44 mL/min/1.73m2 Severely decreased 15 - 29 mL/min/1.73m2 Kidney Failure < 15 mL/min/1.73m2 *Relative to young adult level Estimated glomerular filtration rate is determined by the 2020 CKD-EPI equation recommended by the National Kidney Foundation (A Unifying Approach to GFR Estimation: Recommendations of the NKF-ASK Task Force on Reassessing the Inclusion of Race in Diagnosing Kidney Disease, JASN 2020). The CKD-EPI equation should not be used for patients with unstable renal function and has not been validated in children and those over 70. Current interpretive data was last reviewed 2021. Blood 10/16/2024 11:4 6 AM PIPE LINE MAINTENANCE SUPERVISOR 10/16/2024 11:59 AM PIPE LINE MAINTENANCE SUPERVISOR Tatiana Fang MD LAB BLOOD ORDERABLES Final Result [facility] [address] [facility]. [place] [address] * Differential, auto (10/16/2024 11:46 AM PIPE LINE MAINTENANCE SUPERVISOR) Neutrophil abs 4.8 1.5 - 6.5 K/cumm Imm gran abs 0.0 0.0 - 0.1 K/cumm [facility] Lymphocyte abs 1.4 0.8 - 3.3 K/cumm [facility] Monocyte abs 0.4 0.2 - 0.8 K/cumm [facility] Eosinophil abs 0.3 0.0 - 0.5 K/cumm [facility] Basophil abs 0.1 0.0 - 0.1 K/cumm [facility] Neutrophil pct 67.6 % [facility] Comment: Interpretive Data Percent cell count reference ranges are not reported, since discordance with absolute values may lead to misinterpretation of CBC data. Current Interpretive Data was last revised on 2017. Imm gran pct 0.3 % [facility]ST. [facility] Comment: Interpretive Data Percent cell count reference ranges are not reported, since discordance with absolute values may lead to misinterpretation of CBC data. Current Interpretive Data was last revised on 2017. Lymphocyte pct 20.3 % [facility] Comment: Interpretive Data Percent cell count reference ranges are not reported, since discordance with absolute values may lead to misinterpretation of CBC data. Current Interpretive Data was last revised on 2017. Monocyte pct 6.1 % [facility]. [facility] Comment: Interpretive Data Percent cell count reference ranges are not reported, since discordance with absolute values may lead to misinterpretation of CBC data. Current Interpretive Data was last revised on 2017. Eosinophil pct 3.7 % [facility] Comment: Interpretive Data Percent cell count reference ranges are not reported, since discordance with absolute values may lead to misinterpretation of CBC data. Current Interpretive Data was last revised on 2017. Basophil pct 2.0 % [facility]. [facility] Comment: Interpretive Data Percent cell count reference ranges are not reported, since discordance with absolute values may lead to misinterpretation of CBC data. Current Interpretive Data was last revised on 2017. Blood 10/16/2024 11:4 6 AM PIPE LINE MAINTENANCE SUPERVISOR 10/16/2024 11:59 AM PIPE LINE MAINTENANCE SUPERVISOR us Tatiana Fang MD LAB BLOOD ORDERABLES Final Result Performing Organization Address [facility] Co de Phone Number DOUGLAS SANDERS [address] [facility] [address] * (ABNORMAL) CBC with auto differential (10/16/2024 11:46 AM PIPE LINE MAINTENANCE SUPERVISOR) WBC 7.1 3.8 - 9.9 K/cumm Hgb 10.9(L) 11.9 - 15.5 g/dL [facility] Hct 34.7(L) 35.6 - 45.5 % [facility] Plt 560(H) 150 - 400 K/cumm [facility] MPV 9.7 9.1 - 12.3 fL [facility] RBC 3.99 3.90 - 5.20 M/cumm [facility] MCV 87.0 81.3 - 96.4 fL [facility] MCH 27.3 27.1 - 33.3 pg [facility] MCHC 31.4(L) 32.3 - 35.7 g/dL [facility] R[facility] CV 13.6 11.1 - 14.9 % [facility] RDW SD 43.1 35.7 - 48.1 fL [facility] NRBC abs 0.00 0.00 - 0.01 K/cumm [facility] Blood 10/16/2024 11:4 6 AM PIPE LINE MAINTENANCE SUPERVISOR 10/16/2024 11:59 AM PIPE LINE MAINTENANCE SUPERVISOR us Tatiana Fang MD LAB BLOOD ORDERABLES Final Result Performing Organization Address [facility]/ZIP Co de Phone Number DOUGLAS SANDERS [address] [address] [facility] [employer] [place], [place] [id number] * Blood culture Blood (10/16/2024 11:46 AM PIPE LINE MAINTENANCE SUPERVISOR) Report Final Report: No growth Comment:Testing performed by : [facility], [facility] [address], [place]., [address] Blood 10/16/2024 11:4 6 AM PIPE LINE MAINTENANCE SUPERVISOR 10/16/2024 3:54 PM PIPE LINE MAINTENANCE SUPERVISOR Narrative DOUGLAS PETERCH - 10/22/2024 7:01 AM PIPE LINE MAINTENANCE SUPERVISOR Interpretive Data 1. Blood cultures are incubated and monitored continuously for 5 days (120 hours). The first negative report is issued within 24 hours of receipt in the laboratory. 2. All positive cultures are resulted and called to physicians/care providers as soon as they are detected. 3. A rapid molecular test for organism identification may be performed using the [employer] Blood Culture Identification panel. This assay detects microbial DNA in a blood culture broth. This assay has been cleared by the [place] Food and Drug Administration and its performance characteristics have been verified by the [facility] Microbiology Laboratory. Interpretive data was last revised on September 24, 2022. Tatiana Fang MD LAB MICROBIOLOGY - GENERAL ORDERABLES Final Result Performing Organization Address City/[facility] Co de Phone Number [facility] [address] [place] [address] * (ABNORMAL) Erythrocyte sedimentation rate (10/16/2024 11:46 AM PIPE LINE MAINTENANCE SUPERVISOR) Erythrocyte sedimentation rate 36(H) 1 - 30 mm/hr Blood 10/16/2024 11:4 6 AM PIPE LINE MAINTENANCE SUPERVISOR 10/16/2024 11:59 AM PIPE LINE MAINTENANCE SUPERVISOR Tatiana Fang MD LAB BLOOD ORDERABLES Final Result Performing Organization Address City/[facility] Co de Phone Number [facility] [address] [address]. [facility] [place] [address] * CRP (acute phase) (10/16/2024 11:46 AM PIPE LINE MAINTENANCE SUPERVISOR) CRP 3.0 <=10.0 mg/L Blood 10/16/2024 11:4 6 AM PIPE LINE MAINTENANCE SUPERVISOR 10/16/2024 11:59 AM PIPE LINE MAINTENANCE SUPERVISOR us Tatiana Fang MD LAB BLOOD ORDERABLES Final Result DOUGLAS SANDERS [address] [address] [place] [address] * (ABNORMAL) Comprehensive metabolic panel (10/16/2024 11:46 AM PIPE LINE MAINTENANCE SUPERVISOR) Sodium 141 135 - 145 mmol/L Potassium, pl 4.3 3.3 - 4.9 mmol/L [facility] Chloride 101 97 - 110 mmol/L [facility] CO2 26 22 - 32 mmol/L [facility] Anion gap 14 2 - 15 mmol/L [facility] BUN 17 6 - 25 mg/dL [facility] Creatinine 0.71 0.60 - 1.10 mg/dL [facility] Glucose 121 70 - 199 mg/dL [facility] Comment: Interpretive Data Fasting glucose >/= 126 mg/dl is diagnostic for diabetes. Fasting is defined as no caloric intake for at least 8 hours. Fasting glucose between 100 mg/dl to 125 mg/dl is diagnostic of prediabetes. In a patient with classic symptoms of hyperglycemia or hyperglycemic crisis, a random glucose >/= 200 mg/dl is diagnostic for diabetes. In the absence of unequivocal hyperglycemia, results should be confirmed by repeat testing. The classification and Diagnosis of Diabetes Diabetes Care 2021; 46: S19-S40. Current interpretive data was last revised 2022. Calcium 9.9 8.5 - 10.3 mg/dL [facility] Bilirubin, total 0.2 0.1 - 1.2 mg/dL [facility] Protein, pl 8.0 6.5 - 8.5 g/dL [facility] Albumin 4.0 3.5 - 5.0 g/dL [facility] Alk phos 138(H) 40 - 130 Units/L [facility] ALT 7 7 - 45 Units/L [facility] AST 17 10 - 45 Units/L [facility] Blood 10/16/2024 11:4 6 AM PIPE LINE MAINTENANCE SUPERVISOR 10/16/2024 11:59 AM PIPE LINE MAINTENANCE SUPERVISOR us Tatiana Fang MD LAB BLOOD ORDERABLES Final Result [facility] [address] Department of Laboratories [place], [place] [id number] * US Venous Lower Extremity Right (10/10/2024 10:53 AM PIPE LINE MAINTENANCE SUPERVISOR) Anatomical Region Laterality Modality Vascular Right Ultrasound 10/10/2024 10:3 4 AM PIPE LINE MAINTENANCE SUPERVISOR Narrative 10/10/2024 12:24 PM PIPE LINE MAINTENANCE SUPERVISOR [employer] [facility] - Department of Vascular Surgery, Vascular Laboratory [address] [place] [id number] Lower Extremity Venous Ultrasound Report Patient Name: JOYCE TOMPKINS : 1970 (54y 5m) Study Date: 10/10/2024 10:34:42 AM Gender: F Tech: DB Location: [facility] Provider: ARYA GOMEZ Quality: Adequate Order Provider: ARYA GOMEZ PROCEDURES: Vascular Report: Venous Duplex imaging was performed in the right lower extremity. The common femoral, femoral, popliteal, posterior tibial, peroneal veins were evaluated for patency, spontaneity and phasicity with Doppler, compression and augmentation maneuvers. Great saphenous vein proximal at the junction was evaluated with compression maneuvers. INDICATIONS: M79.661 Pain in right lower leg and M79.89 Other specified soft tissue disorders. Pain and swelling of right lower leg. FINDINGS: Performing Paint Mixer Machine: Cierra Escobar RVT. Right: Venous Doppler signals in the right lower extremity are within normal limits for spontaneity and phasicity and respond normally to augmentation maneuvers. No evidence of deep vein thrombus by duplex, proximal to the calf. Comments: Contralateral common femoral vein is imaged for comparison and is patent. Unilateral (limited study) performed per M.D. order. CONCLUSIONS: 1. There is no evidence of acute deep vein thrombosis on the right. No evidence of deep vein obstruction in the calf veins. HISTORY: Right calf pain post knee surgery. PREVIOUS STUDIES: Previous study performed on 09/23/24 at [facility]- negative. DISCLAIMER: The study images and the final report will be retained in the patient chart by the Vascular Laboratory for the legally required time period. This chart constitutes the legal record of any testing performed. ATTESTATION: I have reviewed and interpreted the pertinent images and measurements of this study. I attest to the conclusions in the final report that is provided above. Electronically Signed By: Gary French MD FACS 10/10/2024 11:46:30 AM PIPE LINE MAINTENANCE SUPERVISOR Procedure Note Gary French MD - 10/10/2024 [facility] - Department of Vascular Surgery,Vascular Laboratory [address] [place] [address] Lower Extremity Venous Ultrasound Report Patient Name: JOYCE TOMPKINS : 1970 (54y 5m) Study Date: 10/10/2024 10:34:42 AM Gender: F Tech: DB Location: [facility] Ref Provider: ARYA GOMZE Quality: Adequate Order Provider: ARYA GOMEZ PROCEDURES: Vascular Report: Venous Duplex imaging was performed in the right lower extremity. Thecommon femoral, femoral, popliteal, posterior tibial, peroneal veins were evaluated forpatency, spontaneity and phasicity with Doppler, compression and augmentationmaneuvers. Great saphenous vein proximal at the junction was evaluated with compressionmaneuvers. INDICATIONS: M79.661 Pain in right lower leg and M79.89 Other specified soft tissuedisorders. Pain and swelling of right lower leg. FINDINGS: Performing Paint Mixer Machine: Cierra Escobar RVT. Right: Venous Doppler signals in the right lower extremity are within normallimits for spontaneity and phasicity and respond normally to augmentation maneuvers.No evidence of deep vein thrombus by duplex, proximal to the calf. Comments: Contralateral common femoral vein is imaged for comparison and is patent.Unilateral (limited study) performed per M.D. order. CONCLUSIONS: 1. There is no evidence of acute deep vein thrombosis on the right. Noevidence of deep vein obstruction in the calf veins. HISTORY: Right calf pain post knee surgery. PREVIOUS STUDIES: Previous study performed on 09/23/24 at [facility]- negative. DISCLAIMER: The study images and the final report will be retained in the patientchart by the Vascular Laboratory for the legally required time period. This chartconstitutes the legal record of any testing performed. ATTESTATION: I have reviewed and interpreted the pertinent images and measurements ofthis study. I attest to the conclusions in the final report that is provided above. Electronically Signed By: Gary French MD, FACS 10/10/2024 11:46:30 AM PIPE LINE MAINTENANCE SUPERVISOR us Arya Gomez MD IMG US PROCEDURES Final R esult * (ABNORMAL) Urinalysis reflex to microscopic and culture Urine (09/29/2024 4:26 PM PIPE LINE MAINTENANCE SUPERVISOR) Color, ur Straw Yellow Clarity, ur Turbid(A) Clear [facility] Specific gravity, ur >1.030(H) 1.003 - 1.030 [facility] pH, urine 8.0 [facility] Comment: Interpretive Data U rine pH is affected by diet, medications, systemic acid-base disturbances, and renal tubular function. pH may affect urinary stone formation. For example, urine pH below 6.0 may help reduce the tendency for calcium phosphate stones and pH greater than 6.0 may reduce the tendency for uric acid stone formation. Source: [facility] Current Interpretive Data was last revised on 2017 Protein, ur ql Negative Negative [facility] Glucose, ur ql Negative Negative [facility] Ketones, ur Negative Negative [facility] Bilirubin, ur Negative Negative [facility] Blood, ur Negative Negative [facility] Urobilinogen, ur <2.0 <2.0 mg/dL [facility] Nitrite, ur Negative Negative [facility] Leukocyte esterase, ur Negative Negative [facility] UA reflex comment Reflex conditions for microscopic UA and culture not met. [facility] Urine 09/29/2024 4:26 PM PIPE LINE MAINTENANCE SUPERVISOR 09/29/2024 4:34 PM PIPE LINE MAINTENANCE SUPERVISOR Narrative [facility] - 09/29/2024 5:29 PM PIPE LINE MAINTENANCE SUPERVISOR If patient unable to urinate, straight cath us Jeana Bryan MD LAB MICROBIOLOGY - GENERAL ORDER GUANAKO Final Result [facility] [address] [facility]. [place] [address] * CT Chest PE (CTA) W Contrast (09/29/2024 4:02 PM PIPE LINE MAINTENANCE SUPERVISOR) Anatomical Region Laterality Modality Body N/A Computed Tomogra phy 09/29/2024 4:25 PM PIPE LINE MAINTENANCE SUPERVISOR Impressions 09/29/2024 4:25 PM PIPE LINE MAINTENANCE SUPERVISOR 1. No evidence of acute pulmonary embolism. 2. No acute cardiopulmonary process. Electronically signed by: Abbie Cowart M.D. Narrative 09/29/2024 4:25 PM PIPE LINE MAINTENANCE SUPERVISOR EXAMINATION: CT CHEST PE (CTA) W CONTRAST HISTORY: Suspected pulmonary embolism. History of right knee washout with evidence of infection started on long-term antibiotics. TECHNIQUE: Computed tomographic images were acquired using a chest angiographic protocol optimized for pulmonary embolism. Contrast enhanced transaxial images were obtained following the intravenous administration of 100 ml of nonionic contrast. Multiplanar reformatted images and three-dimensional images were obtained on the 3-D workstation and sent to the PACS archival system. COMPARISON: None FINDINGS: No acute pulmonary embolism. Main pulmonary arteries normal in caliber. Thoracic aorta is normal in caliber without atherosclerosis. There is a three-vessel arch. The heart is normal in size without pericardial effusion. There is a right-sided PICC line which terminates within the upper SVC. Bibasilar atelectasis. Lungs are otherwise clear. Thyroid gland is normal. Esophagus is normal. No lymphadenopathy. No acute upper abdominal process. No suspicious osseous lesions. CT imaging evidence of right heart strain: No Procedure Note Abbie Cowart MD - 09/29/2024 EXAMINATION: CT CHEST PE (CTA) W CONTRAST HISTORY: Suspected pulmonary embolism. History of right knee washout with evidence of infection started on long-term antibiotics. TECHNIQUE: Computed tomographic images were acquired using a chest angiographic protocol optimized for pulmonary embolism. Contrast enhanced transaxial images were obtained following the intravenous administration of 100 ml of nonionic contrast. Multiplanar reformatted images and three-dimensional images were obtained on the 3-D workstation and sent to the PACS archival system. COMPARISON: None FINDINGS: No acute pulmonary embolism. Main pulmonary arteries normal in caliber. Thoracic aorta is normal in caliber without atherosclerosis. There is a three-vessel arch. The heart is normal in size without pericardial effusion. There is a right-sided PICC line which terminates within the upper SVC. Bibasilar atelectasis. Lungs are otherwise clear. Thyroid gland is normal. Esophagus is normal. No lymphadenopathy. No acute upper abdominal process. No suspicious osseous lesions. CT imaging evidence of right heart strain: No IMPRESSION: 1. No evidence of acute pulmonary embolism. 2. No acute cardiopulmonary process. Electronically signed by: Abbie Cowart M.D. Jeana Bryan MD IMG CT PROCEDURES Final Result * Blood culture Blood Peripheral (09/29/2024 4:01 PM PIPE LINE MAINTENANCE SUPERVISOR) Report Final Report: No growth Comment:Testing performed by : [facility], [address] [place] [address]., [id number] Blood (Peripheral) 09/29/2024 4:01 PM PIPE LINE MAINTENANCE SUPERVISOR 09/29/2024 6:04 PM PIPE LINE MAINTENANCE SUPERVISOR Andrés DOUGLAS TOMMY - 10/05/2024 7:01 AM PIPE LINE MAINTENANCE SUPERVISOR From a different site than #1. Draw Blood cultures before administration of Antibiotics Collection->Peripheral Interpretive Data 1. Blood cultures are incubated and monitored continuously for 5 days (120 hours). The first negative report is issued within 24 hours of receipt in the laboratory. 2. All positive cultures are resulted and called to physicians/care providers as soon as they are detected. 3. A rapid molecular test for organism identification may be performed using the [employer] Blood Culture Identification panel. This assay detects microbial DNA in a blood culture broth. This assay has been cleared by the [place] Food and Drug Administration and its performance characteristics have been verified by the [facility]. Interpretive data was last revised on September 24, 2022. Jeana Bryan MD LAB MICROBIOLOGY - GENERAL ORDER GUANAKO Final Result [facility] [address] [facility]. [place] [address] * Blood culture Blood Peripheral (09/29/2024 4:01 PM PIPE LINE MAINTENANCE SUPERVISOR) Report Final Report: No growth Comment:Testing performed by : [facility], [address] [place] [address], [place]., [address] Blood (Peripheral) 09/29/2024 4:01 PM PIPE LINE MAINTENANCE SUPERVISOR 09/29/2024 6:04 PM PIPE LINE MAINTENANCE SUPERVISOR Narrative DOUGLAS SANDERS - 10/05/2024 7:01 AM PIPE LINE MAINTENANCE SUPERVISOR Draw Blood cultures before administration of Antibiotics Collection->Peripheral Interpretive Data 1. Blood cultures are incubated and monitored continuously for 5 days (120 hours). The first negative report is issued within 24 hours of receipt in the laboratory. 2. All positive cultures are resulted and called to physicians/care providers as soon as they are detected. 3. A rapid molecular test for organism identification may be performed using the [employer] Blood Culture Identification panel. This assay detects microbial DNA in a blood culture broth. This assay has been cleared by the [place] Food and Drug Administration and its performance characteristics have been verified by the [facility]. Interpretive data was last revised on September 24, 2022. Jeana Bryan MD LAB MICROBIOLOGY - GENERAL ORDER GUANAKO Final Result [facility] [address] [facility] Department [place] [address] * XR Chest 1 Vw Portable (09/29/2024 3:43 PM PIPE LINE MAINTENANCE SUPERVISOR) Anatomical Region Laterality Modality Body, Chest N/A Computed Radiogr aphy 09/29/2024 3:48 PM PIPE LINE MAINTENANCE SUPERVISOR Impressions 09/29/2024 3:50 PM PIPE LINE MAINTENANCE SUPERVISOR Comparison is made to chest radiograph dated 09/26/2024. Interval placement of right upper extremity peripherally inserted central catheter with tip projecting over the superior cavoatrial junction. The cardiomediastinal silhouette is normal. No consolidation, pleural effusion, or pneumothorax. Dictated by: Brissa Byrd MD, PhD The radiology attending physician has personally reviewed this study, and had reviewed and/or edited this written report and agrees with it. Electronically signed by: Bryce Foy M.D. Narrative 09/29/2024 3:50 PM PIPE LINE MAINTENANCE SUPERVISOR EXAMINATION: 1 view chest radiograph Procedure Note Bryce Foy MD - 09/29/2024 EXAMINATION: 1 view chest radiograph IMPRESSION: Comparison is made to chest radiograph dated 09/26/2024. Interval placement of right upper extremity peripherally inserted central catheter with tip projecting over the superior cavoatrial junction. The cardiomediastinal silhouette is normal. No consolidation, pleural effusion, or pneumothorax. Dictated by: Brissa Byrd MD, PhD The radiology attending physician has personally reviewed this study, and had reviewed and/or edited this written report and agrees with it. Electronically signed by: Bryce Foy M.D. Jeana Bryan MD IMG XR PROCEDURES Final Result * Influenza A/B, RSV, and COVID-19 PCR Nasopharyngeal (09/29/2024 3:27 PM PIPE LINE MAINTENANCE SUPERVISOR) [facility] COVID-19 RNA Negative Negative Influenza A RNA Negative Negative [facility] Influenza B RNA Negative Negative [facility] RSV RNA Negative Negative [facility] Comment: Testing performed by [facility]. This test is performed using the [employer] Xpert Xpress CoV-2/Flu/RSV plus assay. This is a multiplex, real-time reverse transcriptase PCR assay intended for the qualitative detection of nucleic acid from SARS-CoV-2, influenza A, influenza B, and respiratory syncytial virus. This assay has been cleared by the [place] Food and Drug administration. The performance characteristics have been verified by the [facility]. Results must be considered in the clinical context, and a negative result does not rule out infection. Interpretive Data last revised 2023 Nasopharyngeal 09/29/2024 3: 27 PM PIPE LINE MAINTENANCE SUPERVISOR 09/29/2024 3:29 PM PIPE LINE MAINTENANCE SUPERVISOR Narrative [facility] - 09/29/2024 4:14 PM PIPE LINE MAINTENANCE SUPERVISOR Is the Patient experiencing symptoms consistent with COVID?->Yes Jeana Bryan MD LAB MICROBIOLOGY - GENERAL ORDER GUANAKO Final Result [facility] [address] [facility]. [place] [address] * (ABNORMAL) Sepsis Lactate w/ Reflex (09/29/2024 2:05 PM PIPE LINE MAINTENANCE SUPERVISOR) Sepsis Lactate 0.5(L) 0.7 - 2.0 mmol/L Blood 09/29/2024 2:05 PM PIPE LINE MAINTENANCE SUPERVISOR 09/29/2024 2:12 PM PIPE LINE MAINTENANCE SUPERVISOR Jeana Bryan MD LAB BLOOD ORDERABLES Final Resul t [facility] [address] [facility] [address] [place], [place] [id number] * eGFR (09/29/2024 2:05 PM PIPE LINE MAINTENANCE SUPERVISOR) eGFR >90 >=60 mL/min/1. 73 m2 Comment: Interpretive Data Reference Interval Normal >/= 90 mL/min/1.73m2 Mildly decreased* 60 - 89 mL/min/1.73m2 Mildly to moderately decreased 45 - 59 mL/min/1.73m2 Moderately to severely decreased 30 - 44 mL/min/1.73m2 Severely decreased 15 - 29 mL/min/1.73m2 Kidney Failure < 15 mL/min/1.73m2 *Relative to young adult level Estimated glomerular filtration rate is determined by the 2020 CKD-EPI equation recommended by the National Kidney Foundation (A Unifying Approach to GFR Estimation: Recommendations of the NKF-ASK Task Force on Reassessing the Inclusion of Race in Diagnosing Kidney Disease, JASN 2020). The CKD-EPI equation should not be used for patients with unstable renal function and has not been validated in children and those over 70. Current interpretive data was last reviewed 2021. Blood 09/29/2024 2:05 PM PIPE LINE MAINTENANCE SUPERVISOR 09/29/2024 2:12 PM PIPE LINE MAINTENANCE SUPERVISOR Jeana Bryan MD LAB BLOOD ORDERABLES Final Resul t [facility] [address] [facility] [place] [address] * Differential, auto (09/29/2024 2:05 PM PIPE LINE MAINTENANCE SUPERVISOR) Pathologist [facility] Neutrophil abs 5.7 1.5 - 6.5 K/cumm Imm gran abs 0.0 0.0 - 0.1 K/cumm [facility] Lymphocyte abs 1.2 0.8 - 3.3 K/cumm [facility] Monocyte abs 0.5 0.2 - 0.8 K/cumm [facility] Eosinophil abs 0.1 0.0 - 0.5 K/cumm [facility] Basophil abs 0.1 0.0 - 0.1 K/cumm [facility] Neutrophil pct 74.1 % [facility] Comment: Interpretive Data Percent cell count reference ranges are not reported, since discordance with absolute values may lead to misinterpretation of CBC data. Current Interpretive Data was last revised on 2017. Imm gran pct 0.4 % [facility] Comment: Interpretive Data Percent cell count reference ranges are not reported, since discordance with absolute values may lead to misinterpretation of CBC data. Current Interpretive Data was last revised on 2017. Lymphocyte pct 15.9 % [facility] Comment: Interpretive Data Percent cell count reference ranges are not reported, since discordance with absolute values may lead to misinterpretation of CBC data. Current Interpretive Data was last revised on 2017. Monocyte pct 7.0 % [facility] Comment: Interpretive Data Percent cell count reference ranges are not reported, since discordance with absolute values may lead to misinterpretation of CBC data. Current Interpretive Data was last revised on 2017. Eosinophil pct 1.7 % [facility] Comment: Interpretive Data Percent cell count reference ranges are not reported, since discordance with absolute values may lead to misinterpretation of CBC data. Current Interpretive Data was last revised on 2017. Basophil pct 0.9 % [facility] Comment: Interpretive Data Percent cell count reference ranges are not reported, since discordance with absolute values may lead to misinterpretation of CBC data. Current Interpretive Data was last revised on 2017. Blood 09/29/2024 2:05 PM PIPE LINE MAINTENANCE SUPERVISOR 09/29/2024 2:12 PM PIPE LINE MAINTENANCE SUPERVISOR us Jeana Bryan MD LAB BLOOD ORDERABLES Final Resul t [facility] [address] [place] [address] * (ABNORMAL) CBC with auto differential (09/29/2024 2:05 PM PIPE LINE MAINTENANCE SUPERVISOR) Pathologist [facility] WBC 7.6 3.8 - 9.9 K/cumm Hgb 9.1(L) 11.9 - 15.5 g/dL [facility] Hct 27.6(L) 35.6 - 45.5 % [facility] Plt 537(H) 150 - 400 K/cumm [facility] MPV 9.2 9.1 - 12.3 fL [facility] RBC 3.14(L) 3.90 - 5.20 M/cumm [facility] MCV 87.9 81.3 - 96.4 fL [facility] MCH 29.0 27.1 - 33.3 pg [facility] MCHC 33.0 32.3 - 35.7 g/dL [facility] RDW CV 14.3 11.1 - 14.9 % [facility] RDW SD 46.0 35.7 - 48.1 fL [facility] NRBC abs 0.00 0.00 - 0.01 K/cumm [facility] Blood 09/29/2024 2:05 PM PIPE LINE MAINTENANCE SUPERVISOR 09/29/2024 2:12 PM PIPE LINE MAINTENANCE SUPERVISOR Jeana Bryan MD LAB BLOOD ORDERABLES Final Resul t Performing Organization Address [facility] Co de Phone Number [facility] [address] [employer] [place] [address] * (ABNORMAL) Comprehensive metabolic panel (09/29/2024 2:05 PM PIPE LINE MAINTENANCE SUPERVISOR) Sodium 140 135 - 145 mmol/L Potassium, pl 3.7 3.3 - 4.9 mmol/L [facility] Chloride 102 97 - 110 mmol/L [facility] CO2 27 22 - 32 mmol/L [facility] Anion gap 11 2 - 15 mmol/L [facility] BUN 10 6 - 25 mg/dL [facility] Creatinine 0.50(L) 0.60 - 1.10 mg/dL [facility] Glucose 102 70 - 199 mg/dL [facility] Comment: Interpretive Data Fasting glucose >/= 126 mg/dl is diagnostic for diabetes. Fasting is defined as no caloric intake for at least 8 hours. Fasting glucose between 100 mg/dl to 125 mg/dl is diagnostic of prediabetes. In a patient with classic symptoms of hyperglycemia or hyperglycemic crisis, a random glucose >/= 200 mg/dl is diagnostic for diabetes. In the absence of unequivocal hyperglycemia, results should be confirmed by repeat testing. The classification and Diagnosis of Diabetes Diabetes Care 2021; 46: S19-S40. Current interpretive data was last revised 2022. Calcium 9.1 8.5 - 10.3 mg/dL [facility] Bilirubin, total 0.2 0.1 - 1.2 mg/dL [facility] Protein, pl 6.2(L) 6.5 - 8.5 g/dL [facility] Albumin 3.2(L) 3.5 - 5.0 g/dL [facility] Alk phos 142(H) 40 - 130 Units/L [facility] ALT 13 7 - 45 Units/L [facility] AST 20 10 - 45 Units/L [facility] Blood 09/29/2024 2:05 PM PIPE LINE MAINTENANCE SUPERVISOR 09/29/2024 2:12 PM PIPE LINE MAINTENANCE SUPERVISOR Jeana Bryan MD LAB BLOOD ORDERABLES Final Resul t D[facility] SANDERS [address] [facility]. [place] [address] * eGFR (09/28/2024 4:12 AM PIPE LINE MAINTENANCE SUPERVISOR) eGFR >90 >=60 mL/min/1. 73 m2 Comment: Interpretive Data Reference Interval Normal >/= 90 mL/min/1.73m2 Mildly decreased* 60 - 89 mL/min/1.73m2 Mildly to moderately decreased 45 - 59 mL/min/1.73m2 Moderately to severely decreased 30 - 44 mL/min/1.73m2 Severely decreased 15 - 29 mL/min/1.73m2 Kidney Failure < 15 mL/min/1.73m2 *Relative to young adult level Estimated glomerular filtration rate is determined by the 2020 CKD-EPI equation recommended by the National Kidney Foundation (A Unifying Approach to GFR Estimation: Recommendations of the NKF-ASK Task Force on Reassessing the Inclusion of Race in Diagnosing Kidney Disease, JASN 2020). The CKD-EPI equation should not be used for patients with unstable renal function and has not been validated in children and those over 70. Current interpretive data was last reviewed 2021. Blood 09/28/2024 4:12 AM PIPE LINE MAINTENANCE SUPERVISOR 09/28/2024 4:20 AM PIPE LINE MAINTENANCE SUPERVISOR us Isabella Guzman MD LAB BLOOD ORDERABLES Final Result [facility] [address] [facility] Department of Laboratories [place], [place] [id number] * (ABNORMAL) CBC without differential (09/28/2024 4:12 AM PIPE LINE MAINTENANCE SUPERVISOR) Pathologist [facility] WBC 9.0 3.8 - 9.9 K/cumm Hgb 8.5(L) 11.9 - 15.5 g/dL [facility] Hct 26.6(L) 35.6 - 45.5 % [facility] Plt 464(H) 150 - 400 K/cumm [facility] MPV 9.1 9.1 - 12.3 fL [facility] RBC 2.95(L) 3.90 - 5.20 M/cumm [facility] MCV 90.2 81.3 - 96.4 fL [facility] MCH 28.8 27.1 - 33.3 pg [facility] MCHC 32.0(L) 32.3 - 35.7 g/dL [facility] RDW CV 14.6 11.1 - 14.9 % [facility] RDW SD 48.1 35.7 - 48.1 fL [facility] NRBC abs 0.00 0.00 - 0.01 K/cumm [facility] Blood 09/28/2024 4:12 AM PIPE LINE MAINTENANCE SUPERVISOR 09/28/2024 4:20 AM PIPE LINE MAINTENANCE SUPERVISOR Isabella Guzman MD LAB BLOOD ORDERABLES Final Result Performing Organization Address [facility]/ZIP Co de Phone Number DOUGLAS SANDERS [id number] [place] [address] * (ABNORMAL) Basic metabolic panel (09/28/2024 4:12 AM PIPE LINE MAINTENANCE SUPERVISOR) Pathologist [facility] Sodium 138 135 - 145 mmol/L Potassium, pl 4.4 3.3 - 4.9 mmol/L [facility] Chloride 101 97 - 110 mmol/L [facility] CO2 29 22 - 32 mmol/L [facility] Anion gap 8 2 - 15 mmol/L [facility] BUN 19 6 - 25 mg/dL [facility] Creatinine 0.50(L) 0.60 - 1.10 mg/dL [facility] Glucose 91 70 - 199 mg/dL [facility] Comment: Interpretive Data Fasting glucose >/= 126 mg/dl is diagnostic for diabetes. Fasting is defined as no caloric intake for at least 8 hours. Fasting glucose between 100 mg/dl to 125 mg/dl is diagnostic of prediabetes. In a patient with classic symptoms of hyperglycemia or hyperglycemic crisis, a random glucose >/= 200 mg/dl is diagnostic for diabetes. In the absence of unequivocal hyperglycemia, results should be confirmed by repeat testing. The classification and Diagnosis of Diabetes Diabetes Care 2021; 46: S19-S40. Current interpretive data was last revised 2022. Calcium 8.8 8.5 - 10.3 mg/dL [facility] Blood 09/28/2024 4:12 AM PIPE LINE MAINTENANCE SUPERVISOR 09/28/2024 4:20 AM PIPE LINE MAINTENANCE SUPERVISOR Isabella Guzman MD LAB BLOOD ORDERABLES Final Result Performing Organization Address [facility] Co de Phone Number DOUGLAS PETER [address] [address] [facility] [place] [address] * IR PICC Line Placement Over 5 Years of Age (09/27/2024 3:53 PM PIPE LINE MAINTENANCE SUPERVISOR) Anatomical Region Laterality Modality Body N/A X-Ray Angiograph y 09/27/2024 3:56 PM PIPE LINE MAINTENANCE SUPERVISOR Impressions 09/27/2024 4:01 PM PIPE LINE MAINTENANCE SUPERVISOR Successful nontunneled catheter placement. PLAN: The catheter is ready for immediate use. When treatment is completed, this catheter can be removed at the bedside according to standard hospital protocol. Dictated by: Jean Carlos Mclean M.D. The radiology attending physician has personally reviewed this study, and had reviewed and/or edited this written report and agrees with it. Electronically signed by: Renato Maxwlel M.D. 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 SEDATION: Local only TECHNIQUE: The risks, benefits and alternatives were discussed and informed consent was obtained. Prior to beginning the procedure, Hastings Protocol was used to confirm the patient's identity and planned procedure. Fluoroscopy time has been recorded in the electronic medical record. Maximum sterile barriers including cap, mask, hand hygiene, sterile gloves, sterile gown, large sterile drape and 2% chlorhexidine for cutaneous antisepsis were used. The skin over the right basilic vein was sterilely prepped, draped and infiltrated with 1% buffered lidocaine. Prior to the procedure, the target vessel was evaluated by ultrasound, an image of the patent vessel recorded, and this image placed in the patient's chart. After sterile prep, this vessel was accessed using realtime ultrasound guidance. A guidewire and catheter were then passed centrally using fluoroscopic guidance. The intravascular length from the access site to the right atrium was assessed. After dilating the tract, a dual lumen PICC was inserted over the guidewire. The catheter was flushed with 100U/ml heparin and secured in place. A sterile dressing was applied. ESTIMATED BLOOD LOSS: Minimal. CONDITION: Stable DISCHARGED TO: Inpatient unit FINDINGS: The final fluoroscopic image demonstrates the catheter with its tip in the right atrium. No complications are seen. 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 SEDATION: Local only TECHNIQUE: The risks, benefits and alternatives were discussed and informed consent was obtained. Prior to beginning the procedure, Hastings Protocol was used to confirm the patient's identity and planned procedure. Fluoroscopy time has been recorded in the electronic medical record. Maximum sterile barriers including cap, mask, hand hygiene, sterile gloves, sterile gown, large sterile drape and 2% chlorhexidine for cutaneous antisepsis were used. The skin over the right basilic vein was sterilely prepped, draped and infiltrated with 1% buffered lidocaine. Prior to the procedure, the target vessel was evaluated by ultrasound, an image of the patent vessel recorded, and this image placed in the patient's chart. After sterile prep, this vessel was accessed using realtime ultrasound guidance. A guidewire and catheter were then passed centrally using fluoroscopic guidance. The intravascular length from the access site to the right atrium was assessed. After dilating the tract, a dual lumen PICC was inserted over the guidewire. The catheter was flushed with 100U/ml heparin and secured in place. A sterile dressing was applied. ESTIMATED BLOOD LOSS: Minimal. CONDITION: Stable DISCHARGED TO: Inpatient unit FINDINGS: The final fluoroscopic image demonstrates the catheter with its tip in the right atrium. No complications are seen. IMPRESSION: Successful nontunneled catheter placement. PLAN: The catheter is ready for immediate use. When treatment is completed, this catheter can be removed at the bedside according to standard hospital protocol. Dictated by: Jean Carlos Mclean M.D. The radiology attending physician has personally reviewed this study, and had reviewed and/or edited this written report and agrees with it. Electronically signed by: Renato Maxwell M.D. Nanci Pineda MRI TECHNOLOGIST IMG IR PROCEDURES Final Res ult * eGFR (09/27/2024 4:08 AM PIPE LINE MAINTENANCE SUPERVISOR) Pathologist [facility] eGFR >90 >=60 mL/min/1. 73 m2 Comment: Interpretive Data Reference Interval Normal >/= 90 mL/min/1.73m2 Mildly decreased* 60 - 89 mL/min/1.73m2 Mildly to moderately decreased 45 - 59 mL/min/1.73m2 Moderately to severely decreased 30 - 44 mL/min/1.73m2 Severely decreased 15 - 29 mL/min/1.73m2 Kidney Failure < 15 mL/min/1.73m2 *Relative to young adult level Estimated glomerular filtration rate is determined by the 2020 CKD-EPI equation recommended by the National Kidney Foundation (A Unifying Approach to GFR Estimation: Recommendations of the NKF-ASK Task Force on Reassessing the Inclusion of Race in Diagnosing Kidney Disease, JASN 2020). The CKD-EPI equation should not be used for patients with unstable renal function and has not been validated in children and those over 70. Current interpretive data was last reviewed 2021. Blood 09/27/2024 4:08 AM PIPE LINE MAINTENANCE SUPERVISOR 09/27/2024 4:11 AM PIPE LINE MAINTENANCE SUPERVISOR Isabella Guzman MD LAB BLOOD ORDERABLES Final Result [facility] [address] [facility]. Department of Laboratories [place], [place] [id number] * (ABNORMAL) CBC without differential (09/27/2024 4:08 AM PIPE LINE MAINTENANCE SUPERVISOR) Pathologist [facility] WBC 9.5 3.8 - 9.9 K/cumm Hgb 8.9(L) 11.9 - 15.5 g/dL [facility] Hct 27.6(L) 35.6 - 45.5 % [facility] Plt 460(H) 150 - 400 K/cumm [facility] MPV 9.2 9.1 - 12.3 fL [facility] RBC 3.09(L) 3.90 - 5.20 M/cumm [facility] MCV 89.3 81.3 - 96.4 fL [facility] MCH 28.8 27.1 - 33.3 pg [facility] MCHC 32.2(L) 32.3 - 35.7 g/dL [facility] RDW CV 14.6 11.1 - 14.9 % [facility] RDW SD 47.8 35.7 - 48.1 fL [facility] NRBC abs 0.00 0.00 - 0.01 K/cumm [facility] Blood 09/27/2024 4:08 AM PIPE LINE MAINTENANCE SUPERVISOR 09/27/2024 4:11 AM PIPE LINE MAINTENANCE SUPERVISOR us Isabella Guzman MD LAB BLOOD ORDERABLES Final Result [facility] [address] [facility]. [place] [address] * (ABNORMAL) Basic metabolic panel (09/27/2024 4:08 AM PIPE LINE MAINTENANCE SUPERVISOR) Pathologist [facility] Sodium 137 135 - 145 mmol/L Potassium, pl 4.3 3.3 - 4.9 mmol/L [facility] Chloride 102 97 - 110 mmol/L [facility] CO2 27 22 - 32 mmol/L [facility] Anion gap 8 2 - 15 mmol/L [facility] BUN 29(H) 6 - 25 mg/dL [facility] Creatinine 0.70 0.60 - 1.10 mg/dL [facility] Glucose 89 70 - 199 mg/dL [facility] Comment: Interpretive Data Fasting glucose >/= 126 mg/dl is diagnostic for diabetes. Fasting is defined as no caloric intake for at least 8 hours. Fasting glucose between 100 mg/dl to 125 mg/dl is diagnostic of prediabetes. In a patient with classic symptoms of hyperglycemia or hyperglycemic crisis, a random glucose >/= 200 mg/dl is diagnostic for diabetes. In the absence of unequivocal hyperglycemia, results should be confirmed by repeat testing. The classification and Diagnosis of Diabetes Diabetes Care 2021; 46: S19-S40. Current interpretive data was last revised 2022. Calcium 9.0 8.5 - 10.3 mg/dL DOUGLAS SANDERS Blood 09/27/2024 4:08 AM PIPE LINE MAINTENANCE SUPERVISOR 09/27/2024 4:11 AM PIPE LINE MAINTENANCE SUPERVISOR Isabella Guzman MD LAB BLOOD ORDERABLES Final Result Performing Organization Address City/State/[facility] Phone Number DOUGLAS RICEST. [facility] [address] [facility] Department [place] [address] * Respiratory pathogen panel Nasopharyngeal (09/26/2024 3:45 PM PIPE LINE MAINTENANCE SUPERVISOR) Pathologist [facility] Influenza A RNA Not Detected Not Detected MBC Comment:Testing performed by : [facility], [address] [place] [address]., [id number] Influenza B RNA Not Detected Not Detected CERROSAS [facility]ST. [facility] Comment:Testing performed by : [facility], [address] [place] [address]., [id number] RSV RNA Not Detected Not Detected DOUGLAS [facility] Comment:Testing performed by : [facility], [address] [place] [address]., [address] COVID-19 RNA Not Detected Not Detected DOUGLAS [facility] Comment:Testing performed by : [facility], [address] [place] [address]., [address] Coronavirus 229E RNA Not Detected Not Detected DOU[facility]AS [facility] Comment:Testing performed by : [facility], [address] [place] [address]., [address] Coronavirus HKU1 RNA Not Detected Not Detected [facility]OS[facility] Comment:Testing performed by : [facility], [address] [place] [address]., [address] Coronavirus NL63 RNA Not Detected Not Detected DOUGLAS [facility] Comment:Testing performed by : [facility], [address] [place] [address]., [address] Coronavirus OC43 RNA Not Detected Not Detected DOUGLAS [facility] Comment:Testing performed by : [facility], [address] [place] [address]., [address] Adenovirus DNA Not Detected Not Detected [facility] Comment:Testing performed by : [facility], [address] [place] [address]., [address] Metapneumovirus RNA Not Detected Not Detected [facility] Comment:Testing performed by : [facility], [address] [place] [address]., [address] Rhinovirus/Enterov irus RNA Not Detected Not Detected [facility] Comment:Testing performed by : [facility], [address] [place] [address]., [address] Parainfluenza 1 RNA Not Detected Not Detected [facility] Comment:Testing performed by : [facility], [address] [place] [address]., [address] Parainfluenza 2 RNA Not Detected Not Detected [facility] Comment:Testing performed by : [facility], [address] [place] [address]., [address] Parainfluenza 3 RNA Not Detected Not Detected [facility] Comment:Testing performed by : [facility], [address] [place] [address]., [address] Parainfluenza 4 RNA Not Detected Not Detected [facility] Comment:Testing performed by : [facility], [address] [place] [address]., [address] B. pertussis DNA Not Detected Not Detected [facility] Comment:Testing performed by : [facility], [address] [place] [address]., [address] B. parapertussis DNA Not Detected Not Detected [facility] Comment:Testing performed by : [facility], [address] [place] [address]., 56[address] C. pneumoniae DNA Not Detected Not Detected [facility] Comment:Testing performed by : [facility], [address] [place] [address]., 14682 M. pneumoniae DNA Not Detected Not Detected [facility] Comment: Interpretive Data The Sanaexpert FilmArray Respiratory Panel (RP2.1) assay is a multiplexed real-time PCR based nucleic acid test capable of simultaneous qualitative detection and identification of multiple respiratory viral and bacterial nucleic acids, including SARS Coronavirus 2 (the causative agent of COVID-19). The following bacteria, viruses and virus subtypes can be identified using the FilmArray RP2.1 assay: Bordetella pertussis, Bordetella parapertussis, Chlamydia pneumoniae, Mycoplasma pneumoniae, Adenovirus, SARS Coronavirus 2, seasonal coronaviruses (Coronavirus HKU1, Coronavirus NL63, Coronavirus 229E, and Coronavirus OC43), Influenza A, Influenza A subtype H1, Influenza A subtype H3, Influenza A subtype 2009 H1, Influenza B, Metapneumovirus, Parainfluenza 1, Parainfluenza 2, Parainfluenza 3, Parainfluenza 4, RSV, Rhinovirus/Enterovirus. Due to the genetic similarity between human Rhinovirus and Enterovirus, the FilmArray RP2.1 assay cannot reliably differentiate them. Coronavirus OC43 may cross-react with some isolates of Coronavirus HKU1. A dual positive result may be due to cross-reactivity or may indicate a co- infection. The detection and identification of specific viral and bacterial nucleic acids from individuals exhibiting signs and symptoms of a respiratory infection aids in the diagnosis of respiratory infection if used in conjunction with other clinical and epidemiological information. The results of this test should not be used as the sole basis for diagnosis, treatment, or other management decisions. Negative results in the setting of a respiratory illness may be due to infection with pathogens that are not detected by this test. Positive results do not rule out infection/co-infection with other organisms. The agent(s) detected by the FilmArray RP2.1 may not be the definite cause of disease. Additional testing (lab, imaging, etc.) may be necessary when evaluating a patient with possible respiratory tract infection. The FilmArray RP2.1 assay has FDA clearance for testing of MRI TECHNOLOGIST swabs. The performance characteristics of this assay have been determined by [facility]. Current interpretive data was last revised on 2021. Testing performed by: [facility], [facility] [address] [facility], [place]., [address] Nasopharyngeal 09/26/2024 3: 45 PM PIPE LINE MAINTENANCE SUPERVISOR 09/26/2024 6:12 PM PIPE LINE MAINTENANCE SUPERVISOR Andrés SANDERS - 09/26/2024 7:53 PM PIPE LINE MAINTENANCE SUPERVISOR Is the Patient experiencing symptoms consistent with COVID?->Yes Surveillance testing for transplant patient?->No Archana Sharp NP LAB MICROBIOLOGY - GENERA L ORDERABLES Final Result [facility]GL[facility] [address] [facility]. [place] [address] MBC * XR Chest 1 View (09/26/2024 3:41 PM PIPE LINE MAINTENANCE SUPERVISOR) Anatomical Region Laterality Modality Body, Chest N/A Computed Radiogr aphy 09/26/2024 3:50 PM PIPE LINE MAINTENANCE SUPERVISOR Impressions 09/27/2024 8:05 AM PIPE LINE MAINTENANCE SUPERVISOR Comparison is made to chest radiograph dated 09/22/2024. Cardiomediastinal silhouette is normal. No consolidation, pleural effusion, or pneumothorax. Dictated by: Brissa Byrd MD, PhD The radiology attending physician has personally reviewed this study, and had reviewed and/or edited this written report and agrees with it. Electronically signed by: Bryce Foy M.D. Narrative 09/27/2024 8:05 AM PIPE LINE MAINTENANCE SUPERVISOR EXAMINATION: 1 view chest radiograph Procedure Note Bryce Foy MD - 09/27/2024 EXAMINATION: 1 view chest radiograph IMPRESSION: Comparison is made to chest radiograph dated 09/22/2024. Cardiomediastinal silhouette is normal. No consolidation, pleural effusion, or pneumothorax. Dictated by: Brissa Byrd MD, PhD The radiology attending physician has personally reviewed this study, and had reviewed and/or edited this written report and agrees with it. Electronically signed by: Bryce Foy M.D. Archana Sharp NP IMG XR PROCEDURES Final R esult * eGFR (09/26/2024 5:07 AM PIPE LINE MAINTENANCE SUPERVISOR) eGFR 79 >=60 mL/min/1. 73 m2 Comment: Interpretive Data Reference Interval Normal >/= 90 mL/min/1.73m2 Mildly decreased* 60 - 89 mL/min/1.73m2 Mildly to moderately decreased 45 - 59 mL/min/1.73m2 Moderately to severely decreased 30 - 44 mL/min/1.73m2 Severely decreased 15 - 29 mL/min/1.73m2 Kidney Failure < 15 mL/min/1.73m2 *Relative to young adult level Estimated glomerular filtration rate is determined by the 2020 CKD-EPI equation recommended by the National Kidney Foundation (A Unifying Approach to GFR Estimation: Recommendations of the NKF-ASK Task Force on Reassessing the Inclusion of Race in Diagnosing Kidney Disease, JASN 2020). The CKD-EPI equation should not be used for patients with unstable renal function and has not been validated in children and those over 70. Current interpretive data was last reviewed 2021. Blood 09/26/2024 5:07 AM PIPE LINE MAINTENANCE SUPERVISOR 09/26/2024 5:19 AM PIPE LINE MAINTENANCE SUPERVISOR us Isabella Guzman MD LAB BLOOD ORDERABLES Final Result [facility] [address] [facility]. [place] [address] * (ABNORMAL) CBC without differential (09/26/2024 5:07 AM PIPE LINE MAINTENANCE SUPERVISOR) WBC 9.2 3.8 - 9.9 K/cumm Hgb 9.4(L) 11.9 - 15.5 g/dL [facility] Hct 29.9(L) 35.6 - 45.5 % [facility] Plt 453(H) 150 - 400 K/cumm [facility] MPV 9.8 9.1 - 12.3 fL [facility] RBC 3.30(L) 3.90 - 5.20 M/cumm [facility] MCV 90.6 81.3 - 96.4 fL [facility] MCH 28.5 27.1 - 33.3 pg [facility] MCHC 31.4(L) 32.3 - 35.7 g/dL [facility] RDW CV 14.7 11.1 - 14.9 % [facility] RDW SD 49.2(H) 35.7 - 48.1 fL [facility] NRBC abs 0.00 0.00 - 0.01 K/cumm [facility] Blood 09/26/2024 5:07 AM PIPE LINE MAINTENANCE SUPERVISOR 09/26/2024 5:19 AM PIPE LINE MAINTENANCE SUPERVISOR Isabella Guzman MD LAB BLOOD ORDERABLES Final Result Performing Organization Address City/[facility]/ZIP Co de Phone Number DOUGLAS RICEST. [facility] [address] [facility] Department [place] [address] * Basic metabolic panel (09/26/2024 5:07 AM PIPE LINE MAINTENANCE SUPERVISOR) Pathologist [facility] Sodium 140 135 - 145 mmol/L Potassium, pl 4.0 3.3 - 4.9 mmol/L [facility] Chloride 101 97 - 110 mmol/L [facility] CO2 27 22 - 32 mmol/L [facility] Anion gap 12 2 - 15 mmol/L [facility] BUN 16 6 - 25 mg/dL [facility] Creatinine 0.87 0.60 - 1.10 mg/dL [facility] Glucose 90 70 - 199 mg/dL [facility] Comment: Interpretive Data Fasting glucose >/= 126 mg/dl is diagnostic for diabetes. Fasting is defined as no caloric intake for at least 8 hours. Fasting glucose between 100 mg/dl to 125 mg/dl is diagnostic of prediabetes. In a patient with classic symptoms of hyperglycemia or hyperglycemic crisis, a random glucose >/= 200 mg/dl is diagnostic for diabetes. In the absence of unequivocal hyperglycemia, results should be confirmed by repeat testing. The classification and Diagnosis of Diabetes Diabetes Care 202; 46: S19-S40. Current interpretive data was last revised 2022. Calcium 9.0 8.5 - 10.3 mg/dL [facility] Blood 09/26/2024 5:07 AM PIPE LINE MAINTENANCE SUPERVISOR 09/26/2024 5:19 AM PIPE LINE MAINTENANCE SUPERVISOR Isabella Guzman MD LAB BLOOD ORDERABLES Final Result DOUGLAS PETER [address] [facility] [place] [address] * Blood culture Blood (09/25/2024 1:04 PM PIPE LINE MAINTENANCE SUPERVISOR) Report Final Report: No growth Comment:Testing performed by : [facility], [address] [place] [address]., [id number] Blood 09/25/2024 1:04 PM PIPE LINE MAINTENANCE SUPERVISOR 09/25/2024 2:19 PM PIPE LINE MAINTENANCE SUPERVISOR Narrative DOUGLAS [facility] - 10/01/2024 7:01 AM PIPE LINE MAINTENANCE SUPERVISOR From a different site than #1. Collection->Peripheral Interpretive Data 1. Blood cultures are incubated and monitored continuously for 5 days (120 hours). The first negative report is issued within 24 hours of receipt in the laboratory. 2. All positive cultures are resulted and called to physicians/care providers as soon as they are detected. 3. A rapid molecular test for organism identification may be performed using the [employer] Blood Culture Identification panel. This assay detects microbial DNA in a blood culture broth. This assay has been cleared by the [place] Food and Drug Administration and its performance characteristics have been verified by the [facility]. Interpretive data was last revised on September 24, 2022. Tatiana Fang MD LAB MICROBIOLOGY - GENERAL ORDERABLES Final Result [facility] [address] [facility] [place] [address] * Blood culture Blood (09/25/2024 1:04 PM PIPE LINE MAINTENANCE SUPERVISOR) Report Final Report: No growth Comment:Testing performed by : [facility], [address] [place] [address]., [id number] Blood 09/25/2024 1:04 PM PIPE LINE MAINTENANCE SUPERVISOR 09/25/2024 2:19 PM PIPE LINE MAINTENANCE SUPERVISOR Narrative DOUGLAS [facility] - 10/01/2024 7:01 AM PIPE LINE MAINTENANCE SUPERVISOR Collection->Peripheral Interpretive Data 1. Blood cultures are incubated and monitored continuously for 5 days (120 hours). The first negative report is issued within 24 hours of receipt in the laboratory. 2. All positive cultures are resulted and called to physicians/care providers as soon as they are detected. 3. A rapid molecular test for organism identification may be performed using the Feed[employer] Blood Culture Identification panel. This assay detects microbial DNA in a blood culture broth. This assay has been cleared by the [place] Food and Drug Administration and its performance characteristics have been verified by the [facility]. Interpretive data was last revised on September 24, 2022. us Tatiana Fang MD LAB MICROBIOLOGY - GENERAL ORDERABLES Final Result [facility] [facility] [address] [facility]. [place] [address] * TRANSTHORACIC ECHO (TTE) COMPLETE W DOPPLER/CF WO CONTRAST (09/25/2024 12:15 PM PIPE LINE MAINTENANCE SUPERVISOR) LV EF % CONS SCIMAGE Anatomical Region Laterality Modality Ultrasound 09/25/2024 11:1 9 AM PIPE LINE MAINTENANCE SUPERVISOR Narrative 09/25/2024 12:59 PM PIPE LINE MAINTENANCE SUPERVISOR [facility] [place] [address] Transthoracic Echocardiographic Report Patient Name: JOYCE TOMPKINS L : 1970 (54y 4m) Gender: F Study Date: 09/25/2024 11:19:19 AM Ht(Inch): 66 Wt(Lb): 182.98 BSA: 1.97 Paint Mixer Machine: Location: [id number] Order Provider: TATIANA FANG Heart Rate: 77 BMI: 29.53 BP: 119 / 60 Quality: The study images were of technically good quality. Ref Provider: TATIANA FANG PROCEDURES: Echocardiographic Report: ([id number]) Transthoracic complete echo, 2D, spectral and tissue Doppler, color flow Doppler, M-mode. INDICATIONS: Bacteremia. MEASUREMENTS: 2D/MM Value Range Doppler Value Range LVIDd 2D 4.88 cm [ 3.80 - 5.20 ] AV Peak Seb 2.02 m/s [ 1.00 - 1.70 ] LVIDs 2D 2.90 cm [ 2.20 - 3.50 ] AV Peak PG 16.32 IVSd 2D 1.20 cm [ 0.60 - 0.90 ] AV Mean PG 8.08 mmHg LVPWd 2D 1.16 cm [ 0.60 - 0.90 ] AV VTI 39.10 cm LV Thickness Ratio 1.03 [ 1.50 - 3.00 ] LVOT Peak Seb 1.46 m/s [ 0.70 - 1.10 ] LV FS 2D 40.59 % [ 27.00 - 45.00 ] LVOT Peak PG 8.53 LV Mass 2D 223.38 g LVOT Mean PG 4.58 mmHg LV Mass Index 2D 113.39 g/m2 LVOT VTI 30.83 cm RWT 0.48 LVOT Diam 1.63 cm EDV Mod BP 107.11 ml [ 46.00 - 106.00 ] BIB VTI 1.64 cm2 LV EDV Index 54.37 ml/m2 LVOT/AV VTI 0.79 - Dimensionless index (DVI) ESV Mod BP 31.26 ml [ 14.00 - 42.00 ] MV E Peak Seb 1.35 m/s [ 0.60 - 1.30 ] EF Mod BP 71 % [ 54 - 74 ] MV A Peak Seb 0.70 m/s [ 1.00 - 1.20 ] LV GLS -24.5 % MV E/A 1.91 ratio [ 0.80 - 1.50 ] LA Length 2C 4.52 cm MV Decel Time 204.21 msec [ 104.00 - 258.00 ] LA Length 4C 5.46 cm Med E` Seb 10.87 cm/sec [ 8.00 - 15.00 ] LA Volume BP 68.54 ml Lat E` Seb 16.68 cm/sec [ 10.00 - 15.00 ] LA Volume Index 34.79 ml/m2 Average E/E` 9.80 RV Base Dimen 2D 3.6 cm [ 2.5 - 4.2 ] RV S` 16.14 cm/sec TAPSE 2.62 cm [ 1.71 - 5.00 ] TR Peak Seb 2.45 m/s [ 1.00 - 2.80 ] RA Volume 42.92 ml TR Peak PG 24.0 RA Volume Index 21.79 ml/m2 PV Peak Seb 1.28 m/s [ 0.40 - 0.80 ] AoR Diam 2D 2.56 cm [ 2.70 - 3.70 ] PV Peak PG 6.55 Ao Root Index 1.30 cm/m2 - FINDINGS: Left Ventricle: Normal left ventricular size based on volume index. Concentric LV hypertrophy. Normal left ventricular systolic function. The Ejection Fraction (Latif's) is measured at 71 %. Left ventricular diastolic parameters are consistent with normal diastolic function. The average global longitudinal strain rate is normal. Right Ventricle: Normal right ventricular size. Normal right ventricular systolic function. Left Atrium: Mildly dilated left atrium. Right Atrium: The right atrium is normal in size. Mitral Valve: The mitral valve demonstrates normal leaflet structure. No mitral regurgitation seen. Aortic Valve: Trileaflet aortic valve. No aortic regurgitation seen. No aortic valve stenosis. Tricuspid Valve: The tricuspid valve demonstrates normal leaflet structure. The estimated pulmonary artery systolic pressure is 24+rap mmHg. Pulmonic Valve: Normal pulmonic valve structure without regurgitation or stenosis. Pericardium: Normal pericardium without evidence of pericardial effusion. Aorta: The aortic root is normal in size when indexed. IVC: IVC is normal in size. CONCLUSIONS: 1. Normal left ventricular size. Concentric LV hypertrophy. LVEF 71 %. Normal diastolic function. 2. Normal right ventricular systolic function. 3. There is no significant valvular heart disease. 4. The estimated pulmonary artery systolic pressure is 24+rap mmHg. 5. IVC is normal in size. ATTESTATION: I have reviewed and interpreted the pertinent images and measurements of this study. I attest to the conclusions in the final report that is provided above. DISCLAIMER: The study images and the final report will be retained in the patient chart by the Echo Laboratory for the legally required time period. This chart constitutes the legal record of any testing performed. Electronically Signed By: Enrrique Serrano MD 09/25/2024 12:58:42 PM PIPE LINE MAINTENANCE SUPERVISOR Electronically Signed By: Enrrique Serrano MD 09/25/2024 12:58:42 PM PIPE LINE MAINTENANCE SUPERVISOR Procedure Note Enrrique Serrano MD - 09/25/2024 [facility] [place] [address] Transthoracic Echocardiographic Report Patient Name: JOYCE TOMPKINS L : 1970 (54y 4m) Gender: F Study Date: 09/25/2024 11:19:19 AM Ht(Inch): 66 Wt(Lb): 182.98 BSA: 1.97 Paint Mixer Machine: Location: [address] Order Provider: TATIANA FANG Heart Rate: 77 BMI: 29.53 BP: 119 / 60 Quality: The study images were oftechnically good quality. Ref Provider: TATIANA FANG PROCEDURES: Echocardiographic Report: ([id number]) Transthoracic complete echo, 2D,spectral and tissue Doppler, color flow Doppler, M-mode. INDICATIONS: Bacteremia. MEASUREMENTS: 2D/MM Value Range DopplerValue Range LVIDd 2D 4.88 cm [ 3.80 - 5.20 ] AV Peak Vel2.02 m/s [ 1.00 - 1.70 ] LVIDs 2D 2.90 cm [ 2.20 - 3.50 ] AV Peak PG16.32 IVSd 2D 1.20 cm [ 0.60 - 0.90 ] AV Mean PG8.08 mmHg LVPWd 2D 1.16 cm [ 0.60 - 0.90 ] AV VTI39.10 cm LV Thickness Ratio 1.03 [ 1.50 - 3.00 ] LVOT Peak Vel1.46 m/s [ 0.70 - 1.10 ] LV FS 2D 40.59 % [ 27.00 - 45.00 ] LVOT Peak PG8.53 LV Mass 2D 223.38 g LVOT Mean PG4.58 mmHg LV Mass Index 2D 113.39 g/m2 LVOT VTI30.83 cm RWT 0.48 LVOT Diam1.63 cm EDV Mod BP 107.11 ml [ 46.00 - 106.00 ] BIB VTI1.64 cm2 LV EDV Index 54.37 ml/m2 LVOT/AV VTI0.79 - Dimensionless index (DVI) ESV Mod BP 31.26 ml [ 14.00 - 42.00 ] MV E Peak Vel1.35 m/s [ 0.60 - 1.30 ] EF Mod BP 71 % [ 54 - 74 ] MV A Peak Vel0.70 m/s [ 1.00 - 1.20 ] LV GLS -24.5 % MV E/A1.91 ratio [ 0.80 - 1.50 ] LA Length 2C 4.52 cm MV Decel Pkif018.21 msec [ 104.00 - 258.00 ] LA Length 4C 5.46 cm Med E` Vel10.87 cm/sec [ 8.00 - 15.00 ] LA Volume BP 68.54 ml Lat E` Vel16.68 cm/sec [ 10.00 - 15.00 ] LA Volume Index 34.79 ml/m2 Average E/E`9.80 RV Base Dimen 2D 3.6 cm [ 2.5 - 4.2 ] RV S`16.14 cm/sec TAPSE 2.62 cm [ 1.71 - 5.00 ] TR Peak Vel2.45 m/s [ 1.00 - 2.80 ] RA Volume 42.92 ml TR Peak PG24.0 RA Volume Index 21.79 ml/m2 PV Peak Vel1.28 m/s [ 0.40 - 0.80 ] AoR Diam 2D 2.56 cm [ 2.70 - 3.70 ] PV Peak PG6.55 Ao Root Index1.30 cm/m2 - FINDINGS: Left Ventricle: Normal left ventricular size based on volume index.Concentric LV hypertrophy. Normal left ventricular systolic function. The EjectionFraction (Latif's) is measured at 71 %. Left ventricular diastolic parameters are consistentwith normal diastolic function. The average global longitudinal strain rate isnormal. Right Ventricle: Normal right ventricular size. Normal right ventricularsystolic function. Left Atrium: Mildly dilated left atrium. Right Atrium: The right atrium is normal in size. Mitral Valve: The mitral valve demonstrates normal leaflet structure. Nomitral regurgitation seen. Aortic Valve: Trileaflet aortic valve. No aortic regurgitation seen. Noaortic valve stenosis. Tricuspid Valve: The tricuspid valve demonstrates normal leafletstructure. The estimated pulmonary artery systolic pressure is 24+rap mmHg. Pulmonic Valve: Normal pulmonic valve structure without regurgitation orstenosis. Pericardium: Normal pericardium without evidence of pericardialeffusion. Aorta: The aortic root is normal in size when indexed. IVC: IVC is normal in size. CONCLUSIONS: 1. Normal left ventricular size. Concentric LV hypertrophy. LVEF 71 %.Normal diastolic function. 2. Normal right ventricular systolic function. 3. There is no significant valvular heart disease. 4. The estimated pulmonary artery systolic pressure is 24+rap mmHg. 5. IVC is normal in size. ATTESTATION: I have reviewed and interpreted the pertinent images and measurements ofthis study. I attest to the conclusions in the final report that is provided above. DISCLAIMER: The study images and the final report will be retained in the patientchart by the Echo Laboratory for the legally required time period. This chart constitutesthe legal record of any testing performed. Electronically Signed By: Enrrique Serrano MD 09/25/2024 12:58:42 PM PIPE LINE MAINTENANCE SUPERVISOR Electronically Signed By: Enrrique Serrano MD 09/25/2024 12:58:42 PM PIPE LINE MAINTENANCE SUPERVISOR us Tatiana Fang MD CV ECHO PROCEDURES Final R esult * eGFR (09/25/2024 4:26 AM PIPE LINE MAINTENANCE SUPERVISOR) eGFR >90 >=60 mL/min/1. 73 m2 Comment: Interpretive Data Reference Interval Normal >/= 90 mL/min/1.73m2 Mildly decreased* 60 - 89 mL/min/1.73m2 Mildly to moderately decreased 45 - 59 mL/min/1.73m2 Moderately to severely decreased 30 - 44 mL/min/1.73m2 Severely decreased 15 - 29 mL/min/1.73m2 Kidney Failure < 15 mL/min/1.73m2 *Relative to young adult level Estimated glomerular filtration rate is determined by the 2020 CKD-EPI equation recommended by the National Kidney Foundation (A Unifying Approach to GFR Estimation: Recommendations of the NKF-ASK Task Force on Reassessing the Inclusion of Race in Diagnosing Kidney Disease, JASN 2020). The CKD-EPI equation should not be used for patients with unstable renal function and has not been validated in children and those over 70. Current interpretive data was last reviewed 2021. Blood 09/25/2024 4:26 AM PIPE LINE MAINTENANCE SUPERVISOR 09/25/2024 4:29 AM PIPE LINE MAINTENANCE SUPERVISOR us Isabella Guzman MD LAB BLOOD ORDERABLES Final Result [facility] [address] [facility]. [place] [address] * (ABNORMAL) CBC without differential (09/25/2024 4:26 AM PIPE LINE MAINTENANCE SUPERVISOR) Pathologist [facility] WBC 11.8(H) 3.8 - 9.9 K/cumm Hgb 8.2(L) 11.9 - 15.5 g/dL [facility] Hct 26.0(L) 35.6 - 45.5 % [facility] Plt 335 150 - 400 K/cumm [facility] MPV 9.7 9.1 - 12.3 fL [facility] RBC 2.88(L) 3.90 - 5.20 M/cumm [facility] MCV 90.3 81.3 - 96.4 fL [facility] MCH 28.5 27.1 - 33.3 pg [facility] MCHC 31.5(L) 32.3 - 35.7 g/dL [facility] CV 14.5 11.1 - 14.9 % [facility] RDW SD 48.2(H) 35.7 - 48.1 fL [facility] NRBC abs 0.00 0.00 - 0.01 K/cumm [facility] Blood 09/25/2024 4:26 AM PIPE LINE MAINTENANCE SUPERVISOR 09/25/2024 4:29 AM PIPE LINE MAINTENANCE SUPERVISOR Isabella Guzman MD LAB BLOOD ORDERABLES Final Result Performing Organization Address [facility] Co de Phone Number [facility] [address] [facility] [place], [place] [id number] * Vancomycin level trough (09/25/2024 4:26 AM PIPE LINE MAINTENANCE SUPERVISOR) Pathologist [facility] Vancomycin trough 18.1 10.0 - 20.0 mcg/mL Blood 09/25/2024 4:26 AM PIPE LINE MAINTENANCE SUPERVISOR 09/25/2024 4:29 AM PIPE LINE MAINTENANCE SUPERVISOR Arya Gomez MD LAB BLOOD ORDERABLES Jasmin l Result Performing Organization Address [facility] de Phone Number [facility] [address] [place] [facility] [employer] [place], [place] [id number] * (ABNORMAL) Basic metabolic panel (09/25/2024 4:26 AM PIPE LINE MAINTENANCE SUPERVISOR) Pathologist [facility] Sodium 137 135 - 145 mmol/L Potassium, pl 4.3 3.3 - 4.9 mmol/L [facility] Chloride 104 97 - 110 mmol/L [facility] CO2 25 22 - 32 mmol/L [facility] Anion gap 9 2 - 15 mmol/L [facility] BUN 15 6 - 25 mg/dL [facility] Creatinine 0.50(L) 0.60 - 1.10 mg/dL [facility] Glucose 94 70 - 199 mg/dL [facility] Comment: Interpretive Data Fasting glucose >/= 126 mg/dl is diagnostic for diabetes. Fasting is defined as no caloric intake for at least 8 hours. Fasting glucose between 100 mg/dl to 125 mg/dl is diagnostic of prediabetes. In a patient with classic symptoms of hyperglycemia or hyperglycemic crisis, a random glucose >/= 200 mg/dl is diagnostic for diabetes. In the absence of unequivocal hyperglycemia, results should be confirmed by repeat testing. The classification and Diagnosis of Diabetes Diabetes Care 2021; 46: S19-S40. Current interpretive data was last revised 2022. Calcium 8.8 8.5 - 10.3 mg/dL [facility] Blood 09/25/2024 4:26 AM PIPE LINE MAINTENANCE SUPERVISOR 09/25/2024 4:29 AM PIPE LINE MAINTENANCE SUPERVISOR us Isabella Guzman MD LAB BLOOD ORDERABLES Final Result Performing Organization Address City/[facility] Co de Phone Number [facility] [address] [address] [place] [place], [place] [id number] * HIV 1/2 Antibody plus p24 Antigen Blood (09/24/2024 3:39 PM PIPE LINE MAINTENANCE SUPERVISOR) Pathologist [facility] HIV 1/2 ab + p24 ag Nonreactive Nonreactive Comment: Nonreactive for HIV-1 antigen and HIV-1/HIV-2 antibodies. No laboratory evidence of HIV infection. If acute HIV infection is suspected, consider testing for HIV-1 RNA. Testing performed by: [facility], [address] [place] [address], [place]., [address] Blood 09/24/2024 3:39 PM PIPE LINE MAINTENANCE SUPERVISOR 09/24/2024 4:24 PM PIPE LINE MAINTENANCE SUPERVISOR us Arya Gomez MD LAB MICROBIOLOGY - GENERA L ORDERABLES Final Result Performing Organization Address City/[facility]/ZIP Co de Phone Number [facility] [address] [place] [address] * eGFR (09/24/2024 5:10 AM PIPE LINE MAINTENANCE SUPERVISOR) Pathologist [facility] eGFR >90 >=60 mL/min/1. 73 m2 Comment: Interpretive Data Reference Interval Normal >/= 90 mL/min/1.73m2 Mildly decreased* 60 - 89 mL/min/1.73m2 Mildly to moderately decreased 45 - 59 mL/min/1.73m2 Moderately to severely decreased 30 - 44 mL/min/1.73m2 Severely decreased 15 - 29 mL/min/1.73m2 Kidney Failure < 15 mL/min/1.73m2 *Relative to young adult level Estimated glomerular filtration rate is determined by the 2020 CKD-EPI equation recommended by the National Kidney Foundation (A Unifying Approach to GFR Estimation: Recommendations of the NKF-ASK Task Force on Reassessing the Inclusion of Race in Diagnosing Kidney Disease, JASN 2020). The CKD-EPI equation should not be used for patients with unstable renal function and has not been validated in children and those over 70. Current interpretive data was last reviewed 2021. Blood 09/24/2024 5:10 AM PIPE LINE MAINTENANCE SUPERVISOR 09/24/2024 5:16 AM PIPE LINE MAINTENANCE SUPERVISOR Isabella Guzman MD LAB BLOOD ORDERABLES Final Result [facility] [address] [facility]. [place] [address] * (ABNORMAL) CBC without differential (09/24/2024 5:10 AM PIPE LINE MAINTENANCE SUPERVISOR) WBC 15.9(H) 3.8 - 9.9 K/cumm Hgb 8.8(L) 11.9 - 15.5 g/dL [facility] Hct 26.6(L) 35.6 - 45.5 % [facility] Plt 308 150 - 400 K/cumm [facility] MPV 10.1 9.1 - 12.3 fL [facility] RBC 3.02(L) 3.90 - 5.20 M/cumm [facility] MCV 88.1 81.3 - 96.4 fL [facility] MCH 29.1 27.1 - 33.3 pg [facility] MCHC 33.1 32.3 - 35.7 g/dL [facility] RDW CV 14.1 11.1 - 14.9 % [facility] RDW SD 45.1 35.7 - 48.1 fL [facility] NRBC abs 0.00 0.00 - 0.01 K/cumm [facility] Blood 09/24/2024 5:10 AM PIPE LINE MAINTENANCE SUPERVISOR 09/24/2024 5:14 AM PIPE LINE MAINTENANCE SUPERVISOR Isabella Guzman MD LAB BLOOD ORDERABLES Final Result Performing Organization Address [facility] de Phone Number [facility] [address] [facility] [place] [address] * Vancomycin level trough (09/24/2024 5:10 AM PIPE LINE MAINTENANCE SUPERVISOR) [facility] Vancomycin trough 10.2 10.0 - 20.0 mcg/mL Blood 09/24/2024 5:10 AM PIPE LINE MAINTENANCE SUPERVISOR 09/24/2024 5:14 AM PIPE LINE MAINTENANCE SUPERVISOR Isabella Guzman MD LAB BLOOD ORDERABLES Final Result Performing Organization Address [facility] Phone Number [facility] [address] [facility] [place] [address] * (ABNORMAL) Basic metabolic panel (09/24/2024 5:10 AM PIPE LINE MAINTENANCE SUPERVISOR) [facility] Sodium 134(L) 135 - 145 mmol/L Potassium, pl 4.1 3.3 - 4.9 mmol/L [facility] Chloride 100 97 - 110 mmol/L [facility] CO2 25 22 - 32 mmol/L [facility] Anion gap 9 2 - 15 mmol/L [facility] BUN 15 6 - 25 mg/dL [facility] Creatinine 0.50(L) 0.60 - 1.10 mg/dL [facility] Glucose 150 70 - 199 mg/dL [facility] Comment: Interpretive Data Fasting glucose >/= 126 mg/dl is diagnostic for diabetes. Fasting is defined as no caloric intake for at least 8 hours. Fasting glucose between 100 mg/dl to 125 mg/dl is diagnostic of prediabetes. In a patient with classic symptoms of hyperglycemia or hyperglycemic crisis, a random glucose >/= 200 mg/dl is diagnostic for diabetes. In the absence of unequivocal hyperglycemia, results should be confirmed by repeat testing. The classification and Diagnosis of Diabetes Diabetes Care 202; 46: S19-S40. Current interpretive data was last revised 2022. Calcium 9.0 8.5 - 10.3 mg/dL [facility] Blood 09/24/2024 5:10 AM PIPE LINE MAINTENANCE SUPERVISOR 09/24/2024 5:14 AM PIPE LINE MAINTENANCE SUPERVISOR us Isabella Guzman MD LAB BLOOD ORDERABLES Final Result [facility] [address] [facility]. [place] [address] * XR Knee Right 1 or 2 View (09/23/2024 11:56 AM PIPE LINE MAINTENANCE SUPERVISOR) Anatomical Region Laterality Modality Lower Extremities, Knee Right Computed Radiography 09/23/2024 1:05 PM PIPE LINE MAINTENANCE SUPERVISOR Impressions 09/23/2024 1:05 PM PIPE LINE MAINTENANCE SUPERVISOR Anticipated postoperative changes from recent right knee debridement and polyethylene liner exchange. Unchanged total knee arthroplasty. Electronically signed by: Tatiana Salas D.O. Narrative 09/23/2024 1:05 PM PIPE LINE MAINTENANCE SUPERVISOR EXAMINATION: XR KNEE RIGHT 1 OR 2 VIEWS HISTORY: post-op COMPARISON: Radiographs 09/22/2024 FINDINGS: Right total knee arthroplasty in expected position. No osteolysis, periprosthetic fracture, or subsidence. Soft tissue and intra-articular gas from recent debridement and polyethylene liner exchange. Procedure Note Tatiana Salas DO - 09/23/2024 EXAMINATION: XR KNEE RIGHT 1 OR 2 VIEWS HISTORY: post-op COMPARISON: Radiographs 09/22/2024 FINDINGS: Right total knee arthroplasty in expected position. No osteolysis, periprosthetic fracture, or subsidence. Soft tissue and intra-articular gas from recent debridement and polyethylene liner exchange. IMPRESSION: Anticipated postoperative changes from recent right knee debridement and polyethylene liner exchange. Unchanged total knee arthroplasty. Electronically signed by: Tatiana Salas D.O. Isabella Guzman MD IMG XR PROCEDURES Final Re sult * FL AN PROCEDURE PLACEHOLDER (09/23/2024 10:24 AM PIPE LINE MAINTENANCE SUPERVISOR) Leatha Chairez MD - 09/23/2024 10:24 AM PIPE LINE MAINTENANCE SUPERVISOR Leatha Rodrigues MD 09/23/2024 10:24 AM Peripheral Block Patient location during procedure: pre-op holding Reason for block: post-op pain management per surgeon request Ultrasound image in chart or stored: yes Block type: single shot Laterality: right Block type: saphenous nerve block - subsartorial approach Procedure prep: Preprocedure checklist: patient identified, procedure contraindications assessed, site marked, procedure consent, surgical consent, IV checked, risks, benefits and alternatives discussed, monitors and equipment checked and timeout performed Patient position: supine Procedure performed while patient: sedate with meaningful contact Monitoring: oximetry Supplemental O2: nasal cannula Prep solution: chlorhexidine/alcohol Peripheral nerve block: Technique: ultrasound guided Needle type: short-bevel and echogenic Needle gauge: 21 G Needle length: 80 mm Injection assessment: injection made incrementally with constant monitoring, local visualized surrounding nerve on ultrasound, negative aspiration for heme, no paresthesias noted, normal resistance to injection and see flowsheet for medication details Assessment: Block success: full evaluation pending Events: patient tolerated procedure well with no complications Leatha Rodrigues MD ANESTHESIA ORDERABLES Fi nal Result * (ABNORMAL) Tissue aerobic and anaerobic culture and gram stain Tissue Knee, right (09/23/2024 9:36 AM PIPE LINE MAINTENANCE SUPERVISOR) Direct Specimen Exam Stain: No polymorphonuclear leukocytes seen. No organisms seen. Comment:Testing performed by : [facility], [address] [place] [address], [place]., [address] Report Final Report: Very light growth Staphylococcus aureus, methicillin susceptible Susceptibility reported on this organism on previous culture [id number] (.) [facility] Comment:Testing performed by : [facility], [address] [place] [address], [place]., [address] Organism STAPHYLOCOCCUS AUREUS, METHICILLIN SUSCEPTIBLE [facility] Tissue (Knee, right) 09/23/2024 9:36 AM PIPE LINE MAINTENANCE SUPERVISOR 09/23/2024 1:37 PM PIPE LINE MAINTENANCE SUPERVISOR Narrative [facility] SANDERS - 09/28/2024 8:04 AM PIPE LINE MAINTENANCE SUPERVISOR 5. Bone (Aerobic, Anaerobic, Gram Stain) Isabella Guzman MD LAB MICROBIOLOGY - GENERAL ORDERABLES Final Result Performing Organization Address [facility] de Phone Number [facility] [address] [facility] [place] [address] * Tissue aerobic and anaerobic culture and gram stain Tissue Knee, right (09/23/2024 9:36 AM PIPE LINE MAINTENANCE SUPERVISOR) Direct Specimen Exam Stain: No polymorphonuclear leukocytes seen. No organisms seen. Comment:Testing performed by : [facility], [address] [place] [address]., [id number] Report Final Report: No growth [facility]OUGLAS SANDERS Comment:Testing performed by : [facility], [address] [place] [address]., [id number] Tissue (Knee, right) 09/23/2024 9:36 AM PIPE LINE MAINTENANCE SUPERVISOR 09/23/2024 1:36 PM PIPE LINE MAINTENANCE SUPERVISOR Narrative DOUGLAS SANDERS - 09/28/2024 8:03 AM PIPE LINE MAINTENANCE SUPERVISOR 4. Synovium (Aerobic, Anaerobic, Gram Stain) Isabella Guzman MD LAB MICROBIOLOGY - GENERAL ORDERABLES Final Result Performing Organization Address [facility] de Phone Number [facility] [address] [address]. [place] [address] * (ABNORMAL) Tissue aerobic and anaerobic culture and gram stain Tissue Knee, right (09/23/2024 9:36 AM PIPE LINE MAINTENANCE SUPERVISOR) Direct Specimen Exam Stain: No polymorphonuclear leukocytes seen. No organisms seen. Comment:Testing performed by : [facility], [address] [place] [address]., [id number] Report Final Report: Light growth of: Staphylococcus aureus, methicillin susceptible Susceptibility reported on this organism on previous culture [id number] (.) DOUGLAS SANDERS Comment:Testing performed by : [facility], [address] [place] [address]., [id number] Organism STAPHYLOCOCCUS AUREUS, METHICILLIN SUSCEPTIBLE DOUGLAS SANDERS Tissue (Knee, right) 09/23/2024 9:36 AM PIPE LINE MAINTENANCE SUPERVISOR 09/23/2024 1:36 PM PIPE LINE MAINTENANCE SUPERVISOR Narrative DOUGLAS SANDERS - 09/28/2024 7:59 AM PIPE LINE MAINTENANCE SUPERVISOR 3. Notch (Aerobic, Anaerobic, Gram Stain) Isabella Guzman MD LAB MICROBIOLOGY - GENERAL ORDERABLES Final Result Performing Organization Address [facility] Co de Phone Number CORINEROSAS RICECH [address] [address] [place], [place] [id number] * (ABNORMAL) Tissue aerobic and anaerobic culture and gram stain Tissue Knee, right (09/23/2024 9:36 AM PIPE LINE MAINTENANCE SUPERVISOR) Direct Specimen Exam Stain: No polymorphonuclear leukocytes seen. No organisms seen. Comment:Testing performed by : [facility], [address] [place] [address]., [id number] Report Final Report: Very light growth Staphylococcus aureus, methicillin susceptible Susceptibility reported on this organism on previous culture [id number] (.) DOUGLAS SANDERS Comment:Testing performed by : [facility], [address] [place] [address]., [id number] Organism STAPHYLOCOCCUS AUREUS, METHICILLIN SUSCEPTIBLE DOUGLAS SANDERS Tissue (Knee, right) 09/23/2024 9:36 AM PIPE LINE MAINTENANCE SUPERVISOR 09/23/2024 1:37 PM PIPE LINE MAINTENANCE SUPERVISOR Narrative DOUGLAS SANDERS - 09/28/2024 7:59 AM PIPE LINE MAINTENANCE SUPERVISOR 2. Capsule (Aerobic, Anaerobic, Gram Stain) Isabella Guzman MD LAB MICROBIOLOGY - GENERAL ORDERABLES Final Result Performing Organization Address City/[facility]/ZIP Co de Phone Number CORINEROSAS RICEWCH [address] [facility] [place] [address] * (ABNORMAL) Tissue aerobic and anaerobic culture and gram stain Tissue Knee, right (09/23/2024 9:36 AM PIPE LINE MAINTENANCE SUPERVISOR) Direct Specimen Exam Stain: No polymorphonuclear leukocytes seen. No organisms seen. Comment:Testing performed by : [facility], [address] [place] [address]., [id number] Report Final Report: Light growth of: Staphylococcus aureus, methicillin susceptible Susceptibility reported on this organism on previous culture [id number] (.) DOUGLAS SANDERS Comment:Testing performed by : [facility], [address] [place] [address]., [id number] Organism STAPHYLOCOCCUS AUREUS, METHICILLIN SUSCEPTIBLE DOUGLAS SANDERS Tissue (Knee, right) 09/23/2024 9:36 AM PIPE LINE MAINTENANCE SUPERVISOR 09/23/2024 1:37 PM PIPE LINE MAINTENANCE SUPERVISOR Narrative DOUGLAS SANDERS - 09/28/2024 7:58 AM PIPE LINE MAINTENANCE SUPERVISOR 1. Synovial Fluid (Aerobic, Anaerobic, Gram Stain, AFB, Fungal) Isabella Guzman MD LAB MICROBIOLOGY - GENERAL ORDERABLES Final Result Performing Organization Address [facility] Co de Phone Number DOUGLAS [employer]W[facility] [address] [address]. [facility] [place] [address] * Mycology (fungal) culture Tissue Knee, right (09/23/2024 9:36 AM PIPE LINE MAINTENANCE SUPERVISOR) Report Final Report: No fungus isolated Comment:Testing performed by : [facility], [address] [place] [address], [place]., [address] Tissue (Knee, right) 09/23/2024 9:36 AM PIPE LINE MAINTENANCE SUPERVISOR 09/23/2024 1:37 PM PIPE LINE MAINTENANCE SUPERVISOR Narrative DOUGLAS SANDERS - 10/22/2024 1:00 PM PIPE LINE MAINTENANCE SUPERVISOR 1. Synovial Fluid (Aerobic, Anaerobic, Gram Stain, AFB, Fungal) Mycology cultures are held for 4 weeks. Isabella Guzman MD LAB MICROBIOLOGY - GENERAL ORDERABLES Final Result Performing Organization Address [facility] Co de Phone Number DOUGLAS RICEWCH [address] [facility] [place] [address] * Mycobacteriology (AFB) culture and acid-fast stain Tissue Knee, right (09/23/2024 9:36 AM PIPE LINE MAINTENANCE SUPERVISOR) Direct Specimen Exam Stain: Concentrated smear: No Acid Fast Bacillus Seen Comment:Testing performed by : [facility], [address] [place] [address]., [id number] Report Final Report: No Acid Fast Bacilli isolated DOUGLAS SANDERS Comment:Testing performed by : [facility], [address] [place] [address]., [id number] Tissue (Knee, right) 09/23/2024 9:36 AM PIPE LINE MAINTENANCE SUPERVISOR 09/23/2024 1:37 PM PIPE LINE MAINTENANCE SUPERVISOR Narrative DOUGLAS BJWCH - 11/19/2024 1:00 PM CDT 1. Synovial Fluid (Aerobic, Anaerobic, Gram Stain, AFB, Fungal) Mycobacteriology (AFB) cultures are held for 8 weeks. Isabella Guzman MD LAB MICROBIOLOGY - GENERAL ORDERABLES Final Result [facility]AS [facility] [address] [facility] [place] [address] * FL AN PROCEDURE PLACEHOLDER (09/23/2024 8:48 AM PIPE LINE MAINTENANCE SUPERVISOR) Narrative Leatha Rodrigues MD - 09/23/2024 8:48 AM PIPE LINE MAINTENANCE SUPERVISOR Leatha Rodrigues MD 09/23/2024 8:48 AM Peripheral IV Catheter Patient location: OR Preprocedure prep: Prep solution: chlorhexadine PPE: gloves Skin infiltrated with lidocaine 1%: yes PIV line: Laterality: left Site: forearm Catheter size: 20 g Technique: direct visualization Procedure details: good blood return and occlusive dressing applied Assessment: Events: patient tolerated procedure well with no complications Leatha Rodrigues MD ANESTHESIA ORDERABLES Fi nal Result * FL AN ELECTIVE SUPRAGLOTTIC AIRWAY, FL AN PROCEDURE PLACEHOLDER (09/23/2024 8:46 AM PIPE LINE MAINTENANCE SUPERVISOR) Payton Chairezad, MD - 09/23/2024 8:46 AM PIPE LINE MAINTENANCE SUPERVISOR Leatha Rodrigues MD 09/23/2024 8:47 AM Airway Patient location: OR Urgency: elective Indications for airway management: anesthesia Difficult airway: no Airway prep: Preoxygenated: yes Patient position: sniffing Mask difficulty assessment: 0 - not attempted Spontaneous ventilation during airway: absent Sedation level during airway: GA Final airway details: Final airway type: supraglottic airway Final supraglottic airway: IGel SGA size: 3 Number of attempts: 1 Ventilation between attempts: none us Leatha Rodrigues MD ANESTHESIA ORDERABLES Fi nal Result * US Vein Duplex Lower Extremity Bilateral Complete (09/23/2024 7:07 AM PIPE LINE MAINTENANCE SUPERVISOR) Anatomical Region Laterality Modality Vascular Bilateral Ultrasound 09/23/2024 7:16 AM PIPE LINE MAINTENANCE SUPERVISOR Impressions 09/23/2024 7:16 AM PIPE LINE MAINTENANCE SUPERVISOR 1. No evidence of deep vein thrombosis of either lower extremity. Electronically signed by: Angelica Thornton 09/23/2024 7:16 AM PIPE LINE MAINTENANCE SUPERVISOR EXAMINATION: BILATERAL LOWER EXTREMITY VENOUS DOPPLER HISTORY: Bilateral leg swelling. COMPARISON: None TECHNIQUE: Ultrasound examination was performed from the groin to the ankle using medina scale, duplex color flow, and spectral analysis. The proximal saphenous, common femoral, superficial femoral, popliteal, posterior tibial and peroneal veins were evaluated. Both augmentation and compression maneuvers were performed. FINDINGS: The veins of both legs are normally compressible and augment normally. Normal respiratory variation is identified. Procedure Note Tatiana Salas DO - 09/23/2024 EXAMINATION: BILATERAL LOWER EXTREMITY VENOUS DOPPLER HISTORY: Bilateral leg swelling. COMPARISON: None TECHNIQUE: Ultrasound examination was performed from the groin to the ankle using medina scale, duplex color flow, and spectral analysis. The proximal saphenous, common femoral, superficial femoral, popliteal, posterior tibial and peroneal veins were evaluated. Both augmentation and compression maneuvers were performed. FINDINGS: The veins of both legs are normally compressible and augment normally. Normal respiratory variation is identified. IMPRESSION: 1. No evidence of deep vein thrombosis of either lower extremity. Electronically signed by: Tatiana Salas D.O. Jeffy Fleming MD [facility] US PROCEDURES Final R esult * (ABNORMAL) Urinalysis reflex to microscopic and culture Urine (09/23/2024 6:37 AM PIPE LINE MAINTENANCE SUPERVISOR) Color, ur Straw Yellow Clarity, ur Clear Clear CERNER BJW[facility] Specific gravity, ur 1.020 1.003 - 1.030 CERNER BJW[facility] pH, urine 6.0 CERNER B[facility] Comment: Interpretive Data U rine pH is affected by diet, medications, systemic acid-base disturbances, and renal tubular function. pH may affect urinary stone formation. For example, urine pH below 6.0 may help reduce the tendency for calcium phosphate stones and pH greater than 6.0 may reduce the tendency for uric acid stone formation. Source: [facility] Current Interpretive Data was last revised on 2017 Protein, ur ql 1+(A) Negative CERNER [facility] Glucose, ur ql Negative Negative CERNER [facility] Ketones, ur Trace Negative CERNER [facility] Bilirubin, ur Negative Negative CERNER [facility] Blood, ur 1+(A) Negative CERNER [facility] Urobilinogen, ur <2.0 <2.0 CERNER [facility] Nitrite, ur Negative Negative CERNER [facility] Leukocyte esterase, ur 2+(A) Negative CERNER [facility] UA reflex comment Reflex to microscopic UA will be performed. CERNER BJWCH Urine 09/23/2024 6:37 AM PIPE LINE MAINTENANCE SUPERVISOR 09/23/2024 6:51 AM PIPE LINE MAINTENANCE SUPERVISOR us Danielle RAI LAB MICROBIOLOGY - GENERA L ORDERABLES Final Result DOUGLAS RICEWCH [address] [facility] [employer] [address] * (ABNORMAL) Urinalysis, microscopic only (09/23/2024 6:37 AM PIPE LINE MAINTENANCE SUPERVISOR) WBC, ur 6-10(A) 0 - 5 /HPF RBC, ur 3-5(A) 0 - 2 /HPF CERNER BJW[facility] Epithelial cells, squamous, ur 1-5 0 - 5 /HPF DOUGLAS RICEWREBECA Mucous, ur Present(A) DOUGLAS SANDERS Culture Reflex Comment Reflex conditions for urine culture (WBC >10) not met. DOUGLAS SANDERS Urine 09/23/2024 6:37 AM PIPE LINE MAINTENANCE SUPERVISOR 09/23/2024 6:51 AM PIPE LINE MAINTENANCE SUPERVISOR Danielle RAI LAB URINE ORDERABLES Jasmin hickman Result DOUGLAS PETERCH [address] [facility]. [facility] [place], [place] [id number] * (ABNORMAL) Blood culture Blood (09/23/2024 6:10 AM PIPE LINE MAINTENANCE SUPERVISOR) Direct Specimen Exam Molecular Analysis: Staphylococcus aureus, methicillin-suscep tible (MSSA) detected by the [employer] Blood Culture Identification Panel. This test does not exclude the possibility of a mixed bacterial infection. Please consider this result in the context of clinical findings and evaluate the possibility of antimicrobial de-escalation. Test result called to and read back by KARLEE WOLFE MT on 09/24/2024 20:10:01 by BLDamion Comment:Testing performed by : [facility], [address] [place] [address]., [id number] Direct Specimen Exam Stain: Gram Positive Cocci in clusters DOUGLAS SANDERS Comment:Testing performed by : [facility], [address] [place] [address]., [id number] Report Final Report: Staphylococcus aureus, methicillin susceptible (.) DOUGLAS SANDERS Comment:Testing performed by : [facility], [address] [place] [address]., [id number] Organism STAPHYLOCOCCUS AUREUS, METHICILLIN SUSCEPTIBLE DOUGLAS SANDERS Blood 09/23/2024 6:10 AM PIPE LINE MAINTENANCE SUPERVISOR 09/23/2024 7:08 AM PIPE LINE MAINTENANCE SUPERVISOR Narrative DOUGLAS PETERCH - 09/26/2024 7:02 AM PIPE LINE MAINTENANCE SUPERVISOR From a different site than #1. Collection->Peripheral Interpretive Data 1. Blood cultures are incubated and monitored continuously for 5 days (120 hours). The first negative report is issued within 24 hours of receipt in the laboratory. 2. All positive cultures are resulted and called to physicians/care providers as soon as they are detected. 3. A rapid molecular test for organism identification may be performed using the [employer] Blood Culture Identification panel. This assay detects microbial DNA in a blood culture broth. This assay has been cleared by the [place] Food and Drug Administration and its performance characteristics have been verified by the [facility]. Interpretive data was last revised on September 24, 2022. Organism Antibiotic Method Susceptibility Staphylococcus aureus, methicillin susceptible Cefazolin (CHELSIE) INTERPRETATION Susceptible Staphylococcus aureus, methicillin susceptible Clindamycin (CHELSIE) INTERPRETATION Susceptible Staphylococcus aureus, methicillin susceptible Erythromycin (CHELSIE) INTERPRETATION Susceptible Staphylococcus aureus, methicillin susceptible Oxacillin (CHELSIE) INTERPRETATION Susceptible Staphylococcus aureus, methicillin susceptible Tetracycline (CHELSIE) INTERPRETATION Susceptible Staphylococcus aureus, methicillin susceptible Trimethoprim with Sulfamethoxazole (CHELSIE) INTERPRETATION Susceptible Staphylococcus aureus, methicillin susceptible Vancomycin (CHELSIE) INTERPRETATION <=0.5 mcg/mL: Susceptible Jeffy Fleming MD LAB MICROBIOLOGY - [facility] L ORDERABLES Final Result [facility] [address] [facility]. [place] [address] * (ABNORMAL) Blood culture Blood (09/23/2024 6:10 AM PIPE LINE MAINTENANCE SUPERVISOR) Direct Specimen Exam Stain: Gram Positive Cocci in clusters Test result called to and read back by JOHN PAUL HALL RN on 09/24/2024 21:20:23 by FATUMA Comment:Testing performed by : [facility], [address] [place] [address]., [id number] Report Final Report: Staphylococcus aureus, methicillin susceptible Susceptibility reported on this organism on previous culture [id number] (.) DOUGLAS SANDERS Comment:Testing performed by : [facility], [address] [place] [address]., [id number] Organism STAPHYLOCOCCUS AUREUS, METHICILLIN SUSCEPTIBLE DOUGLAS SANDERS Blood 09/23/2024 6:10 AM PIPE LINE MAINTENANCE SUPERVISOR 09/23/2024 7:08 AM PIPE LINE MAINTENANCE SUPERVISOR Narrative DOUGLAS BJWCH - 09/26/2024 8:15 AM PIPE LINE MAINTENANCE SUPERVISOR Collection->Peripheral Interpretive Data 1. Blood cultures are incubated and monitored continuously for 5 days (120 hours). The first negative report is issued within 24 hours of receipt in the laboratory. 2. All positive cultures are resulted and called to physicians/care providers as soon as they are detected. 3. A rapid molecular test for organism identification may be performed using the Feedzai Blood Culture Identification panel. This assay detects microbial DNA in a blood culture broth. This assay has been cleared by the [place] Food and Drug Administration and its performance characteristics have been verified by the [facility]. Interpretive data was last revised on September 24, 2022. Jeffy Fleming MD LAB MICROBIOLOGY - GENERA L ORDERABLES Final Result DOUGLAS RICEWCH [address] [facility]. [place] [address] * XR Chest PA Lateral 2 Views (09/22/2024 6:00 PM PIPE LINE MAINTENANCE SUPERVISOR) Anatomical Region Laterality Modality Body, Chest N/A Computed Radiogr aphy 09/22/2024 7:07 PM PIPE LINE MAINTENANCE SUPERVISOR Impressions 09/22/2024 7:07 PM PIPE LINE MAINTENANCE SUPERVISOR Comparison 07/15/2023. Increased interstitial opacities in the left lung base, favored to represent scarring or atelectasis. No focal consolidation. No pneumothorax or pleural effusion. The cardiac mediastinal silhouette is unchanged. Electronically signed by: Bill Larios MD Narrative 09/22/2024 7:07 PM PIPE LINE MAINTENANCE SUPERVISOR EXAMINATION: 2 view chest radiograph History: Cough Procedure Note Bill Larios MD - 09/22/2024 EXAMINATION: 2 view chest radiograph History: Cough IMPRESSION: Comparison 07/15/2023. Increased interstitial opacities in the left lung base, favored to represent scarring or atelectasis. No focal consolidation. No pneumothorax or pleural effusion. The cardiac mediastinal silhouette is unchanged. Electronically signed by: Bill Larios MD us Danielle RAI IMG XR PROCEDURES Final R esult * ABO/Rh (09/22/2024 5:48 PM PIPE LINE MAINTENANCE SUPERVISOR) ABO/Rh O Negative Blood 09/22/2024 5:48 PM PIPE LINE MAINTENANCE SUPERVISOR 09/22/2024 5:51 PM PIPE LINE MAINTENANCE SUPERVISOR Narrative DOUGLAS SANDERS - 09/22/2024 6:44 PM PIPE LINE MAINTENANCE SUPERVISOR Has the patient had Daratumumab or Isatuximab in the past 6 months?->Unknown Danielle RAI LAB BLOOD BANK TEST ORDER GUANAKO Final Result Performing Organization Address [facility] Co de Phone Number [facility] [address] [facility] [employer] [place], [place] [id number] * aPTT (09/22/2024 5:48 PM PIPE LINE MAINTENANCE SUPERVISOR) Pathologist [facility] aPTT 31 28 - 38 sec Comment: Interpretive Data Heparin therapeutic range: 66.0 - 100.0 seconds. Range based on correlation with therapeutic heparin activity range of 0.3 - 0.7 Units/mL. Current interpretive data was last revised on 2023. Blood 09/22/2024 5:48 PM PIPE LINE MAINTENANCE SUPERVISOR 09/22/2024 5:51 PM PIPE LINE MAINTENANCE SUPERVISOR Danielle RAI LAB BLOOD ORDERABLES Jasmin l Result Performing Organization Address [facility] Co de Phone Number [facility] [address] [address] [place], [place] [phone] * Protime-INR (09/22/2024 5:48 PM PIPE LINE MAINTENANCE SUPERVISOR) PT 11.2 9.7 - 13.0 sec INR 1.04 0.90 - 1.20 [facility] Comment: Interpretive data Oral anticoagulant therapeutic ranges: Venous thromboembolism prophylaxis or treatment: 2.0-3.0 CARDIOLOGY Standard range: 2.0-3.0 High-intensity range: 2.5-3.5 Refer to indication-specific guidelines for appropriate target ranges for prosthetic heart valve replacement. Current interpretive data was last revised on 2019. Blood 09/22/2024 5:48 PM PIPE LINE MAINTENANCE SUPERVISOR 09/22/2024 5:51 PM PIPE LINE MAINTENANCE SUPERVISOR Danielle RAI LAB BLOOD ORDERABLES Jasmin l Result [facility] [address] [address]. [facility] [employer] [place], [place] [id number] * Antibody screen (09/22/2024 5:48 PM PIPE LINE MAINTENANCE SUPERVISOR) Silvio, indirect, Gel Interpretation Negative ABSC Blood 09/22/2024 5:48 PM PIPE LINE MAINTENANCE SUPERVISOR 09/22/2024 5:51 PM PIPE LINE MAINTENANCE SUPERVISOR Narrative [facility]AS [facility] - 09/22/2024 6:44 PM PIPE LINE MAINTENANCE SUPERVISOR Has the patient had Daratumumab or Isatuximab in the past 6 months?->Unknown Danielle RAI LAB BLOOD BANK TEST ORDER GUANAKO Final Result Performing Organization Address [facility]/ZIP Co de Phone Number [facility] [address] 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 Blood 09/22/2024 5:35 PM PIPE LINE MAINTENANCE SUPERVISOR 09/22/2024 5:38 PM PIPE LINE MAINTENANCE SUPERVISOR Arya Gomez MD LAB BLOOD BANK TEST ORDER GUANAKO Final Result DOUGLAS BJWCH [address] [facility] [place], [place] [id number] * [place] ARTHROCENTESIS ASPIR&/INJ MAJOR JT/BURSA W/O US (09/22/2024 3:48 PM PIPE LINE MAINTENANCE SUPERVISOR) Narrative Danielle Castellanos PA - 09/22/2024 3:48 PM PIPE LINE MAINTENANCE SUPERVISOR Danielle Castellanos PA 09/22/2024 3:50 PM Arthrocentesis Date/Time: 09/22/2024 3:48 PM Performed by: Danielle Castellanos PA Authorized by: Danielle Castellanos PA [place] Protocol: RN Notified of Procedure: yes Informed consent: Risks, benefits, alternatives discussed Patient's stated name/ matches armband: Yes Allergies confirmed: yes Imaging: Pertinent imaging reviewed, correctly oriented and match to patient identifiers Lab/Diag test results: Pertinent lab/diag tests reviewed and match to patient identifiers Supplies, devices and special equipment are available: yes Site/side marked: yes Immediately prior to the procedure a time out was called: a verbal verification by the procedure participants confirmed correct patient identity, correct site/side marked and visible (if applicable); agreement on procedure to be done; and correct patient positioning Location: Location: Knee Knee: R knee Sedation used: no Anesthesia (see MAR for exact dosages): Anesthesia method: None Procedure details: Preparation: Patient was prepped and draped in usual sterile fashion Needle gauge: 18 G Ultrasound guidance: no Approach: superior-lateral. Aspirate amount: 50 Aspirate characteristics: Yellow and cloudy Steroid injected: no Specimen collected: yes Post-procedure details: Dressing: Adhesive bandage Patient tolerance of procedure: Tolerated well, no immediate complications Post Procedure Debrief: All specimens identified, labeled and matched to patient identification: yes Responsible libertarian for transporting specimen(s) to lab determined: yes Danielle RAI IN CLINIC/BEDSIDE ORDERAB LES Final Result * Crystal Analysis, Body Fluid (09/22/2024 3:38 PM PIPE LINE MAINTENANCE SUPERVISOR) Specimen type, fld Synovial Comment:Testing performed by : [facility], [address] [place] [address], [place]., [address] Crystals Not Present Not Present DOUGLAS SANDERS Comment:Testing performed by : [facility], [address] [place] [address], [place]., [address] Fluid 09/22/2024 3:38 PM PIPE LINE MAINTENANCE SUPERVISOR 09/22/2024 5:01 PM PIPE LINE MAINTENANCE SUPERVISOR Narrative CORINENER [facility] - 09/22/2024 5:28 PM PIPE LINE MAINTENANCE SUPERVISOR Specify:->right knee Danielle RAI LAB BODY FLUIDS AND STOOL S ORDERABLES Final Result Performing Organization Address [facility] Phone Number DOUGLAS RICECH [address] [facility]. [facility] [place] [address] * Cell Differential, Body Fluid (09/22/2024 3:38 PM PIPE LINE MAINTENANCE SUPERVISOR) Total cells diffed 100 % Comment: Interpretive Data Unless otherwise specified, the reference range and other method performance specifications have not been established for CSF/Body Fluid tests. The test results should be integrated into the clinical context for interpretation. Current interpretive data was last revised on 2019. Neutrophils, fld 89 % CERNER [facility] Lymphs, fld 11 % [facility]ER [facility] Fluid 09/22/2024 3:38 PM PIPE LINE MAINTENANCE SUPERVISOR 09/22/2024 3:50 PM PIPE LINE MAINTENANCE SUPERVISOR Danielle RAI LAB BODY FLUIDS AND STOOL S ORDERABLES Final Result Performing Organization Address [facility] Phone Number DOUGLAS RICECH [address] [facility] [place] [address] * Cell count w/rflx diff, body fluid (09/22/2024 3:38 PM PIPE LINE MAINTENANCE SUPERVISOR) Specimen type, fld Synovial Color, fld Yellow [facility]ER [facility] Clarity, fld Turbid [facility]ER [facility] Nucleated cells, fld 8,720 /cumm [facility]ER [facility] Comment: Interpretive Data Unless otherwise specified, the reference range and other method performance specifications have not been established for CSF/Body Fluid tests. The test results should be integrated into the clinical context for interpretation. Current interpretive data was last revised on 2019. RBC, fld 2,000 /cumm [facility]ER [facility] Fluid 09/22/2024 3:38 PM PIPE LINE MAINTENANCE SUPERVISOR 09/22/2024 3:50 PM PIPE LINE MAINTENANCE SUPERVISOR Danielle RAI LAB BODY FLUIDS AND STOOL S ORDERABLES Final Result Performing Organization Address [facility]/ZIP Co de Phone Number DOUGLAS SANDERS [address] [employer]. [place] [address] * (ABNORMAL) Aerobic and anaerobic culture and gram stain Synovial fluid Knee, right (09/22/2024 3:38PM PIPE LINE MAINTENANCE SUPERVISOR) Direct Specimen Exam Stain: No polymorphonuclear leukocytes seen. No organisms seen. Comment:Testing performed by : [facility], [address] [place] [address]., [id number] Report Final Report: Light growth of: Staphylococcus aureus, methicillin susceptible Test result called to and read back by Shanelle Calabrese MT on 09/23/2024 13:14:51 by luis (.) DOUGLAS SANDERS Comment:Testing performed by : [facility], [address] [place] [address]., [id number] Organism STAPHYLOCOCCUS AUREUS, METHICILLIN SUSCEPTIBLE DOUGLAS SANDERS Synovial fluid (Knee, right) 09/22/2024 3:38 PM PIPE LINE MAINTENANCE SUPERVISOR 09/22/2024 4:49 PM PIPE LINE MAINTENANCE SUPERVISOR Narrative DOUGLAS SANDERS - 09/27/2024 2:41 PM PIPE LINE MAINTENANCE SUPERVISOR Critical result called to and read back by Chayo TREJO) on 09/23/2024 13:17:27 PIPE LINE MAINTENANCE SUPERVISOR by [id number]. Organism Antibiotic Method Susceptibility Staphylococcus aureus, methicillin susceptible Cefazolin (CHELSIE) INTERPRETATION Susceptible Staphylococcus aureus, methicillin susceptible Clindamycin (CHELSIE) INTERPRETATION Susceptible Staphylococcus aureus, methicillin susceptible Erythromycin (CHELSIE) INTERPRETATION Susceptible Staphylococcus aureus, methicillin susceptible Oxacillin (CHELSIE) INTERPRETATION Susceptible Staphylococcus aureus, methicillin susceptible Tetracycline (CHELSIE) INTERPRETATION Susceptible Staphylococcus aureus, methicillin susceptible Trimethoprim with Sulfamethoxazole (CHELSIE) INTERPRETATION Susceptible Staphylococcus aureus, methicillin susceptible Vancomycin (CHELSIE) INTERPRETATION 1 mcg/mL: Susceptible Danielle RAI LAB MICROBIOLOGY - GENERA L ORDERABLES Final Result Performing Organization Address City/[facility]/ZIP Co de Phone Number DOUGLAS PETERCH [address] [address] [facility] [place] [address] * Blood culture Blood (09/22/2024 3:38 PM PIPE LINE MAINTENANCE SUPERVISOR) Report Final Report: No growth Comment:Testing performed by : [facility], [facility] [address] [facility], [place]., [address] Blood 09/22/2024 3:38 PM PIPE LINE MAINTENANCE SUPERVISOR 09/22/2024 4:48 PM PIPE LINE MAINTENANCE SUPERVISOR Narrative DOUGLAS SANDERS - 09/28/2024 7:01 AM PIPE LINE MAINTENANCE SUPERVISOR Collection->Peripheral Interpretive Data 1. Blood cultures are incubated and monitored continuously for 5 days (120 hours). The first negative report is issued within 24 hours of receipt in the laboratory. 2. All positive cultures are resulted and called to physicians/care providers as soon as they are detected. 3. A rapid molecular test for organism identification may be performed using the Feedzai Blood Culture Identification panel. This assay detects microbial DNA in a blood culture broth. This assay has been cleared by the [place] Food and Drug Administration and its performance characteristics have been verified by the [facility]. Interpretive data was last revised on September 24, 2022. Danielle RAI LAB MICROBIOLOGY - GENERA L ORDERABLES Final Result Performing Organization Address City/[facility]/ZIP Co de Phone Number [facility] [address] [facility] [address] * Sepsis Lactate w/ Reflex (09/22/2024 3:17 PM PIPE LINE MAINTENANCE SUPERVISOR) Sepsis Lactate 0.7 0.7 - 2.0 mmol/L Blood 09/22/2024 3:17 PM PIPE LINE MAINTENANCE SUPERVISOR 09/22/2024 3:20 PM PIPE LINE MAINTENANCE SUPERVISOR Danielle ARI LAB BLOOD ORDERABLES Jasmin l Result [facility] [address] [employer]. [facility] [place] [address] * Blood culture Blood (09/22/2024 3:17 PM PIPE LINE MAINTENANCE SUPERVISOR) Report Final Report: No growth Comment:Testing performed by : [facility], [facility] [address] [facility], [place]., [address] Blood 09/22/2024 3:17 PM PIPE LINE MAINTENANCE SUPERVISOR 09/24/2024 9:33 AM PIPE LINE MAINTENANCE SUPERVISOR Narrative DOUGLAS SANDERS - 09/29/2024 1:00 PM PIPE LINE MAINTENANCE SUPERVISOR BCx x 2 peripheral Collection->Peripheral Interpretive Data 1. Blood cultures are incubated and monitored continuously for 5 days (120 hours). The first negative report is issued within 24 hours of receipt in the laboratory. 2. All positive cultures are resulted and called to physicians/care providers as soon as they are detected. 3. A rapid molecular test for organism identification may be performed using the Feedzai Blood Culture Identification panel. This assay detects microbial DNA in a blood culture broth. This assay has been cleared by the [place] Food and Drug Administration and its performance characteristics have been verified by the [facility]. Interpretive data was last revised on September 24, 2022. Danielle RAI LAB MICROBIOLOGY - GENERA L ORDERABLES Final Result DOUGLAS PETERCH [address] [facility]. [place] [address] * eGFR (09/22/2024 2:59 PM PIPE LINE MAINTENANCE SUPERVISOR) eGFR >90 >=60 mL/min/1. 73 m2 Comment: Interpretive Data Reference Interval Normal >/= 90 mL/min/1.73m2 Mildly decreased* 60 - 89 mL/min/1.73m2 Mildly to moderately decreased 45 - 59 mL/min/1.73m2 Moderately to severely decreased 30 - 44 mL/min/1.73m2 Severely decreased 15 - 29 mL/min/1.73m2 Kidney Failure < 15 mL/min/1.73m2 *Relative to young adult level Estimated glomerular filtration rate is determined by the 2020 CKD-EPI equation recommended by the National Kidney Foundation (A Unifying Approach to GFR Estimation: Recommendations of the NKF-ASK Task Force on Reassessing the Inclusion of Race in Diagnosing Kidney Disease, JASN 2020). The CKD-EPI equation should not be used for patients with unstable renal function and has not been validated in children and those over 70. Current interpretive data was last reviewed 2021. Blood 09/22/2024 2:59 PM PIPE LINE MAINTENANCE SUPERVISOR 09/22/2024 3:03 PM PIPE LINE MAINTENANCE SUPERVISOR us Danielle RAI LAB BLOOD ORDERABLES Jasmin vick Result [facility] [address] [facility]. [place] [address] * (ABNORMAL) Differential, auto (09/22/2024 2:59 PM PIPE LINE MAINTENANCE SUPERVISOR) Neutrophil abs 7.9(H) 1.5 - 6.5 K/cumm Imm gran abs 0.0 0.0 - 0.1 K/cumm [facility] Lymphocyte abs 1.8 0.8 - 3.3 K/cumm [facility] Monocyte abs 1.1(H) 0.2 - 0.8 K/cumm [facility] Eosinophil abs 0.1 0.0 - 0.5 K/cumm [facility] Basophil abs 0.1 0.0 - 0.1 K/cumm [facility] Neutrophil pct 71.2 % [facility] Comment: Interpretive Data Percent cell count reference ranges are not reported, since discordance with absolute values may lead to misinterpretation of CBC data. Current Interpretive Data was last revised on 2017. Imm gran pct 0.4 % [facility] Comment: Interpretive Data Percent cell count reference ranges are not reported, since discordance with absolute values may lead to misinterpretation of CBC data. Current Interpretive Data was last revised on 2017. Lymphocyte pct 16.4 % [facility] Comment: Interpretive Data Percent cell count reference ranges are not reported, since discordance with absolute values may lead to misinterpretation of CBC data. Current Interpretive Data was last revised on 2017. Monocyte pct 10.0 % [facility] Comment: Interpretive Data Percent cell count reference ranges are not reported, since discordance with absolute values may lead to misinterpretation of CBC data. Current Interpretive Data was last revised on 2017. Eosinophil pct 1.0 % [facility] Comment: Interpretive Data Percent cell count reference ranges are not reported, since discordance with absolute values may lead to misinterpretation of CBC data. Current Interpretive Data was last revised on 2017. Basophil pct 1.0 % [facility] Comment: Interpretive Data Percent cell count reference ranges are not reported, since discordance with absolute values may lead to misinterpretation of CBC data. Current Interpretive Data was last revised on 2017. Blood 09/22/2024 2:59 PM PIPE LINE MAINTENANCE SUPERVISOR 09/22/2024 3:03 PM PIPE LINE MAINTENANCE SUPERVISOR Danielle RAI LAB BLOOD ORDERABLES Jasmin l Result Performing Organization Address [facility] de Phone Number [facility] [address] [employer] [place] [address] * ABO / Rh Confirmation Testing (09/22/2024 2:59 PM PIPE LINE MAINTENANCE SUPERVISOR) [facility] ABO/Rh Confirmation O Negative [facility] Blood 09/22/2024 2:59 PM PIPE LINE MAINTENANCE SUPERVISOR 09/22/2024 6:19 PM PIPE LINE MAINTENANCE SUPERVISOR Danielle RAI LAB BLOOD ORDERABLES Jasmin l Result Performing Organization Address [facility] de Phone Number [facility] [address] [facility] [place] [address] [facility] * Basic metabolic panel, serum (09/22/2024 2:59 PM PIPE LINE MAINTENANCE SUPERVISOR) [facility] Sodium 138 135 - 145 mmol/L Potassium, sr 3.6 3.6 - 5.2 mmol/L [facility] Chloride 101 97 - 110 mmol/L [facility] CO2 26 22 - 32 mmol/L [facility] An[facility] gap 11 2 - 15 mmol/L [facility] BUN 17 6 - 25 mg/dL [facility] Creatinine 0.74 0.60 - 1.10 mg/dL [facility] Glucose 94 70 - 199 mg/dL [facility] Comment: Interpretive Data Fasting glucose >/= 126 mg/dl is diagnostic for diabetes. Fasting is defined as no caloric intake for at least 8 hours. Fasting glucose between 100 mg/dl to 125 mg/dl is diagnostic of prediabetes. In a patient with classic symptoms of hyperglycemia or hyperglycemic crisis, a random glucose >/= 200 mg/dl is diagnostic for diabetes. In the absence of unequivocal hyperglycemia, results should be confirmed by repeat testing. The classification and Diagnosis of Diabetes Diabetes Care 2021; 46: S19-S40. Current interpretive data was last revised 2022. Calcium 9.4 8.5 - 10.3 mg/dL [facility] Blood 09/22/2024 2:59 PM PIPE LINE MAINTENANCE SUPERVISOR 09/22/2024 3:03 PM PIPE LINE MAINTENANCE SUPERVISOR Danielle RAI LAB BLOOD ORDERABLES Jasmin hickman Result [facility] [address] [facility]. [place] [address] * (ABNORMAL) CBC with auto differential (09/22/2024 2:59 PM PIPE LINE MAINTENANCE SUPERVISOR) WBC 11.0(H) 3.8 - 9.9 K/cumm Hgb 10.1(L) 11.9 - 15.5 g/dL [facility] Hct 31.0(L) 35.6 - 45.5 % [facility] Plt 292 150 - 400 K/cumm [facility] MPV 9.4 9.1 - 12.3 fL [facility] RBC 3.52(L) 3.90 - 5.20 M/cumm [facility] MCV 88.1 81.3 - 96.4 fL [facility] MCH 28.7 27.1 - 33.3 pg [facility] MCHC 32.6 32.3 - 35.7 g/dL [facility] RDW CV 14.3 11.1 - 14.9 % [facility] RDW SD 45.4 35.7 - 48.1 fL [facility] NRBC abs 0.00 0.00 - 0.01 K/cumm [facility] Blood 09/22/2024 2:59 PM PIPE LINE MAINTENANCE SUPERVISOR 09/22/2024 3:03 PM PIPE LINE MAINTENANCE SUPERVISOR Danielle RAI LAB BLOOD ORDERABLES Jasmin l Result [facility] [address] [facility] [place] [address] * Erythrocyte sedimentation rate (09/22/2024 2:59 PM PIPE LINE MAINTENANCE SUPERVISOR) Erythrocyte sedimentation rate 14 1 - 30 mm/hr Blood 09/22/2024 2:59 PM PIPE LINE MAINTENANCE SUPERVISOR 09/22/2024 3:03 PM PIPE LINE MAINTENANCE SUPERVISOR Danielle RAI LAB BLOOD ORDERABLES Jasmin l Result Performing Organization Address [facility] Co de Phone Number [facility] [address] [facility] [employer] [place], [place] [id number] * (ABNORMAL) CRP (acute phase) (09/22/2024 2:59 PM PIPE LINE MAINTENANCE SUPERVISOR) CRP 84.1(H) <=10.0 mg/L Blood 09/22/2024 2:59 PM PIPE LINE MAINTENANCE SUPERVISOR 09/22/2024 3:03 PM PIPE LINE MAINTENANCE SUPERVISOR Danielle RAI LAB BLOOD ORDERABLES Jasmin l Result Performing Organization Address [facility] Co de Phone Number [facility] [address] [address] [address]. [facility] [place] [address] * XR Knee Right 3 Views (09/22/2024 2:55 PM PIPE LINE MAINTENANCE SUPERVISOR) Anatomical Region Laterality Modality Lower Extremities, Knee Right Computed Radiography 09/22/2024 3:30 PM PIPE LINE MAINTENANCE SUPERVISOR Impressions 09/22/2024 3:41 PM PIPE LINE MAINTENANCE SUPERVISOR 1. Large right knee joint effusion. 2. Unchanged right total knee arthroplasty without radiographic evidence of loosening. Dictated by: Manuel Gonzalez MD The radiology attending physician has personally reviewed this study, and had reviewed and/or edited this written report and agrees with it. Electronically signed by: Hector Gabriel D.O. Narrative 09/22/2024 3:41 PM PIPE LINE MAINTENANCE SUPERVISOR EXAMINATION: XR KNEE RIGHT 3 VIEWS HISTORY: Right knee pain, fever, swelling, concern for septic arthritis COMPARISON: Multiple prior radiographs, most recently 04/15/2023, also MR 06/04/2023 FINDINGS: Unchanged right total knee arthroplasty in near-anatomic alignment. Instrumentation is intact and there is no osteolysis. No periprosthetic fracture. No periostitis. Large knee joint effusion and moderate soft tissue swelling. Procedure Note Hector Gabriel, DO - 09/22/2024 EXAMINATION: XR KNEE RIGHT 3 VIEWS HISTORY: Right knee pain, fever, swelling, concern for septic arthritis COMPARISON: Multiple prior radiographs, most recently 04/15/2023, also MR 06/04/2023 FINDINGS: Unchanged right total knee arthroplasty in near-anatomic alignment. Instrumentation is intact and there is no osteolysis. No periprosthetic fracture. No periostitis. Large knee joint effusion and moderate soft tissue swelling. IMPRESSION: 1. Large right knee joint effusion. 2. Unchanged right total knee arthroplasty without radiographic evidence of loosening. Dictated by: Manuel Gonzalez MD The radiology attending physician has personally reviewed this study, and had reviewed and/or edited this written report and agrees with it. Electronically signed by: Hector Gabriel D.O. us Danielle RAI IMG XR PROCEDURES Final R esult * Hepatitis panel, acute (05/18/2019 5:29 AM CDT) HepBsAg NONREACT NONREACTIVE [facility] Comment: Siemens CentaurXP using JAIMIE (chemiluminescent immunoassay) technology. NONREACTIVE: IgM antibodies to Hepatitis B Surface antigen not detected. REACTIVE: IgM antibodies to Hepatitis B Surface antigen detected. Reactive results will be confirmed by neutralization testing. HBsAb qn 268.00 mIU/mL [facility] Comment: Siemens CentaurXP using JAIMIE (chemiluminescent immunoassay) technology. 9.99 IU/L or less.....NONREACTIVE: IgM antibodies to Hepatitis B Surface antibody are not detected. 10.00 IU/L or greater..REACTIVE: IgM antibodies to Hepatitis B Surface antibody are detected. Hep B core IgM NONREACT NONREACTIVE [facility] Comment: Siemens CentaurXP using JAIMIE (chemiluminescent immunoassay) technology. NONREACTIVE: IgM antibodies to Hepatitis B Core antigen not detected. EQUIVOCAL: IgM antibodies to Hepatitis B Core antigen may or may not be present. Obtain a new specimen and retest. REACTIVE: IgM antibodies to Hepatitis B Core antigen detected. Hep A IgM NONREACT NONREACTIVE [facility] Comment: Siemens CentaurXP using JAIMIE (chemiluminescent immunoassay) technology. NONREACTIVE: IgM antibodies to Hepatitis A not detected. This does not exclude possibility of exposure to Hepatitis A or early acute infection. EQUIVOCAL:IgM antibodies to Hepatitis A may or may not be present. Suggest recollection and retest. REACTIVE: Antibodies to Hepatitis A detected. Hep C Ab NONREACT NONREACTIVE [facility] Comment: Siemens CentaurXP using JAIMIE (chemiluminescent immunoassay) technology. NONREACTIVE: Antibodies to Hepatitis C not detected. This does not exclude early acute Hepatitis C infection, possibility of exposure to Hepatitis C, antibodies below detection limit, or to lack of antibody reactivity to the antigen used in this assay. EQUIVOCAL: Antibodies to Hepatitis C may or may not be present. Sample to be confirmed by real-time PCR method. REACTIVE: Antibodies to Hepatitis C detected.Sample to be confirmed by real-time PCR method. 05/18/2019 5:29 AM CDT 05/18/2019 5:34 AM CDT Narrative Resulting Agency Comment IN Mynor Navarro MD LAB MICROBIOLOGY - NERHI ORDERABLES Final Result [facility] [address] [place] [address], [facility] [phone] from Last 3 Months or Most Recently Relevant to Health Maintenance Insurance [employer] ADV[employer]AGE [employer] Advance Directives For more information, please contact: [phone] * Full Code (Latest Code Status on File) Date Activated Date Inactivated Comments 11/17/2024 3:40 PM 11/21/2024 9:56 PM * Full Code Date Activated Date Inactivated Comments 09/23/2024 11:01 AM 09/28/2024 7:00 PM * Full Code Date Activated Date Inactivated Comments 09/22/2024 5:26 PM 09/23/2024 11:01 AM * Full Code Date Activated Date Inactivated Comments 07/13/2024 8:49 AM 07/13/2024 3:17 PM * Full Code Date Activated Date Inactivated Comments 04/18/2021 8:43 AM 04/21/2021 10:18 PM Care Teams Second Time Worker Relationship Specialty Start Date End Date Christina Avendaño MD [address] [address] PCP - General Internal Medicine 05/07/20 Radha Curiel MD [address] [address] 05/07/20 Xander Richmond MD [address] [place] [address] Consulting Physician General Surgery 04/06/21
--- OUTSIDE RECORDS SUMMARY | 2024-12-13 09:27 | XMS_ITS | Encounter Summary ---
Author Organization [facility] Address [address] [place] [address] Care Team Providers Care Java Web User Interface Developer Name Role Phone Christina Avendaño MD Primary Care Provider [phone] Encounter Details Date Type Department Care Team (Late Contact Info) Description 09/05/2021 Digital Self COVID-1 9 Monitoring [facility]STRACTION [...] on file Legal Sex Female 4:13 AM RESIDENT DOCTOR Gender Identity Not on file Sexual Orientation Not on file COVID-19 Exposure Response Date Recorded In the last month, have you been in contact with someone who was confirmed or suspected to have Coronavirus / COVID-19? Unable to assess 09/02/2021 12:36 PM RESIDENT DOCTOR documented as of this encounter Plan of Treatment Upcoming Encounters Date Type Department Care Team ([facility] Contact Info) Description 12/27/2024 9:30 AM CDT Office Visit [facility] Internal Medicine Medical [place] [facility] [address] [facility] [address] [address] Christina Avendaño MD [address] [facility] [address] [place] [address] 08/13/2025 1:00 PM RESIDENT DOCTOR Appointment [facility] [address] [place] [address] Ewa Nicholson, MANAGER PSYCHIATRY [address] [facility] [address] [place] [address] 08/13/2025 1:45 PM RESIDENT DOCTOR Office Visit [facility] Breast Surgery [place] [address] [place] [address] Ewa Nicholson, MANAGER PSYCHIATRY [address] [facility] [address] [place] [address] documented as of this encounter Visit Diagnoses Not on filedocumented in this encounter Additional Health Concerns Infection Onset Date Last Indicated Resolved Time COVID-19 08/25/2021 08/25/2021 09/14/2021 1:18 AM RESIDENT DOCTOR documented as of this encounter Care Teams Java Web User Interface Developer Relationship Specialty Start Date End Date Christina Avendaño MD [address] [place] [address] PCP - General Internal Medicine 06/24/18 documented as of this encounter
--- OUTSIDE RECORDS SUMMARY | 2024-12-13 09:27 | XMS_ITS | Encounter Summary ---
Author Organization [facility] Address [address] [place] [address] Care Team Providers Care Progressive Care Unit Registered Nurse Name Role Phone Christina Avendaño MD Primary Care Provider [phone] Encounter Details Date Type Department Care Team (Late Contact Info) Description 09/08/2021 Digital Self COVID-1 9 Monitoring [facility] ABSTRACTION [...] on file Legal Sex Female 4:13 AM BLANKET WINDER HELPER Gender Identity Not on file Sexual Orientation Not on file COVID-19 Exposure Response Date Recorded In the last month, have you been in contact with someone who was confirmed or suspected to have Coronavirus / COVID-19? Unable to assess 09/02/2021 12:36 PM BLANKET WINDER HELPER documented as of this encounter Plan of Treatment Upcoming Encounters Date Type Department Care Team ([facility] Contact Info) Description 12/27/2024 9:30 AM CDT Office Visit [facility] Internal Medicine Medical [place] [facility] [address] [facility] [address] [address] Christina Avendaño MD [address] [facility] [address] [place] [address] 08/13/2025 1:00 PM BLANKET WINDER HELPER Appointment [facility] [address] [place] [address] Ewa Nicholson, MANUAL CONTROL AUGER PRESS OPERATOR [address] [facility] [address] [place] [address] 08/13/2025 1:45 PM BLANKET WINDER HELPER Office Visit [facility] Breast Surgery [place] [address] [place] [address] Ewa Nicholson, MANUAL CONTROL AUGER PRESS OPERATOR [address] [facility] [address] [place] [address] documented as of this encounter Visit Diagnoses Not on filedocumented in this encounter Additional Health Concerns Infection Onset Date Last Indicated Resolved Time COVID-19 08/25/2021 08/25/2021 09/14/2021 1:18 AM BLANKET WINDER HELPER documented as of this encounter Care Teams Progressive Care Unit Registered Nurse Relationship Specialty Start Date End Date Christina Avendaño MD [address] [facility] [address] [place] [address] PCP - General Internal Medicine 06/24/18 documented as of this encounter
--- OUTSIDE RECORDS SUMMARY | 2024-12-13 09:27 | XMS_ITS | Encounter Summary ---
Author Organization [facility] Address [address] [place] [address] Care Team Providers Care Senior Policy Advisor Name Role Phone Christina Avendaño MD Primary Care Provider [phone] Encounter Details Date Type Department Care Team (Late Contact Info) Description 09/03/2021 Digital Self COVID-1 9 Monitoring [facility] ABSTRACTION [...] on file Legal Sex Female 4:13 AM GEM CUTTER Gender Identity Not on file Sexual Orientation Not on file COVID-19 Exposure Response Date Recorded In the last month, have you been in contact with someone who was confirmed or suspected to have Coronavirus / COVID-19? Unable to assess 09/02/2021 12:36 PM GEM CUTTER documented as of this encounter Plan of Treatment Upcoming Encounters Date Type Department Care Team ([facility] Contact Info) Description 12/27/2024 9:30 AM CDT Office Visit [facility] Internal Medicine Medical [place] [facility] [address] [address] Christina Avendaño MD [address] [facility] [facility] [address] [place] [address] 08/13/2025 1:00 PM GEM CUTTER Appointment [facility] [address] [place] [address] Ewa Nicholson, LEADLIGHTER [address] [facility] [address] [place] [address] 08/13/2025 1:45 PM GEM CUTTER Office Visit [facility] Breast Surgery [place] [address] [place] [address] Ewa Nicholson, LEADLIGHTER [address] [facility] [address] [place] [address] documented as of this encounter Visit Diagnoses Not on filedocumented in this encounter Additional Health Concerns Infection Onset Date Last Indicated Resolved Time COVID-19 08/25/2021 08/25/2021 09/14/2021 1:18 AM GEM CUTTER documented as of this encounter Care Teams Senior Policy Advisor Relationship Specialty Start Date End Date Christina Avendaño MD [address] [facility] [address] [place] [address] PCP - General Internal Medicine 06/24/18 documented as of this encounter
--- OUTSIDE RECORDS SUMMARY | 2024-12-13 09:27 | XMS_ITS | Clinical Summary ---
Author Organization [facility] Address [address] [place] [address] Care Team Providers Care Pump Erector Name Role Phone Christina Avendaño MD Primary Care Provider + Radha Curiel MD Unavailable [phone] Xander Richmond MD Unavailable [phone] Allergies Active Allergy Reactions Criticality Noted Date [...] 1 tablet (25 mcg total) by mouth death clearance coordinator before breakfast 2023 Active ondansetron (ZOFRAN) 4 [...] every 8 (eight) hours 90 tablet 1 2024 Active senna-docusate (Senna-S) 8.6-50 mg [The details [...] 1 capsule (25 mcg total) by mouth death clearance coordinator before breakfast 11/16 Discontinued( Therapy completed) baclofen [...] daily 90 capsule 2 11/28 Discontinued magnesium O-ybtnte-efjuxls mide 42 mg (500 mg)- 250 mg tablet extended release 11/16 Discontinued( Therapy completed) potassium-calciu h-zntxjj-ngdil 091-336-374-2 mg powder in packet 11/16 Discontinued( Therapy [...] (10/17/2020): Added automatically from request for surgery [id number] Arthrofibrosis of knee joint, right 10/07/2020 Overview (10/07/2020): Added automatically from request for surgery [id number] Resolved Problems Problem Noted Date Diagnosed Date Resolved Date Abdominal pain 04/18/2021 04/21/2021 Encounters Date Type Department Care Team Description 12/12/2024 3:00 PM CDT Home Care Visit [address] [address] [address] [place] [address] Jes Langley RN SN HOME VISIT 12/08/2024 Documentation [facility] Infectious Diseases [address] [place] [address] Chanda Vazquez RN 12/06/2024 11:40 AM CDT - 12/06/2024 11:59 PM CDT Hospital Encounter [facility] [address] [place] [address] Discharge Disposition: Discharge to home or self care 12/06/2024 8:15 AM CDT Home Care Visit [address] [place] [address] Jeaneth Villalta do, GEOVANNY SN HOME VISIT 12/01/2024 Documentation [facility] Infect[facility] [address] [place] [phone] Chanda Vazquez RN 11/28/2024 2:45 PM CDT - 11/28/2024 11:59 PM CDT Hospital Encounter [facility] [address] [place] [address] Discharge Disposition: Discharge to home or self care 11/28/2024 12:30 PM CDT Home Care Visit [address] [place] [address] Kit Gonzalez RN SN HOME VISIT 11/28/2024 Orders Only [facility] Home Care Services [address] [facility] [address] [place] [address] Mert Ferris [facility] 11/28/2024 Orders Only [facility] Home Care Services [address] [facility] [address] [place] [address] Mert Ferris [facility] 11/27/2024 Telephone [facility] Infectious Diseases [address] [place] [address] [address] [place] [phone] Rossy Crawford RMA 11/23/2024 1:00 PM CDT Home Care Visit [address] [place] [address] Kamar Dias RN SN OASIS START OF CARE 11/23/2024 Plan of Care Documentation [address] [place] [address] 11/21/2024 Orders Only [facility] Home Care Services [address] [facility] [address] [place] [address] Shiloh Mendez, [facility] 11/21/2024 Orders Only [facility] Home Care Services [address] [place] [address] [address] [place] [address] Shiloh Mendez, [facility] 11/21/2024 Documentation [facility] Infectious Diseases [address] [facility] Medical Office Building [address] [place] [address] Tatiana Fang MD 11/17/2024 11:18 AM CDT Anesthesia Event [facility] Operating Room [address] [place] [address] Jessica Blunt MD Khodamoradi, Shahrdad, MD 11/17/2024 10:57 AM CDT - 11/17/2024 1:12 PM CDT Surgery [facility] Operating Room [address] [place] [address] Arya Gomez MD REMOVAL HARDWARE - KNEE 11/17/2024 8:45 AM CDT - 11/21/2024 5:36 PM CDT Hospital Encounter [facility] [address] [place] [address] Arya Gomez MD Reddy, Gireesh Bandi, MD Infection (Primary Dx) Discharge Disposition: Discharge to home, home health skilled care 11/16/2024 7:30 AM CDT Pre-Admission Testing [facility] ([facility]) [address] [place] [id number] Infection; Vitamin D deficiency, unspecified 11/15/2024 Telephone [facility] Orthopaedic Surgery [address] [place] [address] Medical Office Building [address] [place] [address] Arya Gomez MD 11/15/2024 Orders Only [facility] [address] [place] [address] Office Building [address] [place] [phone] Ewa Zepeda PA Left foot pain (Primary Dx) 11/14/2024 1:18 PM CDT - 11/14/2024 11:59 PM CDT Hospital Encounter [address] [place] [address] Aftercare following right knee joint replacement surgery; Acute pain of right knee Discharge Disposition: Discharge to home or self care 11/14/2024 12:10 PM CDT Lab [facility] [address] [address] [address] Infection of prosthetic joint, subsequent encounter 11/14/2024 11:15 AM CDT Office Visit [facility] [address] [facility] 2[address] [place] [address] Ewa Zepeda PA Aftercare following right knee joint replacement surgery (Primary Dx); Acute pain of right knee 11/13/2024 9:40 AM CDT Office Visit [facility] Diseases [address] [facility] Medical Office Building [address] [place] [address] Tatiana Fang MD Infection of prosthetic joint, subsequent encounter (Primary Dx); Hardware complicating wound infection, subsequent encounter 11/10/2024 Documentation [facility] Surgery [address] [facility] Medical Office Building [address] [place] [address] Ricarda Vale CMA 11/03/2024 11:20 AM CDT - 11/03/2024 11:59 PM CDT Hospital Encounter [facility] [address] [facility] [address] [place] [address] Discharge Disposition: Discharge to home or self care 11/02/2024 Orders Only [facility] Orthopa[facility] Surgery [address] [facility] Medical Office Building [address] [place] [address] Arya Gomez MD Chronic pain of right knee (Primary Dx) 10/31/2024 Documentation [facility] [address] [place] [address] Chanda Vazquez RN 10/30/2024 Orders Only [facility] Diseases [address] [facility] Medical Office Building [address] [place] [address] Tatiana Fang MD 10/26/2024 Orders Only [facility] Home Care Services [address] [place] [address] [address] [place] [address] Norma Weathers, [facility] 10/20/2024 Documentation [facility] [address] [facility] [place] [address] Chanda Vazquez RN 10/16/2024 12:40 PM AUTOMOBILE ACCESSORIES SALESPERSON Office Visit [facility]opa[facility] Surgery [address] [facility] Medical Office Building [address] [place] [address] Arya Gomez MD Aftercare following right knee joint replacement surgery (Primary Dx); History of revision of total replacement of right knee joint; Surgical follow-up care 10/16/2024 11:35 AM AUTOMOBILE ACCESSORIES SALESPERSON Lab [facility] [address] [place] [address] Infection of prosthetic joint, subsequent encounter 10/16/2024 10:40 AM AUTOMOBILE ACCESSORIES SALESPERSON Office Visit [facility] Infect[facility] Diseases [address] [facility] Office Building [address] [place] [address] Tatiana Fang MD Staphylococcus aureus bacteremia (Primary Dx); Infection of prosthetic joint, subsequent encounter; Hardware complicating wound infection, subsequent encounter 10/13/2024 Telephone [facility] [address] [place] [address] Elsie Hwang CMA 10/12/2024 Documentation [facility] [address] [facility] [address] [place] [address] Chanda Vazquez RN 10/12/2024 Telephone [facility] Diseases [address] [facility] [address] [place] [address] Sayra Bloom, CRISTÓBAL 10/10/2024 11:00 AM AUTOMOBILE ACCESSORIES SALESPERSON Ancillary Procedure [facility] [address] [place] [address] 8th [place] [address] [place] [address] Pain and swelling of right lower leg 10/09/2024 Orders Only [facility] Surgery [address] [facility] Medical Office Building [address] [place] [address] Arya Gomez MD Pain and swelling of right lower leg (Primary Dx) 10/06/2024 Documentation [facility] [address] [place] [address] [address] [place] [address] Chanda Vazquez RN 09/29/2024 2:54 PM AUTOMOBILE ACCESSORIES SALESPERSON - 09/29/2024 5:38 PM AUTOMOBILE ACCESSORIES SALESPERSON Emergency [facility] Emergency Department [address] [place] [address] Jeana Bryan MD Fever and chills (Primary Dx) Discharge Disposition: Discharge to home or self care 09/29/2024 Orders Only [facility] Home Care Services [address] [facility] [address] [place] [address] Mert Ferris, [facility] 09/29/2024 Telephone [facility] [address] [place] [address] Office Building [address] [place] [address] Tatiana Fang MD 09/28/2024 Orders Only [facility] Home Care Services [address] [place] [address] [place] [address] Chiqui Saravia, [facility] 09/28/2024 Telephone [facility] [address] [place] [address] Sayra Bloom [facility] 09/26/2024 Documentation [facility] [address] [place] [address] Office Building [address] [place] [address] Tatiana Fang MD 09/23/2024 8:30 AM AUTOMOBILE ACCESSORIES SALESPERSON - 09/23/2024 11:15 AM AUTOMOBILE ACCESSORIES SALESPERSON Surgery [facility] Operating Room [address] [place] [address] Isabella Guzman MD INCISION AND DEBRIDEMENT - KNEE 09/23/2024 8:30 AM AUTOMOBILE ACCESSORIES SALESPERSON Anesthesia Event [facility] Operating Room [address] [place] [address] Leatha Rodrigues MD 09/22/2024 2:01 PM AUTOMOBILE ACCESSORIES SALESPERSON - 09/28/2024 2:55 PM AUTOMOBILE ACCESSORIES SALESPERSON Hospital Encounter [facility] [address] [address] [place] [address] Arya Gomez MD Effusion of right knee joint (Primary Dx); Knee effusion, right Discharge Disposition: Discharge to home, home health skilled care 09/22/2024 Telephone [facility] Orthopa[facility] Surgery [address] [facility] Medical Office Building [address] [place] [address] Arya Gomez MD from Last 3 Months Immunizations Immunization Administration Dates Next Due Hep A, Adult 07/03/2008,12/02/2007 Hep A, Unspecified 07/03/2008,12/02/2007 Hep B Vaccine 07/03/2008,02/23/2008,01/12/2008 Influenza, Quadrivalent, Spl it, Preservative Free, Intramuscular 07/06/2022,07/04/2021,06/15/2020,05/30,06/16/2016,05/03/2016 Influenza, Trivalent, IM (MDV) 05/20/2018,2016,06/23/2016 Influenza, Trivalent, Preser vative Free, Intramuscular 05/12/2012,06/18/2008 Influenza, Unspecified 05/16/2013 Pneumococcal Polysaccharide [id number] 06/15/2018, TD Preservative Free 08/25/2012 Tdap 03/23/2016,08/25/2012 ZOSTER Recombinant 03/04/2021,10/20/2020 Surgical History Surgery Date Site/Laterality Comments KNEE ARTHROSCOPY HYSTERECTOMY JOINT REPLACEMENT 08/23/2019 - 08/22/2020 TONSILECTOMY, ADENOIDECTOMY, BILATERAL MYRINGOTOMY AND TUBES NASAL SEPTUM SURGERY KNEE ARTHROSCOPY W/ LATERAL RELEASE X5 Right SMALL INTESTINE SURGERY 2020 BLADDER SURGERY 2004 COLONOSCOPY POLYPECTOMY ULNAR NERVE TRANSPOSITION Right IR PICC LINE PLACEMENT > 5 YEARS 09/27/2024 N/A Medical History Medical History Date Comments Encounter for screening Visit fo r screening - (Added by TW Conv) Current tear of meniscus Acute m eniscal tear of knee - (Added by TW Conv) Personal history of malignan t melanoma of skin History of malignant melanom a - (Added by TW Conv) ADHD (attention deficit hype ractivity disorder) Anxiety Arthritis Asthma Cancer (HCC) cervical Depression Hypercholesteremia Hypertension Kidney stone Migraines Neuromuscular disorder (HCC) Peripheral neuropathy Raynaud phenomenon Thyroid disease Urinary tract infection Covid-19 05/2020 Other complications of anesthesia, sequela Spinal headache x3 days after epidural anesthesia for vaginal delivery in 2001 & 1997 Hypopituitarism Mixed connective tissue disease Nubia-Danlos disease GERD (gastroesophageal reflux disease) 2016 Anemia 2015 Autoimmune disease 2015 Dysphagia Colon polyp Chronic constipation Irritable bowel syndrome Hypothyroidism PONV (postoperative nausea and vomiting) Mixed connective tissue disease Family History Medical History Relation Name Comments Asthma Brother Brian Depression Brother Brian Scoliosis Brother Brian Arthritis Daughter 1 Caitlyn Asthma Daughter 1 Caitlyn Miscarriages / Stillbirths Daughter 1 Caitlyn Rashes / Skin problems Daughter 1 Caitlyn Asthma Daughter 2 Ally Miscarriages / Stillbirths Daughter 2 Ally Rashes / Skin problems Daughter 2 Ally Heart disease Father Hypertension Father Heart attack Father's Brother 1 Rich Heart disease Father's Brother 1 Rich Hypertension Father's Brother 1 Rich Heart attack Father's Brother 2 Don Heart disease Father's Brother 2 Don Hypertension Father's Brother 2 Don Heart attack Father's Brother 3 Tristian Heart disease Father's Brother 3 Tristian Hypertension Father's Brother 3 Tristian Early Father's Brother 4 Zak Heart attack Father's Brother 4 Zak Heart disease Father's Brother 4 Zak Hypertension Father's Brother 4 Zak Early Father's Brother 5 Sahil Heart attack Father's Brother 5 Sahil Heart disease Father's Brother 5 Sahil Hypertension Father's Brother 5 Sahil Heart attack Father's Sister 1 Cristina Hypertension Father's Sister 1 Cristina Early Father's Sister 2 Heike Heart attack Father's Sister 2 Heike Arthritis Mother Elaine Depression Mother Elaine Hypertension Mother Elaine Memory loss Mother Elaine Vision loss Mother Elaine Colon cancer Mother's Brother 1 Kash Hypertension Mother's Brother 1 Kash Hypertension Mother's Brother 2 Bill Hypertension Mother's Sister Malou Heart disease Paternal Grandfather Rojelio Stroke Paternal Grandmother Tamela Arthritis Sister 1 [place] Cancer Sister 1 [place] Depression Sister 1 Ann Hypertension Sister 1 Ann Scoliosis Sister 1 [place] Cancer Sister 2 Sandra Depression Sister 2 Sandra Cancer Sister 3 Raúl Asthma Son Shawn Rashes / Skin problems Son Shawn Anesthesia problems Neg Hx Relation Name Status Comments Brother Brian Daughter 1 Caitlyn Daughter 2 Ally Father Father's Brother 1 Rich Father's Brother 2 Don Father's Brother 3 Tristian Father's Brother 4 Zak Father's Brother 5 Sahil Father's Sister 1 Cristina Father's Sister 2 Heike Mother Elaine Mother's Brother 1 Kash Mother's Brother 2 Boubacar Mother's Sister Malou Other DEased Paternal Uncles x2 (ages 40s y/o) [place], Dyslipidemia Paternal Grandfather Rojelio Paternal Grandmother Tamela Sister 1 [place] Sister 2 Sandra Sister 3 Raúl Son Shawn Social History Tobacco Use Types Packs/Day Years [...] materials from doctor or pharmacy Sometimes 11/23/2024 [facility] Utilities Answer Date Recorded In the past 12 months has e Qzzr, gas, oil, or water company threatened to [...] often do you attend chur ch or islam services? Never 11/20/2024 Do you belong to any clubs o r organizations such as cheondoism groups, unions, fraternal or athletic groups, or [...] any time in the past 12 m [facility], were you homeless or living in a residential (including now)? No 11/20/2024 Personal Safety Answer Date Recorded Have you ever been in or are you currently in a harmful physical or emotional relationship or is someone making you feel afraid or unsafe? Denies 11/17/2024 Comments No Sex and Gender Information Value Date Recorded Sex Assigned at Not on file Legal Sex Female 7:49 PM AUTOMOBILE ACCESSORIES SALESPERSON Gender Identity Not on file Sexual Orientation Not on file Obstetrics History Comments Hysterectomy 2006 Last Filed Vital Signs Vital Sign Reading [...] 11/23/2024 1:10 PM CDT Plan of Treatment Health Maintenance Due Date Last Done Comments Colon Cancer Screening-Colonoscopy 1970 Depression Screening 1970 Regular Well Visit/Exam 18-64 1988 Pneumococcal vaccine <65 (3 of 3 - PCV) 06/15/2019 06/15/2018, 04/15/2009 Covid-19 Vaccine (2023-2 5 season) 2024 08/28/2024, 02/19/2022, 05/15/2021, Additional history exists Breast Cancer Screening-Mammogram 08/10/2025 08/10/2024, 08/10/2024, 08/07/2023, Additional history exists DTaP/Tdap/Td Vaccine (3 - Td or Tdap) 03/23/2026 03/23/2016, 08/25/2012, 08/25/2012 Hepatitis B Screening Completed 07/03/2008 , 02/23/2008, 01/12/2008 Hepatitis C Screening Completed 05/18/2019 Zoster Vaccine Completed 03/04/2021, 10/20/2020 Influenza Vaccine Completed 08/28/2024, , 07/06/2022, Additional history exists Medical Devices Implanted Type Area Boom Truck Driver Device Identifier Shelf Expiration Date Model / Serial / Lot [employer] [id number] Biomet Ascent Maxim Primary Lock Bar Knee Component Tibial Tray - Sna - [id number] Implanted:Qty: 1 on 01/16/2021 by Arya Gomez MD at [facility] Other - see comments Right: Knee [employer] [id number] 02/25/2030 [id number] / NA / [id number] 1Q [employer] [id number] Vanguard 63/[id number] Posterior Stabilize Knee Bearing Tibial E1 - Sna - [id number] Implanted:Qty: 1 on 01/16/2021 by Arya Gomez MD at [facility] Other - see comments Right: Knee [employer] [id number] 07/13/2022 [id number] / NA / [id number] 0?91Q Right Knee Replacement Knee Clips From Hysterectomy Pelvis [employer] Vanguard 63/[id number] Posterior Stabilize Inlay Knee 0d Bearing 169065 - [id number] Implanted:Qty: 1 on 09/23/2024 at [facility] Right: Knee [employer] 01/01/2026 [id number] / / [id number] [employer] Biomet Ascent Maxim Primary Lock Bar Knee Component Tibial Tray 533130 - [id number] Implanted:Qty: 1 on 09/23/2024 at [facility] Right: Knee [employer] 04/07/2034 [id number] / / [id number] [employer] Sc[employer] Cement Bone High Viscosity Gentamicin Radiopaque Single Dose Palacos 40gm Pmma [id number] - [id number] Implanted:Qty: 1 on 11/17/2024 at [facility] Right: Knee [employer] 07/22/2028 [id number] / / [id number] [employer] Remedy 175mm Stem Extension Knee Component Femoral [id number] - [id number] Implanted:Qty: 1 on 11/17/2024 at [facility] Right: Knee [employer] 02/19/2029 [id number] / / [id number] [employer] Cement Bone High Viscosity Gentamicin Radiopaque Single Dose Palacos 40gm Pmma [id number] - [id number] Implanted:Qty: 1 on 11/17/2024 at [facility] Right: Knee [employer] 08/22/2028 [id number] / / [id number] [employer] Remedy Stem Knee Medium Component Tibial Rsktmd - [id number] Implanted:Qty: 1 on 11/17/2024 at [facility] Right: Knee [employer] 05/22/2028 [id number] / / [id number] Biocom[employer] Stimulan Rapid Cure Kit Paste Director Of Quantitative Research 20cc 50cc Bone Void 620-020 - [id number] Implanted:Qty: 1 on 11/17/2024 at [facility] Right: Knee [employer] 05/22/2027 620-020 / / [id number] [employer] Remedy Stem Knee Medium Component Femoral Rskfmd - [id number] Implanted:Qty: 1 on 11/17/2024 at [facility] Right: Knee [employer] 01/20/2029 [id number] / / [id number] [employer] Remedy 100mm Stem Extension Knee Component Femoral Ctp737 - [id number] Implanted:Qty: 1 on 11/17/2024 at [facility] Right: Knee [employer] 12/20/2028 [id number] / / [id number] Explanted Type Area Boom Truck Driver Device Identifier Shelf Expiration Date Model / Serial / Lot [employer] [id number] Seprafilm 6x5in Barrier Adhesion Sterile Disposable Latex Free - [id number] Explanted:Qty: 1 on 03/28/2021 at [facility] [employer] Krish [id number] / / Femoral Component Explanted:Qty: 1 on 11/17/2024 by Arya Gomez MD at [facility] Right: Knee Other UNABLE TO VISUALIZE / / Tibial Insert Explanted:Qty: 1 on 11/17/2024 at [facility] Right: Knee Other UNKNOWN / / Tibial Component Explanted:Qty: 1 on 11/17/2024 by Arya Gomez MD at [facility] Right: Knee Other UNKNOWN / / Procedures [...] - KNEE 11/18/19 11:23 AM CDT Infection NC AN PROCEDURE PLACEHOLDER Routine 11/17/2024 10:53 AM CDT NC AN PROCEDURE PLACEHOLDER Routine 11/17/2024 10:53 AM [...] replacement surgery Acute pain of right knee NC ARTHROCENTESIS ASPIR&/INJ MAJOR JT/BURSA W/O US Routine 11/14/2024 11:15 AM CDT Aftercare following right knee joint replacement surgery SYNOVASURE Routine 11/14/2024 Aftercare following right knee joint replacement surgery Acute pain of right knee XR KNEE RIGHT 3 VIEWS Schedule Routine, Read Routine (OP Routine) 11/03/2024 11:35 AM CDT Chronic pain of right knee BLOOD CULTURE Routine 10/16/2024 11:52 AM AUTOMOBILE ACCESSORIES SALESPERSON Infection of prosthetic joint, subsequent encounter EGFR Routine 10/16/2024 11:46 AM AUTOMOBILE ACCESSORIES SALESPERSON Infection of prosthetic joint, subsequent encounter DIFFERENTIAL AUTO Routine 10/16/2024 11:46 AM AUTOMOBILE ACCESSORIES SALESPERSON Infection of prosthetic joint, subsequent encounter CBC WITH AUTO DIFFERENTIAL Routine 10/16/2024 11:46 AM AUTOMOBILE ACCESSORIES SALESPERSON Infection of prosthetic joint, subsequent encounter CRP (ACUTE PHASE) Routine 10/16/2024 11:46 AM AUTOMOBILE ACCESSORIES SALESPERSON Infection of prosthetic joint, subsequent encounter COMPREHENSIVE METABOLIC PANEL Routine 10/16/2024 11:46 AM AUTOMOBILE ACCESSORIES SALESPERSON Infection of prosthetic joint, subsequent encounter ERYTHROCYTE SEDIMENTATION RATE Routine 10/16/2024 11:46 AM AUTOMOBILE ACCESSORIES SALESPERSON Infection of prosthetic joint, subsequent encounter BLOOD CULTURE Routine 10/16/2024 11:46 AM AUTOMOBILE ACCESSORIES SALESPERSON Infection of prosthetic joint, subsequent encounter US VEIN DUPLEX LOWER EXTREMITY RIGHT LIMITED Schedule Routine, Read Routine (OP Routine) 10/10/2024 10:53 AM AUTOMOBILE ACCESSORIES SALESPERSON Pain and swelling of right lower leg URINALYSIS AND REFLEX TO MICROSCOPIC AND CULTURE STAT 09/29/2024 4:26 PM AUTOMOBILE ACCESSORIES SALESPERSON CT CHEST PE W CONTRAST ED 4:02 PM AUTOMOBILE ACCESSORIES SALESPERSON BLOOD CULTURE STAT 09/29/2024 4:01 PM AUTOMOBILE ACCESSORIES SALESPERSON BLOOD CULTURE STAT 09/29/2024 4:01 PM AUTOMOBILE ACCESSORIES SALESPERSON XR CHEST 1 VIEW ED 09/29/2024 3:43 PM AUTOMOBILE ACCESSORIES SALESPERSON INFLUENZA A/B, RSV, AND COVID-19 PCR STAT 09/29/2024 3:27 PM AUTOMOBILE ACCESSORIES SALESPERSON EGFR STAT 09/29/2024 2:05 PM AUTOMOBILE ACCESSORIES SALESPERSON DIFFERENTIAL AUTO STAT 09/29/2024 2:0 5 PM AUTOMOBILE ACCESSORIES SALESPERSON SEPSIS LACTATE WITH REFLEX Routine 09/29/2024 2:05 PM AUTOMOBILE ACCESSORIES SALESPERSON COMPREHENSIVE METABOLIC PANEL STAT 09/29/2024 2:05 PM AUTOMOBILE ACCESSORIES SALESPERSON CBC WITH AUTO DIFFERENTIAL STAT 09/29/2024 2:05 PM AUTOMOBILE ACCESSORIES SALESPERSON EGFR Routine 09/28/2024 4:12 AM AUTOMOBILE ACCESSORIES SALESPERSON CBC WITHOUT DIFFERENTIAL Routine 09/28/2024 4:12 AM AUTOMOBILE ACCESSORIES SALESPERSON BASIC METABOLIC PANEL Routine 09/28/2024 4:12 AM AUTOMOBILE ACCESSORIES SALESPERSON IR PICC LINE PLACEMENT > 5 YEARS IP Routine 09/27/2024 3:53 PM AUTOMOBILE ACCESSORIES SALESPERSON EGFR Routine 09/27/2024 4:08 AM AUTOMOBILE ACCESSORIES SALESPERSON CBC WITHOUT DIFFERENTIAL Routine 09/27/2024 4:08 AM [employer] SALESPERSON BASIC METABOLIC PANEL Routine 09/27/2024 4:08 AM [employer] SALESPERSON RESPIRATORY PATHOGEN PANEL Routine 09/26/2024 3:45 PM [employer] SALESPERSON XR CHEST 1 VIEW IP Routine 09/26/2024 3:41 PM [employer] SALESPERSON EGFR Routine 09/26/2024 5:07 AM [employer] SALESPERSON CBC WITHOUT DIFFERENTIAL Routine 09/26/2024 5:07 AM [employer] SALESPERSON BASIC METABOLIC PANEL Routine 09/26/2024 5:07 AM [employer] SALESPERSON BLOOD CULTURE Timed 09/25/2024 1:04 PM [employer] SALESPERSON BLOOD CULTURE Timed 09/25/2024 1:04 PM [employer] SALESPERSON TRANSTHORACIC ECHO (TTE) COMPLETE W DOPPLER/CF WO CONTRAST Routine 09/25/2024 12:15 PM [employer] SALESPERSON EGFR Routine 09/25/2024 4:26 AM [employer] SALESPERSON VANCOMYCIN LEVEL TROUGH Timed 09/25/19 4:26 AM [employer] SALESPERSON CBC WITHOUT DIFFERENTIAL Routine 09/25/2024 4:26 AM [employer] SALESPERSON BASIC METABOLIC PANEL Routine 09/25/2024 4:26 AM [employer] SALESPERSON HIV 1/2 ANTIBODY PLUS P24 ANTIGEN STAT 09/24/2024 3:39 PM [employer] SALESPERSON EGFR Routine 09/24/2024 5:10 AM [employer] SALESPERSON VANCOMYCIN LEVEL TROUGH Timed 09/24/19 5:10 AM [employer] SALESPERSON CBC WITHOUT DIFFERENTIAL Routine 09/24/2024 5:10 AM [employer] SALESPERSON BASIC METABOLIC PANEL Routine 09/24/2024 5:10 AM [employer] SALESPERSON XR KNEE RIGHT 1 OR 2 VIEWS ED Urgent/IP Urgent 09/23/2024 11:56 AM [employer] SALESPERSON NC AN PROCEDURE PLACEHOLDER Routine 09/23/2024 10:24 AM [employer] SALESPERSON TISSUE AEROBIC AND ANAEROBIC CULTURE AND GRAM STAIN Routine 09/23/2024 9:36 AM [employer]ESS[employer] SALESPERSON TISSUE AEROBIC AND ANAEROBIC CULTURE AND GRAM STAIN Routine 09/23/2024 9:36 AM [employer] ACCESS[employer] SALESPERSON TISSUE AEROBIC AND ANAEROBIC CULTURE AND GRAM STAIN Routine 09/23/2024 9:36 AM [employer]ESS[employer] SALESPERSON TISSUE AEROBIC AND ANAEROBIC CULTURE AND GRAM STAIN Routine 09/23/2024 9:36 AM [employer]ESS[employer] SALESPERSON MYCOBACTERIOLOGY AFB CULTURE AND ACID-FAST STAIN Routine 09/23/2024 9:36 AM [employer]BI[employer] ACCESSOR[employer] SALESPERSON MYCOLOGY (FUNGAL) CULTURE Routine 09/23/2024 9:36 AM [employer]BI[employer] ACCESS[employer] SALESPERSON TISSUE AEROBIC AND ANAEROBIC CULTURE AND GRAM STAIN Routine 09/23/2024 9:36 AM [employer]ESS[employer] SALESPERSON NC AN PROCEDURE PLACEHOLDER Routine 09/23/2024 8:48 AM [employer] SALESPERSON NC AN PROCEDURE PLACEHOLDER Routine 09/23/2024 8:46 AM [employer]ESS[employer] SALESPERSON NC AN ELECTIVE SUPRAGLOTTIC AIRWAY Routine 09/23/2024 8:46 AM [employer] SALESPERSON INCISION AND DEBRIDEMENT - KNEE 09/23/2024 8:33 AM [employer]ESS[employer] SALESPERSON Knee effusion, right US VEIN DUPLEX LOWER EXTREMITY BILATERAL COMPLETE ED Urgent/IP Urgent 09/23/2024 7:07 AM [employer] SALESPERSON URINALYSIS, MICROSCOPIC ONLY Routine 09/23/2024 6:37 AM [employer] SALESPERSON URINALYSIS AND REFLEX TO MICROSCOPIC AND CULTURE Routine 09/23/2024 6:37 AM [employer]ESS[employer] SALESPERSON BLOOD CULTURE Routine 09/23/2024 6:10 AM [employer]BI[employer] ACCESS[employer] SALESPERSON BLOOD CULTURE STAT 09/23/2024 6:10 AM [employer]BI[employer] ACCESS[employer] SALESPERSON XR CHEST PA LATERAL 2 VIEWS IP Routine 09/22/2024 6:00 PM [employer] SALESPERSON ANTIBODY SCREEN Timed 09/22/2024 5:48 PM [employer] SALESPERSON ABO/RH Timed 09/22/2024 5:48 PM [employer] SALESPERSON APTT Routine 09/22/2024 5:48 PM [employer] ACCESS[employer] SALESPERSON PROTIME-INR Routine 09/22/2024 5:48 PM [employer]ESS[employer] SALESPERSON TYPE AND SCREEN Timed 09/22/2024 5:48 PM [employer]ESS[employer] SALESPERSON HISTORIC ANTIBODY IDENTIFICATION Routine 09/22/2024 5:35 PM [employer]ESS[employer] SALESPERSON NC ARTHROCENTESIS ASPIR&/INJ MAJOR JT/BURSA W/O US Routine 09/22/2024 3:48 PM [employer] SALESPERSON Effusion of right knee joint CELL DIFFERENTIAL, BODY FLUID Routine 09/22/2024 3:38 PM [employer]ESS[employer] SALESPERSON CRYSTAL ANALYSIS, BODY FLUID Routine 09/22/2024 3:38 PM [employer] ACCESS[employer] SALESPERSON CELL COUNT W/REFLEX DIFFERENTIAL, BODY FLUID Routine 09/22/2024 3:38 PM [employer]ESS[employer] SALESPERSON BLOOD CULTURE STAT 09/22/2024 3:38 PM [employer] ACCESS[employer] SALESPERSON AEROBIC AND ANAEROBIC CULTURE AND GRAM STAIN STAT 09/22/2024 3:38 PM [employer]ESS[employer] SALESPERSON SEPSIS LACTATE WITH REFLEX STAT 09/22/2024 3:17 PM [employer] ACCESS[employer] SALESPERSON BLOOD CULTURE STAT 09/22/2024 3:17 PM [employer]ESS[employer] SALESPERSON B ABO / RH CONFIRMATION TESTING STAT 09/22/2024 2:59 PM [employer]ESS[employer] SALESPERSON EGFR Routine 09/22/2024 2:59 PM [employer]ESS[employer] SALESPERSON BASIC METABOLIC PANEL, SERUM Routine 09/22/2024 2:59 PM [employer]ESS[employer] SALESPERSON CBC WITH AUTO DIFFERENTIAL Routine 09/22/2024 2:59 PM [employer] SALESPERSON DIFFERENTIAL AUTO Routine 09/22/2024 2:5 9 PM [employer] SALESPERSON ERYTHROCYTE SEDIMENTATION RATE Routine 09/22/2024 2:59 PM [employer] ACCESS[employer] SALESPERSON CRP (ACUTE PHASE) Routine 09/22/2024 2:5 9 PM [employer]OBI[employer] ACCESS[employer] SALESPERSON XR KNEE RIGHT 3 VIEWS ED Urgent/IP Urgent 09/22/2024 2:55 PM [employer]ESS[employer] SALESPERSON HEPATITIS PANEL, ACUTE Routine 9 5:29 AM [...] LAB BLOOD ORDERABLES Jasmin l Result [facility] Department [place] [address] * eGFR (12/06/2024 11:40 AM CDT) eGFR [...] 0 AM CDT 12/06/2024 3:33 PM CDT Arya Gomez MD LAB BLOOD ORDERABLES Jasmin hickman Result [facility] [place] [address] * (ABNORMAL) Differential, auto (12/06/2024 11:40 AM CDT) Pathologist [facility] Neutrophil abs 3.54 1.50 - 6.50 K/cumm Imm gran abs 0.01 0.00 - 0.10 K/cumm [facility] Lymphocyte abs 1.77 0.80 - 3.30 K/cumm [facility] Monocyte abs 0.44 0.20 - 0.80 K/cumm [facility] Eosinophil abs 0.38 0.00 - 0.50 K/cumm [facility] Basophil abs 0.18(H) 0.00 - 0.10 K/cumm [facility] Neutrophil pct 56.0 % [facility] Comment: Interpretive Data Percent cell count reference ranges are not reported, since discordance with absolute values may lead to misinterpretation of CBC data. Current Interpretive Data was last revised on 2017. Imm gran pct 0.2 % [facility] Comment: Interpretive Data Percent cell count reference ranges are not reported, since discordance with absolute values may lead to misinterpretation of CBC data. Current Interpretive Data was last revised on 2017. Lymphocyte pct 28.0 % [facility] Comment: Interpretive Data Percent cell count reference ranges are not reported, since discordance with absolute values may lead to misinterpretation of CBC data. Current Interpretive Data was last revised on 2017. Monocyte pct 7.0 % [facility] Comment: Interpretive Data Percent cell count reference ranges are not reported, since discordance with absolute values may lead to misinterpretation of CBC data. Current Interpretive Data was last revised on 2017. Eosinophil pct 6.0 % [facility] Comment: Interpretive Data Percent cell count reference ranges are not reported, since discordance with absolute values may lead to misinterpretation of CBC data. Current Interpretive Data was last revised on 2017. Basophil pct 2.8 % [facility] Comment: Interpretive Data Percent cell count reference ranges are not reported, since discordance with absolute values may lead to misinterpretation of CBC data. Current Interpretive Data was last revised on 2017. Blood 12/06/2024 11:4 0 AM CDT 12/06/2024 3:26 PM CDT Arya Gomez MD LAB BLOOD ORDERABLES Jasmin l Result [facility] Department [place] [address] * Comprehensive metabolic panel, without glucose (Outreach) (12/06/2024 11:40 AM CDT) Sodium 139 135 - 145 mmol/L Potassium, pl 3.9 3.3 - 4.9 mmol/L [facility] Chloride 100 97 - 110 mmol/L [facility] CO2 28 22 - 32 mmol/L [facility] Anion gap 11 2 - 15 mmol/L [facility] BUN 16 6 - 25 mg/dL [facility] Creatinine 0.78 0.60 - 1.10 mg/dL [facility] Calcium 9.6 8.5 - 10.3 mg/dL [facility] Protein, pl 7.6 6.5 - 8.5 g/dL [facility] Albumin 4.0 3.5 - 5.0 g/dL [facility] Bilirubin, total 0.3 0.1 - 1.2 mg/dL [facility] Alk phos 127 40 - 130 Units/L [facility] AST 36 10 - 45 Units/L [facility] ALT 20 7 - 45 Units/L [facility] Blood 12/06/2024 11:4 0 AM CDT 12/06/2024 3:26 PM CDT us Arya Gomez MD LAB BLOOD ORDERABLES Jasmin hickman Result Performing Organization Address City/[facility]/ZIP Co de Phone Number [facility] Department [place] [address] * (ABNORMAL) CBC with auto differential (12/06/2024 11:40 AM CDT) [facility] WBC 6.32 3.80 - 9.90 K/cumm Hgb 10.0(L) 11.9 - 15.5 g/dL [facility] Hct 31.8(L) 35.6 - 45.5 % [facility] Plt 562(H) 150 - 400 K/cumm [facility] MPV 9.9 9.1 - 12.3 fL [facility] RBC 4.02 3.90 - 5.20 M/cumm [facility] MCV 79.1(L) 81.3 - 96.4 fL [facility] MCH 24.9(L) 27.1 - 33.3 pg [facility] MCHC 31.4(L) 32.3 - 35.7 g/dL [facility] RDW CV 13.8 11.1 - 14.9 % [facility] RDW SD 39.8 35.7 - 48.1 fL [facility] NRBC abs 0.00 0.00 - 0.01 K/cumm [facility] Blood 12/06/2024 11:4 0 AM CDT 12/06/2024 3:26 PM CDT us Arya Gomez MD LAB BLOOD ORDERABLES Jasmin vick Result [facility] Department [place] [address] * (ABNORMAL) Creatine kinase (CK), total (12/06/2024 11:40 AM CDT) Pathologist [facility] CK 208(H) 30 - 200 Units/L Blood 12/06/2024 11:4 0 AM CDT 12/06/2024 3:26 PM CDT us Arya Gomez MD LAB BLOOD ORDERABLES Jasmin l Result Performing Organization Address City/[facility]/ZIP Co de Phone Number [facility] [place] [address] * eGFR (11/28/2024 2:00 PM CDT) eGFR [...] LAB BLOOD ORDERABLES Final Res ult [facility] [address] [facility] Department [place] [address] * (ABNORMAL) Differential, auto (11/28/2024 2:00 PM CDT) Neutrophil abs 3.75 1.50 - 6.50 K/cumm Imm gran abs 0.02 0.00 - 0.10 K/cumm [facility] Lymphocyte abs 1.69 0.80 - 3.30 K/cumm [facility] Monocyte abs 0.61 0.20 - 0.80 K/cumm [facility] Eosinophil abs 0.54(H) 0.00 - 0.50 K/cumm [facility] Basophil abs 0.15(H) 0.00 - 0.10 K/cumm [facility] Neutrophil pct 55.5 % [facility] Comment: Interpretive Data Percent cell count reference ranges are not reported, since discordance with absolute values may lead to misinterpretation of CBC data. Current Interpretive Data was last revised on 2017. Imm gran pct 0.3 % [facility] Comment: Interpretive Data Percent cell count reference ranges are not reported, since discordance with absolute values may lead to misinterpretation of CBC data. Current Interpretive Data was last revised on 2017. Lymphocyte pct 25.0 % [facility] Comment: Interpretive Data Percent cell count reference ranges are not reported, since discordance with absolute values may lead to misinterpretation of CBC data. Current Interpretive Data was last revised on 2017. Monocyte pct 9.0 % [facility] Comment: Interpretive Data Percent cell count reference ranges are not reported, since discordance with absolute values may lead to misinterpretation of CBC data. Current Interpretive Data was last revised on 2017. Eosinophil pct 8.0 % [facility] Comment: Interpretive Data Percent cell count reference ranges are not reported, since discordance with absolute values may lead to misinterpretation of CBC data. Current Interpretive Data was last revised on 2017. Basophil pct 2.2 % [facility] Comment: Interpretive Data Percent cell count reference ranges are not reported, since discordance with absolute values may lead to misinterpretation of CBC data. Current Interpretive Data was last revised on 2017. Blood 11/28/2024 2:00 PM CDT 11/28/2024 2:55 PM CDT us Notinfile Unknown LAB BLOOD ORDERABLES Final Res ult [facility] [address] [facility] Department [place] [address] * (ABNORMAL) CBC with auto differential (11/28/2024 2:00 PM CDT) [facility] WBC 6.76 3.80 - 9.90 K/cumm Hgb 9.1(L) 11.9 - 15.5 g/dL [facility] Hct 29.5(L) 35.6 - 45.5 % [facility] Plt 438(H) 150 - 400 K/cumm [facility] MPV 9.8 9.1 - 12.3 fL [facility] RBC 3.59(L) 3.90 - 5.20 M/cumm [facility] MCV 82.2 81.3 - 96.4 fL [facility] MCH 25.3(L) 27.1 - 33.3 pg [facility] MCHC 30.8(L) 32.3 - 35.7 g/dL [facility] RDW CV 14.0 11.1 - 14.9 % [facility] RDW SD 41.3 35.7 - 48.1 fL [facility] NRBC abs 0.00 0.00 - 0.01 K/cumm [facility] Blood 11/28/2024 2:00 PM CDT 11/28/2024 2:55 PM CDT us Notinfile Unknown LAB BLOOD ORDERABLES Final Res ult Performing Organization Address [facility] Co de Phone Number [address] [place] [address] * Creatine kinase (CK), total (11/28/2024 2:00 PM CDT) [facility] CK 97 30 - 200 Units/L Blood 11/28/2024 2:00 PM CDT 11/28/2024 2:55 PM CDT us Notinfile Unknown LAB BLOOD ORDERABLES Final Res ult Performing Organization Address [facility] Co de Phone Number [address] [address] * Comprehensive metabolic panel (11/28/2024 2:00 PM CDT) Sodium 138 135 - 145 mmol/L Potassium, pl 3.9 3.3 - 4.9 mmol/L [facility] Chloride 102 97 - 110 mmol/L [facility] CO2 24 22 - 32 mmol/L [facility] Anion gap 12 2 - 15 mmol/L [facility] BUN 16 6 - 25 mg/dL [facility] Creatinine 0.98 0.60 - 1.10 mg/dL [facility] Glucose 103 70 - 199 mg/dL [facility] Comment: Interpretive Data Fasting glucose >/= 126 [...] 2022. Calcium 9.2 8.5 - 10.3 mg/dL [facility] Bilirubin, total 0.2 0.1 - 1.2 mg/dL [facility] Protein, pl 7.2 6.5 - 8.5 g/dL [facility] Albumin 4.0 3.5 - 5.0 g/dL [facility] Alk phos 118 40 - 130 Units/L [facility] ALT 18 7 - 45 Units/L [facility] AST 30 10 - 45 Units/L [facility] Blood 11/28/2024 2:00 PM CDT 11/28/2024 2:55 PM CDT us Notinfile Unknown LAB BLOOD ORDERABLES Final Res ult [facility] [address] [facility] Department of Laboratories [place], [place] [id number] * (ABNORMAL) CBC without differential (11/20/2024 9:37 AM CDT) Pathologist [facility] WBC 7.9 3.8 - 9.9 K/cumm Hgb 7.8(L) 11.9 - 15.5 g/dL [facility] Hct 24.5(L) 35.6 - 45.5 % [facility] Plt 250 150 - 400 K/cumm [facility] MPV 10.0 9.1 - 12.3 fL [facility] RBC 2.99(L) 3.90 - 5.20 M/cumm [facility] MCV 81.9 81.3 - 96.4 fL [facility] MCH 26.1(L) 27.1 - 33.3 pg [facility] MCHC 31.8(L) 32.3 - 35.7 g/dL [facility] RDW CV 14.7 11.1 - 14.9 % [facility] RDW SD 43.6 35.7 - 48.1 fL [facility] NRBC abs 0.00 0.00 - 0.01 K/cumm [facility] Blood 11/20/2024 9:37 AM CDT 11/20/2024 9:42 AM CDT Archana Sharp NP LAB BLOOD ORDERABLES Jasmin l Result Performing Organization Address [facility]/ZIP Co de Phone Number [facility] [address] [place], [place] [id number] * (ABNORMAL) Vancomycin level trough (11/20/2024 3:23 AM CDT) [facility] Vancomycin trough 20.2(H) 10.0 - 20.0 mcg/mL Blood 11/20/2024 3:23 AM CDT 11/20/2024 3:33 AM CDT Jeffy Fleming MD LAB BLOOD ORDERABLES Jasmin l Result [facility] [address] [place], [place] [id number] * (ABNORMAL) CBC without differential (11/19/2024 9:59 PM CDT) Pathologist [facility] WBC 7.7 3.8 - 9.9 K/cumm Hgb 7.6(L) 11.9 - 15.5 g/dL [facility] Hct 23.6(L) 35.6 - 45.5 % [facility] Plt 231 150 - 400 K/cumm [facility] MPV 9.8 9.1 - 12.3 fL [facility] RBC 2.86(L) 3.90 - 5.20 M/cumm [facility] MCV 82.5 81.3 - 96.4 fL [facility] MCH 26.6(L) 27.1 - 33.3 pg [facility] MCHC 32.2(L) 32.3 - 35.7 g/dL [facility] RDW CV 14.4 11.1 - 14.9 % [facility] RDW SD 42.8 35.7 - 48.1 fL [facility] NRBC abs 0.00 0.00 - 0.01 K/cumm [facility] Blood 11/19/2024 9:59 PM CDT 11/19/2024 10:08 PM CDT Jeffy Fleming MD LAB BLOOD ORDERABLES Jasmin l Result Performing Organization Address City/[facility] Co de Phone Number [facility] [address] [place] [address] * Transfuse RBC (11/19/2024 8:15 PM CDT) Blood Jeffy Fleming MD BLOOD TRANSFUSION ORDERAB LES Final Result Performing Organization Address [facility]/ZIP Co de Phone Number [facility] [address] [employer] [employer] [place], [place] [phone] * Prepare RBC: 1 Units (11/19/2024 5:18 PM CDT) Pathologist [facility] Units requested 1 Units requested Ready [facility] S[facility] Unit Number [id number] Product code [id number] [facility] Blood Expiration Date [id number] [facility] Product Blood Type (for scanning) [address] [facility] Product Blood Type ONEG [facility] Dispense Status DISPENSED [facility] Blood 11/19/2024 5:18 PM CDT 11/19/2024 5:18 PM CDT Jeffy Fleming MD BLOOD BANK PRODUCT ORDERA BLES Final Result [facility] PETER[facility] [address] [facility] [employer] [place], [place] [id number] * ABO/Rh (11/19/2024 3:59 PM CDT) ABO/Rh O Negative Blood 11/19/2024 3:59 PM CDT 11/19/2024 4:02 PM CDT Narrative [facility] - 11/19/2024 5:15 PM CDT Has the patient had Daratumumab or Isatuximab in the past 6 months?->Unknown Jeffy Fleming MD LAB BLOOD BANK TEST ORDER GUANAKO Final Result Performing Organization Address [facility]/ZIP Co de Phone Number [facility] [address] [facility] [employer] [place], [place] [phone] * Crossmatch (11/19/2024 3:59 PM CDT) Crossmatch Compatible [facility] RICEW Unit number for crossmatch [id number] [facility] Blood 11/19/2024 3:59 PM CDT 11/19/2024 4:02 PM CDT Arya Gomez MD LAB BLOOD BANK TEST ORDER GUANAKO Final Result [facility] [address] [place] [address] * Antibody screen (11/19/2024 3:59 PM CDT) Pathologist [facility] Silvio, indirect, Gel Interpretation Negative ABSC Blood 11/19/2024 3:59 PM CDT 11/19/2024 4:02 PM CDT Narrative [facility] - 11/19/2024 5:15 PM CDT Has the patient had Daratumumab or Isatuximab in the past 6 months?->Unknown Jeffy Fleming MD LAB BLOOD BANK TEST ORDER GUANAKO Final Result [facility] [address] [facility]. [place] [address] * (ABNORMAL) CBC without differential (11/19/2024 3:09 PM CDT) Pathologist [facility] WBC 7.1 3.8 - 9.9 K/cumm Hgb 6.3(C) 11.9 - 15.5 g/dL [facility] Comment:Critical result call ed to and read back by MAHENDRA SHI RN on 11 19 2024 at 1520 to NILAM NELSON. Hct 20.3(L) 35.6 - 45.5 % [facility] Plt 226 150 - 400 K/cumm [facility] MPV 9.9 9.1 - 12.3 fL [facility] RBC 2.41(L) 3.90 - 5.20 M/cumm [facility] MCV 84.2 81.3 - 96.4 fL [facility] MCH 26.1(L) 27.1 - 33.3 pg [facility] W MCHC 31.0(L) 32.3 - 35.7 g/dL [facility]DW CV 13.4 11.1 - 14.9 % [facility] RDW SD 41.1 35.7 - 48.1 fL [facility] NRBC abs 0.00 0.00 - 0.01 K/cumm [facility] Blood 11/19/2024 3:09 PM CDT 11/19/2024 3:13 PM CDT Jeffy Fleming MD LAB BLOOD ORDERABLES Jasmin hickman Result Performing Organization Address [facility] Co de Phone Number [facility] [address] [employer] [place], [place] [phone] * (ABNORMAL) CBC without differential (11/18/2024 3:49 PM CDT) Pathologist [facility] WBC 7.1 3.8 - 9.9 K/cumm Hgb 6.6(L) 11.9 - 15.5 g/dL [facility] Hct 21.2(L) 35.6 - 45.5 % [facility] Plt 248 150 - 400 K/cumm [facility] MPV 9.6 9.1 - 12.3 fL [facility] RBC 2.53(L) 3.90 - 5.20 M/cumm [facility] MCV 83.8 81.3 - 96.[address] [facility] MCH 26.1(L) 27.1 - 33.[address] [facility] MCHC 31.1(L) 32.3 - 35.7 g/dL [facility] RDW CV 13.2 11.1 - 14.9 % [facility] RDW SD 40.3 35.7 - 48.1 fL [facility] NRBC abs 0.00 0.00 - 0.01 K/cumm [facility] Blood 11/18/2024 3:49 PM CDT 11/18/2024 3:51 PM CDT Arya Gomez MD LAB BLOOD ORDERABLES Jasmin l Result Performing Organization Address [facility]/ZIP Co de Phone Number DOUGLAS PETERCH [id number] [employer] [place] [address] * eGFR (11/18/2024 4:29 AM CDT) eGFR 67 >=60 mL/min/1. 73 m2 Comment: [...] 4:29 AM CDT 11/18/2024 4:33 AM CDT us Macario Cai MD LAB BLOOD ORDERABLES Jasmin l Result [facility] [id number] [facility]. Department of Laboratories [place], [place] [id number] * Protime-INR (11/18/2024 4:29 AM CDT) PT 10.7 9.7 - 13.0 sec INR 0.99 0.90 - 1.20 DOUGLAS SANEDRS Comment: Interpretive data Oral anticoagulant therapeutic ranges: [...] LAB BLOOD ORDERABLES Jasmin l Result DOUGLAS SANDERS [id number] [employer] [place], [place] [id number] * (ABNORMAL) CBC without differential (11/18/2024 4:29 AM CDT) [facility] Signature WBC 6.4 3.8 - 9.9 K/cumm Hgb 6.4(C) 11.9 - 15.5 g/dL [facility] Comment:Critical result call ed to and read back by HARVEY LOPEZ RN on 11 18 2024 at 0532 to Quin Salomon. Hct 20.8(L) 35.6 - 45.5 % [facility] Plt 228 150 - 400 K/cumm [facility] MPV 9.9 9.1 - 12.3 fL [facility] RBC 2.46(L) 3.90 - 5.20 M/cumm [facility] MCV 84.6 81.3 - 96.4 fL [facility] MCH 26.0(L) 27.1 - 33.3 pg [facility] MCHC 30.8(L) 32.3 - 35.7 g/dL [facility] RDW CV 13.1 11.1 - 14.9 % [facility] RDW SD 39.8 35.7 - 48.[address] NRBC abs 0.00 0.00 - 0.01 K/cumm [facility] Blood 11/18/2024 4:29 AM CDT 11/18/2024 4:33 AM CDT Narrative [facility] - 11/18/2024 5:32 AM CDT Baseline prior to apixaban initiation. Macario Cai MD LAB BLOOD ORDERABLES Jasmin l Result [facility] SAND[facility] [address] [employer] [place], [place] [id number] [phone] * (ABNORMAL) Hepatic function panel (11/18/2024 4:29 AM CDT) Pathologist [facility] Bilirubin, total <0.1 0.1 - 1.2 mg/dL Bilirubin, direct <0.2 0.1 - 0.3 mg/dL [facility] Protein, pl 5.2(L) 6.5 - 8.5 g/dL [facility] Albumin 3.3(L) 3.5 - 5.0 g/dL [facility] Alk phos 67 40 - 130 Units/L [facility] ALT 12 7 - 45 Units/L [facility] AST 21 10 - 45 Units/L [facility] Blood 11/18/2024 4:29 AM CDT 11/18/2024 4:33 AM CDT Narrative [facility] - 11/18/2024 4:54 AM CDT Baseline prior to apixaban initiation. Macario Cai MD LAB BLOOD ORDERABLES Jasmin l Result [facility] [address] [facility]. [place] [address] * (ABNORMAL) Basic metabolic panel (11/18/2024 4:29 AM CDT) Pathologist [facility] Sodium 134(L) 135 - 145 mmol/L Potassium, pl 4.6 3.3 - 4.9 mmol/L [facility] Chloride 102 97 - 110 mmol/L [facility] CO2 25 22 - 32 mmol/L [facility] Anion gap 7 2 - 15 mmol/L [facility] BUN 24 6 - 25 mg/dL [facility] Creatinine 1.00 0.60 - 1.10 mg/dL [facility] Glucose 120 70 - 199 mg/dL [facility] Comment: Interpretive Data Fasting glucose >/= 126 [...] Calcium 9.2 8.5 - 10.3 mg/dL [facility] Blood 11/18/2024 4:29 AM CDT 11/18/2024 4:33 AM CDT us aMcario Cai MD LAB BLOOD ORDERABLES Jasmin hickman Result [facility] RICE[facility] [address] [facility]. [place] [address] * XR Knee Right 1 or 2 [...] beads Electronically signed by: Bill Larios MD us Macario Cai MD IMG XR PROCEDURES Final R esult * Tissue aerobic and anaerobic culture and gram stain Tissue Knee, right (11/17/2024 12:15 PM CDT) Direct Specimen Exam Stain: Moderate polymorphonuclear leukocytes seen. No organisms seen. Comment:Testing performed by : [facility], [address] [place] [address]., [id number] Report Final Report: No growth DOUGLAS SANDERS Comment:Testing performed by : [facility], [address] [place] [address]., [id number] Tissue (Knee, right) 11/17/2024 12:15 PM CDT 11/17/2024 2:28 PM CDT Narrative [facility] - 11/22/2024 2:00 PM CDT 3.) right knee femoral canal us Arya Gomez MD LAB MICROBIOLOGY - GENERA L ORDERABLES Final Result [facility] [address] [facility]. [facility] [place] [address] * Tissue aerobic and anaerobic culture and gram stain Tissue Knee, right (11/17/2024 12:15 PM CDT) Direct Specimen Exam Stain: Few polymorphonuclear leukocytes seen. No organisms seen. Comment:Testing performed by : [facility], [address] [place] [address]., [id number] Report Final Report: No growth DOUGLAS SANDERS Comment:Testing performed by : [facility], [address] [place] [address]., [id number] Tissue (Knee, right) 11/17/2024 12:15 PM CDT 11/17/2024 2:28 PM CDT Narrative [facility] SANDERS - 11/22/2024 2:00 PM CDT 2.) right knee femoral membrane us Arya Gomez MD LAB MICROBIOLOGY - GENERA L ORDERABLES Final Result Performing Organization Address [facility] Co de Phone Number DOUGLAS RICEWCH [address] [facility] [place] [address] * Tissue aerobic and anaerobic culture and gram stain Biopsy Knee, right (11/17/2024 12:15 PM CDT) Direct Specimen Exam Stain: Few polymorphonuclear leukocytes seen. No organisms seen. Comment:Testing performed by : [facility], [address] [place] [address]., [id number] Report Final Report: No growth DOUGLAS SANDERS Comment:Testing performed by : [facility], [address] [place] [address]., [id number] Biopsy (Knee, right) 11/17/2024 12:15 PM CDT 11/17/2024 2:40 PM CDT Andrés SANDERS - 11/22/2024 2:00 PM CDT Right knee synovium Arya Gomez MD LAB MICROBIOLOGY - GENERA L ORDERABLES Final Result Performing Organization Address [facility] de Phone Number D[facility]GLAS RICEW[facility] [address] [facility] [place] [address] * NC AN PROCEDURE PLACEHOLDER (11/17/2024 10:53 AM CDT) [...] MD ANESTHESIA ORDERABLES Fi nal Result * NC AN PROCEDURE PLACEHOLDER (11/17/2024 10:53 AM CDT) [...] LAB BLOOD ORDERABLES Jasmin hickman Result [facility] Department [place] [address] * (ABNORMAL) Aerobic and anaerobic culture and gram stain Synovial fluid Knee, right (11/14/2024 2:02PM CDT) Direct Specimen Exam Stain: Cytospin Gram stain shows: Abundant polymorphonuclear leukocytes seen. Other cellular material present. No organisms seen. Report Final Report: Rare Staphylococcus aureus[1] Methicillin susceptible (MSSA) by penicillin binding protein 2a (PBP2a) testing. (1) Staphylococcus aureus was initially reported as Gram Positive Cocci. (.) [facility] Organism STAPHYLOCOCCUS AUREUS [facility] Synovial fluid (Knee, right) 11/14/2024 2:02 PM CDT 11/14/2024 2:03 PM CDT Narrative [facility] - 11/21/2024 12:52 PM CDT Fluid specimen received in anaerobic transport media. x2 Tubes Testing performed by [facility] ([phone]) Specimens submitted from normally sterile body sites [...] MICROBIOLOGY - G ENERAL ORDERABLES Final Result DOUGLAS BROWNE [facility] Department [place] [address] * eGFR (11/14/2024 12:17 PM CDT) eGFR 70 >=60 mL/min/1. 73 m2 Comment: [...] BLOOD ORDERABLES Final Result Performing Organization Address City/[facility]/ZIP Co de Phone Number DOUGLAS SANDERS [address] [facility] Department [place] [address] * (ABNORMAL) Differential, auto (11/14/2024 12:17 PM CDT) Neutrophil abs 3.0 1.5 - 6.5 K/cumm Imm gran abs 0.0 0.0 - 0.1 K/cumm [facility] Lymphocyte abs 1.6 0.8 - 3.3 K/cumm [facility] Monocyte abs 0.5 0.2 - 0.8 K/cumm [facility] Eosinophil abs 0.4 0.0 - 0.5 K/cumm [facility] Basophil abs 0.2(H) 0.0 - 0.1 K/cumm [facility] SANDERS Neutrophil pct 52.4 % [facility] Comment: Interpretive Data Percent [...] LAB BLOOD ORDERABLES Final Result D[facility]GLAS RICEW[facility] [address] [facility]. Department [place] [address] * (ABNORMAL) CBC with auto differential (11/14/2024 12:17 PM CDT) WBC 5.7 3.8 - 9.9 K/cumm Hgb 9.1(L) 11.9 - 15.5 g/dL [facility] Hct 29.0(L) 35.6 - 45.5 % [facility] BJW Plt 366 150 - 400 K/cumm [facility] MPV 10.1 9.1 - 12.3 fL [facility] RBC 3.51(L) 3.90 - 5.20 M/cumm [facility] MCV 82.6 81.3 - 96.4 fL [facility] MCH 25.9(L) 27.1 - 33.3 pg [facility] MCHC 31.4(L) 32.3 - 35.7 g/dL [facility] BJW RDW CV 12.8 11.1 - 14.9 % [facility] RDW SD 38.5 35.7 - 48.1 fL [facility] NRBC abs 0.00 0.00 - 0.01 K/cumm [facility] Blood 11/14/2024 12:1 7 PM CDT 11/14/2024 12:31 PM CDT Tatiana Fang MD LAB BLOOD ORDERABLES Final Result Performing Organization Address [facility] Co de Phone Number [facility]GLAS PETERCH [address] [facility] [place] [address] * Erythrocyte sedimentation rate (11/14/2024 12:17 PM CDT) [facility] Erythrocyte sedimentation rate 17 1 - 30 mm/hr Blood 11/14/2024 12:1 7 PM CDT 11/14/2024 12:31 PM CDT Tatiana Fang MD LAB BLOOD ORDERABLES Final Result Performing Organization Address [facility] Co de Phone Number DOUGLAS RICECH [address] [facility] [place] [address] * CRP (acute phase) (11/14/2024 12:17 PM CDT) CRP 3.9 <=10.0 mg/L Blood 11/14/2024 12:1 7 PM CDT 11/14/2024 12:31 PM CDT us Tatiana Fang MD LAB BLOOD ORDERABLES Final Result [facility] [address] [facility] [place] [address] * Comprehensive metabolic panel (11/14/2024 12:17 PM CDT) Pathologist [facility] Sodium 137 135 - 145 mmol/L Potassium, [...] [facility] AST 26 10 - 45 Units/L [facility] Blood 11/14/2024 12:1 7 PM CDT 11/14/2024 12:31 PM CDT us Tatiana Fang MD LAB BLOOD ORDERABLES Final Result Performing Organization Address City/[facility]/ZIP Co de Phone Number [facility] [address] [facility] Department [place] [address] * Crystal Analysis, Body Fluid (11/14/2024 12:00 PM CDT) Specimen type, fld Synovial Crystals None Seen None Seen [facility] Fluid 11/14/2024 12:0 0 PM CDT 11/14/2024 1:48 PM CDT us Ewa RAI LAB BODY FLUIDS AND STOOLS ORDERABLES Final Result Performing Organization Address [facility] de Phone Number [facility] Department [place] [address] * Cell Differential, Body Fluid (11/14/2024 12:00 PM CDT) Total cells diffed 100 cells Comment: Interpretive Data Unless otherwise specified, the reference range and other method performance specifications have not been established for CSF/Body Fluid tests. The test results should be integrated into the clinical context for interpretation. Current interpretive data was last revised on 2019. Neutrophils, fld 96 % [facility] Lymphs, fld 2 % [facility] Monocyte, fld 2 % [facility] Specimen type, fld Synovial [facility] Fluid 11/14/2024 12:0 0 PM CDT 11/14/2024 1:48 PM CDT us Notinfile Unknown LAB BODY FLUIDS AND STOOLS ORD ERABLES Final Result Performing Organization Address City/[facility] Co de Phone Number [facility] [place] [address] * (ABNORMAL) Cell count w/rflx diff, body fluid (11/14/2024 12:00 PM CDT) Specimen type, fld Synovial Color, fld Red [facility] Clarity, fld Cloudy(A) Clear [facility] Nucleated cells, fld 923 /cumm [facility] Comment: Interpretive Data Unless otherwise specified, the reference range and other method performance specifications have not been established for CSF/Body Fluid tests. The test results should be integrated into the clinical context for interpretation. Current interpretive data was last revised on 2019. RBC, fld 0 /cumm [facility] Fluid 11/14/2024 12:0 0 PM CDT 11/14/2024 1:48 PM CDT Narrative [facility] - 11/14/2024 2:53 PM CDT Manual count us Ewa RAI LAB BODY FLUIDS AND STOOLS ORDERABLES Final Result [facility] [place] [address] * NC ARTHROCENTESIS ASPIR&/INJ MAJOR JT/BURSA W/O US (11/14/2024 [...] * Blood culture Blood (10/16/2024 11:52 AM AUTOMOBILE ACCESSORIES SALESPERSON) Report Final Report: No growth Comment:Testing performed by : [facility], [facility], [place]., [address] Blood 10/16/2024 11:5 2 AM AUTOMOBILE ACCESSORIES SALESPERSON 10/16/2024 3:54 PM AUTOMOBILE ACCESSORIES SALESPERSON Narrative DOUGLAS SANDERS - 10/22/2024 7:01 AM AUTOMOBILE ACCESSORIES SALESPERSON Interpretive Data 1. Blood cultures are incubated and monitored continuously for 5 days (120 hours). The first negative report is issued within 24 hours of receipt in the laboratory. 2. All positive cultures are resulted and called to physicians/care providers as soon as they are detected. 3. A rapid molecular test for organism identification may be performed using the [facility] Blood Culture Identification panel. This assay detects microbial DNA in a blood culture broth. This assay has been cleared by the [place] Food and Drug Administration and its performance characteristics have been verified by the [facility]. Interpretive data was last revised on September 24, 2022. us Tatiana Fang MD LAB MICROBIOLOGY - GENERAL ORDERABLES Final Result [facility]ICEW[facility] [address] [facility]. [place] [address] * eGFR (10/16/2024 11:46 AM AUTOMOBILE ACCESSORIES SALESPERSON) eGFR >90 >=60 mL/min/1. 73 m2 Comment: [...] reviewed 2021. Blood 10/16/2024 11:4 6 AM AUTOMOBILE ACCESSORIES SALESPERSON 10/16/2024 11:59 AM AUTOMOBILE ACCESSORIES SALESPERSON us Tatiana Fang MD LAB BLOOD ORDERABLES Final Result [facility] SANDERS [address] [address] [place] [address] * Differential, auto (10/16/2024 11:46 AM AUTOMOBILE ACCESSORIES SALESPERSON) Neutrophil abs 4.8 1.5 - 6.5 K/cumm Imm gran abs 0.0 0.0 - 0.1 K/cumm [facility] Lymphocyte abs 1.4 0.8 - 3.3 K/cumm [facility] Monocyte abs 0.4 0.2 - 0.8 K/cumm [facility] Eosinophil abs 0.3 0.0 - 0.5 K/cumm [facility] Basophil abs 0.1 0.0 - 0.1 K/cumm [facility] Neutrophil pct 67.6 % [facility] Comment: Interpretive Data Percent cell count reference ranges are not reported, since discordance with absolute values may lead to misinterpretation of CBC data. Current Interpretive Data was last revised on 2017. Imm gran pct 0.3 % [facility] Comment: Interpretive Data Percent cell count reference ranges are not reported, since discordance with absolute values may lead to misinterpretation of CBC data. Current Interpretive Data was last revised on 2017. Lymphocyte pct 20.3 % DOUGLAS PETER Comment: Interpretive Data Percent cell count reference ranges are not reported, since discordance with absolute values may lead to misinterpretation of CBC data. Current Interpretive Data was last revised on 2017. Monocyte pct 6.1 % DOUGLAS SANDERS Comment: Interpretive Data Percent cell count reference ranges are not reported, since discordance with absolute values may lead to misinterpretation of CBC data. Current Interpretive Data was last revised on 2017. Eosinophil pct 3.7 % [facility] Comment: Interpretive Data Percent cell count reference ranges are not reported, since discordance with absolute values may lead to misinterpretation of CBC data. Current Interpretive Data was last revised on 2017. Basophil pct 2.0 % [facility] Comment: Interpretive Data Percent cell count reference ranges are not reported, since discordance with absolute values may lead to misinterpretation of CBC data. Current Interpretive Data was last revised on 2017. Blood 10/16/2024 11:4 6 AM AUTOMOBILE ACCESSORIES SALESPERSON 10/16/2024 11:59 AM AUTOMOBILE ACCESSORIES SALESPERSON Tatiana Fang MD LAB BLOOD ORDERABLES Final Result Performing Organization Address [facility] Co de Phone Number DOUGLAS SANDERS [address] [place] [address] * (ABNORMAL) CBC with auto differential (10/16/2024 11:46 AM AUTOMOBILE ACCESSORIES SALESPERSON) WBC 7.1 3.8 - 9.9 K/cumm Hgb 10.9(L) 11.9 - 15.5 g/dL [facility] Hct 34.7(L) 35.6 - 45.5 % [facility] Plt 560(H) 150 - 400 K/cumm [facility] MPV 9.7 9.1 - 12.[address] [facility] RBC 3.99 3.90 - 5.20 M/cumm [facility] MCV 87.0 81.3 - 96.4 fL [facility] MCH 27.3 27.1 - 33.[address] [facility] W MCHC 31.4(L) 32.3 - 35.7 g/dL [facility] RDW CV 13.6 11.1 - 14.9 % [facility] RDW SD 43.1 35.7 - 48.1 fL [facility] NRBC abs 0.00 0.00 - 0.01 K/cumm [facility] Blood 10/16/2024 11:4 6 AM AUTOMOBILE ACCESSORIES SALESPERSON 10/16/2024 11:59 AM AUTOMOBILE ACCESSORIES SALESPERSON Tatiana Fang MD LAB BLOOD ORDERABLES Final Result Performing Organization Address City/[facility] Co de Phone Number DOUGLAS SANDERS [address] [facility] [place] [address] * Blood culture Blood (10/16/2024 11:46 AM AUTOMOBILE ACCESSORIES SALESPERSON) Report Final Report: No growth Comment:Testing performed by : [facility], [facility], [place]., [address] Blood 10/16/2024 11:4 6 AM AUTOMOBILE ACCESSORIES SALESPERSON 10/16/2024 3:54 PM AUTOMOBILE ACCESSORIES SALESPERSON Narrative DOUGLAS PETERCH - 10/22/2024 7:01 AM AUTOMOBILE ACCESSORIES SALESPERSON Interpretive Data 1. Blood cultures are incubated and monitored continuously for 5 days (120 hours). The first negative report is issued within 24 hours of receipt in the laboratory. 2. All positive cultures are resulted and called to physicians/care providers as soon as they are detected. 3. A rapid molecular test for organism identification may be performed using the [facility] Blood Culture Identification panel. This assay detects microbial DNA in a blood culture broth. This assay has been cleared by the [place] Food and Drug Administration and its performance characteristics have been verified by the [facility]. Interpretive data was last revised on September 24, 2022. Tatiana Fang MD LAB MICROBIOLOGY - GENERAL ORDERABLES Final Result Performing Organization Address City/[facility]/ZIP Co de Phone Number [facility] [address] [facility]. [place] [address] * (ABNORMAL) Erythrocyte sedimentation rate (10/16/2024 11:46 AM AUTOMOBILE ACCESSORIES SALESPERSON) Erythrocyte sedimentation rate 36(H) 1 - 30 mm/hr Blood 10/16/2024 11:4 6 AM AUTOMOBILE ACCESSORIES SALESPERSON 10/16/2024 11:59 AM AUTOMOBILE ACCESSORIES SALESPERSON Tatiana Fang MD LAB BLOOD ORDERABLES Final Result Performing Organization Address City/[facility]/ZIP Co de Phone Number [facility] [address] [place] [address] * CRP (acute phase) (10/16/2024 11:46 AM AUTOMOBILE ACCESSORIES SALESPERSON) CRP 3.0 <=10.0 mg/L Blood 10/16/2024 11:4 6 AM AUTOMOBILE ACCESSORIES SALESPERSON 10/16/2024 11:59 AM AUTOMOBILE ACCESSORIES SALESPERSON us Tatiana Fang MD LAB BLOOD ORDERABLES Final Result [facility] [address] [facility]. [place] [address] * (ABNORMAL) Comprehensive metabolic panel (10/16/2024 11:46 AM AUTOMOBILE ACCESSORIES SALESPERSON) Pathologist [facility] Sodium 141 135 - 145 mmol/L Potassium, [...] [facility] ALT 7 7 - 45 Units/L [facility] AST 17 10 - 45 Units/L [facility] RICEW[facility] Blood 10/16/2024 11:4 6 AM AUTOMOBILE ACCESSORIES SALESPERSON 10/16/2024 11:59 AM AUTOMOBILE ACCESSORIES SALESPERSON us Tatiana Fang MD LAB BLOOD ORDERABLES Final Result Performing Organization Address City/State/[facility] Co ca Phone Number DOUGLAS SANDERS [address] [facility] [place] [address] * US Venous Lower Extremity Right (10/10/2024 10:53 AM AUTOMOBILE ACCESSORIES SALESPERSON) Anatomical Region Laterality Modality Vascular Right Ultrasound 10/10/2024 10:3 4 AM AUTOMOBILE ACCESSORIES SALESPERSON Narrative 10/10/2024 12:24 PM AUTOMOBILE ACCESSORIES SALESPERSON [facility] - Department of Vascular Surgery, Vascular Laboratory [address] [place] [address] Lower Extremity Venous Ultrasound Report Patient Name: JOYCE TOMPKINS : 1970 (54y 5m) Study Date: 10/10/2024 10:34:42 AM Gender: F Tech: DB Location: [facility] Ref Provider: ARYA GOMEZ Quality: Adequate Order Provider: [...] swelling of right lower leg. FINDINGS: Performing Game Design Instructor: Cierra Escobar RVT. Right: Venous Doppler signals [...] STUDIES: Previous study performed on 09/23/24 at [facility] negative. DISCLAIMER: The study images and the [...] Gary French MD FACS 10/10/2024 11:46:30 AM AUTOMOBILE ACCESSORIES SALESPERSON Procedure Note Gary French MD - 10/10/2024 [employer] - Department of Vascular Surgery,Vascular Laboratory [address] [place] [address] Lower Extremity Venous Ultrasound Report Patient Name: JOYCE TOMPKINS : 1970 (54y 5m) Study Date: 10/10/2024 10:34:42 AM Gender: F Tech: DB Location: [facility] Ref Provider: ARYA GOMEZ Quality: Adequate Order Provider: [...] swelling of right lower leg. FINDINGS: Performing Game Design Instructor: Cierra Escobar RVT. Right: Venous Doppler signals [...] STUDIES: Previous study performed on 09/23/24 at [facility] negative. DISCLAIMER: The study images and the [...] Gary French MD FACS 10/10/2024 11:46:30 AM AUTOMOBILE ACCESSORIES SALESPERSON us Arya Gomez MD IMG US PROCEDURES Final R esult * (ABNORMAL) Urinalysis reflex to microscopic and culture Urine (09/29/2024 4:26 PM AUTOMOBILE ACCESSORIES SALESPERSON) Color, ur Straw Yellow Clarity, ur Turbid(A) [...] tendency for uric acid stone formation. Source: [facility] [employer] Current Interpretive Data was last revised on [...] met. [facility] Urine 09/29/2024 4:26 PM AUTOMOBILE ACCESSORIES SALESPERSON 09/29/2024 4:34 PM AUTOMOBILE ACCESSORIES SALESPERSON Narrative [facility] - 09/29/2024 5:29 PM AUTOMOBILE ACCESSORIES SALESPERSON If patient unable to urinate, straight cath us Jeana Bryan MD LAB MICROBIOLOGY - GENERAL ORDER GUANAKO Final Result [facility]GL[facility] RICECH [address] [facility]. Department of Laboratories [place], [place] [id number] * CT Chest PE (CTA) W Contrast (09/29/2024 4:02 PM AUTOMOBILE ACCESSORIES SALESPERSON) Anatomical Region Laterality Modality Body N/A Computed Tomogra phy 09/29/2024 4:25 PM AUTOMOBILE ACCESSORIES SALESPERSON Impressions 09/29/2024 4:25 PM AUTOMOBILE ACCESSORIES SALESPERSON 1. No evidence of acute pulmonary embolism. 2. No acute cardiopulmonary process. Electronically signed by: Abbie Coawrt M.D. Narrative 09/29/2024 4:25 PM AUTOMOBILE ACCESSORIES SALESPERSON EXAMINATION: CT CHEST PE (CTA) W CONTRAST [...] Blood culture Blood Peripheral (09/29/2024 4:01 PM AUTOMOBILE ACCESSORIES SALESPERSON) Report Final Report: No growth Comment:Testing performed by : [facility], [address] [place] [address]., [id number] Blood (Peripheral) 09/29/2024 4:01 PM AUTOMOBILE ACCESSORIES SALESPERSON 09/29/2024 6:04 PM AUTOMOBILE ACCESSORIES SALESPERSON Narrative DOUGLAS PETERCH - 10/05/2024 7:01 AM AUTOMOBILE ACCESSORIES SALESPERSON From a different site than #1. Draw [...] organism identification may be performed using the [facility] Blood Culture Identification panel. This assay detects microbial DNA in a blood culture broth. This assay has been cleared by the [place] Food and Drug Administration and its performance characteristics have been verified by the [facility]. Interpretive data was last revised on September 24, 2022. Jeana Bryan MD LAB MICROBIOLOGY - GENERAL ORDER GUANAKO Final Result DOUGLAS RICEWCH [address] [facility]. [place] [address] * Blood culture Blood Peripheral (09/29/2024 4:01 PM AUTOMOBILE ACCESSORIES SALESPERSON) Report Final Report: No growth Comment:Testing performed by : [facility], [address], [place]., [address] Blood (Peripheral) 09/29/2024 4:01 PM AUTOMOBILE ACCESSORIES SALESPERSON 09/29/2024 6:04 PM AUTOMOBILE ACCESSORIES SALESPERSON Narrative DOUGLAS SANDERS - 10/05/2024 7:01 AM AUTOMOBILE ACCESSORIES SALESPERSON Draw Blood cultures before administration of Antibiotics [...] organism identification may be performed using the [facility] Blood Culture Identification panel. This assay detects microbial DNA in a blood culture broth. This assay has been cleared by the [place] Food and Drug Administration and its performance characteristics have been verified by the [facility]. Interpretive data was last revised on September 24, 2022. Jeana Bryan MD LAB MICROBIOLOGY - GENERAL ORDER GUANAKO Final Result DOUGLAS SANDERS [address] [facility]. [place] [address] * XR Chest 1 Vw Portable (09/29/2024 3:43 PM AUTOMOBILE ACCESSORIES SALESPERSON) Anatomical Region Laterality Modality Body, Chest N/A Computed Radiogr aphy 09/29/2024 3:48 PM AUTOMOBILE ACCESSORIES SALESPERSON Impressions 09/29/2024 3:50 PM AUTOMOBILE ACCESSORIES SALESPERSON Comparison is made to chest radiograph dated [...] Bryce Foy M.D. Narrative 09/29/2024 3:50 PM AUTOMOBILE ACCESSORIES SALESPERSON EXAMINATION: 1 view chest radiograph Procedure Note [...] and COVID-19 PCR Nasopharyngeal (09/29/2024 3:27 PM AUTOMOBILE ACCESSORIES SALESPERSON) COVID-19 RNA Negative Negative Influenza A RNA Negative Negative [facility] Influenza B RNA Negative Negative [facility] RSV RNA Negative Negative [facility] Comment: Testing performed by [facility]. This test is performed using the [employer] Xpert Xpress CoV-2/Flu/RSV plus assay. This is a multiplex, real-time reverse transcriptase PCR assay intended for the qualitative detection of nucleic acid from SARS-CoV-2, influenza A, influenza B, and respiratory syncytial virus. This assay has been cleared by the [place] Food and Drug administration. The performance characteristics have been verified by the [facility]. Results must be considered in the clinical context, and a negative result does not rule out infection. Interpretive Data last revised 2023 Nasopharyngeal 09/29/2024 3: 27 PM AUTOMOBILE ACCESSORIES SALESPERSON 09/29/2024 3:29 PM AUTOMOBILE ACCESSORIES SALESPERSON Narrative [facility] - 09/29/2024 4:14 PM AUTOMOBILE ACCESSORIES SALESPERSON Is the Patient experiencing symptoms consistent with COVID?->Yes Jeana Bryan MD LAB MICROBIOLOGY - GENERAL ORDER GUANAKO Final Result DOUGLAS PETER [address] [facility] [place] [address] * (ABNORMAL) Sepsis Lactate w/ Reflex (09/29/2024 2:05 PM AUTOMOBILE ACCESSORIES SALESPERSON) Sepsis Lactate 0.5(L) 0.7 - 2.0 mmol/L Blood 09/29/2024 2:05 PM AUTOMOBILE ACCESSORIES SALESPERSON 09/29/2024 2:12 PM AUTOMOBILE ACCESSORIES SALESPERSON Jeana Bryan MD LAB BLOOD ORDERABLES Final Resul t Performing Organization Address [facility] Co de Phone Number DOUGLAS RICEWCH [address] [facility] [place] [address] * eGFR (09/29/2024 2:05 PM AUTOMOBILE ACCESSORIES SALESPERSON) Pathologist [facility] eGFR >90 >=60 mL/min/1. 73 m2 Comment: [...] last reviewed 2021. Blood 09/29/2024 2:05 PM AUTOMOBILE ACCESSORIES SALESPERSON 09/29/2024 2:12 PM AUTOMOBILE ACCESSORIES SALESPERSON us Jeana Bryan MD LAB BLOOD ORDERABLES Final Resul t Performing Organization Address City/[facility]/ZIP Co de Phone Number DOUGLAS BJWCH [address] [facility]. [place] [address] * Differential, auto (09/29/2024 2:05 PM AUTOMOBILE ACCESSORIES SALESPERSON) Neutrophil abs 5.7 1.5 - 6.5 K/cumm Imm gran abs 0.0 0.0 - 0.1 K/cumm C[facility]ER [facility] Lymphocyte abs 1.2 0.8 - 3.3 K/cumm [facility] Monocyte abs 0.5 0.2 - 0.8 K/cumm [facility] Eosinophil abs 0.1 0.0 - 0.5 K/cumm [facility] Basophil abs 0.1 0.0 - 0.1 K/cumm [facility] Neutrophil pct 74.1 % [facility] Comment: Interpretive Data Percent [...] revised on 2017. Lymphocyte pct 15.9 % [facility] Comment: Interpretive Data Percent cell count reference ranges are not reported, since discordance with absolute values may lead to misinterpretation of CBC data. Current Interpretive Data was last revised on 2017. Monocyte pct 7.0 % [facility] Comment: Interpretive Data Percent cell count reference ranges are not reported, since discordance with absolute values may lead to misinterpretation of CBC data. Current Interpretive Data was last revised on 2017. Eosinophil pct 1.7 % [facility] Comment: Interpretive Data Percent cell count reference ranges are not reported, since discordance with absolute values may lead to misinterpretation of CBC data. Current Interpretive Data was last revised on 2017. Basophil pct 0.9 % [facility] Comment: Interpretive Data Percent cell count reference ranges are not reported, since discordance with absolute values may lead to misinterpretation of CBC data. Current Interpretive Data was last revised on 2017. Blood 09/29/2024 2:05 PM AUTOMOBILE ACCESSORIES SALESPERSON 09/29/2024 2:12 PM AUTOMOBILE ACCESSORIES SALESPERSON Jeana Bryan MD LAB BLOOD ORDERABLES Final Resul t Performing Organization Address [facility] de Phone Number DOUGLAS SANDERS [address] [facility] [place], [place] [id number] * (ABNORMAL) CBC with auto differential (09/29/2024 2:05 PM AUTOMOBILE ACCESSORIES SALESPERSON) WBC 7.6 3.8 - 9.9 K/cumm Hgb 9.1(L) 11.9 - 15.5 g/dL [facility] Hct 27.6(L) 35.6 - 45.5 % [facility] Plt 537(H) 150 - 400 K/cumm [facility] MPV 9.2 9.1 - 12.3 fL [facility] RBC 3.14(L) 3.90 - 5.20 M/cumm [facility] MCV 87.9 81.3 - 96.[address] [address] MCH 29.0 27.1 - 33.[address] [facility] MCHC 33.0 32.3 - 35.7 g/dL [facility] RDW CV 14.3 11.1 - 14.9 % [facility] R[facility] SD 46.0 35.7 - 48.1 fL [facility] NRBC abs 0.00 0.00 - 0.01 K/cumm [facility] Blood 09/29/2024 2:05 PM AUTOMOBILE ACCESSORIES SALESPERSON 09/29/2024 2:12 PM AUTOMOBILE ACCESSORIES SALESPERSON Jeana Bryan MD LAB BLOOD ORDERABLES Final Resul t Performing Organization Address [facility] Co de Phone Number DOUGLAS SANDERS [address] [facility] [employer] [place], [place] [id number] * (ABNORMAL) Comprehensive metabolic panel (09/29/2024 2:05 PM AUTOMOBILE ACCESSORIES SALESPERSON) Sodium 140 135 - 145 mmol/L Potassium, [...] Units/L [facility] Blood 09/29/2024 2:05 PM AUTOMOBILE ACCESSORIES SALESPERSON 09/29/2024 2:12 PM AUTOMOBILE ACCESSORIES SALESPERSON us Jeana Bryan MD LAB BLOOD ORDERABLES Final Resul t DOUGLAS PETERCH [address] [facility]. [place] [address] * eGFR (09/28/2024 4:12 AM AUTOMOBILE ACCESSORIES SALESPERSON) eGFR >90 >=60 mL/min/1. 73 m2 Comment: [...] last reviewed 2021. Blood 09/28/2024 4:12 AM AUTOMOBILE ACCESSORIES SALESPERSON 09/28/2024 4:20 AM AUTOMOBILE ACCESSORIES SALESPERSON us Isabella Guzman MD LAB BLOOD ORDERABLES Final Result [facility] [address] [facility]. [place] [address] * (ABNORMAL) CBC without differential (09/28/2024 4:12 AM AUTOMOBILE ACCESSORIES SALESPERSON) WBC 9.0 3.8 - 9.9 K/cumm Hgb 8.5(L) 11.9 - 15.5 g/dL [facility] Hct 26.6(L) 35.6 - 45.5 % [facility] Plt 464(H) 150 - 400 K/cumm [facility] MPV 9.1 9.1 - 12.3 fL [facility] RBC 2.95(L) 3.90 - 5.20 M/cumm [facility] MCV 90.2 81.3 - 96.4 fL [facility] MCH 28.8 27.1 - 33.3 pg [facility] MCHC 32.0(L) 32.3 - 35.7 g/dL [facility] RDW CV 14.6 11.1 - 14.9 % [facility] RDW SD 48.1 35.7 - 48.1 fL [facility]ER W NRBC abs 0.00 0.00 - 0.01 K/cumm [facility] W Blood 09/28/2024 4:12 AM AUTOMOBILE ACCESSORIES SALESPERSON 09/28/2024 4:20 AM AUTOMOBILE ACCESSORIES SALESPERSON Isabella Guzman MD LAB BLOOD ORDERABLES Final Result [facility] [address] [facility] [place] [address] * (ABNORMAL) Basic metabolic panel (09/28/2024 4:12 AM AUTOMOBILE ACCESSORIES SALESPERSON) Sodium 138 135 - 145 mmol/L Potassium, pl 4.4 3.3 - 4.9 mmol/L [facility] Chloride 101 97 - 110 mmol/L [facility] CO2 29 22 - 32 mmol/L [facility] Anion gap 8 2 - 15 mmol/L [facility] BUN 19 6 - 25 mg/dL [facility] Creatinine 0.50(L) 0.60 - 1.10 mg/dL [facility] Glucose 91 70 - 199 mg/dL [facility] Comment: Interpretive Data Fasting glucose >/= 126 [...] 2022. Calcium 8.8 8.5 - 10.3 mg/dL [facility] Blood 09/28/2024 4:12 AM AUTOMOBILE ACCESSORIES SALESPERSON 09/28/2024 4:20 AM AUTOMOBILE ACCESSORIES SALESPERSON us Isabella Guzman MD LAB BLOOD ORDERABLES Final Result Performing Organization Address City/State/ZIP Co ca Phone Number DOUGLAS BJWCH [address] [facility]. [place] [address] * IR PICC Line Placement Over 5 Years of Age (09/27/2024 3:53 PM AUTOMOBILE ACCESSORIES SALESPERSON) Anatomical Region Laterality Modality Body N/A X-Ray Angiograph y 09/27/2024 3:56 PM AUTOMOBILE ACCESSORIES SALESPERSON Impressions 09/27/2024 4:01 PM AUTOMOBILE ACCESSORIES SALESPERSON Successful nontunneled catheter placement. PLAN: The catheter is ready for immediate use. When treatment is completed, this catheter can be removed at the bedside according to standard hospital protocol. Dictated by: Jean Carlos Mclean M.D. The radiology attending physician has personally reviewed this study, and had reviewed and/or edited this written report and agrees with it. Electronically signed by: Renato Maxwell M.D. 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 SEDATION: Local only TECHNIQUE: The risks, benefits and alternatives were discussed and informed consent was obtained. Prior to beginning the procedure, [place] Protocol was used to confirm the patient's [...] was obtained. Prior to beginning the procedure, [place] Protocol was used to confirm the patient's [...] it. Electronically signed by: Renato Maxwell M.D. us Nanci Pineda ROLL SLICING MACHINE TENDER IMG IR PROCEDURES Final Res ult * eGFR (09/27/2024 4:08 AM AUTOMOBILE ACCESSORIES SALESPERSON) eGFR >90 >=60 mL/min/1. 73 m2 Comment: [...] last reviewed 2021. Blood 09/27/2024 4:08 AM AUTOMOBILE ACCESSORIES SALESPERSON 09/27/2024 4:11 AM AUTOMOBILE ACCESSORIES SALESPERSON Isabella Guzman MD LAB BLOOD ORDERABLES Final Result [facility] [address] [facility]. [place] [address] * (ABNORMAL) CBC without differential (09/27/2024 4:08 AM AUTOMOBILE ACCESSORIES SALESPERSON) WBC 9.5 3.8 - 9.9 K/cumm Hgb 8.9(L) 11.9 - 15.5 g/dL DOUGLAS BJWCH Hct 27.6(L) 35.6 - 45.5 % [facility] Plt 460(H) 150 - 400 K/cumm [facility] MPV 9.2 9.1 - 12.3 fL [facility] RBC 3.09(L) 3.90 - 5.20 M/cumm [facility] MCV 89.3 81.3 - 96.4 fL [facility] MCH 28.8 27.1 - 33.[address] [address] [facility] MCHC 32.2(L) 32.3 - 35.7 g/dL [facility] RDW CV 14.6 11.1 - 14.9 % [facility] RDW SD 47.8 35.7 - 48.1 fL [facility] NRBC abs 0.00 0.00 - 0.01 K/cumm [facility] Blood 09/27/2024 4:08 AM AUTOMOBILE ACCESSORIES SALESPERSON 09/27/2024 4:11 AM AUTOMOBILE ACCESSORIES SALESPERSON Isabella Guzman MD LAB BLOOD ORDERABLES Final Result [facility] [address] [facility]. [place] [address] * (ABNORMAL) Basic metabolic panel (09/27/2024 4:08 AM AUTOMOBILE ACCESSORIES SALESPERSON) Sodium 137 135 - 145 mmol/L Potassium, pl 4.3 3.3 - 4.9 mmol/L [facility] Chloride 102 97 - 110 mmol/L [facility] CO2 27 22 - 32 mmol/L [facility] Anion gap 8 2 - 15 mmol/L [facility] BUN 29(H) 6 - 25 mg/dL [facility] Creatinine 0.70 0.60 - 1.10 mg/dL [facility] Glucose 89 70 - 199 mg/dL [facility] Comment: Interpretive Data Fasting glucose >/= 126 [...] mg/dL DOUGLAS SANDERS Blood 09/27/2024 4:08 AM AUTOMOBILE ACCESSORIES SALESPERSON 09/27/2024 4:11 AM AUTOMOBILE ACCESSORIES SALESPERSON Isabella Guzman MD LAB BLOOD ORDERABLES Final Result [facility] [address] [facility] [place] [address] * Respiratory pathogen panel Nasopharyngeal (09/26/2024 3:45 PM AUTOMOBILE ACCESSORIES SALESPERSON) Influenza A RNA Not Detected Not Detected MBC Comment:Testing performed by : [facility], [address] [place] [address]., [address] Influenza B RNA Not Detected Not Detected DOUGLAS SANDERS Comment:Testing performed by : [facility], [address] [place] [address]., [address] RSV RNA Not Detected Not Detected CERROSAS SANDERS Comment:Testing performed by : [facility], [address] [place] [address]., [address] COVID-19 RNA Not Detected Not Detected CERROSAS SANDERS Comment:Testing performed by : [facility], [address] [place] [address]., [address] Coronavirus 229E RNA Not Detected Not Detected DOUGLAS SANDERS Comment:Testing performed by : [facility], [address] [place] [address]., [address] Coronavirus HKU1 RNA Not Detected Not Detected CERROSAS SANDERS Comment:Testing performed by : [facility], [address] [place] [address]., [address] Coronavirus NL63 RNA Not Detected Not Detected DOUGLAS RICEWREBECA Comment:Testing performed by : [facility], [address] [place] [address]., [address] Coronavirus OC43 RNA Not Detected Not Detected [facility] Comment:Testing performed by : [facility], [address] [place] [address]., [address] Adenovirus DNA Not Detected Not Detected [facility] Comment:Testing performed by : [facility], [address] [place] [address]., [address] Metapneumovirus RNA Not Detected Not Detected [facility] Comment:Testing performed by : [facility], [address] [place] [address]., [address] Rhinovirus/Enterov irus RNA Not Detected Not Detected [facility] Comment:Testing performed by : [facility], [address] [place] [address]., [address] Parainfluenza 1 RNA Not Detected Not Detected [facility] Comment:Testing performed by : [facility], [address] [place] [address]., [address] Parainfluenza 2 RNA Not Detected Not Detected [facility] Comment:Testing performed by : [facility], [address] [place] [address]., [address] Parainfluenza 3 RNA Not Detected Not Detected [facility]ER [facility] Comment:Testing performed by : [facility], [address] [place] [address]., [address] Parainfluenza 4 RNA Not Detected Not Detected [facility] Comment:Testing performed by : [facility], [address] [place] [address]., [address] B. pertussis DNA Not Detected Not Detected [facility] Comment:Testing performed by : [facility], [address] [place] [address]., [address] B. parapertussis DNA Not Detected Not Detected [facility] Comment:Testing performed by : [facility], [address] [place] [address]., [address] C. pneumoniae DNA Not Detected Not Detected [facility] Comment:Testing performed by : [facility], [address] [place] [address]., [address] M. pneumoniae DNA Not Detected Not Detected DOUGLAS SANDERS Comment: Interpretive Data The [employer] Respiratory Panel (RP2.1) assay is a [...] assay has FDA clearance for testing of ROLL SLICING MACHINE TENDER swabs. The performance characteristics of this assay have been determined by [facility]. Current interpretive data was last revised on 2021. Testing performed by: [facility], [address], [place]., [address] Nasopharyngeal 09/26/2024 3: 45 PM AUTOMOBILE ACCESSORIES SALESPERSON 09/26/2024 6:12 PM AUTOMOBILE ACCESSORIES SALESPERSON Narrative DOUGLAS SANDERS - 09/26/2024 7:53 PM AUTOMOBILE ACCESSORIES SALESPERSON Is the Patient experiencing symptoms consistent with COVID?->Yes Surveillance testing for transplant patient?->No Archana Sharp NP LAB MICROBIOLOGY - GENERA L ORDERABLES Final Result DOUGLAS PETERCH [address] [facility]. [place] [address] MBC * XR Chest 1 View (09/26/2024 3:41 PM AUTOMOBILE ACCESSORIES SALESPERSON) Anatomical Region Laterality Modality Body, Chest N/A Computed Radiogr aphy 09/26/2024 3:50 PM AUTOMOBILE ACCESSORIES SALESPERSON Impressions 09/27/2024 8:05 AM AUTOMOBILE ACCESSORIES SALESPERSON Comparison is made to chest radiograph dated 09/22/2024. Cardiomediastinal silhouette is normal. No consolidation, pleural effusion, or pneumothorax. Dictated by: Brissa Byrd MD, PhD The radiology attending physician has personally reviewed this study, and had reviewed and/or edited this written report and agrees with it. Electronically signed by: Bryce Foy M.D. Narrative 09/27/2024 8:05 AM AUTOMOBILE ACCESSORIES SALESPERSON EXAMINATION: 1 view chest radiograph Procedure Note [...] it. Electronically signed by: Bryce Foy M.D. us Archana Sharp NP IMG XR PROCEDURES Final R esult * eGFR (09/26/2024 5:07 AM AUTOMOBILE ACCESSORIES SALESPERSON) eGFR 79 >=60 mL/min/1. 73 m2 Comment: [...] last reviewed 2021. Blood 09/26/2024 5:07 AM AUTOMOBILE ACCESSORIES SALESPERSON 09/26/2024 5:19 AM AUTOMOBILE ACCESSORIES SALESPERSON us Isabella Guzman MD LAB BLOOD ORDERABLES Final Result [facility] [address] [facility]. [place] [address] * (ABNORMAL) CBC without differential (09/26/2024 5:07 AM AUTOMOBILE ACCESSORIES SALESPERSON) Pathologist [facility] WBC 9.2 3.8 - 9.9 K/cumm Hgb 9.4(L) 11.9 - 15.5 g/dL [facility] Hct 29.9(L) 35.6 - 45.5 % [facility] Plt 453(H) 150 - 400 K/cumm [facility] MPV 9.8 9.1 - 12.3 fL [facility] RBC 3.30(L) 3.90 - 5.20 M/cumm [facility] MCV 90.6 81.3 - 96.4 fL [facility] MCH 28.5 27.1 - 33.3 pg [facility] MCHC 31.4(L) 32.3 - 35.7 g/dL [facility] RDW CV 14.7 11.1 - 14.9 % [facility] RDW SD 49.2(H) 35.7 - 48.1 fL [facility] BJW NRBC abs 0.00 0.00 - 0.01 K/cumm [facility] Blood 09/26/2024 5:07 AM AUTOMOBILE ACCESSORIES SALESPERSON 09/26/2024 5:19 AM AUTOMOBILE ACCESSORIES SALESPERSON us Isabella Guzman MD LAB BLOOD ORDERABLES Final Result [facility] [address] [facility]. [place] [address] * Basic metabolic panel (09/26/2024 5:07 AM AUTOMOBILE ACCESSORIES SALESPERSON) Sodium 140 135 - 145 mmol/L Potassium, pl 4.0 3.3 - 4.9 mmol/L [facility] Chloride 101 97 - 110 mmol/L [facility] CO2 27 22 - 32 mmol/L [facility] Anion gap 12 2 - 15 mmol/L [facility] BUN 16 6 - 25 mg/dL [facility] Creatinine 0.87 0.60 - 1.10 mg/dL [facility] Glucose 90 70 - 199 mg/dL [facility] Comment: Interpretive Data Fasting glucose >/= 126 [...] 2022. Calcium 9.0 8.5 - 10.3 mg/dL [facility] Blood 09/26/2024 5:07 AM AUTOMOBILE ACCESSORIES SALESPERSON 09/26/2024 5:19 AM AUTOMOBILE ACCESSORIES SALESPERSON Isabella Guzman MD LAB BLOOD ORDERABLES Final Result Performing Organization Address [facility] Co de Phone Number DOUGLAS RICEWCH [address] Department [place] [address] * Blood culture Blood (09/25/2024 1:04 PM AUTOMOBILE ACCESSORIES SALESPERSON) Report Final Report: No growth Comment:Testing performed by : [facility], [address] [place] [address]., [id number] Blood 09/25/2024 1:04 PM AUTOMOBILE ACCESSORIES SALESPERSON 09/25/2024 2:19 PM AUTOMOBILE ACCESSORIES SALESPERSON Narrative DOUGLAS RICEWCH - 10/01/2024 7:01 AM AUTOMOBILE ACCESSORIES SALESPERSON From a different site than #1. Collection->Peripheral [...] organism identification may be performed using the [facility] Blood Culture Identification panel. This assay detects microbial DNA in a blood culture broth. This assay has been cleared by the [place] Food and Drug Administration and its performance characteristics have been verified by the [facility]. Interpretive data was last revised on September 24, 2022. Tatiana Fang MD LAB MICROBIOLOGY - GENERAL ORDERABLES Final Result Performing Organization Address [facility] Co de Phone Number DOUGLAS BJWCH [address] [place] [address] * Blood culture Blood (09/25/2024 1:04 PM AUTOMOBILE ACCESSORIES SALESPERSON) Report Final Report: No growth Comment:Testing performed by : [facility], [address] [place] [address], [place]., [address] Blood 09/25/2024 1:04 PM AUTOMOBILE ACCESSORIES SALESPERSON 09/25/2024 2:19 PM AUTOMOBILE ACCESSORIES SALESPERSON Narrative DOUGLAS SANDERS - 10/01/2024 7:01 AM AUTOMOBILE ACCESSORIES SALESPERSON Collection->Peripheral Interpretive Data 1. Blood cultures are incubated and monitored continuously for 5 days (120 hours). The first negative report is issued within 24 hours of receipt in the laboratory. 2. All positive cultures are resulted and called to physicians/care providers as soon as they are detected. 3. A rapid molecular test for organism identification may be performed using the [facility] Blood Culture Identification panel. This assay detects microbial DNA in a blood culture broth. This assay has been cleared by the [place] Food and Drug Administration and its performance characteristics have been verified by the [facility] Microbiology [facility]. Interpretive data was last revised on September 24, 2022. us Tatiana Fang MD LAB MICROBIOLOGY - GENERAL ORDERABLES Final Result [facility] [address] [facility]. [place] [address] * TRANSTHORACIC ECHO (TTE) COMPLETE W DOPPLER/CF WO CONTRAST (09/25/2024 12:15 PM AUTOMOBILE ACCESSORIES SALESPERSON) LV EF % CONS SCIMAGE Anatomical Region Laterality Modality Ultrasound 09/25/2024 11:1 9 AM AUTOMOBILE ACCESSORIES SALESPERSON Narrative 09/25/2024 12:59 PM AUTOMOBILE ACCESSORIES SALESPERSON [facility] [place]iac [place] [address] Transthoracic Echocardiographic Report Patient Name: JOYCE TOMPKINS L : 1970 (54y 4m) Gender: F Study Date: 09/25/2024 11:19:19 AM Ht(Inch): 66 Wt(Lb): 182.98 BSA: 1.97 Game Design Instructor: WEN Location: [address] Order Provider: TATIANA FANG Heart Rate: 77 BMI: 29.53 BP: 119 / 60 Quality: The study images were of technically good quality. Ref Provider: TATIANA FANG PROCEDURES: Echocardiographic Report: ([id number]) Transthoracic complete echo, 2D, spectral and tissue [...] [ 1.50 - 3.00 ] LVOT Peak Esb 1.46 m/s [ 0.70 - 1.10 ] [...] By: Enrrique Serrano MD 09/25/2024 12:58:42 PM AUTOMOBILE ACCESSORIES SALESPERSON Electronically Signed By: Enrrique Serrano MD 09/25/2024 12:58:42 PM AUTOMOBILE ACCESSORIES SALESPERSON Procedure Note Enrrique Serrano MD - 09/25/2024 [facility] [place]iac [place] [address] Transthoracic Echocardiographic Report Patient Name: JOYCE TOMPKINS L : 1970 (54y 4m) Gender: F Study Date: 09/25/2024 11:19:19 AM Ht(Inch): 66 Wt(Lb): 182.98 BSA: 1.97 Game Design Instructor: WEN Location: [id number] Order Provider: TATIANA FANG Heart Rate: 77 BMI: 29.53 BP: 119 / 60 Quality: The study images were oftechnically good quality. Ref Provider: TATIANA FANG PROCEDURES: Echocardiographic Report: ([id number]) Transthoracic complete echo, 2D,spectral and tissue Doppler, [...] LA Length 2C 4.52 cm MV Decel Tolh892.21 msec [ 104.00 - 258.00 ] LA [...] By: Enrrique Serrano MD 09/25/2024 12:58:42 PM AUTOMOBILE ACCESSORIES SALESPERSON Electronically Signed By: Enrrique Serrano MD 09/25/2024 12:58:42 PM AUTOMOBILE ACCESSORIES SALESPERSON us Tatiana Fang MD CV ECHO PROCEDURES Final R esult * eGFR (09/25/2024 4:26 AM AUTOMOBILE ACCESSORIES SALESPERSON) Pathologist [facility] eGFR >90 >=60 mL/min/1. 73 m2 Comment: [...] last reviewed 2021. Blood 09/25/2024 4:26 AM AUTOMOBILE ACCESSORIES SALESPERSON 09/25/2024 4:29 AM AUTOMOBILE ACCESSORIES SALESPERSON us Isabella Guzman MD LAB BLOOD ORDERABLES Final Result [facility] [address] [facility] [place] [address] * (ABNORMAL) CBC without differential (09/25/2024 4:26 AM AUTOMOBILE ACCESSORIES SALESPERSON) Pathologist [facility] WBC 11.8(H) 3.8 - 9.9 K/cumm Hgb 8.2(L) 11.9 - 15.5 g/dL [facility] BJW Hct 26.0(L) 35.6 - 45.5 % [facility] Plt 335 150 - 400 K/cumm [facility] MPV 9.7 9.1 - 12.3 fL [facility] RBC 2.88(L) 3.90 - 5.20 M/cumm [facility] MCV 90.3 81.3 - 96.[address] MCH 28.5 27.1 - 33.3 pg [facility] MCHC 31.5(L) 32.3 - 35.7 g/dL [facility] RDW CV 14.5 11.1 - 14.9 % [facility] RDW SD 48.2(H) 35.7 - 48.1 fL [facility] BJ[facility] NRBC abs 0.00 0.00 - 0.01 K/cumm [facility] Blood 09/25/2024 4:26 AM AUTOMOBILE ACCESSORIES SALESPERSON 09/25/2024 4:29 AM AUTOMOBILE ACCESSORIES SALESPERSON Isabella Guzman MD LAB BLOOD ORDERABLES Final Result Performing Organization Address [facility] de Phone Number [facility] [address] [employer] [place], [place] [id number] * Vancomycin level trough (09/25/2024 4:26 AM AUTOMOBILE ACCESSORIES SALESPERSON) Pathologist [facility] Vancomycin trough 18.1 10.0 - 20.0 mcg/mL Blood 09/25/2024 4:26 AM AUTOMOBILE ACCESSORIES SALESPERSON 09/25/2024 4:29 AM AUTOMOBILE ACCESSORIES SALESPERSON Arya Gomez MD LAB BLOOD ORDERABLES Jasmin l Result Performing Organization Address [facility] de Phone Number [facility] [address] [place] [address] * (ABNORMAL) Basic metabolic panel (09/25/2024 4:26 AM AUTOMOBILE ACCESSORIES SALESPERSON) Pathologist [facility] Sodium 137 135 - 145 mmol/L Potassium, pl 4.3 3.3 - 4.9 mmol/L [facility] Chloride 104 97 - 110 mmol/L [facility] CO2 25 22 - 32 mmol/L [facility] Anion gap 9 2 - 15 mmol/L [facility] BUN 15 6 - 25 mg/dL [facility] Creatinine 0.50(L) 0.60 - 1.10 mg/dL [facility] Glucose 94 70 - 199 mg/dL [facility] Comment: Interpretive Data Fasting glucose >/= [...] Calcium 8.8 8.5 - 10.3 mg/dL [facility] Blood 09/25/2024 4:26 AM AUTOMOBILE ACCESSORIES SALESPERSON 09/25/2024 4:29 AM AUTOMOBILE ACCESSORIES SALESPERSON Isabella Guzman MD LAB BLOOD ORDERABLES Final Result Performing Organization Address City/[facility] Co de Phone Number [facility] [address] [place] [address] * HIV 1/2 Antibody plus p24 Antigen Blood (09/24/2024 3:39 PM AUTOMOBILE ACCESSORIES SALESPERSON) [facility] HIV 1/2 ab + p24 ag Nonreactive Nonreactive Comment: Nonreactive for HIV-1 antigen and HIV-1/HIV-2 antibodies. No laboratory evidence of HIV infection. If acute HIV infection is suspected, consider testing for HIV-1 RNA. Testing performed by: [facility], [facility], [place]., [address] Blood 09/24/2024 3:39 PM AUTOMOBILE ACCESSORIES SALESPERSON 09/24/2024 4:24 PM AUTOMOBILE ACCESSORIES SALESPERSON us Arya Gomez MD LAB MICROBIOLOGY - GENERA L ORDERABLES Final Result Performing Organization Address City/[facility]/ZIP Co de Phone Number [facility] [address] [place] [address] * eGFR (09/24/2024 5:10 AM AUTOMOBILE ACCESSORIES SALESPERSON) Pathologist [facility] eGFR >90 >=60 mL/min/1. 73 m2 Comment: [...] last reviewed 2021. Blood 09/24/2024 5:10 AM AUTOMOBILE ACCESSORIES SALESPERSON 09/24/2024 5:16 AM AUTOMOBILE ACCESSORIES SALESPERSON us Isabella Guzman MD LAB BLOOD ORDERABLES Final Result [facility] [address] [facility]. [place] [address] * (ABNORMAL) CBC without differential (09/24/2024 5:10 AM AUTOMOBILE ACCESSORIES SALESPERSON) Pathologist [facility] WBC 15.9(H) 3.8 - 9.9 K/cumm Hgb 8.8(L) 11.9 - 15.5 g/dL [facility] Hct 26.6(L) 35.6 - 45.5 % [facility] Plt 308 150 - 400 K/cumm [facility] MPV 10.1 9.1 - 12.3 fL [facility] RBC 3.02(L) 3.90 - 5.20 M/cumm [facility] MCV 88.1 81.3 - 96.4 fL [facility] MCH 29.1 27.1 - 33.3 pg [facility] MCHC 33.1 32.3 - 35.7 g/dL [facility] RDW CV 14.1 11.1 - 14.9 % [facility] RDW SD 45.1 35.7 - 48.1 fL [facility] NRBC abs 0.00 0.00 - 0.01 K/cumm [facility] Blood 09/24/2024 5:10 AM AUTOMOBILE ACCESSORIES SALESPERSON 09/24/2024 5:14 AM AUTOMOBILE ACCESSORIES SALESPERSON Isabella Guzman MD LAB BLOOD ORDERABLES Final Result Performing Organization Address [facility] Co de Phone Number [facility] [address] [facility] [address] [place], [place] [id number] * Vancomycin level trough (09/24/2024 5:10 AM AUTOMOBILE ACCESSORIES SALESPERSON) [facility] Vancomycin trough 10.2 10.0 - 20.0 mcg/mL Blood 09/24/2024 5:10 AM AUTOMOBILE ACCESSORIES SALESPERSON 09/24/2024 5:14 AM AUTOMOBILE ACCESSORIES SALESPERSON Isabella Guzman MD LAB BLOOD ORDERABLES Final Result Performing Organization Address [facility] de Phone Number [facility] [address] [facility] [place] [place], [place] [id number] * (ABNORMAL) Basic metabolic panel (09/24/2024 5:10 AM AUTOMOBILE ACCESSORIES SALESPERSON) [facility] Sodium 134(L) 135 - 145 mmol/L Potassium, pl 4.1 3.3 - 4.9 mmol/L [facility] Chloride 100 97 - 110 mmol/L [facility] CO2 25 22 - 32 mmol/L [facility] Anion gap 9 2 - 15 mmol/L [facility] BUN 15 6 - 25 mg/dL [facility] Creatinine 0.50(L) 0.60 - 1.10 mg/dL [facility] Glucose 150 70 - 199 mg/dL [facility] Comment: Interpretive Data Fasting glucose >/= 126 [...] Calcium 9.0 8.5 - 10.3 mg/dL [facility] Blood 09/24/2024 5:10 AM AUTOMOBILE ACCESSORIES SALESPERSON 09/24/2024 5:14 AM AUTOMOBILE ACCESSORIES SALESPERSON us Isabella Guzman MD LAB BLOOD ORDERABLES Final Result Performing Organization Address City/State/[facility] Co ca Phone Number [facility] [address] [facility] [place] [address] * XR Knee Right 1 or 2 View (09/23/2024 11:56 AM AUTOMOBILE ACCESSORIES SALESPERSON) Anatomical Region Laterality Modality Lower Extremities, Knee Right Computed Radiography 09/23/2024 1:05 PM AUTOMOBILE ACCESSORIES SALESPERSON Impressions 09/23/2024 1:05 PM AUTOMOBILE ACCESSORIES SALESPERSON Anticipated postoperative changes from recent right knee debridement and polyethylene liner exchange. Unchanged total knee arthroplasty. Electronically signed by: Tatiana Salas D.O. Narrative 09/23/2024 1:05 PM AUTOMOBILE ACCESSORIES SALESPERSON EXAMINATION: XR KNEE RIGHT 1 OR 2 VIEWS HISTORY: post-op COMPARISON: Radiographs 09/22/2024 FINDINGS: Right total knee arthroplasty in expected position. No osteolysis, periprosthetic fracture, or subsidence. Soft tissue and intra-articular gas from recent debridement and polyethylene liner exchange. Procedure Note Tatiana Salas, - 09/23/2024 EXAMINATION: XR KNEE RIGHT 1 [...] IMG XR PROCEDURES Final Re sult * NC AN PROCEDURE PLACEHOLDER (09/23/2024 10:24 AM AUTOMOBILE ACCESSORIES SALESPERSON) Leatha Chairez MD - 09/23/2024 10:24 AM AUTOMOBILE ACCESSORIES SALESPERSON Leatha Rodrigues MD 09/23/2024 10:24 AM Peripheral [...] stain Tissue Knee, right (09/23/2024 9:36 AM AUTOMOBILE ACCESSORIES SALESPERSON) Direct Specimen Exam Stain: No polymorphonuclear leukocytes seen. No organisms seen. Comment:Testing performed by : [facility], [facility], [place]., [address] Report Final Report: Very light growth Staphylococcus aureus, methicillin susceptible Susceptibility reported on this organism on previous culture [id number] (.) [facility] Comment:Testing performed by : [facility], [address] [place] [address]., [id number] Organism STAPHYLOCOCCUS AUREUS, METHICILLIN SUSCEPTIBLE [facility] Tissue (Knee, right) 09/23/2024 9:36 AM AUTOMOBILE ACCESSORIES SALESPERSON 09/23/2024 1:37 PM AUTOMOBILE ACCESSORIES SALESPERSON Narrative [facility] S[facility]ERS - 09/28/2024 8:04 AM AUTOMOBILE ACCESSORIES SALESPERSON 5. Bone (Aerobic, Anaerobic, Gram Stain) Isabella Guzman MD LAB MICROBIOLOGY - GENERAL ORDERABLES Final Result Performing Organization Address [facility] Co de Phone Number [facility] [address] [facility] [place] [address] * Tissue aerobic and anaerobic culture and gram stain Tissue Knee, right (09/23/2024 9:36 AM AUTOMOBILE ACCESSORIES SALESPERSON) Direct Specimen Exam Stain: No polymorphonuclear leukocytes seen. No organisms seen. Comment:Testing performed by : [facility], [address] [place] [address]., [id number] Report Final Report: No growth [facility] Comment:Testing performed by : [facility], [address] [place] [address]., [id number] Tissue (Knee, right) 09/23/2024 9:36 AM AUTOMOBILE ACCESSORIES SALESPERSON 09/23/2024 1:36 PM AUTOMOBILE ACCESSORIES SALESPERSON Narrative [facility] SANDERS - 09/28/2024 8:03 AM AUTOMOBILE ACCESSORIES SALESPERSON 4. Synovium (Aerobic, Anaerobic, Gram Stain) Isabella Guzman MD LAB MICROBIOLOGY - GENERAL ORDERABLES Final Result Performing Organization Address City/[facility]/ZIP Co de Phone Number [facility] [address] [facility] [place] [address] * (ABNORMAL) Tissue aerobic and anaerobic culture and gram stain Tissue Knee, right (09/23/2024 9:36 AM AUTOMOBILE ACCESSORIES SALESPERSON) Direct Specimen Exam Stain: No polymorphonuclear leukocytes seen. No organisms seen. Comment:Testing performed by : [facility], [address] [place] [address]., [id number] Report Final Report: Light growth of: Staphylococcus aureus, methicillin susceptible Susceptibility reported on this organism on previous culture [id number] (.) [facility]GL[facility] SANDERS Comment:Testing performed by : [facility], [address] [place] [address]., [id number] Organism STAPHYLOCOCCUS AUREUS, METHICILLIN SUSCEPTIBLE [facility] Tissue (Knee, right) 09/23/2024 9:36 AM AUTOMOBILE ACCESSORIES SALESPERSON 09/23/2024 1:36 PM AUTOMOBILE ACCESSORIES SALESPERSON Narrative [facility] SANDERS - 09/28/2024 7:59 AM AUTOMOBILE ACCESSORIES SALESPERSON 3. Notch (Aerobic, Anaerobic, Gram Stain) Isabella Guzman MD LAB MICROBIOLOGY - GENERAL ORDERABLES Final Result [facility] [address] [facility] Department [place] [address] * (ABNORMAL) Tissue aerobic and anaerobic culture and gram stain Tissue Knee, right (09/23/2024 9:36 AM AUTOMOBILE ACCESSORIES SALESPERSON) Direct Specimen Exam Stain: No polymorphonuclear leukocytes seen. No organisms seen. Comment:Testing performed by : [facility], [address] [place] [address]., [id number] Report Final Report: Very light growth Staphylococcus aureus, methicillin susceptible Susceptibility reported on this organism on previous culture [id number] (.) [facility]OUGLAS SANDERS Comment:Testing performed by : [facility], [address] [place] [address]., [id number] Organism STAPHYLOCOCCUS AUREUS, METHICILLIN SUSCEPTIBLE [facility] Tissue (Knee, right) 09/23/2024 9:36 AM AUTOMOBILE ACCESSORIES SALESPERSON 09/23/2024 1:37 PM AUTOMOBILE ACCESSORIES SALESPERSON Narrative D[facility]GL[facility] SANDERS - 09/28/2024 7:59 AM AUTOMOBILE ACCESSORIES SALESPERSON 2. Capsule (Aerobic, Anaerobic, Gram Stain) Isabella Guzman MD LAB MICROBIOLOGY - GENERAL ORDERABLES Final Result Performing Organization Address [facility] Co de Phone Number [facility] [address] [facility] Hospital[facility]celeratorAr[facility] [address] * (ABNORMAL) Tissue aerobic and anaerobic culture and gram stain Tissue Knee, right (09/23/2024 9:36 AM AUTOMOBILE ACCESSORIES SALESPERSON) Direct Specimen Exam Stain: No polymorphonuclear leukocytes seen. No organisms seen. Comment:Testing performed by : [facility], [address] [place] [address]., [id number] Report Final Report: Light growth of: Staphylococcus aureus, methicillin susceptible Susceptibility reported on this organism on previous culture [id number] (.) DOUGLAS SANDERS Comment:Testing performed by : [facility], [address] [place] [address]., [id number] Organism STAPHYLOCOCCUS AUREUS, METHICILLIN SUSCEPTIBLE [facility] SANDERS Tissue (Knee, right) 09/23/2024 9:36 AM AUTOMOBILE ACCESSORIES SALESPERSON 09/23/2024 1:37 PM AUTOMOBILE ACCESSORIES SALESPERSON Narrative D[facility]GLAS SANDERS - 09/28/2024 7:58 AM AUTOMOBILE ACCESSORIES SALESPERSON 1. Synovial Fluid (Aerobic, Anaerobic, Gram Stain, AFB, Fungal) Isabella Guzman MD LAB MICROBIOLOGY - GENERAL ORDERABLES Final Result Performing Organization Address [facility] Co de Phone Number [facility] [address] [employer] [place] [address] * Mycology (fungal) culture Tissue Knee, right (09/23/2024 9:36 AM AUTOMOBILE ACCESSORIES SALESPERSON) Report Final Report: No fungus isolated Comment:Testing performed by : [facility], [address] [place] [address]., [id number] Tissue (Knee, right) 09/23/2024 9:36 AM AUTOMOBILE ACCESSORIES SALESPERSON 09/23/2024 1:37 PM AUTOMOBILE ACCESSORIES SALESPERSON Narrative DOUGLAS SANDERS - 10/22/2024 1:00 PM AUTOMOBILE ACCESSORIES SALESPERSON 1. Synovial Fluid (Aerobic, Anaerobic, Gram Stain, AFB, Fungal) Mycology cultures are held for 4 weeks. Isabella Guzman MD LAB MICROBIOLOGY - GENERAL ORDERABLES Final Result Performing Organization Address [facility] Co de Phone Number [facility] [address] [facility] [place] [address] * Mycobacteriology (AFB) culture and acid-fast stain Tissue Knee, right (09/23/2024 9:36 AM AUTOMOBILE ACCESSORIES SALESPERSON) Direct Specimen Exam Stain: Concentrated smear: No Acid Fast Bacillus Seen Comment:Testing performed by : [facility], [address] [place] [address]., [id number] Report Final Report: No Acid Fast Bacilli isolated DOUGL[facility] SANDERS Comment:Testing performed by : [facility], [address] [place] [address]., [id number] Tissue (Knee, right) 09/23/2024 9:36 AM AUTOMOBILE ACCESSORIES SALESPERSON 09/23/2024 1:37 PM AUTOMOBILE ACCESSORIES SALESPERSON Narrative [facility] - 11/19/2024 1:00 PM CDT 1. Synovial Fluid (Aerobic, Anaerobic, Gram Stain, AFB, Fungal) Mycobacteriology (AFB) cultures are held for 8 weeks. Isabella Guzman MD LAB MICROBIOLOGY - GENERAL ORDERABLES Final Result Performing Organization Address [facility] de Phone Number [facility] [address] [facility] [place] [address] * NC AN PROCEDURE PLACEHOLDER (09/23/2024 8:48 AM AUTOMOBILE ACCESSORIES SALESPERSON) Leatha Chairez MD - 09/23/2024 8:48 AM AUTOMOBILE ACCESSORIES SALESPERSON Leatha Rodrigues MD 09/23/2024 8:48 AM Peripheral IV Catheter Patient location: OR Preprocedure prep: Prep solution: chlorhexadine PPE: gloves Skin infiltrated with lidocaine 1%: yes PIV line: Laterality: left Site: forearm Catheter size: 20 g Technique: direct visualization Procedure details: good blood return and occlusive dressing applied Assessment: Events: patient tolerated procedure well with no complications us Leatha Rodrigues MD ANESTHESIA ORDERABLES Fi nal Result * NC AN ELECTIVE SUPRAGLOTTIC AIRWAY, NC AN PROCEDURE PLACEHOLDER (09/23/2024 8:46 AM AUTOMOBILE ACCESSORIES SALESPERSON) Narrative Leatha Rodrigues MD - 09/23/2024 8:46 AM AUTOMOBILE ACCESSORIES SALESPERSON Leatha Rodrigues MD 09/23/2024 8:47 AM Airway [...] of attempts: 1 Ventilation between attempts: none Leatha Rodrigues MD ANESTHESIA ORDERABLES Fi nal Result * US Vein Duplex Lower Extremity Bilateral Complete (09/23/2024 7:07 AM AUTOMOBILE ACCESSORIES SALESPERSON) Anatomical Region Laterality Modality Vascular Bilateral Ultrasound 09/23/2024 7:16 AM AUTOMOBILE ACCESSORIES SALESPERSON Impressions 09/23/2024 7:16 AM AUTOMOBILE ACCESSORIES SALESPERSON 1. No evidence of deep vein thrombosis of either lower extremity. Electronically signed by: Angelica Thornton 09/23/2024 7:16 AM AUTOMOBILE ACCESSORIES SALESPERSON EXAMINATION: BILATERAL LOWER EXTREMITY VENOUS DOPPLER HISTORY: [...] by: Tatiana Salas D.O. Jeffy Fleming MD IM US PROCEDURES Final R esult * (ABNORMAL) Urinalysis reflex to microscopic and culture Urine (09/23/2024 6:37 AM AUTOMOBILE ACCESSORIES SALESPERSON) Color, ur Straw Yellow Clarity, ur Clear [...] tendency for uric acid stone formation. Source: [facility] Current Interpretive Data was last revised on [...] performed. [facility] Urine 09/23/2024 6:37 AM AUTOMOBILE ACCESSORIES SALESPERSON 09/23/2024 6:51 AM AUTOMOBILE ACCESSORIES SALESPERSON Danielle RAI LAB MICROBIOLOGY - GENERA L ORDERABLES Final Result [facility] [address] [facility]. [place] [address] * (ABNORMAL) Urinalysis, microscopic only (09/23/2024 6:37 AM AUTOMOBILE ACCESSORIES SALESPERSON) WBC, ur 6-10(A) 0 - 5 /HPF RBC, ur 3-5(A) 0 - 2 /HPF [facility] S[facility] Epithelial cells, squamous, ur 1-5 0 - 5 /HPF [facility] Mucous, ur Present(A) [facility] Culture Reflex Comment Reflex conditions for urine culture (WBC >10) not met. [facility] Urine 09/23/2024 6:37 AM AUTOMOBILE ACCESSORIES SALESPERSON 09/23/2024 6:51 AM AUTOMOBILE ACCESSORIES SALESPERSON Danielle RAI LAB URINE ORDERABLES Jasmin hickman Result [facility] [address] [facility]. [place] [address] * (ABNORMAL) Blood culture Blood (09/23/2024 6:10 AM AUTOMOBILE ACCESSORIES SALESPERSON) Direct Specimen Exam Molecular Analysis: Staphylococcus aureus, methicillin-suscep tible (MSSA) detected by the [facility] Blood Culture Identification Panel. This test does not exclude the possibility of a mixed bacterial infection. Please consider this result in the context of clinical findings and evaluate the possibility of antimicrobial de-escalation. Test result called to and read back by KARLEE WOLFE MT on 09/24/2024 20:10:01 by FATUMA Comment:Testing performed by : [facility], [address] [place] [address]., [id number] Direct Specimen Exam Stain: Gram Positive Cocci in clusters [facility]OUGL[facility] SANDERS Comment:Testing performed by : [facility], [address] [place] [address]., [id number] Report Final Report: Staphylococcus aureus, methicillin susceptible (.) DOUGLAS SANDERS Comment:Testing performed by : [facility], [address] [place] [address]., [id number] Organism STAPHYLOCOCCUS AUREUS, METHICILLIN SUSCEPTIBLE [facility] SANDERS Blood 09/23/2024 6:10 AM AUTOMOBILE ACCESSORIES SALESPERSON 09/23/2024 7:08 AM AUTOMOBILE ACCESSORIES SALESPERSON Narrative DOUGLAS SANDERS - 09/26/2024 7:02 AM AUTOMOBILE ACCESSORIES SALESPERSON From a different site than #1. Collection->Peripheral [...] organism identification may be performed using the [facility] Blood Culture Identification panel. This assay detects microbial DNA in a blood culture broth. This assay has been cleared by the [place] Food and Drug Administration and its performance characteristics have been verified by the [facility]biology [facility]. Interpretive data was last revised [...] Susceptible Jeffy Fleming MD LAB MICROBIOLOGY - GENERA L ORDERABLES Final Result [facility] [address] [facility]. [place] [address] * (ABNORMAL) Blood culture Blood (09/23/2024 6:10 AM AUTOMOBILE ACCESSORIES SALESPERSON) Direct Specimen Exam Stain: Gram Positive Cocci in clusters Test result called to and read back by JOHN PAUL HALL RN on 09/24/2024 21:20:23 by FATUMA Comment:Testing performed by : [facility], [address] [place] [address], [place]., [address] Report Final Report: Staphylococcus aureus, methicillin susceptible Susceptibility reported on this organism on previous culture [id number] (.) DOUGLAS SANDERS Comment:Testing performed by : [facility], [address] [place] [address], [place] [address] Organism STAPHYLOCOCCUS AUREUS, METHICILLIN SUSCEPTIBLE DOUGLAS SANDERS Blood 09/23/2024 6:10 AM [employer]OMOBILE [employer]ESS[employer] SALESPERSON 09/23/2024 7:08 AM AUTOMOBILE ACCESSOR[employer] SALESPERSON Narrative DOUGLAS SANDERS - 09/26/2024 8:15 AM AUTOMOBILE ACCESSORIES SALESPERSON Collection->Peripheral Interpretive Data 1. Blood cultures are incubated and monitored continuously for 5 days (120 hours). The first negative report is issued within 24 hours of receipt in the laboratory. 2. All positive cultures are resulted and called to physicians/care providers as soon as they are detected. 3. A rapid molecular test for organism identification may be performed using the [facility] Blood Culture Identification panel. This assay detects microbial DNA in a blood culture broth. This assay has been cleared by the [place] Food and Drug Administration and its performance characteristics have been verified by the [facility] Microbiology Laboratory. Interpretive data was last revised on September 24, 2022. Jfefy Fleming MD LAB MICROBIOLOGY - GENERA L ORDERABLES Final Result DOUGLAS PETERCH [address] [facility]. [place] [address] * XR Chest PA Lateral 2 Views (09/22/2024 6:00 PM AUTOMOBILE ACCESSORIES SALESPERSON) Anatomical Region Laterality Modality Body, Chest N/A Computed Radiogr aphy 09/22/2024 7:07 PM AUTOMOBILE ACCESSORIES SALESPERSON Impressions 09/22/2024 7:07 PM AUTOMOBILE ACCESSORIES SALESPERSON Comparison 07/15/2023. Increased interstitial opacities in the left lung base, favored to represent scarring or atelectasis. No focal consolidation. No pneumothorax or pleural effusion. The cardiac mediastinal silhouette is unchanged. Electronically signed by: Bill Larios MD Narrative 09/22/2024 7:07 PM AUTOMOBILE ACCESSORIES SALESPERSON EXAMINATION: 2 view chest radiograph History: Cough Procedure Note Bill Larios MD - 09/22/2024 EXAMINATION: 2 view chest radiograph History: Cough IMPRESSION: Comparison 07/15/2023. Increased interstitial opacities in the left lung base, favored to represent scarring or atelectasis. No focal consolidation. No pneumothorax or pleural effusion. The cardiac mediastinal silhouette is unchanged. Electronically signed by: Bill Larios MD Danielle RAI IMG XR PROCEDURES Final R esult * ABO/Rh (09/22/2024 5:48 PM AUTOMOBILE ACCESSORIES SALESPERSON) ABO/Rh O Negative Blood 09/22/2024 5:48 PM AUTOMOBILE ACCESSORIES SALESPERSON 09/22/2024 5:51 PM AUTOMOBILE ACCESSORIES SALESPERSON Narrative DOUGLAS SANDERS - 09/22/2024 6:44 PM AUTOMOBILE ACCESSORIES SALESPERSON Has the patient had Daratumumab or Isatuximab in the past 6 months?->Unknown Danielle RAI LAB BLOOD BANK TEST ORDER GUANAKO Final Result Performing Organization Address [facility] Co de Phone Number [facility] [address] [place], [place] [id number] * aPTT (09/22/2024 5:48 PM AUTOMOBILE ACCESSORIES SALESPERSON) aPTT 31 28 - 38 sec Comment: Interpretive Data Heparin therapeutic range: 66.0 - 100.0 seconds. Range based on correlation with therapeutic heparin activity range of 0.3 - 0.7 Units/mL. Current interpretive data was last revised on 2023. Blood 09/22/2024 5:48 PM AUTOMOBILE ACCESSORIES SALESPERSON 09/22/2024 5:51 PM AUTOMOBILE ACCESSORIES SALESPERSON Danielle RAI LAB BLOOD ORDERABLES Jasmin l Result Performing Organization Address [facility] Co de Phone Number [facility] [address] [place], [place] [phone] * Protime-INR (09/22/2024 5:48 PM AUTOMOBILE ACCESSORIES SALESPERSON) PT 11.2 9.7 - 13.0 sec INR 1.04 0.90 - 1.20 [facility] Comment: Interpretive data Oral anticoagulant therapeutic ranges: Venous thromboembolism prophylaxis or treatment: 2.0-3.0 CARDIOLOGY Standard range: 2.0-3.0 High-intensity range: 2.5-3.5 Refer to indication-specific guidelines for appropriate target ranges for prosthetic heart valve replacement. Current interpretive data was last revised on 2019. Blood 09/22/2024 5:48 PM AUTOMOBILE ACCESSORIES SALESPERSON 09/22/2024 5:51 PM AUTOMOBILE ACCESSORIES SALESPERSON Danielle RAI LAB BLOOD ORDERABLES Jasmin l Result Performing Organization Address City/[facility] Co de Phone Number [facility] [address] [facility] [place] [address] * Antibody screen (09/22/2024 5:48 PM AUTOMOBILE ACCESSORIES SALESPERSON) Silvio, indirect, Gel Interpretation Negative ABSC Blood 09/22/2024 5:48 PM AUTOMOBILE ACCESSORIES SALESPERSON 09/22/2024 5:51 PM AUTOMOBILE ACCESSORIES SALESPERSON Narrative [facility] - 09/22/2024 6:44 PM AUTOMOBILE ACCESSORIES SALESPERSON Has the patient had Daratumumab or Isatuximab in the past 6 months?->Unknown Danielle RAI LAB BLOOD BANK TEST ORDER GUANAKO Final Result Performing Organization Address [facility] de Phone Number [facility] [address] 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 Blood 09/22/2024 5:35 PM AUTOMOBILE ACCESSORIES SALESPERSON 09/22/2024 5:38 PM AUTOMOBILE ACCESSORIES SALESPERSON Arya Gomez MD LAB BLOOD BANK TEST ORDER GUANAKO Final Result Performing Organization Address City/[facility] Co de Phone Number DOUGLAS [facility] [address] [address] [facility]. [place] [address] * NC ARTHROCENTESIS ASPIR&/INJ MAJOR JT/BURSA W/O US (09/22/2024 3:48 PM AUTOMOBILE ACCESSORIES SALESPERSON) Narrative Danielle Castellanos PA - 09/22/2024 3:48 PM AUTOMOBILE ACCESSORIES SALESPERSON Danielle Castellanos PA 09/22/2024 3:50 PM Arthrocentesis Date/Time: 09/22/2024 3:48 PM Performed by: Danielle Castellanos PA Authorized by: Danielle Castellanos PA Matewan Protocol: RN Notified of Procedure: yes Informed [...] and matched to patient identification: yes Responsible alliance party for transporting specimen(s) to lab determined: yes Danielle RAI IN CLINIC/BEDSIDE ORDERAB LES Final Result * Crystal Analysis, Body Fluid (09/22/2024 3:38 PM AUTOMOBILE ACCESSORIES SALESPERSON) Specimen type, fld Synovial Comment:Testing performed by : [facility], [facility] [facility], [place]., [address] Crystals Not Present Not Present DOUGLAS SANDERS Comment:Testing performed by : [facility], [address] [facility], [place]., [address] Fluid 09/22/2024 3:38 PM AUTOMOBILE ACCESSORIES SALESPERSON 09/22/2024 5:01 PM AUTOMOBILE ACCESSORIES SALESPERSON Narrative DOUGLAS [facility] - 09/22/2024 5:28 PM AUTOMOBILE ACCESSORIES SALESPERSON Specify:->right knee Danielle RAI LAB BODY FLUIDS AND STOOL S ORDERABLES Final Result Performing Organization Address [facility] de Phone Number [facility] [address] [facility] [address] [place], [place] [phone] * Cell Differential, Body Fluid (09/22/2024 3:38 PM AUTOMOBILE ACCESSORIES SALESPERSON) Total cells diffed 100 % Comment: Interpretive Data Unless otherwise specified, the reference range and other method performance specifications have not been established for CSF/Body Fluid tests. The test results should be integrated into the clinical context for interpretation. Current interpretive data was last revised on 2019. Neutrophils, fld 89 % DOUGLAS [facility] Lymphs, fld 11 % C[facility]ER [facility] Fluid 09/22/2024 3:38 PM AUTOMOBILE ACCESSORIES SALESPERSON 09/22/2024 3:50 PM AUTOMOBILE ACCESSORIES SALESPERSON Danielle RAI LAB BODY FLUIDS AND STOOL S ORDERABLES Final Result Performing Organization Address [facility] de Phone Number DOUGLAS RICECH [address] [facility] [place] [address] * Cell count w/rflx diff, body fluid (09/22/2024 3:38 PM AUTOMOBILE ACCESSORIES SALESPERSON) Specimen type, fld Synovial Color, fld Yellow [...] revised on 2019. RBC, fld 2,000 /cumm DOUGLAS SANDERS Fluid 09/22/2024 3:38 PM AUTOMOBILE ACCESSORIES SALESPERSON 09/22/2024 3:50 PM AUTOMOBILE ACCESSORIES SALESPERSON us Danielle RAI LAB BODY FLUIDS AND STOOL S ORDERABLES Final Result DOUGLAS SANDERS [address] [facility] Department [place] [address] * (ABNORMAL) Aerobic and anaerobic culture and gram stain Synovial fluid Knee, right (09/22/2024 3:38PM AUTOMOBILE ACCESSORIES SALESPERSON) Direct Specimen Exam Stain: No polymorphonuclear leukocytes seen. No organisms seen. Comment:Testing performed by : [facility], [address] [place] [address]., [address] Report Final Report: Light growth of: Staphylococcus aureus, methicillin susceptible Test result called to and read back by Shanelle Calabrese MT on 09/23/2024 13:14:51 by luis (.) DOUGLAS SANDERS Comment:Testing performed by : [facility], [address] [place] [address]., [address] Organism STAPHYLOCOCCUS AUREUS, METHICILLIN SUSCEPTIBLE DOUGLAS SANDERS Synovial fluid (Knee, right) 09/22/2024 3:38 PM AUTOMOBILE ACCESSORIES SALESPERSON 09/22/2024 4:49 PM AUTOMOBILE ACCESSORIES SALESPERSON Narrative DOUGLAS SANDERS - 09/27/2024 2:41 PM AUTOMOBILE ACCESSORIES SALESPERSON Critical result called to and read back by Chayo TREJO) on 09/23/2024 13:17:27 AUTOMOBILE ACCESSORIES SALESPERSON by [id number]. Organism Antibiotic Method Susceptibility Staphylococcus aureus, methicillin [...] L ORDERABLES Final Result Performing Organization Address [facility] Co de Phone Number DOUGLAS RICECH [address] [place] [address] * Blood culture Blood (09/22/2024 3:38 PM AUTOMOBILE ACCESSORIES SALESPERSON) Report Final Report: No growth Comment:Testing performed by : [facility], [facility], [place]., [address] Blood 09/22/2024 3:38 PM AUTOMOBILE ACCESSORIES SALESPERSON 09/22/2024 4:48 PM AUTOMOBILE ACCESSORIES SALESPERSON Narrative DOUGLAS PETERCH - 09/28/2024 7:01 AM AUTOMOBILE ACCESSORIES SALESPERSON Collection->Peripheral Interpretive Data 1. Blood cultures are incubated and monitored continuously for 5 days (120 hours). The first negative report is issued within 24 hours of receipt in the laboratory. 2. All positive cultures are resulted and called to physicians/care providers as soon as they are detected. 3. A rapid molecular test for organism identification may be performed using the [facility] Blood Culture Identification panel. This assay detects microbial DNA in a blood culture broth. This assay has been cleared by the [place] Food and Drug Administration and its performance characteristics have been verified by the [facility] Microbiology Laboratory. Interpretive data was last revised on September 24, 2022. Danielle RAI LAB MICROBIOLOGY - GENERA L ORDERABLES Final Result Performing Organization Address [facility] Co de Phone Number DOUGLAS [facility] [address] [facility]. [facility] [place] [address] * Sepsis Lactate w/ Reflex (09/22/2024 3:17 PM AUTOMOBILE ACCESSORIES SALESPERSON) Sepsis Lactate 0.7 0.7 - 2.0 mmol/L Blood 09/22/2024 3:17 PM AUTOMOBILE ACCESSORIES SALESPERSON 09/22/2024 3:20 PM AUTOMOBILE ACCESSORIES SALESPERSON Danielle RAI LAB BLOOD ORDERABLES Jasmin l Result Performing Organization Address [facility] Co de Phone Number [facility] [address] [address] [employer] [place] [address] * Blood culture Blood (09/22/2024 3:17 PM AUTOMOBILE ACCESSORIES SALESPERSON) Report Final Report: No growth Comment:Testing performed by : [facility], [facility], [place]., [address] Blood 09/22/2024 3:17 PM AUTOMOBILE ACCESSORIES SALESPERSON 09/24/2024 9:33 AM AUTOMOBILE ACCESSORIES SALESPERSON Narrative CORINEROSAS RICEDavieREBECA - 09/29/2024 1:00 PM AUTOMOBILE ACCESSORIES SALESPERSON BCx x 2 peripheral Collection->Peripheral Interpretive Data [...] organism identification may be performed using the [facility] Blood Culture Identification panel. This assay detects microbial DNA in a blood culture broth. This assay has been cleared by the [place] Food and Drug Administration and its performance characteristics have been verified by the [facility] Microbiology Laboratory. Interpretive data was last revised on September 24, 2022. Danielle RAI LAB MICROBIOLOGY - GENERA L ORDERABLES Final Result Performing Organization Address [facility] Co de Phone Number DOUGLAS RICEWCH [address] [address] * eGFR (09/22/2024 2:59 PM AUTOMOBILE ACCESSORIES SALESPERSON) eGFR >90 >=60 mL/min/1. 73 m2 Comment: [...] of Race in Diagnosing Kidney Disease, JASN 202). The CKD-EPI equation should not be used for patients with unstable renal function and has not been validated in children and those over 70. Current interpretive data was last reviewed 2021. Blood 09/22/2024 2:59 PM AUTOMOBILE ACCESSORIES SALESPERSON 09/22/2024 3:03 PM AUTOMOBILE ACCESSORIES SALESPERSON Danielle RAI LAB BLOOD ORDERABLES Jasmin hickman Result [facility] [address] [facility]. [place] [address] * (ABNORMAL) Differential, auto (09/22/2024 2:59 PM AUTOMOBILE ACCESSORIES SALESPERSON) Neutrophil abs 7.9(H) 1.5 - 6.5 K/cumm [...] revised on 2017. Lymphocyte pct 16.4 % DOUGLAS PETER Comment: Interpretive Data Percent cell count reference ranges are not reported, since discordance with absolute values may lead to misinterpretation of CBC data. Current Interpretive Data was last revised on 2017. Monocyte pct 10.0 % DOUGLAS SANDERS Comment: Interpretive Data Percent cell count reference ranges are not reported, since discordance with absolute values may lead to misinterpretation of CBC data. Current Interpretive Data was last revised on 2017. Eosinophil pct 1.0 % DOUGLAS SANDERS Comment: Interpretive Data Percent cell count reference ranges are not reported, since discordance with absolute values may lead to misinterpretation of CBC data. Current Interpretive Data was last revised on 2017. Basophil pct 1.0 % DOUGLAS SANDERS Comment: Interpretive Data Percent cell count reference ranges are not reported, since discordance with absolute values may lead to misinterpretation of CBC data. Current Interpretive Data was last revised on 2017. Blood 09/22/2024 2:59 PM AUTOMOBILE ACCESSORIES SALESPERSON 09/22/2024 3:03 PM AUTOMOBILE ACCESSORIES SALESPERSON Danielle RAI LAB BLOOD ORDERABLES Jasmin l Result Performing Organization Address [facility] Co de Phone Number [facility] [address] [address] [employer] Department [place] [address] * ABO / Rh Confirmation Testing (09/22/2024 2:59 PM AUTOMOBILE ACCESSORIES SALESPERSON) Pathologist [facility] ABO/Rh Confirmation O Negative [facility] Blood 09/22/2024 2:59 PM AUTOMOBILE ACCESSORIES SALESPERSON 09/22/2024 6:19 PM AUTOMOBILE ACCESSORIES SALESPERSON Danielel RAI LAB BLOOD ORDERABLES Jasmin l Result Performing Organization Address City/[facility]/ZIP Co de Phone Number [facility] [address] [address]. [facility] [place] [address] [facility] * Basic metabolic panel, serum (09/22/2024 2:59 PM AUTOMOBILE ACCESSORIES SALESPERSON) Pathologist [facility] Sodium 138 135 - 145 mmol/L Potassium, sr 3.6 3.6 - 5.2 mmol/L [facility] Chloride 101 97 - 110 mmol/L [facility] CO2 26 22 - 32 mmol/L [facility] Anion gap 11 2 - 15 mmol/L [facility] 17 6 - 25 mg/dL [facility] Creatinine 0.74 0.60 - 1.10 mg/dL [facility] Glucose 94 70 - 199 mg/dL [facility] Comment: Interpretive Data Fasting glucose >/= 126 [...] 2022. Calcium 9.4 8.5 - 10.3 mg/dL [facility] Blood 09/22/2024 2:59 PM AUTOMOBILE ACCESSORIES SALESPERSON 09/22/2024 3:03 PM AUTOMOBILE ACCESSORIES SALESPERSON Danielle RAI LAB BLOOD ORDERABLES Jasmin hickman Result [facility] [address] [facility] Department [place] [address] * (ABNORMAL) CBC with auto differential (09/22/2024 2:59 PM AUTOMOBILE ACCESSORIES SALESPERSON) [facility] WBC 11.0(H) 3.8 - 9.9 K/cumm Hgb 10.1(L) 11.9 - 15.5 g/dL [facility] Hct 31.0(L) 35.6 - 45.5 % [facility] Plt 292 150 - 400 K/cumm [facility] MPV 9.4 9.1 - 12.3 fL [facility] RBC 3.52(L) 3.90 - 5.20 M/cumm [facility] MCV 88.1 81.3 - 96.4 fL DOUGLAS RICEW MCH 28.7 27.1 - 33.3 pg DOUGLAS RICEWCH MCHC 32.6 32.3 - 35.7 g/dL DOUGLAS [facility] RDW CV 14.3 11.1 - 14.9 % DOUGLAS [facility] RDW SD 45.4 35.7 - 48.1 fL DOUGLAS RICEW NRBC abs 0.00 0.00 - 0.01 K/cumm DOUGLAS BJW Blood 09/22/2024 2:59 PM AUTOMOBILE ACCESSORIES SALESPERSON 09/22/2024 3:03 PM AUTOMOBILE ACCESSORIES SALESPERSON Danielle RAI LAB BLOOD ORDERABLES Jasmin l Result Performing Organization Address [facility] Co de Phone Number [facility] [address] [facility] [place] [address] * Erythrocyte sedimentation rate (09/22/2024 2:59 PM AUTOMOBILE ACCESSORIES SALESPERSON) Erythrocyte sedimentation rate 14 1 - 30 mm/hr Blood 09/22/2024 2:59 PM AUTOMOBILE ACCESSORIES SALESPERSON 09/22/2024 3:03 PM AUTOMOBILE ACCESSORIES SALESPERSON Danielle RAI LAB BLOOD ORDERABLES Jasmin l Result Performing Organization Address [facility] Co de Phone Number [facility] [address] [address] [facility] [place] [address] * (ABNORMAL) CRP (acute phase) (09/22/2024 2:59 PM AUTOMOBILE ACCESSORIES SALESPERSON) CRP 84.1(H) <=10.0 mg/L Blood 09/22/2024 2:59 PM AUTOMOBILE ACCESSORIES SALESPERSON 09/22/2024 3:03 PM AUTOMOBILE ACCESSORIES SALESPERSON Danielle RAI LAB BLOOD ORDERABLES Jasmin l Result Performing Organization Address City/[facility] Co de Phone Number [facility] [address] [address] [place] [address] * XR Knee Right 3 Views (09/22/2024 2:55 PM AUTOMOBILE ACCESSORIES SALESPERSON) Anatomical Region Laterality Modality Lower Extremities, Knee Right Computed Radiography 09/22/2024 3:30 PM AUTOMOBILE ACCESSORIES SALESPERSON Impressions 09/22/2024 3:41 PM AUTOMOBILE ACCESSORIES SALESPERSON 1. Large right knee joint effusion. 2. Unchanged right total knee arthroplasty without radiographic evidence of loosening. Dictated by: Manuel Gonzalez MD The radiology attending physician has personally reviewed this study, and had reviewed and/or edited this written report and agrees with it. Electronically signed by: Hector Gabriel D.O. Narrative 09/22/2024 3:41 PM AUTOMOBILE ACCESSORIES SALESPERSON EXAMINATION: XR KNEE RIGHT 3 VIEWS HISTORY: [...] it. Electronically signed by: Hector Gabriel D.O. Danielle RAI IMG XR PROCEDURES Final R esult * Hepatitis panel, acute (05/18/2019 5:29 AM CDT) HepBsAg NONREACT NONREACTIVE [facility] Comment: [employer]aur[employer] using JAIMIE (chemiluminescent immunoassay) technology. NONREACTIVE: IgM antibodies to Hepatitis B Surface antigen not detected. REACTIVE: IgM antibodies to Hepatitis B Surface antigen detected. Reactive results will be confirmed by neutralization testing. HBsAb qn 268.00 mIU/mL [facility] Comment: [employer] CentaurXP using JAIMIE (chemiluminescent immunoassay) technology. 9.99 IU/L or less.....NONREACTIVE: IgM antibodies to Hepatitis B Surface antibody are not detected. 10.00 IU/L or greater..REACTIVE: IgM antibodies to Hepatitis B Surface antibody are detected. Hep B core IgM NONREACT NONREACTIVE [facility] Comment: Siemens CentaurXP using JAIMIE (chemiluminescent immunoassay) technology. NONREACTIVE: IgM antibodies to Hepatitis B Core antigen not detected. EQUIVOCAL: IgM antibodies to Hepatitis B Core antigen may or may not be present. Obtain a new specimen and retest. REACTIVE: IgM antibodies to Hepatitis B Core antigen detected. Hep A IgM NONREACT NONREACTIVE [facility] Comment: [employer] CentaurXP using JAIMIE (chemiluminescent immunoassay) technology. NONREACTIVE: IgM antibodies to Hepatitis A not detected. This does not exclude possibility of exposure to Hepatitis A or early acute infection. EQUIVOCAL:IgM antibodies to Hepatitis A may or may not be present. Suggest recollection and retest. REACTIVE: Antibodies to Hepatitis A detected. Hep C Ab NONREACT NONREACTIVE [facility] Comment: [employer] CentaurXP using JAIMIE (chemiluminescent immunoassay) [...] AM CDT Narrative Resulting Agency Comment IN us Mynor Navarro MD LAB MICROBIOLOGY - [facility] ORDERABLES Final Result [id number] [place] [address] from Last 3 Months or Most Recently Relevant to Health Maintenance Insurance [facility] CHOICE PLUS [facility] MEDICARE ADVANTAGE [facility] MED[facility] ADV[facility]AGE Advance Directives For more information, please contact: [phone] * Full Code (Latest Code Status on [...] 8:43 AM 04/21/2021 10:18 PM Care Teams Pump Erector Relationship Specialty Start Date End Date Christina Avendaño MD [address] [facility] [address] [place] [address] PCP - General Internal Medicine 05/07/20 Radha Curiel MD [address] [facility] [address] [place] [address] 05/07/20 Xander Richmond MD [address] [address] Consulting Physician General Surgery 04/06/21
--- OUTSIDE RECORDS SUMMARY | 2024-12-13 09:27 | XMS_ITS | Encounter Summary ---
Author Organization [facility] Address [address] [place] [address] Care Team Providers Care Syrup Maker Cook Name Role Phone Christina Avendaño MD Primary Care Provider [phone] Encounter Details Date Type Department Care Team [...] on file Legal Sex Female 4:13 AM MAPPING ENGINEER Gender Identity Not on file Sexual Orientation Not on file COVID-19 Exposure Response Date Recorded In the last month, have you been in contact with someone who was confirmed or suspected to have Coronavirus / COVID-19? Unable to assess 09/02/2021 12:36 PM MAPPING ENGINEER documented as of this encounter Plan of Treatment Upcoming Encounters Date Type Department Care Team ([facility] Contact Info) Description 12/27/2024 9:30 AM CDT Office Visit [facility] Internal Medicine Medical [place] [facility] [address] [facility] [address] [address] Christina Avendaño MD [address] [facility] [address] [place] [address] 08/13/2025 1:00 PM MAPPING ENGINEER Appointment [facility] Steven Simon [address] [place] [address] Ewa Nicholson, BREAKFAST AND ROOM ATTENDANT [address] [facility] [address] [place] [address] 08/13/2025 1:45 PM MAPPING ENGINEER Office Visit [facility] Breast Surgery Steven [place] [address] [place] [address] Ewa Nicholson, BREAKFAST AND ROOM ATTENDANT [address] [facility] [address] [place] [address] documented as of this encounter Visit Diagnoses Not on filedocumented in this encounter Additional Health Concerns Infection Onset Date Last Indicated Resolved Time COVID-19 08/25/2021 08/25/2021 09/14/2021 1:18 AM MAPPING ENGINEER documented as of this encounter Care Teams Syrup Maker Cook Relationship Specialty Start Date End Date Christina Avendaño MD [address] [facility] [address] [place] [address] PCP - General Internal Medicine 06/24/18 documented as of this encounter
--- OUTSIDE RECORDS SUMMARY | 2024-12-13 09:27 | XMS_ITS | Encounter Summary ---
Author Organization [facility] Address [address] [place] [address] Care Team Providers Care Kindergartner Name Role Phone Christina Avendaño MD Primary Care Provider [phone] Encounter Details Date Type Department Care Team [...] file Legal Sex Female 4:13 AM SUPERVISOR TANK CLEANING Gender Identity Not on file Sexual Orientation Not on file COVID-19 Exposure Response Date Recorded In the last month, have you been in contact with someone who was confirmed or suspected to have Coronavirus / COVID-19? Unable to assess 09/02/2021 12:36 PM SUPERVISOR TANK CLEANING documented as of this encounter Plan of Treatment Upcoming Encounters Date Type Department Care Team ([facility] Contact Info) Description 12/27/2024 9:30 AM CDT Office Visit [facility] Internal Medicine Medical [place] A [facility] [address] [facility] [address] [address] Christina Avendaño MD [address] [facility] [address] [place] [address] 08/13/2025 1:00 PM SUPERVISOR TANK CLEANING Appointment [facility] Steven Simon [address] [place] [address] Ewa Nicholson, GEODETIC SURVEY DIRECTOR [address] [facility] [address] [place] [address] 08/13/2025 1:45 PM SUPERVISOR TANK CLEANING Office Visit [facility] Breast Surgery Steven [place] [address] [place] [address] Ewa Nicholson, GEODETIC SURVEY DIRECTOR [address] [facility] [address] [place] [address] documented as of this encounter Visit Diagnoses Not on filedocumented in this encounter Additional Health Concerns Infection Onset Date Last Indicated Resolved Time COVID-19 08/25/2021 08/25/2021 09/14/2021 1:18 AM SUPERVISOR TANK CLEANING documented as of this encounter Care Teams Kindergartner Relationship Specialty Start Date End Date Christina Avendaño MD [address] [facility] [address] [place] [address] PCP - General Internal Medicine 06/24/18 documented as of this encounter
--- OUTSIDE RECORDS SUMMARY | 2024-12-13 09:27 | XMS_ITS | Encounter Summary ---
Author Organization [facility] Address [address] [place] [address] Care Team Providers Care Line Installation Supervisor Name Role Phone Christina Avendaño MD Primary Care Provider [phone] Encounter Details Date Type Department Care Team (Late Contact Info) Description 09/07/2021 Digital Self COVID-1 9 Monitoring [facility] ABSTRACTION [...] on file Legal Sex Female 4:13 AM SHOE SHANKER Gender Identity Not on file Sexual Orientation Not on file COVID-19 Exposure Response Date Recorded In the last month, have you been in contact with someone who was confirmed or suspected to have Coronavirus / COVID-19? Unable to assess 09/02/2021 12:36 PM SHOE SHANKER documented as of this encounter Plan of Treatment Upcoming Encounters Date Type Department Care Team ([facility] Contact Info) Description 12/27/2024 9:30 AM CDT Office Visit [facility] Internal Medicine Medical [place] A [facility] [address] [facility] [address] [address] Christina Avendaño MD [address] [facility] [address] [place] [address] 08/13/2025 1:00 PM SHOE SHANKER Appointment [facility] Steven Simon [address] [place] [address] Ewa Nicholson, IS/IT PROJECT MANAGER [address] [facility] [address] [place] [address] 08/13/2025 1:45 PM SHOE SHANKER Office Visit [facility] Breast Surgery Steven [place] [address] [place] [address] Ewa Nicholson, IS/IT PROJECT MANAGER [address] [facility] [address] [place] [address] documented as of this encounter Visit Diagnoses Not on filedocumented in this encounter Additional Health Concerns Infection Onset Date Last Indicated Resolved Time COVID-19 08/25/2021 08/25/2021 09/14/2021 1:18 AM SHOE SHANKER documented as of this encounter Care Teams Line Installation Supervisor Relationship Specialty Start Date End Date Christina Avendaño MD [address] [facility] [address] [place] [address] PCP - General Internal Medicine 06/24/18 documented as of this encounter
--- OUTSIDE RECORDS SUMMARY | 2024-12-13 09:27 | XMS_ITS | Encounter Summary ---
Author Organization [facility] Address [address] [place] [address] Care Team Providers Care Turntable Engineer Name Role Phone Christina Avendaño MD Primary Care Provider [phone] Encounter Details Date Type Department Care Team [...] on file Legal Sex Female 4:13 AM PACKAGER MACHINE Gender Identity Not on file Sexual Orientation Not on file COVID-19 Exposure Response Date Recorded In the last month, have you been in contact with someone who was confirmed or suspected to have Coronavirus / COVID-19? Unable to assess 09/02/2021 12:36 PM PACKAGER MACHINE documented as of this encounter Plan of Treatment Upcoming Encounters Date Type Department Care Team ([facility] Contact Info) Description 12/27/2024 9:30 AM CDT Office Visit [facility] Internal Medicine Medical [place] A [facility] [address] [facility] [address] [address] Christina Avendaño MD [address] [facility] [address] [place] [address] 08/13/2025 1:00 PM PACKAGER MACHINE Appointment [facility] Steven Simon [address] [place] [address] Ewa Nicholson, CONTENT CURATOR [address] [facility] [address] [place] [address] 08/13/2025 1:45 PM PACKAGER MACHINE Office Visit [facility] Breast Surgery Steven [place] [address] [place] [address] Ewa Nicholson, CONTENT CURATOR [address] [facility] [address] [place] [address] documented as of this encounter Visit Diagnoses Not on filedocumented in this encounter Additional Health Concerns Infection Onset Date Last Indicated Resolved Time COVID-19 08/25/2021 08/25/2021 09/14/2021 1:18 AM PACKAGER MACHINE documented as of this encounter Care Teams Turntable Engineer Relationship Specialty Start Date End Date Christina Avendaño MD [address] [facility] [address] [place] [address] PCP - General Internal Medicine 06/24/18 documented as of this encounter
--- OUTSIDE RECORDS SUMMARY | 2024-12-13 09:27 | XMS_ITS | Encounter Summary ---
Author Organization [facility] Address [address] [place] [address] Care Team Providers Care Physician Relations Representative Name Role Phone Christina Avendaño MD Primary Care Provider [phone] Encounter Details Date Type Department Care Team (Late Contact Info) Description 09/06/2021 Digital Self COVID-1 9 Monitoring [facility] ABSTRACTION [...] on file Legal Sex Female 4:13 AM FLOAT BUILDER Gender Identity Not on file Sexual Orientation Not on file COVID-19 Exposure Response Date Recorded In the last month, have you been in contact with someone who was confirmed or suspected to have Coronavirus / COVID-19? Unable to assess 09/02/2021 12:36 PM FLOAT BUILDER documented as of this encounter Plan of Treatment Upcoming Encounters Date Type Department Care Team ([facility] Contact Info) Description 12/27/2024 9:30 AM CDT Office Visit [facility] Internal Medicine Medical [place] A [facility] [address] [facility] [address] [address] Christina Avendaño MD [address] [facility] [address] [place] [address] 08/13/2025 1:00 PM FLOAT BUILDER Appointment [facility] Steven Simon [address] [place] [address] Ewa Nicholson, ASSOCIATE PROFESSOR OF MUSICOLOGY [address] [facility] [address] [place] [address] 08/13/2025 1:45 PM FLOAT BUILDER Office Visit [facility] Breast Surgery Steven [place] [address] [place] [address] Ewa Nicholson, ASSOCIATE PROFESSOR OF MUSICOLOGY [address] [facility] [address] [place] [address] documented as of this encounter Visit Diagnoses Not on filedocumented in this encounter Additional Health Concerns Infection Onset Date Last Indicated Resolved Time COVID-19 08/25/2021 08/25/2021 09/14/2021 1:18 AM FLOAT BUILDER documented as of this encounter Care Teams Physician Relations Representative Relationship Specialty Start Date End Date Christina Avendaño MD [address] [facility] [address] [place] [address] PCP - General Internal Medicine 06/24/18 documented as of this encounter
--- OUTSIDE RECORDS SUMMARY | 2024-12-13 09:27 | XMS_ITS | Encounter Summary ---
Author Organization [facility] Address [address] [place] [address] Care Team Providers Care Baker Paint Name Role Phone Christina Avendaño MD Primary Care Provider [phone] Encounter Details Date Type Department Care Team [...] COVID-19? Unable to assess 09/02/2021 12:36 PM INSTRUCTIONAL MATERIAL DIRECTOR documented as of this encounter Plan of Treatment Upcoming Encounters Date Type Department Care Team ([facility] Contact Info) Description 12/27/2024 9:30 AM CDT Office Visit [facility] Internal Medicine Medical [place] A [facility] [address] [facility] [address] [address] Christina Avendaño MD [address] [facility] [address] [place] [address] 08/13/2025 1:00 PM INSTRUCTIONAL MATERIAL DIRECTOR Appointment [facility] Steven Simon [address] [place] [address] Ewa Nicholson, TRANSPORTATION DRIVER [address] [facility] [address] [place] [address] 08/13/2025 1:45 PM INSTRUCTIONAL MATERIAL DIRECTOR Office Visit [facility] Breast Surgery Steven [place] [address] [place] [address] Ewa Nicholson, TRANSPORTATION DRIVER [address] [facility] [address] [place] [address] documented as of this encounter Visit Diagnoses Not on filedocumented in this encounter Additional Health Concerns Infection Onset Date Last Indicated Resolved Time COVID-19 08/25/2021 08/25/2021 09/14/2021 1:18 AM INSTRUCTIONAL MATERIAL DIRECTOR documented as of this encounter Care Teams Baker Paint Relationship Specialty Start Date End Date Christina Avendaño MD [address] [facility] [address] [place] [address] PCP - General Internal Medicine 06/24/18 documented as of this encounter
--- OUTSIDE RECORDS SUMMARY | 2024-12-13 09:27 | XMS_ITS | Patient Health Record ---
Author Organization [facility] Address [address] [place], [place] [id number] Care Team Providers Care Steel Rule Inspector Name Role Phone EMILIO NEWMAN, GENESIS Primary Care Provider Unavail able Ludwig Miramontes Unavailable [phone] Law Ward MD Unavailable Unavailable Cristina Church Unavailable [phone] ALLERGIES Allergen (clinical drug ingredient) Drug/Non Drug Allergy documented on EMR Reaction Allergy Type Onset Date Status Compazine Unknown Drug Allergy Active RESULTS Component Value Reference Range Notes AST (SGOT) Reviewed date:07/04/2024 03:59:03 PM Interpretation: Performing Lab:[facility], [address] [place] [address], Phone - [phone], [facility] - [facility] Notes/Report: AST (SGOT) 26 0-40 IU/L Creatinine, Serum Reviewed date:07/04/2024 03:59:03 PM Interpretation: Performing Lab:[facility], [address] [facility], Phone - [phone], Director - [facility] Notes/Report: Creatinine 0.70 0.57-1.00 mg/dL eGFR 103 >59 mL/min/1.73 ALT (SGPT) Reviewed date:07/04/2024 03:59:03 PM Interpretation: Performing Lab:[facility], [address] [facility], Phone - [phone], Director - [facility] Notes/Report: ALT (SGPT) 31 0-32 IU/L CBC With Differential/Platel et Reviewed date:07/04/2024 03:59:03 PM Interpretation: Performing Lab:[facility] [address] [place] [address], Phone - [phone], Director - [facility] Notes/Report: WBC 5.6 3.4-10.8 x10E3/uL RBC 3.87 3.77-5.28 x10E6/uL Hemoglobin 12.2 11.1-15.9 g/dL Hematocrit 35.8 34.0-46.6 % MCV 93 79-97 fL MCH 31.5 26.6-33.0 pg MCHC 34.1 31.5-35.7 g/dL RDW 14.6 11.7-15.4 % Platelets 286 150-450 x10E3/uL Neutrophils 63 Not Estab. % Lymphs 25 Not Estab. % Monocytes 6 Not Estab. % Eos 3 Not Estab. % Basos 3 Not Estab. % Immature Cells Neutrophils (Absolute) 3.5 1.4-7.0 x10E3/uL Lymphs (Absolute) 1.4 0.7-3.1 x10E3/uL Monocytes(Absolute) 0.4 0.1-0.9 x10E3/uL Eos (Absolute) 0.1 0.0-0.4 x10E3/uL Baso (Absolute) 0.1 0.0-0.2 x10E3/uL Immature Granulocytes 0 Not Estab. % Immature Grans (Abs) 0.0 0.0-0.1 x10E3/uL NRBC Hematology Comments: Sed Rate - Westergren Reviewed date:07/04/2024 03:59:03 PM Interpretation: Performing Lab:[facility] [address] [place] [address], Phone - [phone], Director - [facility] Notes/Report: Sedimentation Rate-Westergren 2 0-40 mm/hr C-Reactive Protein, Quant Reviewed date:07/04/2024 03:59:03 PM Interpretation: Performing Lab:[facility] [address] [place] [address], Phone - [phone], Director - [facility] Notes/Report: C-Reactive Protein, Quant <1 0-10 mg/L REASON FOR REFERRAL No Information MEDICATIONS Medication SIG (Take, Route, Frequency, Duration) Notes Start Date End Date Status Acetaminophen-Hydrocodone Bitartrate 325 mg-5 mg 1 tab(s) orally DO NOT FILL UNTIL 08-04-2024 3 times a day as needed for 30 days 12/04/2024 Active Plaquenil 200 mg 1 tab(s) orally 2 times a day for 90 days Active Effexor XR 75 mg 1 cap(s) orally once a day Active Vyvanse 50 mg 1 cap(s) orally once a day (in the morning) Active clobetasol topical 0.05% 1 miguel angel applied topically 2 times a day Active lisinopril 40 mg 1 tab(s) orally once a day Active montelukast 10 mg 1 tab(s) orally once a day Active buPROPion 150 mg/12 hours 1 tab(s) orall y 2 times a day Active Magnesium orally once a day Ac tive Vitamin D2 50,000 intl units TAKE 1 CAPS ULE BY MOUTH WEEKLY Active gabapentin 600 mg 1 cap(s) orally qid Active potassium chloride 10 mEq 1 cap(s) orally daily Active hydroCHLOROthiazide 25 mg 1 tab(s) orall y once a day Active Synthroid Active zolpidem 6.25 mg 1 tab(s) orally once a day (at bedtime) Active predniSONE 5 mg 6 tablets for 1 day, decrease by 1 tablet every day orally once a day for 6 days 07/03/2024 Active SOCIAL HISTORY Tobacco Use: Social History Observation Description Date Details (start date - stop date) Never Smoker NA - NA Sex Assigned At : Social History Observation Description Sex Assigned At Unknown Tobacco Use: Question Answer Notes Smoking Status nonsmoker PROBLEMS Problem Type ICD Code Onset Dates Problem Status W/U Status Risk SNOMED Code Notes Problem Other vermin exterminator (current) drug therapy (Z79.899) Active confirmed 603631702 Problem Vitamin D deficiency (E55.9) Active confirmed Vitamin D deficiency (50696439) Problem Myalgia (M79.1) Active confirmed 836578 01 Problem 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 confirmed 701655232 Problem Primary generalized (osteo)arthritis (M15.0) Active confirmed 454811599 Problem Never smoked cigarettes (Z78.9) Active confirmed 397678928 Problem MCTD (mixed connective tissue disease) (M35.1) Active confirmed 098865457 VITAL SIGNS Heart Rate 86 /min 11/03/2024 Blood pressure diastolic 69 mm Hg 11/03/2024 Height 66 in 11/03/2024 Blood pressure systolic 124 mm Hg 11/03/2024 Weight 183 lbs 11/03/2024 BMI 29.53 kg/m2 11/03/2024 Encounters Encounter Location Date Provider Diagnosis [facility] [address], [facility] [address] [place], [place] [phone] 02/02/2024 Cristina Church MCTD (mixed connective tissue disease) M35.1 ; Primary generalized (osteo)arthritis M15.0 and Other vermin exterminator (current) drug therapy Z79.899 [facility] [address], [address] [id number] 07/03/2024 Akchristopher Kulwinder MCTD (mixed connective tissue disease) M35.1 and Other snf (current) drug therapy Z79.899 [facility] [address], [address] [id number] 11/03/2024 Cristina Church Primary generalized (osteo)arthritis M15.0 ; MCTD (mixed connective tissue disease) M35.1 and Other vermin exterminator (current) drug therapy Z79.899 [facility] [address], [address] [id number] 01/07/2024 Ludwig Miramontes [facility] [address], [address] [id number] 01/07/2024 Ludwig Miramontes [facility] [address], [address] [id number] 02/07/2024 Akgun Kulwinder [facility] [address], [address] [id number] 02/07/2024 Akgun Kulwinder Primary generalized (osteo)arthritis M15.0 [facility] [address], [address] [id number] 03/08/2024 Akgun Kulwinder Primary generalized (osteo)arthritis M15.0 [facility] [address], [address] [id number] 04/07/2024 Akgun Kulwinder Primary generalized (osteo)arthritis M15.0 [facility] [address] [place] [address], [address] [id number] 05/08/2024 Akgun Kulwinder Primary generalized (osteo)arthritis M15.0 [facility] [address] [place] [id number] 06/07/2024 Akgun Kulwinder Primary generalized (osteo)arthritis M15.0 [facility] [address] [place] [id number] 07/03/2024 Akgun Kulwinder [facility] [address] [place] [id number] 07/06/2024 Akgun Kulwinder MCTD (mixed connective tissue disease) M35.1 [facility] [address] [place] [id number] 08/03/2024 Akgun Kulwinder MCTD (mixed connective tissue disease) M35.1 [facility] [address] [place] [id number] 09/04/2024 Akgun Kulwinder MCTD (mixed connective tissue disease) M35.1 [facility] [address] [place] [id number] 10/06/2024 Akgun Kulwinder MCTD (mixed connective tissue disease) M35.1 [facility] [address] [place] [id number] 11/02/2024 Akgun Kulwinder MCTD (mixed connective tissue disease) M35.1 [facility] [address] [place] [address], [address] [id number] 12/01/2024 Akgun Kulwinder Primary generalized (osteo)arthritis M15.0 ASSESSMENTS Encounter Date Diagnosis Assessment Notes Treatment Notes Treatment Clinical Notes 02/02/2024 Primary generalized (osteo)arthritis (ICD-10 - M15.0) 02/02/2024 MCTD (mixed connective tissue disease) (ICD-10 - M35.1) 07/03/2024 Other snf (current) drug therapy (ICD-10 - Z79.899) 07/03/2024 MCTD (mixed connective tissue disease) (ICD-10 - M35.1) 11/03/2024 Primary generalized (osteo)arthritis (ICD-10 - M15.0) 11/03/2024 MCTD (mixed connective tissue disease) (ICD-10 - M35.1) 02/07/2024 Primary generalized (osteo)arthritis (ICD-10 - M15.0) 03/08/2024 Primary generalized (osteo)arthritis (ICD-10 - M15.0) 04/07/2024 Primary generalized (osteo)arthritis (ICD-10 - M15.0) 05/08/2024 Primary generalized (osteo)arthritis (ICD-10 - M15.0) 06/07/2024 Primary generalized (osteo)arthritis (ICD-10 - M15.0) 07/06/2024 MCTD (mixed connective tissue disease) (ICD-10 - M35.1) 08/03/2024 MCTD (mixed connective tissue disease) (ICD-10 - M35.1) 09/04/2024 MCTD (mixed connective tissue disease) (ICD-10 - M35.1) 10/06/2024 MCTD (mixed connective tissue disease) (ICD-10 - M35.1) 11/02/2024 MCTD (mixed connective tissue disease) (ICD-10 - M35.1) 12/01/2024 Primary generalized (osteo)arthritis (ICD-10 - M15.0) 02/02/2024 Other vermin exterminator (current) drug therapy (ICD-10 - Z79.899) 11/03/2024 Other snf (current) drug therapy (ICD-10 - Z79.899) PLAN OF TREATMENT Pending Test Test Name Order Date AST (SGOT) 04/14/2023 Creatinine, Serum 04/14/2023 ALT (SGPT) 04/14/2023 Complement C4, Serum 04/14/2023 Complement C4, Serum 10/31/2021 CBC With Differential/Platelet Sed Rate - Westergren 04/14/2023 Complement C3, Serum 10/31/2021 Complement C3, Serum 04/14/2023 C-Reactive Protein, Quant 04/14/2023 HOWARD Panel (HOWARD+CASSIE+Scl 70+SjoSSA+SjoSSB) 04/14/2023 Joint Injection - shoulder, left 018 X ray : SI joints- outside order 017 Inj-Toradol 04/14/2023 Inj-Toradol 05/24/2020 Eye exam - Plaquenil 03/17/2017 injection Toradol 60mg IM 01/10/2020 injection Toradol 60mg IM 08/11/2023 X ray : Foot Left- outside order 023 Lab slip given 09/24/2020 lab slip given 04/23/2017 lab slip given 03/11/2018 lab slip given 07/23/2017 lab slip given 03/12/2017 lab slip given 07/12/2018 lab slip given 09/12/2019 lab slip given 11/26/2017 -Xray slip given 03/12/2017 -Xray slip given 08/11/2023 CBC WITH DIFFERENTIAL 07/23/2017 CBC WITH DIFFERENTIAL 09/12/2019 AST 07/23/2017 AST 09/12/2019 ALT 09/12/2019 ALT 07/23/2017 C-REACTIVE PROTEIN 07/23/2017 URINALYSIS DIPSTICK ONLY 07/23/2017 SEDIMENTATION RATE 09/12/2019 SEDIMENTATION RATE 07/23/2017 CREATININE 09/12/2019 CREATININE 07/23/2017 DS DNA ANTIBODY, CRITHIDIA, IFA W/REFL Q UEST 04/14/2023 Next Appt Details Provider Name:Cristina Hughes , 03/02/2025 11:00:00 AM, [address] [facility], [address], [place], [place], [phone], Insurance Providers Payer Name Payer Address Payer Phone Subscriber Number Group Number Insured Name Patient Relationship to Insured Coverage Start Date Coverage End Date [facility] Medicare Advantage PPO [address] [address] [place] [address] [id number] Belinda Meeks Self - patient is the insured 4 MEDICAL (GENERAL) HISTORY Medical History History ICD Code bruises easily changes in moles sores that wont heal migraine headaches tension headaches vision flashes vision halos ringing in ears difficuly swallowing dizziness high blood pressure asthma heart murmur bloating bowel changes constipation diarrhea irritable bowel syndrome hemorrhoids nausea weight loss and gain lack of bladder control kidney stones abnormal PAP smear hot flashes anxiety depression mononucleosis herpes chicken pox Skin rash R21 Surgical History Surgery Date(Month/Year) knee replacement 02/2020 removed part of right jaw bone 12/2018 5 right knee meniscis hysterectomy tonsillectomy
--- OUTSIDE RECORDS SUMMARY | 2024-12-13 09:27 | XMS_ITS | Encounter Summary ---
Author Organization [facility] Address [address] [place] [address] Care Team Providers Care Bullet Assembly Press Setter Operator Name Role Phone Christina Avendaño MD Primary Care Provider [phone] Encounter Details Date Type Department Care Team [...] on file Legal Sex Female 4:13 AM DUMPER [employer] Gender Identity Not on file Sexual Orientation Not on file COVID-19 Exposure Response Date Recorded In the last month, have you been in contact with someone who was confirmed or suspected to have Coronavirus / COVID-19? Unable to assess 09/02/2021 12:36 PM [employer] documented as of this encounter Plan of Treatment Upcoming Encounters Date Type Department Care Team ([facility] Contact Info) Description 12/27/2024 9:30 AM CDT Office Visit [facility] Internal Medicine Medical [place] A [facility] [address] [facility] [address] [address] Christina Avendaño MD [address] [facility] [address] [place] [address] 08/13/2025 1:00 PM DU[employer]ER [employer]ANT Appointment [facility] [address] [place] [address] Ewa Nicholson, BOX COVERER HAND [address] [facility] [address] [place] [address] 08/13/2025 1:45 PM DU[employer] Office Visit [facility] Breast Surgery [place] [address] [place] [address] Ewa Nicholson, BOX COVERER HAND [address] [facility] [address] [place] [address] documented as of this encounter Visit Diagnoses Not on filedocumented in this encounter Additional Health Concerns Infection Onset Date Last Indicated Resolved Time COVID-19 08/25/2021 08/25/2021 09/14/2021 1:18 AM DUMPER [employer] documented as of this encounter Care Teams Bullet Assembly Press Setter Operator Relationship Specialty Start Date End Date Christina Avendaño MD [address] [facility] [address] [place] [address] PCP - General Internal Medicine 06/24/18 documented as of this encounter
--- OUTSIDE RECORDS SUMMARY | 2024-12-13 09:27 | XMS_ITS | Encounter Summary ---
Author Organization [facility] Address [address] [place] [address] Care Team Providers Care Calender Feeder Name Role Phone Christina Avendaño MD Primary Care Provider [phone] Encounter Details Date Type Department Care Team [...] on file Legal Sex Female 4:13 AM CIVIL PREPAREDNESS COORDINATOR Gender Identity Not on file Sexual Orientation Not on file COVID-19 Exposure Response Date Recorded In the last month, have you been in contact with someone who was confirmed or suspected to have Coronavirus / COVID-19? Unable to assess 09/02/2021 12:36 PM CIVIL PREPAREDNESS COORDINATOR documented as of this encounter Plan of Treatment Upcoming Encounters Date Type Department Care Team ([facility] Contact Info) Description 12/27/2024 9:30 AM CDT Office Visit [facility] Internal Medicine Medical [place] [facility] [address] [facility] [address] [address] Christina Avendaño MD [address] [facility] [address] [place] [address] 08/13/2025 1:00 PM CIVIL PREPAREDNESS COORDINATOR Appointment [facility] [address] [place] [address] Ewa Nicholson, [address] MAGISTRATE [address] [facility] [address] [place] [address] 08/13/2025 1:45 PM CIVIL PREPAREDNESS COORDINATOR Office Visit [facility] Breast Surgery [place] [address] [place] [address] Ewa Nicholson, [address] MAGISTRATE [address] [facility] [address] [place] [address] documented as of this encounter Visit Diagnoses Not on filedocumented in this encounter Additional Health Concerns Infection Onset Date Last Indicated Resolved Time COVID-19 08/25/2021 08/25/2021 09/14/2021 1:18 AM CIVIL PREPAREDNESS COORDINATOR documented as of this encounter Care Teams Calender Feeder Relationship Specialty Start Date End Date Christina Avendaño MD [address] [facility] [address] [place] [address] PCP - General Internal Medicine 06/24/18 documented as of this encounter
[2024-12-13] MEDS: KETOROLAC 30 MG/ML VIAL (*BKC) IV PUSH (09:56)
[2024-12-13] MEDS: LORazepam INJ (*CRX) 2 MG/ML VIAL 1 MG IV PUSH (11:42)
== END 2024-12-13 13:51 | disposition home or self-care (01) ==
PROVIDERS: Emergency Medicine; Emergency Provider Emergency Medicine
DX: N17.9 Acute kidney failure, unspecified (principal); M25.561 Pain in right knee; M19.90 Unspecified osteoarthritis, unspecified site; E03.9 Hypothyroidism, unspecified; I10 Essential (primary) hypertension; Q79.60 Ehlers-Danlos syndrome, unspecified; F32.A Depression, unspecified; J45.909 Unspecified asthma, uncomplicated
CPT/HCPCS: 36415; 73560; 80053; 83605; 85025; 96361; 96374; 96375; 96376; 99284; J1171; J1885; J2060; J2270; J2405; J7030